=== PATIENT | female | born 1980 | race African-American/Black ===

== ENCOUNTER 2020-03-30 12:37 | Outpatient (CLI) | payer MEDICAID, SELFPAY ==
[2020-03-30 13:22] LABS: Hematocrit 37.2 % (37.0-47.0); Hemoglobin 11.9 g/dL (12.0-15.0); Mean Corpuscular Hemoglobin 26.1 pg (26-34); Mean Corpuscular Volume 81.6 fl (80-100); Mean Platelet Volume 9.1 fl (7.4-10.4); Platelet Count Result 329 k/mm3 (150-375); Red Blood Count 4.56 M/mm3 (4.2-5.4); Red Cell Distribution Width 13.9 % (11.5-14.5); White Blood Count 10.9 K/mm3 (4.5-10.0)
[2020-03-31 07:40] LABS: Rapid Plasma Reagin Non-Reactive (NonReactive)
== END 2020-03-30 12:38 | disposition home or self-care (01) ==
PROVIDERS: PCP Family Medicine; Visit Provider Obstetrics & Gynecology
DX: Z01.812 Encounter for preprocedural laboratory examination (principal)
CPT/HCPCS: 36415; 85027; 86592; 86850; 86900; 86901

== ENCOUNTER 2020-03-31 05:25 | Inpatient (IN) | payer MEDICAID, SELFPAY ==
--- NOTE | 2020-03-30 09:05 | HP_ITS ---
DATE OF SERVICE: Surgery is scheduled for March 31. HISTORY OF PRESENT ILLNESS: The patient is 39-year-old, G4, P2-0-1-2, at 38 weeks and 1 day gestation with history of 2 prior C-sections. She was coming in for repeat and bilateral tubal ligation. She is being delivered at 38 weeks due to chronic hypertension. She denies headaches or visual changes. She is feeling normal movement, occasional contractions. No vaginal bleeding and no leakage of fluid. MEDICAL HISTORY: Significant for chronic hypertension and obesity. MEDICATIONS: 1. Labetalol 200 mg twice a day. 2. vitamins. ALLERGIES: NO KNOWN DRUG ALLERGIES. SURGICAL HISTORY: Ovarian cystectomy and x2. OB HISTORY: One miscarriage. x2. SOCIAL HISTORY: Negative for tobacco, alcohol, or drugs. 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 REVIEW OF SYSTEMS: Negative. PHYSICAL EXAMINATION: VITAL SIGNS: Her weight is 276 pounds, blood pressure 143/87. GENERAL: No apparent distress. HEART: Regular rate and rhythm. LUNGS: Clear to auscultation. ABDOMEN: Gravid, soft, nontender, nondistended. EXTREMITIES: Nontender with trace edema. ASSESSMENT AND PLAN: 1. G4, P2-0-1-2 at 38 weeks and 1 day with history of 2 prior C-sections. Plan is to proceed with repeat . 2. status is reassuring. 3. Chronic hypertension. She is on medication and her dose has actually been reduced during her . She has no signs or symptoms of superimposed preeclampsia. Plan is to continue labetalol and observe closely. 4. Desires sterilization. She has had this discussed with her many times throughout her and she has expressed a continued desire for sterilization, so plan is for tubal ligation at the time of her . 5. Advanced maternal age. She did have normal NIPT showing a genetically normal fetus. D I MT: Oj
[2020-03-31] VITALS (70 sets, daily range): BP systolic 85–170; BP diastolic 48–124; PULSE 41–119; RESP 18; TEMP 36.2–37.3; O2SAT 91–100; BMI 47.7
[2020-03-31] MEDS: LACTATED RINGERS 1,000 ML 999 ML IV CONT (06:20)
--- NOTE | 2020-03-31 06:42 | LDADM ---
This patient, Imani Muhammad, was admitted to Labor/Delivery/Recovery 120 on 03/31/20 at 05:25. Plans for labor, pain management and were discussed with patient. Patient/family oriented to hospital policies and general routines including ID bracelet, bed and alarms, visiting hours, pain management, procedures, bathroom and other care routines, personal items, smoking policy, room service/diet and guest tray routines, infant security routines, and visiting hours. Patient/Family are encouraged to report perceived risks to care and to ask questions if they do not understand what they are told or what they should do. See OBIX for further documentation.
[2020-03-31] MEDS: LACTATED RINGERS 1,000 ML 125 ML IV CONT (07:15)
--- NOTE | 2020-03-31 07:35 | WPDHPUPDATE1 ---
History and Physical Update Update Date/Time: 03/31/20 07:35 History and Physical has been reviewed, including an updated exam of the patient. There are NO changes in the patient's condition. Risks, benefits, and alternatives have been discussed and questions answered. Patient agrees to proceed with procedure.
--- NOTE | 2020-03-31 07:38 | PM.OP ---
Procedure Note - Brief Procedure Note - Brief Date of procedure: 03/31/20 Pre-op diagnosis: Section Prior C/S and desires sterilization, chronic hypertension Post-op diagnosis: same Procedure performed: Repeat LTCS + BTL Anesthesia: spinal Surgeon: Velia Pereira MD Estimated blood loss (mL): 465 Drains: Yes (Ricks) Packing: No Pathology: yes Complications: No immediate complications Condition: stable Disposition: PACU Findings: Female infant, cephalic, nuchal cord X 1, Apgars 8/9, weight 6# 9oz; normal uterus, tubes, ovaries
[2020-03-31] MEDS: ceFAZolin 3 GM/D5W 100 ML 100 ML IVPB (07:40)
--- NOTE | 2020-03-31 09:53 | OP_ITS ---
DATE OF PROCEDURE: 03/31/2020 PREOPERATIVE DIAGNOSES: Intrauterine at 38 weeks and 1 day with history of 2 prior C-sections, chronic hypertension, and desires sterilization. POSTOPERATIVE DIAGNOSES: Intrauterine at 38 weeks and 1 day with history of 2 prior C-sections, chronic hypertension, and desires sterilization. PROCEDURE PERFORMED: Repeat low transverse section and bilateral tubal ligation. SURGEON: Velia Pereira M.D. ANESTHESIA: Spinal. ESTIMATED BLOOD LOSS: 465 mL. COMPLICATIONS: None. FINDINGS: Female , cephalic presentation. Apgars 8 and 9. Weight 6 pounds 9 ounces. Nuchal cord x1. Normal uterus, tubes, and ovaries. INDICATIONS: A 39-year-old, G4, P2-0-1-2, at 38 weeks and 1 day gestation has a history of 2 prior C-sections as well as chronic hypertension, so she had planned for repeat and planned to do it at 38 weeks based on her hypertension. She also had expressed a desire throughout her as well as a continued desire today for sterilization. DESCRIPTION OF PROCEDURE: For the procedure she was taken to the operating room where spinal was anesthesia was obtained and found to be adequate. She was prepared and draped in the normal sterile fashion in the dorsal supine position with a leftward tilt. A Pfannenstiel skin incision was made over her prior incision with a scalpel and extended to the underlying layer of fascia with the scalpel. The fascia was incised in the midline with the scalpel and extended laterally with the Henry scissors. The underlying rectus muscles were dissected off sharply. The peritoneum was then entered sharply and extended inferiorly and superiorly with good visualization of the bladder. The bladder blade was inserted. The vesicouterine peritoneum was tented up and entered sharply with the Metzenbaum scissors and the bladder flap was created sharply. The bladder blade was reinserted. The lower uterine segment was incised in a transverse fashion with the scalpel. The incision was digitally stretched in a cephalocaudal direction. The membranes were ruptured with clear fluid noted. The 's head was delivered atraumatically. Nuchal cord x1, which was loose, was reduced easily. Shoulders and body were delivered easily. The cord was clamped x2 and cut and the passed to the waiting nurse. Cord gas and cord blood were obtained. The placenta was manually extracted. Uterus was exteriorized and cleared of all clots and debris. The uterine incision was closed using 0 Vicryl in a running locked fashion. A second layer of the same suture was used for hemostasis and reinforcement. Attention was then turned to the right fallopian tube, which was grasped with a Idalia clamp. A defect was made in the mesosalpinx with the Bovie cautery. Two free ties of 0 plain gut were placed and the intervening segment of tube was excised and the end points were cauterized. Attention was turned to the left fallopian tube where the same procedure was then performed. The uterine incision was reinspected and bleeding points were controlled easily with 0 Vicryl [id number] sutures. Uterus was then returned to the abdomen. The gutters were cleared of all clots and debris. The uterine incision was reinspected and found to be hemostatic. The rectus muscles were inspected. Any bleeding points were cauterized. The fascia was then closed using 0 Vicryl in a running fashion. The subcutaneous tissue was irrigated. All bleeding points were cauterized and the skin was closed using Insorb absorbable dee. She tolerated the procedure well. Sponge, lap, needle, and instrument counts were correct x2 and she was taken to the recovery room in stable condition. D I
[2020-03-31] MEDS: LABETALOL HCL 100 MG TABLET 200 MG PO ×2 (10:24→20:37)
[2020-03-31] MEDS: OXYTOCIN 30 UNITS/NS 500 ML 30 UNITS/500 ML BAG 125 UNITS IV CONT (11:15)
[2020-03-31] MEDS: KETOROLAC 30 MG/ML VIAL (*BKC) IV PUSH (17:13)
[2020-03-31] MEDS: IBUPROFEN 600 MG TABLET PO (23:13)
[2020-04-01 05:00] VITALS: BP 137/79; PULSE 100; RESP 18; TEMP 36.6
[2020-04-01] MEDS: IBUPROFEN 600 MG TABLET PO ×3 (05:17→20:53)
[2020-04-01 05:26] LABS: Basophils Absolute Auto 0.1 K/mm3 (0.0-0.1); Basophils Percent Auto 0.3 % (0.2-1.2); Eosinophils Absolute Auto 0.3 K/mm3 (0-0.3); Eosinophils Percent Auto 1.8 % (0-4.4); Hematocrit 32.8 % (37.0-47.0); Hemoglobin 10.5 g/dL (12.0-15.0); Immature Granulocyte Absolute 0.09 K/mm3 (0.00-0.031); Immature Granulocyte Percent A 0.6 % (0-0.5); Lymphocytes Absolute Auto 2.35 K/mm3 (0.9-3.2); Lymphocytes Percent Auto 16.2 % (18.3-44.2); Mean Corpuscular Hemoglobin 26.5 pg (26-34); Mean Corpuscular Volume 82.8 fl (80-100); Mean Platelet Volume 9.2 fl (7.4-10.4); Monocytes Absolute Auto 1.1 K/mm3 (0.1-0.6); Monocytes Percent Auto 7.4 % (2.6-8.5); Neutrophils Absolute Auto 10.7 K/mm3 (1.3-6.7); Neutrophils Percent Auto 73.7 % (45.5-73.1); Platelet Count Result 268 k/mm3 (150-375); Red Blood Count 3.96 M/mm3 (4.2-5.4); Red Cell Distribution Width 13.5 % (11.5-14.5); White Blood Count 14.5 K/mm3 (4.5-10.0)
--- NOTE | 2020-04-01 07:36 | PM.OBPNVD ---
OB - PN: Subj Subjective Date/time seen: 04/01/20 07:36 Patient comments: no complaints, pain well controlled, incisional pain, tolerating diet, flatus present and other (Lochia similar to menses) baby status: doing well OB - PN: Obj Data Labs CBC & Chem 7: 04/01/20 04:55 Labs: Laboratory Results - last 24 hr 04/01/20 04:55 WBC 14.5 H RBC 3.96 L Hgb 10.5 L Hct 32.8 L MCV 82.8 MCH 26.5 MCHC 32.0 RDW 13.5 Plt Count 268 MPV 9.2 Immature Gran % (Auto) 0.6 H Neut % (Auto) 73.7 H Lymph % (Auto) 16.2 L [place] % (Auto) 7.4 Eos % (Auto) 1.8 Baso % (Auto) 0.3 Lymph # (Auto) 2.35 [place] # (Auto) 1.1 H Eos # (Auto) 0.3 Baso # (Auto) 0.1 Abs Immat Gran (auto) 0.09 H Absolute Neuts (auto) 10.7 H Absolute Nucleated RBC 0.0 Nucleated RBC % 0.0 OB - PN A/P Assessment and Plan (1) Hypertension affecting , delivered, current hospitalization: Code(s): O16.4 - Unspecified maternal hypertension, complicating childbirth Status: Acute Assessment and Plan: Continue labetalol 200 mg bid. Asymptomatic. BP normal since delivery Plan day: 1 (s/p C section, doing well) Plan: routine care Time Spent With Patient Time: Total time spent is greater than 50% in coordination of care (as documented) at patient's floor/unit and/or counseling patient: Exam Const: General: no acute distress Resp: Auscultation: clear to auscultation bilaterally Cardio: Rate: regular rate Rhythm: regular rhythm GI: Inspection: non-distended, incision (Intact without erythema, drainage, or induration) and other (Fundus firm and nontender at umbilicus) GI Palp: Yes abdominal tenderness (appropriate ) and Yes Soft to palpation Extrem: General: no edema
--- NOTE | 2020-04-01 07:39 | PM.OBDSVD ---
DS: Diagnosis Discharge Diagnosis (1) Hypertension affecting , delivered, current hospitalization: Code(s): O16.4 - Unspecified maternal hypertension, complicating childbirth Status: Acute Assessment and Plan: Chronic HTN, on labetalol. Dose was decreased during so continue 200 mg labetalol bid for now OB - DS: Summary OB Procedures : None OB Procedures Intrapartum: and Tubal ligation OB Procedures: : None Peripartum Data Infant Delivery Method: Section Procedures: Procedures Operation Date: 03/31/20 07:30 Actual Procedures Side Surgeon p Section Not Applicable Velia Pereira MD complications: none Status at Discharge Functional status at discharge: independent ambulation Overall status at discharge: patient is progressing back to baseline Time Spent with Patient Time attestation: Total time spent providing and/or coordinating discharge services: Time spent: Less than 30 minutes DS: Data Data Completed and Pending Pending studies at discharge: Pending at discharge 03/31/20 08:00 Surgical [PTH] Routine Surgical [PTH] Routine Labs on day of discharge: Labs from last 24 hours 04/01/20 04:55 WBC 14.5 H RBC 3.96 L Hgb 10.5 L Hct 32.8 L MCV 82.8 MCH 26.5 MCHC 32.0 RDW 13.5 Plt Count 268 MPV 9.2 Immature Gran % (Auto) 0.6 H Neut % (Auto) 73.7 H Lymph % (Auto) 16.2 L [place] % (Auto) 7.4 Eos % (Auto) 1.8 Baso % (Auto) 0.3 Lymph # (Auto) 2.35 [place] # (Auto) 1.1 H Eos # (Auto) 0.3 Baso # (Auto) 0.1 Abs Immat Gran (auto) 0.09 H Absolute Neuts (auto) 10.7 H Absolute Nucleated RBC 0.0 Nucleated RBC % 0.0 Discharge Plan Discharge Attending physician on discharge: Velia Pereira Discharging Clinician: Marisol Aponte Patient Disposition: Home, Self-Care Activity: may shower and pelvic rest Diet: regular Wound Care Instructions: incision open to air Discharge Instructions: Education: Mom and Baby Guide Given to: Mother Follow-Up: Call your delivering provider's office for an appointment to be seen in: 1 Weeks Mom and baby should come to the [facility] for the follow-up appointment. Appointment Date/Time: April 04, 2020 at 11:00 am What to expect at your follow-up visit: Blood Pressure Check Call [phone] if you are unable to keep your appointment time. BREAST CARE: 1. Wear a snug supportive bra. 2. For engorgement discomfort: Bottle Feeding: A. May apply ice packs ABDOMINAL INCISION: (if applicable) 1. Allow incision to air dry 2. Do NOT use lotions for powders on your incision 3. When showering, allow soap and water to run over the incision, but do not wash incision PERINEAL CARE: 1. Until bleeding stops, use your yusuf bottle after urinating 2. Change your pad frequently throughout the day 3. No tub baths until seen by your physician - You may shower ACTIVITY: 1. Rest as much as possible. 2. Do not exercise or lift anything heavier than your baby (such as laundry or other children.) 3. Avoid stairs or driving as much as possible. 4. Do not put anything into the vagina. No douching, tampons, or sexual activity until seen by physician NOTIFY PHYSICIAN IF YOU HAVE ANY QUESTIONS OR IF ANY OF THE FOLLOWING SYMPTOMS OCCUR: 1. If your incision becomes red, swollen, or more painful than what you have experienced in the hospital. 2. If your vaginal bleeding becomes foul smelling. 3. If your vaginal bleeding becomes more heavy than a period or if your bleeding changes from pink to bright red. However, you may pass an occasional walnut-sized clot once or twice for the first week . 4. If you experience a sharp, shooting pain in you calves. 5. If you discover a hard, reddened area on your breast or if you experience flu-like symptoms. 6. Call for temp 100.4 or greater DIET: 1. Eat
[2020-04-01 08:15] VITALS: BP 148/86; PULSE 101; RESP 18; TEMP 36.6; O2SAT 96
[2020-04-01] MEDS: DOCUSATE SODIUM 100 MG CAPSULE PO ×4 (09:00→18:42)
--- NOTE | 2020-04-01 10:05 | WPDANLDNPN2 ---
Anes-Prog Note L&D-Neuraxial Date/Time: 04/01/20 10:05 Neuraxial medications: intrathecal PF morphine Opiod-related complaints: none Patient feedback: Patient satisfied with post-operative pain management.
--- NOTE | 2020-04-01 10:05 | WPDANLDPN2 ---
Anes-Prog Note L&D Date/Time: 04/01/20 10:05 Comfortable throughout: section Neuraxial method: spinal Epidural/Spinal procedure site: clean & non-tender Neuro status: Neuro function grossly intact. Cardiovascular status: normal Respiratory status: normal Airway patency: baseline Mental status: baseline Post-Op hydration status: normal Vital Signs: Last Vital Signs Temp 36.6 C 04/01/20 08:15 Pulse 101 H 04/01/20 08:15 Resp 18 04/01/20 08:15 BP 148/86 H 04/01/20 08:15 Pulse Ox 96 04/01/20 08:15 I/O: Intake & Output 03/31/20 04/01/20 04/01/20 23:59 07:59 15:59 Intake Total 1600 Output Total 1750 Balance -150 Post-procedural complaints: none Patient feedback: Patient satisfied with anesthetic care.
[2020-04-01] MEDS: MULTIVIT/MIN/PREN/FOL AC/IRON TABLET 1 TAB PO (10:09)
[2020-04-01 10:10] VITALS: PULSE 70
[2020-04-01] MEDS: LABETALOL HCL 100 MG TABLET 200 MG PO ×2 (10:10→20:52)
[2020-04-01] MEDS: SIMETHICONE 80 MG TAB.CHEW PO ×3 (10:11→17:52)
[2020-04-01 19:15] VITALS: BP 135/76; PULSE 118; RESP 18; TEMP 36.6; O2SAT 98
[2020-04-01 20:52] VITALS: PULSE 112
[2020-04-01 20:55] VITALS: PULSE 112
[2020-04-02] MEDS: IBUPROFEN 600 MG TABLET PO ×3 (04:00→19:30)
[2020-04-02 08:00] VITALS: BP 155/81; PULSE 90; RESP 18; TEMP 37.1; O2SAT 100
--- NOTE | 2020-04-02 08:03 | PM.OBPNVD ---
OB - PN: Subj Subjective Date/time seen: 04/02/20 08:03 Patient comments: no complaints baby status: doing well OB - PN: Obj Data Labs CBC & Chem 7: 04/01/20 04:55 OB - PN A/P Plan day: 2 Plan: routine care Time Spent With Patient Time: Total time spent is greater than 50% in coordination of care (as documented) at patient's floor/unit and/or counseling patient: Review of Systems Review of Systems: All systems reviewed & are unremarkable except as noted in HPI and below Constitutional: Constitutional: Reports as per HPI Cardiovascular: Cardiovascular: Reports as per HPI Exam Const: General: comfortable Resp: Effort & Inspection: normal respiratory effort Psych: Appearance: grossly normal Affect: normal affect Attitude: cooperative Judgement: Good judgement present (Psych)
[2020-04-02] MEDS: DOCUSATE SODIUM 100 MG CAPSULE PO ×2 (09:03→16:25)
[2020-04-02] MEDS: SIMETHICONE 80 MG TAB.CHEW PO ×2 (09:03→16:25)
[2020-04-02 09:04] VITALS: PULSE 90
[2020-04-02] MEDS: LABETALOL HCL 100 MG TABLET 200 MG PO ×2 (09:04→21:15)
--- NOTE | 2020-04-02 16:52 | PC.NURSE ---
Patient was given the opportunity to view the discharge video Mother & Baby Care, The First Two Weeks and to ask questions. Patient declined viewing the video and has been given the mother/baby guide for home reference.
[2020-04-02 19:30] VITALS: BP 139/84; PULSE 109; RESP 16; TEMP 36.8; O2SAT 99
[2020-04-02 21:15] VITALS: BP 151/88; PULSE 106
[2020-04-03] MEDS: IBUPROFEN 600 MG TABLET PO ×2 (05:22→14:27)
--- NOTE | 2020-04-03 07:59 | PM.OBPNVD ---
OB - PN: Subj Subjective Date/time seen: 04/03/20 07:59 Patient comments: no complaints baby status: doing well OB - PN: Obj Data Labs CBC & Chem 7: 04/01/20 04:55 OB - PN A/P Plan day: 3 Plan: discharge home Comments: CHTN, labetalol BID f/u one week BP check Time Spent With Patient Time: Total time spent is greater than 50% in coordination of care (as documented) at patient's floor/unit and/or counseling patient: Review of Systems Review of Systems: All systems reviewed & are unremarkable except as noted in HPI and below Constitutional: Constitutional: Reports as per HPI Cardiovascular: Cardiovascular: Reports as per HPI Exam Const: General: comfortable Resp: Effort & Inspection: normal respiratory effort Psych: Appearance: grossly normal Affect: normal affect Attitude: cooperative Judgement: Good judgement present (Psych)
--- NOTE | 2020-04-03 09:00 | PC.NURSE ---
PT introductions made and plan of care discussed per post op c section, pain management, bottle feeding, daily care activities and pending discharge to home. PT verbalized understanding of such care.
[2020-04-03 09:50] VITALS: PULSE 86
[2020-04-03] MEDS: LABETALOL HCL 100 MG TABLET 200 MG PO (09:50)
[2020-04-03 09:51] VITALS: BP 145/89; PULSE 99; RESP 18; TEMP 36.8; O2SAT 100; O2SAT 99
[2020-04-03] MEDS: DOCUSATE SODIUM 100 MG CAPSULE PO (09:51)
[2020-04-03] MEDS: SIMETHICONE 80 MG TAB.CHEW PO ×2 (09:51→14:27)
--- NOTE | 2020-04-03 14:00 | PC.NURSE ---
Pt received discharge instructions per protocol and verbalized understanding of such care.
--- NOTE | 2020-04-03 14:43 | PC.NURSE ---
PT discharged to home ambulatory accompanied by both spouse and infant to waiting car. follow up appts confirmed
[2020-04-04 11:16] VITALS: BP 137/75; PULSE 92; RESP 20
== END 2020-04-03 14:43 | disposition home or self-care (01) | DRG 540 ==
LOC: ANHLDR 05:35 → ANHOB2 11:22
PROVIDERS: Admitting Provider Obstetrics & Gynecology; PCP Family Medicine; Visit Provider Obstetrics & Gynecology
PROC: 10D00Z1 Extraction of Products of Conception, Low, Open Approach (ICD-10-PCS; CPT 59514; principal; 2020-03-31 07:30)
DX: O34.211 Maternal care for low transverse scar from previous cesarean delivery (principal); Z37.0 Single live birth; Z3A.38 38 weeks gestation of pregnancy; O10.92 Unspecified pre-existing hypertension complicating childbirth; Z30.2 Encounter for sterilization; O99.824 Streptococcus B carrier state complicating childbirth
CPT/HCPCS: 36415; 85025; 88302; 88307; A9270; J0131; J0690; J1200; J1885; J2274; J2370; J2405; J2590; J3010; J7120

== ENCOUNTER 2021-05-05 17:44 | Emergency (ER) | payer OTHER, SELFPAY ==
--- NOTE | 2021-05-05 17:49 | ED.FEMALEGU ---
HPI - Female Genitourinary General Chief complaint: Urogenital-Female Stated complaint: UTI Time Seen by Provider: 05/05/21 17:55 Source: patient and RN notes reviewed Mode of arrival: ambulatory Limitations: no limitations History of Present Illness HPI Narrative: 40-year-old female presents concern for urinary tract infection. Reports 2-day history of slow urine stream, dysuria, dark-colored urine. She denies nausea, vomiting, fever, flank pain, back pain, abdominal pain, abnormal vaginal discharge. Reports history of urinary tract infections. MD elicited complaint: UTI Related Data Home Medications Medication Instructions Recorded Confirmed labetalol 200 mg PO Q12H 03/14/20 05/05/21 Allergies Allergy/AdvReac Type Severity Reaction Status Date / Time levofloxacin [From Levaquin] Allergy Rash Verified 05/05/21 18:04 Review of Systems Review of Systems: Narrative: CONSTITUTIONAL: Denies malaise, chills, sweats, or fever. CARDIOVASCULAR: Denies chest pain, palpitations, or edema. RESPIRATORY: Denies cough or dyspnea. GASTROINTESTINAL: Denies abdominal pain, nausea, vomiting, diarrhea GENITOURINARY: Reports dysuria, slow urine stream, dark-colored urine, frequency. Denies urgency or hematuria. SKIN: Denies rash or itching. MUSCULOSKELETAL: Denies back pain or myalgia. All systems reviewed & are unremarkable except as noted in HPI and below PMFSH Family History Family History (Updated 03/14/20 @ 11:47 by Duran Infante RN) Other No pertinent family history Social History Social History Smoking status: Never smoker Second hand tobacco smoke exposure: No Substance use: never Gender identity (if verbalized by the patient): Female Spiritual care concerns: No Comments At time of signature, agree with nursing past medical, surgical, social and family history. There is no relevant family history pertinent to the presenting complaint Exam Narrative: Exam Narrative: GENERAL: Well-appearing, well-nourished, and in no acute distress. HEAD: Normocephalic. EYES: PERRLA, conjunctivae clear. NECK: Supple. No lymphadenopathy CHEST: Clear to auscultation. No respiratory distress. HEART: Regular rate and rhythm. ABDOMEN: Soft, nontender upon palpation, nondistended, normal active bowel sounds, no palpable or pulsatile masses, no guarding. No CVA tenderness SKIN: Warm, dry, no rash. NEURO: Alert and oriented x3. PSYCH: Normal mood and affect Course Course Emergency Course: Patient is aware of diagnosis, understands and agrees to treatment plan. Anticipatory guidance given. Patient agrees to follow-up as directed and is aware of reasons to seek care at the emergency department. Portions of this record may have been created with voice recognition software Vital Signs Vital signs: Reviewed. Patient has history of hypertension MDM - Female Genitourinary MDM Narrative Medical decision making narrative: Exam findings and UA show no acute concerns or changes; patient is non-toxic appearing and is in no distress. Patient is appropriate for outpatient treatment and follow-up. Critical Care Time Critical Care Time Critical Care Time: No Discharge Plan Discharge Patient Disposition: Home, Self-Care Condition: Stable Instructions: Antibiotic Form, Urinary Tract Infection in Women (ED) Additional Instructions: We will send a urine culture to the lab; if the culture identifies an organism that the prescribed antibiotic will not treat, you will receive a phone call from an urgent care staff member and an appropriate antibiotic will be prescribed. -Your symptoms should begin to improve within a day of starting antibiotics. But you should finish all the antibiotic pills you get. Otherwise your infection might come back. -Also recommend: increase water intake. Tylenol/ibuprofen as needed for pain or fever -Follow-up with your primary care provider for urine recheck or seek ER visit if condition worsens wi
[2021-05-05 17:53] VITALS: BP 147/81; PULSE 86; RESP 16; TEMP 36.9; O2SAT 100
== END 2021-05-05 18:07 | disposition home or self-care (01) ==
PROVIDERS: Emergency Provider Nurse Practitioner; PCP Family Medicine
DX: R30.0 Dysuria (principal); R11.2 Nausea with vomiting, unspecified; R10.9 Unspecified abdominal pain; N89.8 Other specified noninflammatory disorders of vagina; I10 Essential (primary) hypertension
CPT/HCPCS: 81003; 87086; 87088; 99213; G0463

== ENCOUNTER 2021-06-28 08:20 | Outpatient (CLI) | payer OTHER, SELFPAY ==
--- NOTE | ~2021-06-28 | MM_ITS ---
EXAMINATION: MM screening valer[facility] BI w michael HISTORY: Screening TECHNIQUE: Craniocaudal and mediolateral oblique 3-D tomosynthesis images were obtained and synthetic 2-D images were generated. CAD analysis was submitted and interpreted. COMPARISON: No prior mammogram is available for comparison at this institution. BREAST PARENCHYMAL COMPOSITION: There are scattered areas of fibroglandular density. FINDINGS: There is no evidence of suspicious mass, calcification, or architectural distortion to sugg est malignancy in either breast. There has been no suspicious interval change. IMPRESSION: 1. No mammographic evidence of malignancy. 2. Recommend routine screening mammography in one year. BI-RADS Category 1: Negative Reviewed, dictated and finalized at location A.
== END 2021-06-28 08:21 | disposition home or self-care (01) ==
LOC: ANHIMG 08:23
PROVIDERS: PCP Family Medicine; Visit Provider Advanced Practice Midwife
DX: Z12.31 Encounter for screening mammogram for malignant neoplasm of breast (principal)
CPT/HCPCS: 77063; 77067

== ENCOUNTER 2022-10-04 08:22 | Outpatient (CLI) | payer OTHER, SELFPAY ==
--- NOTE | ~2022-10-04 | MM_ITS ---
EXAMINATION: MM screening valreiano BI w michael HISTORY: Screening TECHNIQUE: Craniocaudal and mediolateral oblique 3-D tomosynthesis images were obtained and synthetic 2-D images were generated. CAD analysis was submitted and interpreted. COMPARISON: 06/28/2021 BREAST PARENCHYMAL COMPOSITION: Breast composed of scattered areas of fibroglandular density FINDINGS: There is no evidence of suspicious mass, calcification, or architectural distortion to sugg est malignancy in either breast. There has been no suspicious interval change. IMPRESSION: 1. No mammographic evidence of malignancy. 2. Recommend routine screening mammography in one year. BI-RADS Category 1: Negative Reviewed, dictated and finalized at location A. 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
== END 2022-10-04 08:23 | disposition home or self-care (01) ==
PROVIDERS: PCP Family Medicine; Visit Provider Nurse Practitioner
DX: Z12.31 Encounter for screening mammogram for malignant neoplasm of breast (principal)
CPT/HCPCS: 77063; 77067

== ENCOUNTER 2023-04-23 17:57 | Emergency (ER) | payer OTHER, SELFPAY ==
--- NOTE | 2023-04-23 18:04 | ED.URI ---
HPI - URI/Sore Throat General Chief Complaint: Upper Respiratory Infection Stated Complaint: Fever, cough, congestion Time Seen by Provider: 04/23/23 18:08 Source: patient, RN notes reviewed and old records reviewed Mode of arrival: ambulatory Limitations: no limitations History of Present Illness HPI Narrative: 42-year-old female with a history of hypertension presents to the [facility] with complaints of cough, nasal congestion, chest congestion, fever Saturday night. States that her daughter works at a daycare and thinks she may have picked something up there. Denies any chest pain, nausea, vomiting. Has taken Coricidin HBP Related Data Home Medications Medication Instructions Recorded Confirmed amlodipine 5 mg tablet 5 mg DIRECTED 04/23/23 04/23/23 Allergies Allergy/AdvReac Type Severity Reaction Status Date / Time levofloxacin [From Levaquin] Allergy Rash Verified 05/05/21 18:04 Review of Systems Review of Systems: All systems reviewed & are unremarkable except as noted in HPI and below Constitutional: Constitutional: Reports as per HPI, Reports fever(s) and Reports lethargy Eyes: Eyes: Reports no additional eye complaints ENT: Reports system reviewed and no additional complaints, except as documented Cardiovascular: Cardiovascular: Reports no additional cardiovascular complaints, Denies chest pain and Denies dyspnea Respiratory: Respiratory: Reports as per HPI, Reports chest congestion, Denies cough and Denies dyspnea Gastrointestinal: Gastrointestinal: Reports no additional gastrointestinal complaints, Denies abdominal pain, Denies nausea and Denies vomiting Musculoskeletal: Musculoskeletal: Reports no additional musculoskeletal complaints Integumentary/Breasts: Skin/Breast: Reports system reviewed and no additional complaints, except as docu Neurologic: Reports system reviewed and no additional complaints, except as documented Psychiatric: Psychiatric: Reports no additional psychiatric complaints Allergic/Immunologic: Allergic/Immunologic: Reports no additional allergic/immunologic complaints [facility] Past Medical History Medical History (Updated 04/23/23 @ 20:00 by Jesusita Bedolla APRN) Hypertension Family History Family History Other No pertinent family history Social History Social History Smoking status: Never smoker Second hand tobacco smoke exposure: No Substance use: never Gender identity (if verbalized by the patient): Female Spiritual care concerns: No Comments At the time of my signature, I reviewed and agree with the nursing past medical, surgical, social, and family history. There is no relevant family history pertinent to the patient complaint. Exam Const: General: cooperative, healthy appearing, comfortable, no acute distress, well developed, alert and well nourished Nutritional Appearance: well nourished and obese Orientation/consciousness: patient oriented x3 Limitations: no limitations HENMT: Head: normal to inspection Ears: hearing grossly normal bilaterally, external ears normal, TM's normal bilaterally and EAC's normal Face/Nose/Sinus: Normal external nose present, Normal nares present, Normal nasal mucous membranes and turbinates present and normal facial exam Face and sinus: normal facial exam Mouth: Yes Normal oral and palatal mucosa present, Yes lip normal and Yes moist mucous membranes Throat: posterior oropharynx normal, tonsils normal and uvula midline Eyes: General: appearance normal, both eyes and all related structures Alignment and Position: alignment normal Periorbital: periorbital findings normal Pupils: Equal, round and reactive pupils present EOM: EOMs intact bilaterally Neck: Neck: normal visual inspection, full ROM, no lymphadenopathy and no meningeal signs Chest: Chest palpation & inspection: normal inspection of the chest
[2023-04-23 18:07] VITALS: BP 148/106; PULSE 112; RESP 16; TEMP 37.6; O2SAT 98
== END 2023-04-23 18:30 | disposition home or self-care (01) ==
PROVIDERS: Emergency Provider Nurse Practitioner; PCP Physician Assistant
DX: U07.1 COVID-19 (principal); I10 Essential (primary) hypertension
CPT/HCPCS: 87426; 87804; 99213; C9803; G0463

== ENCOUNTER 2023-09-25 15:37 | Outpatient (CLI) | payer OTHER, SELFPAY ==
--- NOTE | ~2023-09-25 | XR_ITS ---
EXAMINATION: XR chest 2V DATE: 09/25/2023 15:52 INDICATION: Cough. TECHNIQUE: Frontal and lateral views of the chest were obtained. COMPARISON: Chest 2 views 02/10/2019 FINDINGS: There is no pneumonia, pleural effusion, or pneumothorax. The heart size is normal. IMPRESSION: 1. No acute cardiopulmonary disease. Reviewed, dictated and finalized at location [facility]
== END 2023-09-25 15:38 | disposition home or self-care (01) ==
PROVIDERS: PCP Physician Assistant; Visit Provider Physician Assistant
DX: R05.9 Cough, unspecified (principal)
CPT/HCPCS: 71046

== ENCOUNTER 2023-10-17 08:19 | Outpatient (CLI) | payer OTHER, SELFPAY ==
--- NOTE | ~2023-10-17 | MM_ITS ---
EXAMINATION: MM screening valeriano BI w michael HISTORY: Screening mammogram TECHNIQUE: Craniocaudal and mediolateral oblique 3-D tomosynthesis images were obtained and synthetic 2-D images were generated. CAD analysis was submitted and interpreted. COMPARISON: No prior mammogram is available for comparison at this institution. BREAST PARENCHYMAL COMPOSITION: There are scattered areas of fibroglandular density. FINDINGS: There is no evidence of suspicious mass, calcification, or architectural distortion to sugg est malignancy in either breast. There has been no suspicious interval change. IMPRESSION: 1. No mammographic evidence of malignancy. 2. Recommend routine screening mammography in one year. BI-RADS Category 1: Negative Reviewed, dictated and finalized at location [facility]
== END 2023-10-17 08:20 | disposition home or self-care (01) ==
LOC: ANHIMG 08:21
PROVIDERS: PCP Physician Assistant; Visit Provider Nurse Practitioner
DX: Z12.31 Encounter for screening mammogram for malignant neoplasm of breast (principal)
CPT/HCPCS: 77063; 77067

== ENCOUNTER 2024-08-28 08:13 | Outpatient (CLI) | payer OTHER, SELFPAY ==
[2024-08-28 08:47] LABS: Hematocrit 44.2 % (37.0-47.0); Hemoglobin 13.4 g/dL (12.0-15.0)
== END 2024-08-28 08:14 | disposition home or self-care (01) ==
LOC: ANHSURGERY 08:17
PROVIDERS: Anesthesiology; PCP Physician Assistant; Visit Provider Obstetrics & Gynecology
DX: D64.9 Anemia, unspecified (principal)
CPT/HCPCS: 36415; 85014; 85018

== ENCOUNTER 2024-09-02 02:14 | Day surgery (SDC) | payer OTHER, SELFPAY ==
[2024-08-20 14:37] VITALS: BMI 40.3
--- NOTE | 2024-08-20 14:45 | SUR.PREOP ---
Report to the Outpatient Waiting Room, entrance under the green pavilion located off [facility], at time 6:00 a.m. on date 09/02/2024. Planned Procedure Time: 7:30 am.? Time changes happen often and if your time is changed the preop area will call you the afternoon before. - You and your visitor will be asked to self-screen and do not enter if you have any COVID symptoms. Please call surgeon if you need to reschedule. - A mask is optional within the hospital at this time. Patients may have clear liquids (water, carbonated beverages, clear teas, apple juice) until 3 hours prior to surgery with a maximum of 20 ounces. - No food from midnight until time of surgery and no smoking - Infants may have breast milk until 4 hours before surgery, infant formula 6 hours prior to surgery. - Children will be allowed to drink immediately following surgery.? If applicable, please bring a bottle or sippy cup to assist with drinking. Juice, water, soda, and popsicles are readily available.? For infants on formula, please bring formula the day of surgery.? Pacifiers are allowed. Take only the following medications with a SIP of water on the morning of surgery: amlodipine DO NOT STOP ANY OF YOUR OTHER PRESCRIPTION MEDICATIONS PRIOR TO SURGERY EXCEPT THE FOLLOWING Medications to discontinue per physician Iron supplement Date to take last dose 08/30/2024 Please no make-up, nail azerbaijani, hairspray, perfume, deodorant, or body powder the day of surgery.? No jewelry (including any body piercings) or valuables the day of surgery, leave them at home.? Please take a shower or bath the night before, or the morning of, surgery with an antibacterial soap.? Wear comfortable, loose fitting clothing.? Children are encouraged to wear pajamas. - Jewelry must be removed prior to entering the operating room.? Rings and piercings that are not removed may be cut off. - The hospital will not accept responsibility for valuables.? - Please leave all valuables, including medications, at home the day of surgery. If you are going home after surgery, a licensed tow car driver must drive you home.? - NO public transportation without another adult if you receive anesthesia. - We recommend that an adult stay with you for 24 hours following discharge. - We also recommend that you do not drive, make important decision, drink alcoholic beverages, or take any drugs that were not prescribed by your health care provider for at least 24 hours after your discharge time. For Pediatric surgeries, we recommend two adults accompany the child home. Follow any additional instructions given to you from your surgeon. Telephone instructions given to Imani Camp and asked if any additional questions and then verbalized understanding. Patient advised to call surgeon office or pre surgery nurse liaison [phone] if any additional questions.
--- NOTE | 2024-09-01 17:44 | P.PNAN_ITS ---
Anes - Eval Pre Procedure Procedure: Operation Date: 09/02/24 07:30 Proposed Procedures p Hysteroscopy Dilation and Curettage with Nichole Endometrial Ablation - Moreno Butler MD Date/Time: 09/01/24 17:44 Pre Op Diagnosis: menorrhagia Patient Data Age: 43 Gender: F Height: 1.63 m Weight: 106.59 kg Allergies Allergy/AdvReac Type Severity Reaction Status Date / Time levofloxacin [From Levaquin] Allergy Rash Verified 08/20/24 14:32 Home Medications Medication Instructions Recorded Confirmed Type amlodipine 5 mg tablet 5 mg PO DIRECTED 04/23/23 08/20/24 History Vitamin D3 2,000 units PO DAILY 08/20/24 08/20/24 History atorvastatin 20 mg tablet 20 mg PO DAILY 08/20/24 08/20/24 History cetirizine 10 mg tablet (Zyrtec) 10 mg PO DAILY PRN allergies 08/20/24 08/20/24 History ferrous sulfate 325 mg (65 mg 325 mg PO EVERY OTHER DAY 08/20/24 08/20/24 History iron) tablet (FeroSul) Patient hx anesthesia problems: none Family hx anesthesia problems: none Results Review: All pre-operative results and documents have been reviewed as part of the pre- operative evaluation. [facility] Past Medical History Medical History (Updated 09/01/24 @ 17:45 by Hugh Bourgeois Jr., CRNA) Hyperlipidemia Hypertension Morbid obesity Seasonal allergies Family History Family History Other No pertinent family history Social History Social History Smoking status: Never smoker Second hand tobacco smoke exposure: No Substance use: never Living arrangements: with family Gender identity (if verbalized by the patient): Female Spiritual care concerns: No Exam Day of Procedure 09/01/24 17:44 Patient weight: morbidly obese
[2024-09-02 06:15] VITALS: BP 137/80; PULSE 88; RESP 18; TEMP 36.3; O2SAT 99; BMI 40.3
--- NOTE | 2024-09-02 06:34 | P.PNAN_ITS ---
Anes - Initial Pre Proc Eval Procedure: Operation Date: 09/02/24 07:30 Proposed Procedures p Hysteroscopy Dilation and Curettage with Nichole Endometrial Ablation - Moreno Butler MD Date/Time: 09/02/24 06:34 Surgeon: Moreno Butler MD Pre Op Diagnosis: menorrhagia Patient Data Age: 43 Gender: F Height: 1.63 m Weight: 106.59 kg Allergies Allergy/AdvReac Type Severity Reaction Status Date / Time levofloxacin [From Levaquin] Allergy Rash Verified 08/20/24 14:32 Home Medications Medication Instructions Recorded Confirmed Type amlodipine 5 mg tablet 5 mg PO DIRECTED 04/23/23 08/20/24 History Vitamin D3 2,000 units PO DAILY 08/20/24 08/20/24 History atorvastatin 20 mg tablet 20 mg PO DAILY 08/20/24 08/20/24 History cetirizine 10 mg tablet (Zyrtec) 10 mg PO DAILY PRN allergies 08/20/24 08/20/24 History ferrous sulfate 325 mg (65 mg 325 mg PO EVERY OTHER DAY 08/20/24 08/20/24 History iron) tablet (FeroSul) Patient hx anesthesia problems: none Family hx anesthesia problems: none Results Review: All pre-operative results and documents have been reviewed as part of the pre- operative evaluation. [facility] Past Medical History Medical History Hyperlipidemia Hypertension Morbid obesity Seasonal allergies Surgical History Surgical History (Updated 09/02/24 @ 06:35 by Lenin Gordon MD) History of section Hx of tonsillectomy Family History Family History Other No pertinent family history Social History Social History Smoking status: Never smoker Second hand tobacco smoke exposure: No Substance use: never Living arrangements: with family Gender identity (if verbalized by the patient): Female Spiritual care concerns: No Anes - Eval Final PreProcedure Day of Procedure 09/02/24 06:34 Patient weight: morbidly obese Heart: regular rate and rhythm Lungs: clear to auscultation Airway: Mallampati scale class 1 Neurological: alert and oriented Last oral intake: >/= 8 hours ASA classification: III Emergent: no Anesthetic plan: proceed Anesthesia type and monitoring: general GIVS and standard monitoring Results Review: All pre-operative results and documents have been reviewed as part of the pre- operative evaluation. Informed Consent: The patient's anesthetic plan and its attendant risks and benefits were discussed with the patient/family/POA. Questions were solicited and answers provided to the satisfaction of the patient/family/POA.
[2024-09-02] MEDS: LACTATED RINGERS 1,000 ML 30 ML IV CONT (06:50)
[2024-09-02] MEDS: ACETAMINOPHEN 500 MG TABLET 1000 MG PO (06:57)
[2024-09-02 07:16] LABS: BEDSIDEPREGUCG Negative (Negative)
--- NOTE | 2024-09-02 07:18 | WPDHPUPDATE1 ---
History and Physical Update Update Date/Time: 09/02/24 07:18 History and Physical has been reviewed, including an updated exam of the patient. There are NO changes in the patient's condition. Risks, benefits, and alternatives have been discussed and questions answered. Patient agrees to proceed with procedure.
[2024-09-02] MEDS: LIDOCAINE HCL 2% PF INJ 5 ML VIAL 10 ML INFILTRATE (07:40)
[2024-09-02 07:53] VITALS: BP 113/75; PULSE 91; RESP 14; O2SAT 93
--- NOTE | 2024-09-02 08:12 | W.PM.PROC2 ---
Procedure Note - Detailed Date of Procedure 09/02/24 Pre-op Diagnosis menorrhagia Post-op Diagnosis Same Procedure Performed endometrial ablation with hysteroscopy d&c Surgeon Moreno Butler MD Anesthesia MAC Indications Severe menorrhagia Findings Normal vulva vagina and cervix. Normal endometrium. Description of Procedure The patient was taken to the operating room. She was prepped and draped in the dorsal lithotomy position after induction of mac anesthesia. A speculum was placed in the vagina. Cervix grasped with a tenaculum. The cervix was dilated to about 1 cm. The hysteroscope was inserted. The above findings were noted. Endometrial curettage was performed with a medium-size curette. All surfaces of the endometrium were affected by the curettage. The specimens were collected and sent to pathology. Measurements were taken of the uterus and cervix. The uterine length was then entered into the hand piece of the Nichole device. The device was inserted into the intrauterine cavity. The array of the device was expanded. The balloon cuff was inflated. A good seal was achieved. The energy and safety cycles were initiated and completed. The array was collapsed and the instrument was withdrawn after deflating the balloon cuff. Hysteroscope was reinserted. Above findings were noted. The hysteroscope was removed. The patient tolerated the procedure well. The speculum and tenaculum were removed. She was taken to recovery in stable condition. Sponge lap and needle counts were correct x2. Estimated Blood Loss 15 Pathology Yes Complications No immediate complications Condition Stable Disposition Same day
[2024-09-02 08:25] VITALS: BP 108/71; PULSE 83; RESP 16
[2024-09-02 08:55] VITALS: BP 126/82; PULSE 64; RESP 16
== END 2024-09-02 09:16 | disposition home or self-care (01) ==
PROVIDERS: PCP Physician Assistant; Visit Provider Obstetrics & Gynecology
PROC: 0U5B8ZZ Destruction of Endometrium, Via Natural or Artificial Opening Endoscopic (ICD-10-PCS; CPT 58563; principal; 2024-09-02 07:30)
DX: N92.0 Excessive and frequent menstruation with regular cycle (principal); I10 Essential (primary) hypertension; E78.5 Hyperlipidemia, unspecified; E66.01 Morbid (severe) obesity due to excess calories; Z68.41 Body mass index [BMI] 40.0-44.9, adult; Z98.890 Other specified postprocedural states; Z98.51 Tubal ligation status
CPT/HCPCS: 58563; 88305; A9270; J2003; J2250; J2704; J3010; J7120

== ENCOUNTER 2024-11-07 18:01 | Emergency (ER) | payer OTHER, SELFPAY ==
--- NOTE | ~2024-11-07 | XR_ITS ---
XR chest 2V DATE: 11/07/2024 18:30 INDICATION: Chest pain for 3 days TECHNIQUE: PA and lateral views COMPARISON: 09/25/2023 PA and lateral chest FINDINGS: Normal heart size. No hilar or mediastinal enlargement. Mild right diaphragmatic elevation. No pulmonary infiltrate or consolidation, pleural effusion or pulmonary vascular congestion or pneumo thorax is detected. Included skeletal structures are unremarkable. IMPRESSION: No active cardiopulmonary disease Reviewed, dictated and finalized at location A. [facility]
--- NOTE | ~2024-11-07 | CT_ITS ---
EXAMINATION: CT chest abdomen pelvis w con DATE: 11/07/2024 19:21 INDICATION: Chest pain, back pain, epigastric pain TECHNIQUE: Computed tomography (CT) of the chest, abdomen, and pelvis was performed with 100 CC Omnip aque 350 intravenous contrast. Automated exposure control and iterative reconstruction technique were employed. Exam dose: 1547.56 mGy-cm total exam DLP. COMPARISON: None FINDINGS: CHEST CT: No pulmonary infiltrate or consolidation or pulmonary mass density. 2.6 x 3.1 cm soft tissue mass in the lower pole of the left lobe of the thyroid gland. There is a con tiguous 1.6 cm isthmic nodule. Consider nonemergency thyroid ultrasound workup. No hilar or mediastinal mass lesion or lymphadenopathy. No thoracic aortic aneurysm or dissection. Heart size is within normal range. No pericardial or pleural effusion. ABDOMEN/PELVIS CT: The liver, gallbladder, bile ducts, pancreas, pancreatic duct, spleen, adrenal glands and kidneys are unremarkable. No urinary tract calculus or hydroureteronephrosis. The urinary bladder, uterus and ad nexal areas are unremarkable. Normal caliber of the abdominal aorta. No intraperitoneal or retroperitoneal or pelvic mass lesion or adenopathy or ascites. No bowel obstruction or intraperitoneal free air. No suspicious osteolytic or osteoblastic lesions. IMPRESSION: Thyroid masses; consider nonemergency thyroid ultrasound workup No other significant abnormality Reviewed, dictated and finalized at [facility]. Reviewed, dictated and finalized at location [facility]. RATORY PHLEBOTOMIST
[2024-11-07 18:05] VITALS: BP 146/91; PULSE 93; RESP 18; TEMP 36.2; O2SAT 100
--- NOTE | 2024-11-07 18:10 | ECG_ITS ---
Test Date: 2024-11-07 18:13:42 Measurements Intervals [place] Rate: 86 P: 52 MT: 160 QRS: 15 QRSD: 90 T: 27 QT: 338 QTc: 406 Interpretive Statements SINUS RHYTHM NONSPECIFIC T-WAVE ABNORMALITY No previous ECG available for comparison Electronically Signed On 11-07-2024 21:07:21 SCRAP HANDLER by Faby Valenzuela M.D.
--- NOTE | 2024-11-07 18:17 | ED_ITS ---
HPI - Back Pain/Injury General Chief Complaint: Back Pain/Injury Stated Complaint: upper back/ chest pain Time Seen by Provider: 11/07/24 18:10 Source: patient Mode of arrival: ambulatory Limitations: no limitations History of Present Illness HPI Narrative: This is a 44-year-old female that presents to the emergency department for back pain and chest pain. Ongoing over the last couple of days. Reports the pain is burning and pressure-like. Worse after eating. Also worse with deep breathing. Denies fevers, vomiting, or diarrhea. Related Data Home Medications ?Medication ?Instructions ?Recorded ?Confirmed ?Last Taken ?Type amlodipine 5 mg tablet 5 mg PO DIRECTED 04/23/23 08/20/24 Unknown History Vitamin D3 2,000 units PO DAILY 08/20/24 08/20/24 Unknown History atorvastatin 20 mg tablet 20 mg PO DAILY 08/20/24 08/20/24 Unknown History cetirizine 10 mg tablet (Zyrtec) 10 mg PO DAILY PRN allergies 08/20/24 08/20/24 Unknown History ferrous sulfate 325 mg (65 mg 325 mg PO EVERY OTHER DAY 08/20/24 09/02/24 08/30/24 History iron) tablet (FeroSul) Allergies Allergy/AdvReac Type Severity Reaction Status Date / Time levofloxacin (From Levaquin) Allergy Rash Verified 09/02/24 06:58 Review of Systems 2 Review of Systems: CONSTITUTIONAL: Denies fever CARDIOVASCULAR: Reports chest pain. Denies edema. RESPIRATORY: Denies dyspnea. GASTROINTESTINAL: Reports abdominal pain. Denies nausea, vomiting, or diarrhea. All systems reviewed & are unremarkable except as noted in HPI and below PMFSH Past Medical History Medical History (Updated 11/07/24 @ 22:27 by Radha Aldridge PA-C) Hyperlipidemia Seasonal allergies Morbid obesity Hypertension Surgical History Surgical History (Updated 09/02/24 @ 06:35 by Lenin Gordon MD) History of section Hx of tonsillectomy Family History Family History Other No pertinent family history Social History Social History Smoking status: Never smoker Second hand tobacco smoke exposure: No Substance use: never Living arrangements: with family Gender identity (if verbalized by the patient): Female Spiritual care concerns: No Exam 2 Narrative: GENERAL: Well-appearing, well-nourished, and in no acute distress. HEAD: Normocephalic, atraumatic. EYES: EOMI. ENT: Nares clear, no rhinorrhea or epistaxis. Mucous membranes moist. Oropharynx without tonsillar hypertrophy exudate or other lesions. CHEST: Clear to auscultation. No respiratory distress. No wheezes rales or rhonchi HEART: Regular rate and rhythm. No murmur heard. Normal peripheral pulses. ABDOMEN: Soft, nondistended, normal active bowel sounds. Mild tenderness to palpation in the right upper quadrant without guarding EXTREMITIES: Normal range of motion. No edema. SKIN: Warm, dry, no rash. NEURO: No focal deficits. Alert and oriented x3. PSYCH: Normal mood and affect Course Course Emergency Course: patient updated on her workup and agrees with plan of care Vital Signs Vital signs: Vital Signs Temperature 97.2 F L 11/07/24 18:05 Pulse Rate 93 11/07/24 18:05 Respiratory Rate 18 11/07/24 18:05 Blood Pressure 146/91 H 11/07/24 18:05 Pulse Oximetry 100 11/07/24 18:05 Oxygen Delivery Room Air 11/07/24 18:05 Temperature 97.2 F L 11/07/24 18:05 Pulse Rate 85 11/07/24 20:36 Respiratory Rate 17 11/07/24 20:36 Blood Pressure 107/61 11/07/24 20:36 Pulse Oximetry 100 11/07/24 20:36 Oxygen Delivery Room Air 11/07/24 18:05 MDM - Back Pain/Injury MDM Narrative Medical decision making narrative: Patient presents to the emergency department for back pain radiating into her chest. She is afebrile and nontoxic appearing. Her vitals are stable. Oxygen saturation is normal on room air. Lungs are clear on exam. CBC and metabolic panel without concerning findings. Lipase is normal. EKG without concerning changes and baseline and 3 hour troponin are negative. D-dimer is not elevated. CT chest/abdomen/ pelvis obtained for further evaluation. Shows thyroid masses, otherwise unremarkable. Patient updated on her workup and agrees with plan of care. She is to have further follow-up with her primary provider. She was given warnings to return to the ER Differential Diagnosis Differential diagnosis: Likely thoracic back pain and other (GERD, esophagitis, biliary colic, pancreatitis, atypical chest pain, PE, pneumonia) Lab Data Attestation: I reviewed the patient's lab results. 11/07/24 18:17 11/07/24 18:17 Labs: Lab Results 11/07/24 11/07/24 Range/Units 18:17 21:25 WBC 8.4 (4.5-10.0) K/mm3 RBC 5.28 (4.2-5.4) M/mm3 Hgb 13.4 (12.0-15.0) g/dL Hct 42.5 (37.0-47.0) % MCV 80.5 (80-100) fl MCH 25.4 L (26-34) pg MCHC 31.5 L (32-36) g/dl RDW 14.5 (11.5-14.5) % Plt Count 342 (150-375) k/mm3 MPV 8.9 (7.4-10.4) fl Immature Gran % (Auto) 0.2 (0-0.5) % Neut % (Auto) 48.9 (45.5-73.1) % Lymph % (Auto) 38.7 (18.3-44.2) % [place] % (Auto) 6.5 (2.6-8.5) % Eos % (Auto) 4.4 (0-4.4) % Baso % (Auto) 1.3 H (0.2-1.2) % Lymph # (Auto) 3.27 H (0.9-3.2) K/mm3 [place] # (Auto) 0.6 (0.1-0.6) K/mm3 Eos # (Auto) 0.4 H (0-0.3) K/mm3 Baso # (Auto) 0.1 (0.0-0.1) K/mm3 Abs Immat Gran (auto) 0.02 (0.00-0.031) K/mm3 Absolute Neuts (auto) 4.1 (1.3-6.7) K/mm3 Absolute Nucleated RBC 0.000 (0.0-0.012) K/mm3 Nucleated RBC % 0.0 (0.0-0.2) % PT 13.4 (11.1-14.7) Seconds INR 1.0 APTT 27.0 (22.3-36.8) Seconds D-Dimer < 0.27 (<0.48) ug/mL Sodium 139 (137-145) mmol/L Potassium 3.8 (3.4-5.0) mmol/L Chloride 106 (98-107) mmol/L Carbon Dioxide 31 H (22-30) mmol/L Anion Gap 2 L (4-12) mmol/L BUN 8 (7-17) mg/dL Creatinine 0.80 (0.7-1.0) mg/dL Estim Creat Clear Calc 91 ml/min Estimated GFR > 60 (59 - ) Glucose 84 (65-110) mg/dL Calcium 8.9 (8.4-10.2) mg/dL Total Bilirubin 0.4 (0.2-1.3) mg/dL AST 30 (14-36) U/L ALT 18 (6-35) U/L Alkaline Phosphatase 103 (38-126) U/L Troponin I < 0.012 < 0.012 (0.000-0.034) ng/mL Total Protein 7.0 (6.3-8.2) g/dL Albumin 4.0 (3.5-5.1) g/dL Lipase 52 (23-300) U/L Imaging Data Radiologist's impression: ITS Impressions Chest X-Ray 11/07/24 18:41 IMPRESSION: No active cardiopulmonary disease Chest/Abdomen/Pelvis CT 11/07/24 19:31 IMPRESSION: Thyroid masses; consider nonemergency thyroid ultrasound workup No other significant abnormality ECG Data EKG #1: ECG completion date: 11/07/24 EKG Interpretation: normal rate, sinus rhythm, no ST changes and normal QT Critical Care Time Critical Care Time Critical Care Time: No Discharge Plan Discharge Clinical Impression: Thyroid nodule Back pain Qualifiers: Back pain location: thoracic back pain Chronicity: acute Back pain laterality: midline Qualified Code(s): M54.6 - Pain in thoracic spine Patient Disposition: Home, Self-Care Condition: Stable Instructions: GERD (Gastroesophageal Reflux Disease) (ED), Thyroid Nodules (ED), Back Pain (ED) Additional Instructions: Return to the emergency department if you experience fever, worsening chest pain, shortness of breath, abdominal pain with nausea and vomiting, weakness, numbness, or any other symptoms that are concerning to you. Take Protonix as prescribed to see if this helps with your symptoms. You were incidentally found to have some nodules on your thyroid which will need further imaging for evaluation (ultrasound) Follow up with your primary care doctor Patient Language: Hungarian Prescriptions: New pantoprazole [Protonix] 20 mg tablet,delayed release (DR/EC) 20 mg PO HS 28 Days Qty: 28 0RF No Action amlodipine 5 mg tablet 5 mg PO DIRECTED atorvastatin 20 mg tablet 20 mg PO DAILY ferrous sulfate [FeroSul] 325 mg (65 mg iron) tablet 325 mg PO EVERY OTHER DAY Vitamin D3 2,000 units 2,000 units PO DAILY cetirizine [Zyrtec] 10 mg Tablet 10 mg PO DAILY PRN (Reason: allergies) Follow-up/Referrals: James,BELLA Hinson [Primary Care Provider] -
[2024-11-07 18:23] LABS: Basophils Absolute Auto 0.1 K/mm3 (0.0-0.1); Basophils Percent Auto 1.3 % (0.2-1.2); Eosinophils Absolute Auto 0.4 K/mm3 (0-0.3); Eosinophils Percent Auto 4.4 % (0-4.4); Hematocrit 42.5 % (37.0-47.0); Hemoglobin 13.4 g/dL (12.0-15.0); Immature Granulocyte Absolute 0.02 K/mm3 (0.00-0.031); Immature Granulocyte Percent A 0.2 % (0-0.5); Lymphocytes Absolute Auto 3.27 K/mm3 (0.9-3.2); Lymphocytes Percent Auto 38.7 % (18.3-44.2); Mean Corpuscular HGB Conc 31.5 g/dl (32-36); Mean Corpuscular Hemoglobin 25.4 pg (26-34); Mean Corpuscular Volume 80.5 fl (80-100); Mean Platelet Volume 8.9 fl (7.4-10.4); Monocytes Absolute Auto 0.6 K/mm3 (0.1-0.6); Monocytes Percent Auto 6.5 % (2.6-8.5); Neutrophils Absolute Auto 4.1 K/mm3 (1.3-6.7); Neutrophils Percent Auto 48.9 % (45.5-73.1); Platelet Count Result 342 k/mm3 (150-375); Red Blood Count 5.28 M/mm3 (4.2-5.4); Red Cell Distribution Width 14.5 % (11.5-14.5); White Blood Count 8.4 K/mm3 (4.5-10.0)
[2024-11-07 18:33] LABS: Prothrombin Time 13.4 Seconds (11.1-14.7)
[2024-11-07 18:34] LABS: Alanine Aminotransferase 18 U/L (6-35); Alkaline Phosphatase 103 U/L (38-126); Anion Gap 2 mmol/L (4-12); Aspartate Amino Transferase 30 U/L (14-36); Bilirubin,Total 0.4 mg/dL (0.2-1.3); Blood Urea Nitrogen 8 mg/dL (7-17); Calcium 8.9 mg/dL (8.4-10.2); Carbon Dioxide 31 mmol/L (22-30); Chloride 106 mmol/L (98-107); Estimated CRCL calculation 91 ml/min; Estimated Glomerular Filt Rate > 60; Glucose 84 mg/dL (65-110); Lipase 52 U/L (23-300); Potassium 3.8 mmol/L (3.4-5.0); Sodium 139 mmol/L (137-145)
[2024-11-07] MEDS: PANTOPRAZOLE SODIUM IV 40 MG VIAL IV PUSH (18:34)
[2024-11-07 18:39] LABS: D Dimer < 0.27 ug/mL (<0.48)
[2024-11-07 18:45] LABS: Troponin I < 0.012 ng/mL (0.000-0.034)
--- NOTE | 2024-11-07 19:15 | PC.NURSE ---
Report received from JESS Servin. Assumed care of patient at this time. Patient in CT.
[2024-11-07 20:36] VITALS: BP 107/61; PULSE 85; RESP 17; O2SAT 100
--- NOTE | 2024-11-07 21:10 | ECG_ITS ---
Test Date: 2024-11-07 21:13:45 Measurements Intervals [place] Rate: 78 P: 48 AL: 174 QRS: 12 QRSD: 86 T: 16 QT: 370 QTc: 423 Interpretive Statements SINUS RHYTHM Compared to ECG 11/07/2024 18:13:42 T-wave abnormality no longer present Electronically Signed On 11-08-2024 10:23:03 PUMP HOUSE OPERATOR by Faby Valenzuela M.D.
[2024-11-07] MEDS: KETOROLAC 15 MG/ML VIAL (*BKC) IV PUSH (21:25)
[2024-11-07 22:01] LABS: Troponin I < 0.012 ng/mL (0.000-0.034)
[2024-11-07 22:44] VITALS: BP 125/80; PULSE 78; RESP 17; O2SAT 100
--- OUTSIDE RECORDS SUMMARY | 2024-11-14 23:33 | XMS_ITS | Encounter Summary ---
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); Dysfunction of both eustachian tubes; Mixed conductive and sensorineural hearing loss of right ear with restricted hearing of left ear; Chronic diffuse otitis externa of both ears; Excessive cerumen in both ear canals Social History Tobacco Use Types Packs/Day Years Used Date Smoking Tobacco: Never Smokeless Tobacco: Never Tobacco Cessation:Counseling Given: Not Answered Alcohol Use Standard Drinks/Week Comments Never 0 (1 standard drink = 0.6 oz pur e alcohol) AUDIT-C Answer Date Recorded Frequency of Alcohol Consumption Never 12/16/2019 Average Number of Drinks Not on file 020 Frequency of Binge Drinking Not on file 11/19 Sex and Gender Information Value Date Recorded Sex Assigned at Not on file Gender Identity Not on file Sexual Orientation Not on file documented as of this encounter Last Filed Vital Signs Vital Sign Reading Time Taken Comments Blood Pressure 121/82 11/04/2023 2:06 PM RECORDS CLERK Pulse 97 11/04/2023 2:06 PM RECORDS CLERK Temperature - - Respiratory Rate - - Oxygen Saturation - - Inhaled Oxygen Concentration - - Weight 112.5 kg (248 lb) 11/04/2023 2:06 PM RECORDS CLERK Height 160 cm (5' 3 ) 11/04/2023 2:06 PM RECORDS CLERK Body Mass Index 43.93 11/04/2023 2:06 PM RECORDS CLERK documented in this encounter Functional Status Functional Status Response Date of Assess ment Is person deaf or have serious hearing difficult y? No 12/16/2019 Is person blind or have serious difficulty seein g? No 12/16/2019 Does person have serious dif ficulty walking/climbing stairs? No 12/16/2019 Does person have difficulty dressing/bathing? No 12/16/2019 Does person have difficulty doing errands alone? No 12/16/2019 Cognitive Status Response Date of Assessm ent Does person have difficulty concentrating/remembering/making decisions? No 12/16/2019 documented as of this encounter Patient Instructions * Patient Instructions* Katelin Winn - 11/04/2023 2:08 PM RECORDS CLERK Thank you for visiting [facility] Otolaryngology - Head & Neck Surgery. We appreciate your confidence in allowing us to participate in your health care. You may receive a survey about your visit with us today. Making our patients happy isn???t just happy talk; it???s ourmission. Please tell us if we made the right impression on you- and how we can serve you better. Please SAVE the information below, it will assist you when it???s time for you to contact us. To MAKE - CHANGE - CANCEL an office appointment If you become ill, need to be seen before your next scheduled appointment, or need to cancel or reschedule an appointment, please call our office at [phone] Saturday through Saturday from 8:00 am to4:30 pm. You can also request a routine appointment through your [employer] account. Prescription Refills Contact your pharmacy to request all refills. The pharmacy will need to fax the request to us at . Please allow a minimum of 48-72 hours for your prescription to be completed. Medical Emergency / After Hours Contact Information If you have a medical emergency, please call 911 or go to the nearest emergency room. For urgent medical calls, which cannot wait until the office opens, please call the medical exchange at and ask the signal tower operator to page the ENT physician rn documentation. *Caller ID blocking service will need to be turned off for your call to be returned. We also specialize in Hearing Aids, Allergy testing, swallowing disorders, voice problems, cancer diagnosis, and so much more. Visit our website at [email or web address] for information about our practice and an interactive health encyclopedia. 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 Symptoms are unchanged no significant drainage. She is eager to avoid any surgery. Lost to f/u 2020 to 2022 -understands importance of vigilant follow-up She comes in today because she reports that her primary care physician or similar told her she might have a cholesteatoma on the right-hand side. She has not had much drainage from the ears. No fevers or chills. She did not ever have tympanostomy tubes when she was younger. 10/07/23 CT T-bone independently reviewed by me November 04, 2023 shows that the areas in question of thickening of the drums and tympanic cholesteatoma if any are extremely limited. There is no evidence of bony erosion in the mastoid. IMPRESSION: 1. Redemonstration of unchanged mild thickening of the right tympanic membrane and an unchanged 3 x 2.5 mm soft tissue density within the medial inferior aspect of right external auditory canal attached to the inferior border of the medially retracted right tympanic membrane which may represent scarring. Please correlate with direct visualization. 2. Redemonstration of opacification of the dependent mastoid air cells bilaterally. 08/31/21 CT T-bone reviewed by me same day shows limited cholesteatoma on the right. Both mastoids are well aerated. IMPRESSION: 1. Right more than left thickening of tympanic membranes with medial retraction. On the right side, small area of soft tissue densities are present within the mesial inferior aspect of right external auditory canal abutting the inferior aspect of the right tympanic membrane. 2. No evidence of femoral soft tissues within the tympanic cavities bilaterally to suggest cholesteatoma within the tympanic cavities bilaterally. 3. Subtotal opacifications of mastoid air cells bilaterally. No other inciting exacerbating or alleviating factors. Review of Systems: ROS: Negative times 13 (Including General, Psych, Neuro, HEENT, Resp, CV, GI, , Musculoskeletal, Derm,Heme/Lymph), except as noted in EPIC and reviewed by me. Pertinent issues include: No notes on file Past Medical History Past Medical History: Diagnosis Date ??? Hypercholesteremia previously took a statin ??? Thyroid nodule 2018 was told by ENT that it was too small to be bothersome Medications Current Outpatient Medications Medication Sig Dispense Refill ??? amLODIPine (NORVASC) 5 MG tablet Take 1 (one) tablet by mouth once daily ??? atorvastatin (Lipitor) 20 MG tablet Take 1 (one) tablet by mouth at bedtime ??? benzonatate (Tessalon) 100 MG capsule Take 1 (one) capsule by mouth 3 times daily ??? cetirizine (ZyrTEC) 10 MG tablet Take 1 (one) tablet by mouth once daily ??? FEROSUL 325 (65 Fe) MG tablet Take 1 (one) tablet by mouth once daily No current facility-administered medications for this visit. Allergies Levofloxacin Social History Social History Socioeconomic History ??? Marital status: Single Occupational History ??? 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 Smoking status: Never ??? Smokeless tobacco: Never Vaping Use ??? Vaping Use: Never used Substance and Sexual Activity ??? Alcohol use: Never ??? Drug use: Never Family History Family History Problem Relation Name Age of Onset ??? Hypertension Sister Vitals BP 121/82 Pulse 97 Ht 1.6 m (5' 3 ) Wt 112.5 kg (248 lb) Body mass index is 43.93 kg/m??. Physical Exam: Constitutional: Alert, No acute Distress; Well developed/well nourished Neuro:cranial nerves III-XII grossly intact CV/Pulm: Normal respirations and peripheral pulses. Eyes: PERRL, EOMI Face/Skin: normal appearance, no lesions/masses Neck: supple, no lymphadenopathy, no masses Voice: strong MusculoSkeletal: moves all extremities well Right ear: There is mild debris and moild otitis externa which was cleared. There is about 2 x 3 mm erosion ofthe scutum but without granulation tissue as there have been in the past. Low-grade otitis externa treated with application of boric acid powder. Eardrum is thickened and there may be an effusion.. Middle ear space aerated. No mastoid tenderness. Left ear: There is mild debris which was cleared. Mild erosion of the scutum. Middle ear space appears aerated and eardrum is in normal position. No overt evidence of cholesteatoma. No mastoid tenderness. Outside audiogram from July 17, 2021 is in the media tab of [facility] and was reviewed and shows a bilateral high-frequency hearing loss Assessment and Plan: 1. Right life long stable eustachian tube dysfunction with a stable retraction pocket, MHL the limits of which cannot be seen as it travels back underneath the eardrum. This represents early cholesteatoma but appear stable on CT. he very much wants to continue to follow this and understands the risk benefits and alternatives of that.. 2. Left stable otitis externa coming from granulation tissue in the area of the scutum in past . She has eustachian tube dysfunction on the side as well with minimal erosion visible today but skin may have healed across the prior retraction. Type a tympanogram October 07, 2023 3. Right mild otitis externa. This was debrided and boric acid powder placed Things appear stable clinically and on interval CT scan. She very much wants to follow this. We discussed the risks, benefits and alternatives of treated and untreated cholesteatoma. We discussed some of the risks of surgery. She understands the cholesteatoma can enlarge and cause erosion ofthe middle ear bones and other problems which can be more severe. She also understands that with surgery it is possible her hearing could be made worse or prosthesis might need to be placed. Given that the CT scan shows cholesteatoma to be likely very limited, she would like to follow the situationfor now and voices good understanding of the risks of that approach. Audio 10/07/23 independently reviewed by me today F/U 1 year with audio, sooner if issues Toño Rain MD Professor Director, Otology, Neurotology Department of Otolaryngology RDS CLERK documented in this encounter Procedure Notes * Toño Rain MD - 11/04/2023 5:26 PM CSTAssociated Order(s): PROC MICROSCOPIC EAR EXAM Procedure(s): NC EAR MICROSCOPY EXAMINATION Pre-Procedure Diagnose(s): Excessive cerumen in both ear canals Procedure: Microscopic exam of the ear(s) Findings: See main note. Procedure in detail: The binocular operating microscope and and ear speculum were used to exam the ear(s). The patient tolerated the procedure well and there was no bleeding. Toño Rain MD RDS CLERK documented in this encounter Plan of Treatment Not on file documented as of this encounter Procedures Procedure Name Priority Date/Time Associated Diagnosis Comments NC EAR MICROSCOPY EXAMINATION Routine 11/04/2023 5:26 PM RECORDS CLERK Excessive cerumen in both ear canals documented in this encounter Results * NC EAR MICROSCOPY EXAMINATION (11/04/2023 5:26 PM RECORDS CLERK) Narrative Toño Rain MD - 11/04/2023 5:26 PM RECORDS CLERK Toño Rain MD ? 11/04/2023 ??5:27 PM Procedure: ??Microscopic exam of the ear(s) Findings: See main note. Procedure in detail: The binocular operating microscope and and ear speculum were used to exam the ear(s). ??The patient tolerated the procedure well and there was no bleeding. 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
--- OUTSIDE RECORDS SUMMARY | 2024-11-14 23:33 | XMS_ITS | Patient Health Summary ---
Author Organization [facility] [employer] Address [address] [place] [address] Care Team Providers Care Plastic Tile Layer Name Role Phone Ana Vyas MD Primary Care Provider [phone] Note from [facility],non-owned Affiliates and Associated Physician Practices is amultiple site organization consisting of ambulatory clinics and hospital sitesin [place], [place], [place] and [place]. This disclosure is being madepursuant to the Care Everywhere program and may not contain all information available regarding this patient. Last updated 18.[facility] Allergies * Levofloxacin(Urticaria) -High Criticality Medications * Be aware that medications may not be up to date on this document. Alwaysverify current medications with the patient. * FEROSUL 325 (65 Fe) MG tablet(Started 07/12/2021) Take 1 (one) tablet by mouth once daily * amLODIPine (NORVASC) 5 MG tablet Take 1 (one) tablet by mouth once daily * atorvastatin (Lipitor) 20 MG tablet(Started 10/28/2023) Take 1 (one) tablet by mouth at bedtime * benzonatate (Tessalon) 100 MG capsule(Started 09/25/2023) Take 1 (one) capsule by mouth 3 times daily * cetirizine (ZyrTEC) 10 MG tablet(Started 05/28/2023) Take 1 (one) tablet by mouth once daily Active Problems Problem Noted Date Diagnosed Date Abnormal placenta, antepartum 03/02/2020 Abnormal [place] glucose challenge test, ante 01/20/2020 Headache in 12/23/2019 Thyroid nodule 12/16/2019 Supervision of high-risk of elderly mu ltigravida 12/16/2019 Serum potassium fluctuations 12/16/2019 History of delivery, currently 12/16/2019 Morbid obesity during 12/16/2019 AMA (advanced maternal age) multigravida 35+, second trimester 12/14/2019 Chronic hypertension during 12/14/2019 Abnormal alpha fetoprotein (AFP) level 0 Hypercholesteremia Immunizations * Covid Moderna primary monovalent 12+ yr 0.5mL(Given 02/24/2021, 01/20/2021) * INFLUENZA(Given 08/23/2021) Social History Tobacco Use Types Packs/Day Years [...] on file Sexual Orientation Not on file Last Filed Vital Signs Vital Sign Reading Time Taken Comments Blood Pressure 121/82 11/04/2023 2:06 PM BENCH MANAGER Pulse 97 11/04/2023 2:06 PM BENCH MANAGER Temperature 36.9 ??C (98.5 ??F) 03/16/2020 8:27 AM CD T Respiratory Rate - - Oxygen Saturation - - Inhaled Oxygen Concentration - - Weight 112.5 kg (248 lb) 11/04/2023 2:06 PM BENCH MANAGER Height 160 cm (5' 3 ) 11/04/2023 2:06 PM BENCH MANAGER Body Mass Index 43.93 11/04/2023 2:06 PM BENCH MANAGER Procedures * CT EAR MICROSCOPY EXAMINATION(Performed 11/04/2023) Performed for Excessive cerumen in both ear canals * CT TEMPORAL BONES WO CONTRAST(Performed 11/04/2023) Performed for Mixed conductive and sensorineural hearing loss of right ear with restricted hearing of left ear * CT EAR MICROSCOPY EXAMINATION(Performed 10/07/2023) Performed for Excessive cerumen in both ear canals * AUDIOLOGY/TYMPANOMETRY ORDER(Performed 10/07/2023) * CT TEMPORAL BONES WO CONTRAST(Performed 08/31/2021) Performed for Dysfunction of both eustachian tubes, Cholesteatoma of both ears, Chronic diffuse otitis externa of left ear * CT REMOVE CERUMEN IMPACTED W INSTR LEFT EAR(Performed 07/31/2021) Performed for Impacted cerumen of left ear * BIOPHYSICAL PROFILE W NST(Performed 03/16/2020) Performed for AMA (advanced maternal age) multigravida 35+, second trimester (HCC), Chronic hypertension during (HCC), Abnormal alpha fetoprotein (AFP) level, Abnormal [place] glucose challenge test, antepartum (HCC), headache, antepartum (HCC), Hypercholesteremia, Morbid obesity during , History of delivery, currently (HCC), Serum potassium fluctuations , Supervision of high-risk of elderly multigravida (HCC), Thyroid nodule * SONOGRAM - COMPLETE(Performed 03/02/2020) Performed for AMA (advanced maternal age) multigravida 35+, second trimester (HCC), Chronic hypertension during (HCC), Abnormal alpha fetoprotein (AFP) level, Supervision of high-risk of elderly multigravida (HCC), Morbid obesity during , Abnormal [place] glucose challenge test, antepartum (HCC) * CBC W AUTO DIFFERENTIAL(Performed 02/22/2020) * COMPREHENSIVE METABOLIC PANEL(Performed 02/22/2020) * BIOPHYSICAL PROFILE W NST(Performed 02/17/2020) Performed for AMA (advanced maternal age) multigravida 35+, second trimester (HCC), Chronic hypertension during (HCC), Abnormal alpha fetoprotein (AFP) level, Abnormal [place] glucose challenge test, antepartum (HCC), headache, antepartum (HCC), Hypercholesteremia, Morbid obesity during , History of delivery, currently (HCC), Serum potassium fluctuations , Supervision of high-risk of elderly multigravida (HCC), Thyroid nodule * SONOGRAM - COMPLETE(Performed 02/02/2020) Performed for Abnormal alpha fetoprotein (AFP) level, AMA (advanced maternal age) multigravida 35+,second trimester (HCC), Chronic hypertension during (HCC), Serum potassium fluctuations ,History of delivery, currently (HCC), Morbid obesity during * PROTEIN CREATININE RATIO URINE RANDOM PNL(Performed 01/07/2020) * CBC W/O DIFFERENTIAL(Performed 01/07/2020) * COMPREHENSIVE METABOLIC PANEL(Performed 01/07/2020) * SONOGRAM - COMPLETE(Performed 01/06/2020) Performed for AMA (advanced maternal age) multigravida 35+, second trimester (HCC), Chronic hypertension during (HCC), Abnormal alpha fetoprotein (AFP) level, Supervision of high-risk of elderly multigravida (HCC), Morbid obesity during * PROTEIN CREATININE RATIO URINE RANDOM PNL(Performed 12/23/2019) * CBC W AUTO DIFFERENTIAL(Performed 12/23/2019) * COMPREHENSIVE METABOLIC PANEL(Performed 12/23/2019) * TSH REFLEX FREE T4(Performed 12/16/2019) Performed for Thyroid nodule * PHOSPHORUS BLOOD(Performed 12/16/2019) Performed for Thyroid nodule * MAGNESIUM BLOOD(Performed 12/16/2019) Performed for Thyroid nodule * COMPREHENSIVE METABOLIC PANEL(Performed 12/16/2019) Performed for Thyroid nodule * SONOGRAM - COMPLETE(Performed 12/16/2019) Performed for Abnormal alpha fetoprotein (AFP) level, AMA (advanced maternal age) multigravida 35+,second trimester (HCC), Chronic hypertension during (HCC) * SONOGRAM - COMPLETE(Performed 11/24/2019) Performed for Abnormal alpha fetoprotein (AFP) level, Encounter for anatomic survey ([facility]) Results * CT EAR MICROSCOPY EXAMINATION (11/04/2023 5:26 PM BENCH MANAGER) Narrative Toño Rain MD - 11/04/2023 5:26 PM BENCH MANAGER Toño Rain MD ? 11/04/2023 ??5:27 PM Procedure: ??Microscopic exam of the ear(s) Findings: See main note. Procedure in detail: The binocular operating microscope and and ear speculum were used to exam the ear(s). ??The patient tolerated the procedure well and there was no bleeding. Toño Rain MD Toño Rain MD PROCEDURE/MINOR JEANA GICAL ORDERABLES * CT TEMPORAL BONES WO CONTRAST (11/04/2023 1:41 PM BENCH MANAGER) Only the most recent of2 resultswithin the time period is included. Anatomical Region Laterality Modality Head Computed Tomogra phy 11/05/2023 9:35 AM BENCH MANAGER Impressions 11/05/2023 9:50 AM BENCH MANAGER IMPRESSION: 1. Redemonstration of unchanged mild thickening of the right tympanic membrane and an unchanged ??3 x 2.5 mm soft tissue density within the medial inferior aspect of right external auditory canal attached to the inferior border of the medially retracted right tympanic membrane which may represent scarring. Please correlate with direct visualization. 2. Redemonstration of opacification of the dependent mastoid air cells bilaterally. > Interpreting Provider: Luca Gallardo MD on 11/05/2023 9:50 AM Narrative 11/05/2023 9:50 AM BENCH MANAGER PROCEDURE: ??CT TEMPORAL BONES WO CONTRAST, DATE/TIME OF EXAM: ??11/04/2023 1:43 PM, LOCATION ??[facility] INDICATION: H90.A31: Mixed conductive and sensorineural hearing loss of right ear with restricted hearing of left ear ADDITIONAL CLINICAL INFORMATION: Ordering Provider Reason For Exam: Technologist Note: Additional: EXAMINATION: Computed tomography (CT) of the temporal bones without contrast TECHNIQUE: CT of the temporal bones was performed without contrast according to standard protocol. COMPARISON: 08/31/2021. FINDINGS: Right temporal bone: Redemonstration of opacification of the dependent mastoid air cells. The external auditory canal and auricle appear normal. Mild thickening of the tympanic membrane is unchanged. Unchanged small 3 x 2.5 mm soft tissue density within the medial inferior aspect of right external auditory canal attached to the inferior border of the medially retracted right tympanic membrane. The middle ear cavity including the middle ear ossicles, scutum and Prussak's space appear normal. The bony labyrinth including the cochlea and the semicircular canals, internal auditory canal, and petrous apex appear normal. The carotid canal, jugular foramen, and course of the facial nerve appear normal. Left temporal bone: Redemonstration of opacification of the dependent mastoid air cells. The external auditory canal and auricle appear normal. The tympanic membrane is normal. The middle ear cavity including the middle ear ossicles, scutum and Prussak's space appear normal. The bony labyrinth including the cochlea and the semicircular canals, internal auditory canal, and petrous apex appear normal. The carotid canal, jugular foramen, and course of the facial nerve appear normal. The visualized portions of the skull base and the posterior fossa are normal. The visualized portions of the paranasal sinuses appear normal. No soft tissue abnormality is identified. Procedure Note Luca Gallardo MD - 11/05/2023 PROCEDURE: CT TEMPORAL BONES WO CONTRAST, DATE/TIME OF EXAM:11/04/2023 1:43 PM, LOCATION [facility] INDICATION: H90.A31: Mixed conductive and sensorineural hearing loss of right earwith restricted hearing of left ear ADDITIONAL CLINICAL INFORMATION: Ordering Provider Reason For Exam: Technologist Note: Additional: EXAMINATION: Computed tomography (CT) of the temporal bones without contrast TECHNIQUE: CT of the temporal bones was performed without contrast according to standard protocol. COMPARISON: 08/31/2021. FINDINGS: Right temporal bone: Redemonstration of opacification of the dependent mastoid air cells. The external auditory canal and auricle appearnormal. Mild thickening of the tympanic membrane is unchanged. Unchanged small 3x 2.5 mm soft tissue density within the medial inferior aspect of right external auditory canal attached to the inferior border of the medially retracted right tympanic membrane. The middle ear cavity including the middle ear ossicles, scutum and Prussak's space appear normal. The bony labyrinth including the cochlea and the semicircular canals, internal auditory canal, and petrous apex appear normal. The carotid canal,jugular foramen, and course of the facial nerve appear normal. Left temporal bone: Redemonstration of opacification of the dependent mastoid air cells. The external auditory canal and auricle appearnormal. The tympanic membrane is normal. The middle ear cavity including themiddle ear ossicles, scutum and Prussak's space appear normal. The bonylabyrinth including the cochlea and the semicircular canals, internal auditorycanal, and petrous apex appear normal. The carotid canal, jugular foramen, and course of the facial nerve appear normal. The visualized portions of the skull base and the posterior fossa are normal. The visualized portions of the paranasal sinuses appear normal.No soft tissue abnormality is identified. IMPRESSION: 1. Redemonstration of unchanged mild thickening of the right tympanic membrane and an unchanged 3 x 2.5 mm soft tissue density within themedial inferior aspect of right external auditory canal attached to theinferior border of the medially retracted right tympanic membrane which may represent scarring. Please correlate with direct visualization. 2. Redemonstration of opacification of the dependent mastoid air cells bilaterally. > Interpreting Provider: Luca Gallardo MD on 11/05/2023 9:50 AM Toño Rain MD CT ORDERABLES * CT EAR MICROSCOPY EXAMINATION (10/07/2023 5:06 PM BENCH MANAGER) Narrative Toño Rain MD - 10/07/2023 5:06 PM BENCH MANAGER Toño Rain MD ? 10/07/2023 ??5:07 PM Procedure: ??Microscopic exam of the ear(s) with removal of excessive cerumen bilaterally with use of alligator forceps and curettes Findings: See main note. Procedure in detail: The binocular operating microscope and and ear speculum were used to exam the ear(s). ??The patient tolerated the procedure well and there was no bleeding. Toño Rain MD Toño Rain MD PROCEDURE/MINOR JEANA GICAL ORDERABLES * AUDIOLOGY/TYMPANOMETRY ORDER (10/07/2023 1:29 PM BENCH MANAGER) Narrative Patty Rahman AuD - 10/07/2023 1:54 PM BENCH MANAGER History: Imani Collier arrived for a hearing evaluation. Patient reports issues with cholesteatoma RT. She states that ear often feels clogged. She denies dizziness and otalgia. There is not a history of noise exposure. There is not a family history of hearing loss. There is not a history of surgery on either ear(s). Results: Puretone air/bone conduction testing revealed a normal sloping to moderately severe SN hearing loss in the right ear and a normal sloping to mild SN hearing loss in the left ear. Speech understanding was excellent in the right ear and excellent in the left ear. Immittance measures revealed a Type B with normal ECV tympanogram in the right ear, indicating abnormal middle ear function. Results for the left ear revealed a Type A tympanogram, indicating normal middle ear function in that ear. These results were discussed in detail with the patient and all pertinent questions were answered. Recommendations: 1) ENT consult. 2) Re check per medical recommendation, annually, or if a change in hearing is suspected. 3) Trial with amplification pending patient interest/medical clearance. Felipe Law. [facility] [employer] [facility]-Department of Otolaryngology/Audiology [facility] [address] [place] [address] ([facility]) [place] [address] Patty Wang AUDIOLOGY SERVICES O RDERABLES * CT REMOVE CERUMEN IMPACTED W INSTR LEFT EAR (07/31/2021 1:45 PM CDT) Narrative Toño Rain MD - 07/31/2021 1:45 PM CDT Toño Rain MD ? 07/31/2021 ??2:07 PM Procedure: ??Binocular Microscopic Removal of Impacted Cerumen Indications: Cerumen impaction obscuring the tympanic membrane. ?? Findings: See main note. ?? Procedure Note: After verbal consent was obtained, the binocular operative microscope was brought into position. ??An otologic speculum was inserted into the cartilaginous external auditory canal. ??Cerumen was removed using a combination of cerumen loops, suction, and alligator forceps. ??There was no bleeding Toño Rain MD Toño Rain MD PROCEDURE/MINOR JEANA GICAL ORDERABLES * BIOPHYSICAL PROFILE W NST (03/16/2020 9:22 AM CDT) Only the most recent of2 resultswithin the time period is included. Anatomical Region Laterality Modality Other 03/16/2020 9:22 AM CDT Narrative 03/16/2020 9:40 AM CDT ? [facility] ? [facility] ?PHONE: ??FAX: Pat. Name: ?IMANI OWEN Pat. No: ?[id number] Study Date: ?? 03/16/2020 ??9:22am , Age: ? 1980, 39 Pregnancies: ?? 4, Para 2 Height: ? 64 in Weight: ? 252 lb LMP: ?Unknown GA by Base: ?? 36w0d ?? CHRISSY: 04/13/2020 GA Selected: ??36w0d (From [facility]) CHRISSY: ?04/13/2020 Referring MD: Moreno Butler MD Postal Transportation Clerk: ??Harika High, FREEMANHI, [facility] CPT4: ? 90007,[id number] BMI: ?43.25 Hist/Ind: ? Prominent cardiac muscle and septal thickness ?AMA - LR NIPT ?Elevated AFP - MoM 3.08 ?cHTN ?Cyst at placental cord insertion Heart Rate: 149 bpm Amniotic Fluid Index: 13.4cm (07.7-24.9) Q1: 2.5cm ??Q2: 4.0cm ??Q3: 3.5cm ??Q4: 3.3cm ?? Biophysical Profile: 08/27 Breathin ?? Tone: 2 ?? NST: 2 Movement: ??2 ?? AFV: ??2 EVAL, PLACENTA Presentation: cephalic Placenta: posterior Heart Rate: 149 bpm Amniotic Fluid Volume: normal CLINICAL SUMMARY Study Number: 7 ?? A single fetus is seen in cephalic presentation. ??The amniotic fluid volume is within normal limits. IMPRESSION: Single, live, intrauterine at 36w0d Amniotic fluid volume: within normal limits Biophysical profile: Reassuring RECOMMEND: Continue weekly BPP Please be advised that these recommendations are being made in the best interest of our patients during the COVID 19 Pandemic Thank you for allowing us the opportunity to care for your patient Efrain Owen MD <Electronic Signature> ??03/16/2020 09:40am Lenin Poon MD [facility] ORDERABLES * SONOGRAM - COMPLETE (03/02/2020 11:31 AM CDT) Only the most recent of5 resultswithin the time period is included. Anatomical Region Laterality Modality Other 03/02/2020 11:3 1 AM CDT Narrative 03/02/2020 3:41 PM CDT ? [facility] ? [facility] ?PHONE: ??FAX: Pat. Name: ?LEXIE IMANI M Pat. No: ?[id number] Study Date: ?? 03/02/2020 ??11:31am , Age: ? 1980, 39 Pregnancies: ?? 4, Para 2 Height: ? 64 in Weight: ? 252 lb LMP: ?Unknown GA by Base: ?? 34w0d ?? CHRISSY: 04/13/2020 GA by US: ? 33w4d ?? CHRISSY: 04/16/2020 GA Selected: ??34w0d (From [facility]) CHRISSY: ?04/13/2020 Referring MD: Moreno Butler MD Postal Transportation Clerk: ??Harika High, CHRISTA, RDCS CPT4: ? 83424,[id number] BMI: ?43.25 Hist/Ind: ? Prominent cardiac muscle and septal thickness ?AMA-LR NIPT ?Elevated AFP-MoM 3.08 ?CHTN MEASUREMENTS & AGE ? GROWTH EVALUATION Measurement ??GA ? Range ? Srce %for GA Ratios ----- ---- ------- BPD ??7.9 cm 31w4d (79p5h-26s0h) Hadl BPD 2% FL/BPD 0.84 (0.71 - 0.87) HC ??30.8 cm 34w2d (15t8r-90y8p) Hadl HC ??23% FL/AC ??0.22 (0.20 - 0.24) AC ??29.6 cm 33w4d (20n8e-45l3b) Hadl AC ??42% HC/AC ??1.04 (0.94 - 1.13) FL ?? 6.6 cm 34w0d (85n4r-76b5m) Hadl FL ??39% CI ? 0.70 (0.70 - 0.86* GA for sonogram 33w4d (65k5j-97n3h) ?? Weight Estimate: based on (HC,AC,FL) Hadlock ?Weight: 2283 gm (1945-2621gm) Had ? : 5lbs, 0oz ? Normal: 2377 gm (1783- 2971gm) Had ? Wt% ? 38% for 34w0d Amniotic Fluid Index: 19.5cm (08.1-24.8) Q1: 4.4cm ??Q2: 5.6cm ??Q3: 6.5cm ??Q4: 3.1cm ?? Biophysical Profile: 08/27 Breathin ?? Tone: 2 ?? NST: 2 Movement: ??2 ?? AFV: ??2 EVAL, PLACENTA Presentation: transverse Placenta: posterior Amniotic Fluid Volume: normal Anatomy!Normal!Abnormal!Suboptimal!Prev. Seen!Comments Cranium ?! ?? x ??! ?! ?! ? x ?! Mdl (CSP/Thal! ?! ?! ?! ? x ?! Ventricles ?? ! ?! ?! ?! ? x ?! Choroid Plexu! ?! ?! ?! ? x ?! Cerebellum ?? ! ?! ?! ?! ? x ?! Cisterna M. ??! ?! ?! ?! ? x ?! Nuchal Fold ??! ?! ?! ?! ? x ?! Profile ?! ?! ?! ?! ? x ?! Nasal Bone ?? ! ?! ?! ?! ? x ?! Lip ?! ?! ?! ?! ? x ?! Spine ?! ?! ?! ?! ? x ?! Lungs ?! ?! ?! ?! ? x ?! 4 Chamber Hea! ?! ?! ?! ? x ?! LVOT ? ! ?! ?! ?! ? x ?! RVOT ? ! ?! ?! ?! ? x ?! 3 Vessel View! ?! ?! ?! ? x ?! Cross-over ?? ! ?! ?! ?! ? x ?! Aortic Arch ??! ?! ?! ?! ? x ?! Caval View ?? ! ?! ?! ?! ? x ?! Situs ?! ?! ?! ?! ? x ?! Diaphragm ?! ?! ?! ?! ? x ?! Stomach ?! ?? x ??! ?! ?! ? x ?! Bowel ?! ?! ?! ?! ? x ?! Kidneys ?! ?? x ??! ?! ?! ? x ?! Bladder ?! ?! ?! ?! ? x ?! 3 Vessel Cord! ?! ?! ?! ? x ?! Cord In! ?! ?! ?! ? x ?! Upper Extremi! ?! ?! ?! ? x ?! Hands ?! ?! ?! ?! ? x ?! Lower Extreme! ?! ?! ?! ? x ?! Feet ? ! ?! ?! ?! ? x ?! External Shauna! ?! ?! ?! ? x ?! Placental Cor! ?! ?! ?! ? x ?! CLINICAL SUMMARY Study Number: 6 ?? A follow up exam was performed to re-evaluate growth. ??The CHRISSY is based on prior ultrasound. ??( confirmed ). ?? The placenta is posterior. ??There are cyst-like changes near the region of the placental cord insertion (near chorionic vessels). ?? The first measures approximately 29x 46 mm and the second measures approximately 30x28 mm. ??Each cystic structure has an hyperechoic, thin membrane. ??There is no increased vascularity, to the cystic structures, demonstrated by color Doppler. The heart appeared grossly unremarkable within the limitations of today's exam. NST: baseline 145, moderate variability, appropriate accelerations without significant decelerations; Impression: Reactive. IMPRESSION: Single, live, IUP 34w0d. ?? Appropriate growth. ?? normal amniotic fluid Reassuring status ?? Two moderate size cystic structures near the placental cord insertion The cysts demonstrated today, which are likely placental in origin, are of unclear significance. ??At least one article reports of an association between larger [> 4.5 cm]or more numerous cysts [3 or more] with growth restriction. ??There is also the potential that this represents changes in the subchorionic fibrin/maternal floor of the placenta. ??I have previously communicated the association between unexplained elevated maternal serum alpha protein, as is the case for this , and the following adverse outcomes: ??risk of , placental abruption, placenta previa, accreta, percreta & increta. ??Imani and I have also previously discussed her risk of growth restriction due to her chronic hypertension. RECOMMEND: Continue weekly biophysical profile Reassess growth every 4 weeks Recommend sending placenta to pathology after delivery Thank you for the opportunity to participate in the care of your patient. Jessica Porras MD <Electronic Signature> ??03/02/2020 03:40pm R Ronald Butler MD [facility] ORDERABLES * (ABNORMAL) CBC WITH DIFFERENTIAL (02/22/2020 2:18 PM CDT) Only the most recent of2 resultswithin the time period is included. White Blood Cell Count 11.5(H) 3.8 - 10.8 Thousand/u L [facility] RBC 4.54 3.80 - 5.10 Million/uL [facility] Hemoglobin 12.2 11.7 - 15.5 g/dL [facility] Hematocrit 37.3 35.0 - 45.0 % [facility] MCV 82.2 80.0 - 100.0 fL [facility] MCH 26.9(L) 27.0 - 33.0 pg [facility] MCHC 32.7 32.0 - 36.0 g/dL [facility] RDW 13.6 11.0 - 15.0 % [facility] Platelet Count 361 140 - 400 Thousand/u L [facility] MPV 9.4 7.5 - 12.5 fL [facility] Neutrophil Absolute 8338(H) 1500 - 7800 cells/uL [facility] Lymphocytes Absolute 2300 850 - 3900 cells/uL [facility] Absolute Monocytes 610 200 - 950 cells/uL [facility] Eosinophils Absolute 196 15 - 500 cells/uL [facility] Basophils Absolute 58 0 - 200 cells/uL [facility] Granulocytes % 72.5 % [facility] Lymphocytes % 20.0 % [facility] Monocytes % 5.3 % [facility] Eosinophils % 1.7 % [facility] Basophils % 0.5 % [facility] Comment: Test Performed at: [facility] [address] [place], [place] ??[id number] ZOLTAN CORTEZ DO,MPH 02/22/2020 2:18 PM CDT 02/22/2020 2:19 PM CDT Jessica Porras MD LAB - HEMATOLOGY ORDERABLES Performing Organization Address [facility] de Phone Number [facility] [id number] [place] [address] * (ABNORMAL) COMPREHENSIVE METABOLIC PANEL (02/22/2020 2:18 PM CDT) Only the most recent of4 resultswithin the time period is included. Glucose 114(H) 65 - 99 mg/dL [facility] Comment: ? Fasting reference interval For someone without known diabetes, a glucose value between 100 and 125 mg/dL is consistent with prediabetes and should be confirmed with a follow-up test. BUN 8 7 - 25 mg/dL [facility] Creatinine 0.64 0.50 - 1.10 mg/dL [facility] eGFR by MDRD 112 > OR = 60 mL/min/1. 73m2 [facility] eGFR by MDRD 130 > OR = 60 mL/min/1. 73m2 [facility] BUN/Creatinine Ratio NOT APPLICABLE 6 - 22 (calc) [facility] Sodium 138 135 - 146 mmol/L [facility] Potassium 4.1 3.5 - 5.3 mmol/L [facility] Chloride 105 98 - 110 mmol/L [facility] CO2 24 20 - 32 mmol/L [facility] Calcium 9.5 8.6 - 10.2 mg/dL [facility] Protein Total 6.6 6.1 - 8.1 g/dL [facility] Albumin 3.6 3.6 - 5.1 g/dL [facility] Globulin Total 3.0 1.9 - 3.7 g/dL (calc) [facility] Albumin/Globuli n Ratio 1.2 1.0 - 2.5 (calc) [facility] Bilirubin Total 0.3 0.2 - 1.2 mg/dL [facility] Alkaline Phosphatase 116 31 - 125 U/L [facility] AST 12 10 - 30 U/L [facility] ALT 9 6 - 29 U/L [facility] Comment: Test Performed at: [facility] ??[id number] ZOLTAN CORTEZ DO,MPH 02/22/2020 2:18 PM CDT 02/22/2020 2:19 PM CDT Jessica Porras MD LAB - CHEMISTRY O RDERABLES Performing Organization Address [facility] de Phone Number [facility] [address] [place], [place] [id number] * (ABNORMAL) CBC W/O DIFFERENTIAL (01/07/2020 8:44 AM BENCH MANAGER) White Blood Cell Count 10.7 3.8 - 10.8 Thousand/u L [facility] RBC 4.15 3.80 - 5.10 Million/uL [facility] Hemoglobin 11.1(L) 11.7 - 15.5 g/dL [facility] Hematocrit 33.5(L) 35.0 - 45.0 % [facility] MCV 80.7 80.0 - 100.0 fL [facility] MCH 26.7(L) 27.0 - 33.0 pg [facility] MCHC 33.1 32.0 - 36.0 g/dL [facility] RDW 13.9 11.0 - 15.0 % [facility] Platelet Count 336 140 - 400 Thousand/u L [facility] MPV 10.0 7.5 - 12.5 fL [facility] Comment: Test Performed at: [facility] [address] [place] [address] ??[id number] ZOLTAN CORTEZ DO,MPH 01/07/2020 8:44 AM BENCH MANAGER 01/07/2020 8:46 AM BENCH MANAGER Karla Sales APRN-CORE [facility] - HEMATOLOG Y ORDERABLES [facility] [address] [place] [address] * PROTEIN CREATININE RATIO URINE RANDOM PNL (01/07/2020 8:44 AM BENCH MANAGER) Only the most recent of2 resultswithin the time period is included. Creatinine Urine 129 20 - 275 mg/dL [facility] Protein/Creatini ne Ratio 93 21 - 161 mg/g creat [facility] Protein/Creatini ne Ratio 0.093 0.021 - 0.161 mg/mg creat [facility] Protein Random Urine 12 5 - 24 mg/dL [facility] Comment: REPORT COMMENT: FASTING:NO Test Performed at: [facility] ??[id number] ZOLTAN CORTEZ DO,MPH 01/07/2020 8:44 AM BENCH MANAGER 01/07/2020 8:46 AM BENCH MANAGER Karla Schagemann FLOATLIGHT POWDER MIXER-[facility] - URINE SATISH DANIEL ORDERABLES [facility] [address] [place] [address] * TSH REFLEX FREE T4 (12/16/2019 12:39 PM BENCH MANAGER) TSH 1.172 0.350 - 4.940 ulU/mL 12/16/2019 1:39 PM BENCH MANAGER [facility] Blood BLOOD SPECIMEN / Unknown Venipuncture / Unknown 12/16/2019 12:39 PM BENCH MANAGER 12/16/2019 12:43 PM BENCH MANAGER Loren Kelsey MD LAB - CHEMISTRY ERIN CAM Performing Organization Address [facility] Co de Phone Number [facility] [address] [place], [place] [id number] * PHOSPHORUS BLOOD (12/16/2019 12:39 PM BENCH MANAGER) Phosphorus 3.3 2.3 - 4.7 mg/dL 12/16/2019 1:19 PM BENCH MANAGER [facility] Blood BLOOD SPECIMEN / Unknown Venipuncture / Unknown 12/16/2019 12:39 PM BENCH MANAGER 12/16/2019 12:43 PM BENCH MANAGER Loren Kelsey MD LAB - CHEMISTRY ERIN CAM Performing Organization Address [facility] Co de Phone Number [facility] [address] [place] [phone] * (ABNORMAL) MAGNESIUM BLOOD (12/16/2019 12:39 PM BENCH MANAGER) Magnesium 1.5(L) 1.6 - 2.6 mg/dL 12/16/2019 1:19 PM BENCH MANAGER [facility] Blood BLOOD SPECIMEN / Unknown Venipuncture / Unknown 12/16/2019 12:39 PM BENCH MANAGER 12/16/2019 12:43 PM BENCH MANAGER Loren Kelsey MD LAB - CHEMISTRY ERIN CAM Performing Organization Address City/[facility]/ZIP Co de Phone Number [facility] [address] [place] [phone] Care Teams Plastic Tile Layer Relationship Specialty Start Date End Date Ana Vyas MD [address] [place] [phone] PCP - General 07/06/21
--- OUTSIDE RECORDS SUMMARY | 2024-11-14 23:33 | XMS_ITS | Encounter Summary ---
Author Organization [facility] Address [address] [place] [address] Care Team Providers Care Operations Dispatcher Name Role Phone Ana Vyas MD Primary Care Provider [phone] Encounter Details Date Type Department Care Team (Latest Contact Info) Description 10/07/2023 1:30 PM NET C DEVELOPER Testing Visit [facility] - ENT [address] [facility], [place] [address] Patty Rahman, AuD [address] [facility] [address] [place], [place] [phone] Sensorineural hearing loss (SNHL) of both ears Social History Tobacco Use Types Packs/Day Years Used Date Smoking Tobacco: Never Smokeless Tobacco: Never Alcohol Use Standard Drinks/Week Comments Never 0 [...] on file documented as of this encounter Functional Status Functional Status Response [...] No 12/16/2019 documented as of this encounter Plan of Treatment Not on file documented as of this encounter Procedures Procedure Name Priority Date/Time Associated Diagnosis Comments AUDIOLOGY/TYMPANOME TRY ORDER Routine 10/07/2023 1:29 PM NET C DEVELOPER documented in this encounter Results * AUDIOLOGY/TYMPANOMETRY ORDER (10/07/2023 1:29 PM NET C DEVELOPER) Narrative Patty RahmanFelipe - 10/07/2023 1:54 PM NET C DEVELOPER History: Imani Collier arrived for a hearing [...] amplification pending patient interest/medical clearance. Felipe Law. [facility]-A Clinical Welt Rougher [facility]-Department of Otolaryngology/[facility] [address] [place] [address]. ([facility]) [place] [address] Patty Wang [facility]UD[facility]OLOGY [facility] O RDERABLES documented in this encounter Visit Diagnoses Diagnosis Sensorineural hearing loss (SNHL) of both ears- Primary documented in this encounter Care Teams Operations Dispatcher Relationship Specialty Start Date End Date Ana Vyas MD [address] [place] [phone] PCP - General 07/06/21 documented as of this encounter
--- OUTSIDE RECORDS SUMMARY | 2024-11-14 23:33 | XMS_ITS | Encounter Summary ---
Author Organization [facility] Address [address] [facility] [place] [address] Care Team Providers Care Poultry Feed Supervisor Name Role Phone Ana Vyas MD Primary Care Provider [phone] Reason for Visit * Reason Comments Ear Problem Results Encounter Details Date Type Department Care Team (Late st Contact Info) Description 08/31/2021 1:15 PM CDT Office Visit [facility] Otolaryngology [address] [place] [phone] Toño Rain MD [address] [place] [address] [place] [address] Dysfunction of both eustachian tubes (Primary Dx); Cholesteatoma of both ears; Chronic diffuse otitis externa of left ear Social History Tobacco Use Types Packs/Day Years [...] on file Sexual Orientation Not on file COVID-19 Exposure Response Date Recorded In the last month, have you been in contact with someone who was confirmed or suspected to have Coronavirus / COVID-19? No / Unsure 08/31/2021 11:52 AM CDT documented as of this encounter Last Filed Vital Signs Vital Sign Reading Time Taken Comments Blood Pressure 121/71 08/31/2021 12:41 PM CDT Pulse 75 08/31/2021 12:41 PM CDT Temperature - - Respiratory Rate - - Oxygen Saturation - - Inhaled Oxygen Concentration - - Weight 106.1 kg (234 lb) 08/31/2021 12:41 PM CDT Height 162.6 cm (5' 4 ) 08/31/2021 12:41 PM CDT Body Mass Index 40.17 08/31/2021 12:41 PM CDT documented in this encounter Functional Status Functional [...] this encounter Patient Instructions * Patient Instructions* Genny Angela - 08/31/2021 12:43 PM CDT Thank you for visiting [facility] Otolaryngology - Head & Neck Surgery. We [...] it???s time for you to contact us. ??? To MAKE - CHANGE - CANCEL an office appointment If you become ill, need to be seen before your next scheduled appointment, or need to cancel or reschedule an appointment, please call our office at [phone] Saturday through Saturday from 8:30 am to4:30 pm. You can also request a routine appointment through your [employer] account. ??? Prescription Refills Contact your pharmacy to request all refills. The pharmacy will need to fax the request to us at . Please allow a minimum of 48-72 hours for your prescription to be completed. Your pharmacy will notify you when your prescription is ready to be picked up. ??? Medical Emergency / After Hours Contact Information If you have a medical emergency, please call 911 or go to the nearest emergency room. For urgent medical calls which cannot wait until the office opens, please call the medical exchangeat and ask the brick setter operator to page the ENT physician control panel operator crude unit. *Caller ID blocking service will need to be turned off for your call to be returned. We also specialize in Hearing Aids, Allergy testing, swallowing disorders, voice problems, cancer diagnosis, and so much more. Visit our website at [email or web address] for information about our practice and an interactive health encyclopedia. Thank you for visiting [facility] Otolaryngology - Head & Neck Surgery. We [...] it???s time for you to contact us. ??? To MAKE - CHANGE - CANCEL an office appointment If you become ill, need to be seen before your next scheduled appointment, or need to cancel or reschedule an appointment, please call our office at [phone] Saturday through Saturday from 8:00 am to4:30 pm. You can also request a routine appointment through your [employer] account. ??? Prescription Refills Contact your pharmacy to request all refills. The pharmacy will need to fax the request to us at . Please allow a minimum of 48-72 hours for your prescription to be completed. ??? Medical Emergency / After Hours Contact Information If you have a medical emergency, please call 911 or go to the nearest emergency room. For urgent medical calls, which cannot wait until the office opens, please call the medical exchange at and ask the brick setter operator to page the ENT physician control panel operator crude unit. *Caller ID blocking service will need to be turned off for your call to be returned. We also specialize in Hearing Aids, Allergy testing, swallowing disorders, voice problems, cancer diagnosis, and so much more. Visit our website at [email or web address] for information about our practice and an interactive health encyclopedia. Thank you for visiting [facility] Otolaryngology - Head & Neck Surgery. We [...] it???s time for you to contact us. ??? To MAKE - CHANGE - CANCEL an office appointment If you become ill, need to be seen before your next scheduled appointment, or need to cancel or reschedule an appointment, please call our office at [phone] Saturday through Saturday from 8:00 am to4:30 pm. You can also request a routine appointment through your [employer] account. ??? Prescription Refills Contact your pharmacy to request all refills. The pharmacy will need to fax the request to us at . Please allow a minimum of 48-72 hours for your prescription to be completed. ??? Medical Emergency / After Hours Contact Information If you have a medical emergency, please call 911 or go to the nearest emergency room. For urgent medical calls, which cannot wait until the office opens, please call the medical exchange at and ask the brick setter operator to page the ENT physician control panel operator crude unit. *Caller ID blocking service will need to be turned off for your call to be returned. We also specialize in Hearing Aids, Allergy testing, swallowing disorders, voice problems, cancer diagnosis, and so much more. Visit our website at [email or web address] for information about our practice and an interactive health encyclopedia. 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 Her hearing she thinks is good. No fevers or chills. She is eager to avoid any surgery. She comes in today because she reports that her primary care physician or similar told her she might have a cholesteatoma on the right-hand side. She has not had much drainage from the ears. No fevers or chills. She did not ever have tympanostomy tubes when she was younger. 08/31/20 CT T-bone reviewed by me same day shows limited cholesteatoma on the right. Both mastoids are well aerated. No other inciting exacerbating or alleviating factors. Review of Systems: ROS: Negative times 13 (Including General, Psych, Neuro, HEENT, Resp, CV, GI, , Musculoskeletal, Derm,Heme/Lymph), except as noted in EPIC and reviewed by me. Pertinent issues include: Review of Systems Imani reports the following:no symptoms Past Medical History Past Medical History: Diagnosis Date ??? Hypercholesteremia previously took a statin ??? Thyroid nodule 2018 was told by ENT that it was too small to be bothersome Medications Current Outpatient Medications Medication Sig Dispense Refill ??? amLODIPine (NORVASC) 5 MG tablet Take 5 mg by mouth once daily ??? FEROSUL 325 (65 Fe) MG tablet Take 325 mg by mouth once daily No current facility-administered medications for this visit. Allergies Levofloxacin Social History Social History Socioeconomic History ??? Marital status: Single Spouse name: Not on file ??? Number of children: Not on file ??? Years of education: Not on file ??? Highest education level: Not on file Occupational History ??? 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 Smoking status: Never Smoker ??? Smokeless tobacco: Never Used Vaping Use ??? Vaping Use: Never used Substance and Sexual Activity ??? Alcohol use: Never ??? Drug use: Never ??? Sexual activity: Not on file Other Topics Concern ??? Not on file Social History Narrative ??? Not on file Family History Family History Problem Relation Name Age of Onset ??? Hypertension Sister Vitals BP 121/71 Pulse 75 Ht 5' 4 (1.626 m) Wt 234 lb (106.1 kg) BMI 40.17 kg/m2 Body mass index is 40.17 kg/m??. Physical Exam: Constitutional: Alert, No acute Distress; Well developed/well nourished Neuro:cranial nerves III-XII grossly intact CV/Pulm: Normal respirations and peripheral pulses. Eyes: PERRL, EOMI Face/Skin: normal appearance, no lesions/masses Neck: supple, no lymphadenopathy, no masses Voice: strong MusculoSkeletal: moves all extremities well Right ear: There is erosion of the scutum with a small retraction pocket over the short process of the malleusbut no buildup of debris. This goes out of view only heading posteriorly underneath the eardrum. Noovert buildup of cholesteatoma debris seen. Middle ear space aerated. No mastoid tenderness. Left ear: There is no more granulation tissue in the pocket created by the erosion of the scutum. There is nobuildup of debris in the pocket currently. There is a low- grade otitis externa which is treated with application of boric acid powder, middle ear space aerated. No mastoid tenderness. Outside audiogram from July 17, 2021 is in the media tab of [facility] and was reviewed and shows a bilateral high-frequency hearing loss Assessment and Plan: 1. Right life longeustachian tube dysfunction with a retraction pocket, the limits of which cannot be seen as it travels back underneath the eardrum. This represents early cholesteatoma. 2. Left otitis externa coming from granulation tissue in the area of the scutum, much improved.. She has eustachian tube dysfunction on the side as well with erosion of the scutum and a small pocket but no significant buildup of debris. We discussed the risks, benefits and alternatives [...] understanding of the risks of that approach. I will see her back for recheck in about 6 months with audiogram or sooner if any problems develop I have ordered a CT scan to evaluate her further and we will plan to see her back same day in about1 month. No audiogram at that time. Toño Rain MD Professor Director, Otology, Neurotology Department of Otolaryngology * Genny Angela - 08/31/2021 12:43 PM CDT Review of Systems [facility] reports the following:no symptoms documented in this encounter Plan of Treatment Not on file documented as of this encounter Visit Diagnoses Diagnosis Dysfunction of both eustachian tubes- Primary Dysfunction of Eustachian tube Cholesteatoma of both ears Cholesteatoma, unspecified Chronic diffuse otitis externa of left ear documented in this encounter Care Teams Poultry Feed Supervisor Relationship Specialty Start Date End Date Ana Vyas MD [address] [place] [phone] PCP - General 07/06/21 documented as of this encounter
--- OUTSIDE RECORDS SUMMARY | 2024-11-14 23:33 | XMS_ITS | Encounter Summary ---
Author Organization [facility] Address [address] [place] [address] Care Team Providers Care Agricultural Engineer Name Role Phone Ana Vyas MD Primary Care Provider [phone] Reason for Referral * Radiology Services (Routine) - Closed Specialty Diagnoses / Procedures Referred By Rogelio guillory Referred To Contact CT Scan Diagnoses Mixed conductive and sensorineural hearing loss of right ear with restricted hearing of left ear Procedures CT TEMPORAL BONES WO CONTRAST Toño Rain MD [address] [place] [address] [place] [address] Referral ID Status Reason Start Date Expiration Date Visits Re quested Visits Authorized [id number] Closed 10/24/2023 12/08/2023 1 1 LASTER Reason for Visit * Reason Comments Ear Problem Encounter Details Date Type Department Care Team (Latest Contact Info) Description 10/07/2023 2:15 PM BED LASTER Office Visit [facility] - ENT [address] [place] [phone] Toño Rain MD [address] [place] [address] [place] [address] Mixed conductive and sensorineural hearing loss of right ear with restricted hearing of left ear (Primary Dx); Dysfunction of both eustachian tubes; Retraction of tympanic membrane of both ears; Excessive cerumen in both [...] Sign Reading Time Taken Comments Blood Pressure 128/84 10/07/2023 2:09 PM BED LASTER Pulse 96 10/07/2023 2:09 PM BED LASTER Temperature - - Respiratory Rate - - Oxygen Saturation - - Inhaled Oxygen Concentration - - Weight 113.9 kg (251 lb) 10/07/2023 2:09 PM BED LASTER Height 160 cm (5' 3 ) 10/07/2023 2:09 PM BED LASTER Body Mass Index 44.46 10/07/2023 2:09 PM BED LASTER documented in this encounter Functional Status Functional [...] Instructions * Patient Instructions* Katelin Winn - 10/07/2023 1:59 PM BED LASTER Thank you for visiting [facility] Otolaryngology - Head & Neck Surgery. We [...] an appointment, please call our office at [phone] Saturday through Saturday from 8:00 am to4:30 pm. You can also request a routine appointment through your [employer] account. Prescription Refills Contact your pharmacy to [...] the medical exchange at and ask the cocoa room operator to page the ENT physician conference planner. *Caller ID blocking service will need to be turned off for your call to be returned. We also specialize in Hearing Aids, Allergy testing, swallowing disorders, voice problems, cancer diagnosis, and so much more. Visit our website at [email or web address] for information about our practice and an interactive health encyclopedia. 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 No significant drainage. She is eager to avoid [...] have tympanostomy tubes when she was younger. 08/31/21 CT T-bone reviewed by me same [...] status: Single Occupational History ??? 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 Smoking status: Never ??? Smokeless tobacco: Never Vaping Use ??? Vaping Use: Never used Substance and Sexual Activity ??? Alcohol use: Never ??? Drug use: Never Family History Family History Problem Relation Name Age of Onset ??? Hypertension Sister Vitals BP 128/84 Pulse 96 Ht 1.6 m (5' 3 ) Wt 113.9 kg (251 lb) Body mass index is 44.46 kg/m??. Physical Exam: Constitutional: Alert, No acute Distress; Well developed/well nourished Neuro:cranial nerves III-XII grossly intact CV/Pulm: Normal respirations and peripheral pulses. Eyes: PERRL, EOMI Face/Skin: normal appearance, no lesions/masses Neck: supple, no lymphadenopathy, no masses Voice: strong MusculoSkeletal: moves all extremities well Right ear: There is moderate debris and moderate otitis externa which was cleared. There is erosion of the scutum but without granulation tissue as there [...] in the media tab of [facility] and was reviewed and shows a bilateral high-frequency hearing loss Assessment and Plan: 1. Right life long eustachian tube dysfunction with a retraction pocket, MHL the limits of which [...] retraction. Type a tympanogram October 07, 2023 We discussed the risks, benefits and alternatives [...] understanding of the risks of that approach. CT T-bone then see me Toño Rain MD Professor Director, Otology, Neurotology Department of Otolaryngology LASTER documented in this encounter Procedure Notes * Toño Rain MD - 10/07/2023 5:06 PM CSTAssociated Order(s): PROC MICROSCOPIC EAR EXAM Procedure(s): AR EAR MICROSCOPY EXAMINATION Pre-Procedure Diagnose(s): Excessive cerumen in both ear canals Procedure: Microscopic exam of the ear(s) with removal of excessive cerumen bilaterally with use ofalligator forceps and curettes Findings: See main note. Procedure in detail: The binocular operating microscope and and ear speculum were used to exam the ear(s). The patient tolerated the procedure well and there was no bleeding. Toño Rain MD LASTER documented in this encounter Plan of Treatment Not on file documented as of this encounter Procedures Procedure Name Priority Date/Time Associated Diagnosis Comments AR EAR MICROSCOPY EXAMINATION Routine 10/07/2023 5:06 PM BED LASTER Excessive cerumen in both ear canals documented in this encounter Results * CT TEMPORAL BONES WO CONTRAST (11/04/2023 1:41 PM BED LASTER) Anatomical Region Laterality Modality Head Computed Tomogra phy 11/05/2023 9:35 AM BED LASTER Impressions 11/05/2023 9:50 AM BED LASTER IMPRESSION: 1. Redemonstration of unchanged mild thickening [...] 11/05/2023 9:50 AM Narrative 11/05/2023 9:50 AM BED LASTER PROCEDURE: ??CT TEMPORAL BONES WO CONTRAST, DATE/TIME OF EXAM: ??11/04/2023 1:43 PM, LOCATION ??[facility] INDICATION: H90.A31: Mixed conductive and sensorineural [...] CONTRAST, DATE/TIME OF EXAM:11/04/2023 1:43 PM, LOCATION [facility] INDICATION: H90.A31: Mixed conductive and sensorineural [...] AM Toño Rain MD CT ORDERABLES * AR EAR MICROSCOPY EXAMINATION (10/07/2023 5:06 PM BED LASTER) Narrative Toño Rain MD - 10/07/2023 5:06 PM BED LASTER Toño Rain MD ? 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
--- OUTSIDE RECORDS SUMMARY | 2024-11-14 23:33 | XMS_ITS | Encounter Summary ---
Author Organization [facility] [address] [facility] [place] [address] Care Team Providers Care Deputy Clerk Of Court Name Role Phone Unavailable Primary Care Provider Unavailabl e Reason for Visit * Reason Comments Follow-up Encounter Details Date Type Department Care Team (Latest Contact Info) Description 12/23/2019 9:41 AM AXMINSTER WEAVER - 12/23/2019 11:59 PM AXMINSTER WEAVER Hospital Encounter [facility] [address] [place] [id number] Efrain Owen MD [phone] [address] Discharge Disposition: Home or Self Care Social History Tobacco Use Types Packs/Day Years Used Date Smoking Tobacco: Never Smokeless Tobacco: Never Alcohol Use Standard Drinks/Week Comments Never 0 (1 standard drink = 0.6 oz pur e alcohol) AUDIT-C Answer Date Recorded Frequency of Alcohol Consumption Never 12/16/2019 Average Number of Drinks Not on file 020 Frequency of Binge Drinking Not on file 11/19 Comments Yes Sex and Gender Information Value Date Recorded Sex Assigned at Not on file Gender Identity Not on file Sexual Orientation Not on file documented as of this encounter Last Filed Vital Signs Vital Sign Reading Time Taken Comments Blood Pressure 140/61 12/23/2019 10:24 AM AXMINSTER WEAVER Pulse 105 12/23/2019 10:24 AM AXMINSTER WEAVER Temperature - - Respiratory Rate - - Oxygen Saturation - - Inhaled Oxygen Concentration - - Weight 123.4 kg (272 lb) 12/23/2019 10:24 AM AXMINSTER WEAVER Height - - Body Mass Index 46.69 12/16/2019 9:17 AM AXMINSTER WEAVER documented in this encounter Functional Status Functional [...] No 12/16/2019 documented as of this encounter Medications at Time of Discharge Medication Sig Dispensed Refills Start Date End Date aspirin (ASPIRIN) 81 MG tablet Take 2 tablets by mouth once daily for 30 days 60 tablet 5 12/16/2019 01/15/2020 labetalol (NORMODYNE; TRANDATE) 200 MG tabletIndications:Hyp ertension Take 200 mg by mouth 3 times daily Reasons: High Blood Pressure Disorder 01/06/2020 labetalol (NORMODYNE; TRANDATE) 200 MG tablet Take 2 tablets by mouth 2 times daily for 30 days 120 tablet 5 12/16/2019 01/15/2020 Vit-Fe Fumarate-FA ( VITAMIN WITH IRON) tabletIndications:Pre gnancy Take 1 tablet by mouth once daily Reasons: 07/31/2021 riboflavin 400 MG capsule Take 1 capsule by mouth once daily 100 capsule 6 12/23/2019 04/01/2020 documented as of this encounter Consult Notes * Karla Sales, ARELY-SUBSTATION OPERATOR CHIEF - 12/23/2019 12:15 PM CSTAssociated Order(s): AMB CONSULT TO MATERNAL MEDICNE Maternal Medicine Consultation visit Subjective: Imani Muhammad is a at 24w0d here for follow up consultation visit, at the request of Dr. Butler, for the following issue: chronic hypertension. Since the last visit she notes she has been taking her potassium supplementation for the past 5 days. She reports one severe range blood pressure at home of 160/105 on Saturday, she also had a headache at the same time, which relieved with rest. She shares she has had tension headaches prior to , and they continue during her 1-2x per week. Relieve with acetaminophen or rest. Reports otherwise her blood pressures have been 140s/80s. She does not have a blood pressure log with her today. She did increase her labetalol to 400mg BID last week as instructed by us. She tells me she was not fitted for her blood pressure cuff, and purchased an adult cuff over the counter. Denies scotomata or RUQ pain. Reports active movement. Review of systems: Constitutional: Negative for fevers Eyes: see HPI Respiratory: Negative shortness of breath Cardiovascular: Negative for chest pain, SOB at rest Gastrointestinal: Negative for nausea, vomiting, GERD, constipation Genital: Negative for abnormal vaginal discharge Urinary: Negative for dysuria Hematologic/lymphatic: Negative for vaginal bleeding Musculoskeletal: Negative for significant back pain Neurological: see HPI Integument: Denies skin changes Obstetric: movement appreciated, denies leakage of fluid or contractions Objective Physical Examination: VS: BP 140/61 Pulse 105 Wt 272 lb (123.4 kg) BMI 46.69 kg/m2 See flowsheet Gen: no acute distress Mental: appropriate mood, behavior and speech Chest: clear to auscultation, bilaterally Heart: regular rate and rhythm, no murmurs Abdomen: gravid, no epigastric tenderness FHT: per doppler Trunk: no costovertebral angle tenderness Musculoskeletal: no bony point tenderness to palpation Extremities: no pedal edema; negative Joana's sign, bilaterally Skin: no rash observed Current Outpatient Medications Medication Sig ??? aspirin (ASPIRIN) 81 MG tablet Take 2 tablets by mouth once daily for 30 days ??? labetalol (NORMODYNE; TRANDATE) 200 MG tablet Take 2 tablets by mouth 2 times daily for 30 days(Patient taking differently: Take 400 mg by mouth 2 times daily Reasons: High Blood Pressure Disorder) ??? labetalol (NORMODYNE; TRANDATE) 200 MG tablet Take 200 mg by mouth 3 times daily Reasons: High Blood Pressure Disorder ??? potassium chloride ER (KLOR-CON M) 20 MEQ tablet Take 2 tablets by mouth once daily for 7 days ??? Vit-Fe Fumarate-FA ( VITAMIN WITH IRON) tablet Take 1 tablet by mouth once daily Reasons: ??? riboflavin 400 MG capsule Take 1 capsule by mouth once daily No current facility-administered medications for this encounter. Ultrasound:(see detailed report) Labs: Urine dipstick shows: Alb/Glu/K/N/L Albumin: Negative Glucose: Negative Urine Ketones: Negative Assessment/Plan: 39 year old with IUP at 24w0d ACTIVE PROBLEMS AND RECOMMENDATIONS Patient Active Problem List: Abnormal alpha fetoprotein (AFP) level AMA (advanced maternal age) multigravida 35+, second trimester Chronic hypertension during Thyroid nodule Supervision of high-risk of elderly multigravida Serum potassium fluctuations History of delivery, currently Morbid obesity during Hypercholesteremia Headache in Additional plans: Chronic hypertension during Primary office B/P's: 09/28/19-11/24/18: 158/91,160/91,153/98,149/85,171/104 24 hour urine protein on 12/14/19: 1475cc/198mg CMPs: 11/24: ALT: 38, AST: 40, uric acid: 5.1, creatinine: 0.5, potassium: 2.9 12/11: ALT: 30, AST: 25, creatinine: 0.42, BUN: 3, potassium: 6.3 12/16: ALT: 23, AST: 24, creatinine: 0.64, BUN: 5, potassium: 3.0 CBCs: 12/04: 12/37.3/344 12/11: 11.3/33/308 AGA growth demonstrated on 12/16, anatomy survey incomplete. ?? Blood pressure today: 140/61; no proteinuria today. Negative for preeclampsia symptoms today. Episode of severe range blood pressure at home this week of 160/105; with headache, relieved with rest. Reports otherwise blood pressures are 140/80s mostly; did not bring log. History of tension headaches 1-2x weekly, relieve with medication or rest. Asymptomatic today for headache, scotomata, RUQ pain. Compliant with labetalol 400mg BID. ?? Plan: Continue labetalol 400 BID and aspirin prophylaxis. Sent with lab requisition today to check CBC/CMP/protein/creatinine ratio. Continue to check blood pressure at home, call primary OB or go to OB triage for evaluation if BP >150/95. Bring in BP log to appointments. Nursing fitted patient today for cuff, appears her cuff is an adult small at home, and she requiresan adult XL. Which could explain discrepancy in home values vs. our evaluation. She plans to get new cuff this week. Close surveillance for superimposed preeclampsia. At this time she should be seen at least every other week by provider. Significant review of preeclampsia and when to seek evaluation discussed again today. Twice daily kick counts. Serial growth ultrasounds, due again in 2-3 weeks. Weekly 10 point BPP to begin at 32 weeks. Delivery initiation at 39 weeks unless indicated sooner. Serum potassium fluctuations 11/24: serum potassium: 2.9; denies receiving any supplementation. 12/11: serum potassium: 6.3; has not had further evaluation or treatment, confirmed with primary OB. 12/16: serum potassium: 3.0; sent home on potassium supplementation, has taken 40 mEq for the past 5 days. ?? Plan: Instructed to hold on further supplementation until we recheck her CMP today, she likely has supplemented enough at this time. I will follow up with her regarding this result. Morbid obesity during Pre BMI: 47 Early GCT: 68 Hemoglobin A1C early : 5.6 TSH: 1.17 on 12/16 Plan: Limit weight gain to 0-15 pounds. Nutrition counseling would be beneficial for patient, please arrange this through your office. Serial growth ultrasounds. testing already driven by [place]. Please repeat her GCT at 28 weeks. Headache in Reports history of tension headaches outside of . Currently relieve with intervention of rest or acetaminophen. Riboflavin sent to pharmacy for aid in reduction of headaches. Abnormal alpha fetoprotein (AFP) level Positive AFP for open spina bifida drawn at 15w6d. MoM 3.08. 09/28/19 NIPT-LowRisk. Declines amniocentesis. Spinal views of ultrasound reassuring 12/16. Denies family history of spina bifida or neural tube defects. Return to the office in 2 weeks. Emphasized that if she has another severe range blood pressure she should seek evaluation in OB triage and call her Respiratory Coordinator. Instructed to call with home blood pressure values next week, nursing made note of this also. Once again, we appreciate the opportunity to assist you in the care of Ms. Muhammad. She was seen in collaboration with Dr. Owen today, assessment findings reviewed and plan of care developed with yun. Of note, labs were not returned to us as of 1700 on 12/23/19. Will continue to follow for results. She will continue seeing you for care. Sincerely, ELEUTERIO Kohli 12/23/2019 12:56 PM Maternal- Medicine NSTER WEAVER documented in this encounter Plan of Treatment Not on file documented as of this encounter Visit Diagnoses Diagnosis AMA (advanced maternal age) multigravida 35+, second trimester (HCC) Chronic hypertension during (HCC) Abnormal alpha fetoprotein (AFP) level Unspecified pre-existing hypertension complicating , second trimester (HCC) Headache in , antepartum, second trimester (HCC) Obesity complicating , second trimester (HCC) Morbid (severe) obesity due to excess calories (HCC) Abnormal hematological finding on screening of mother Abnormal findings on screening 24 weeks gestation of (HCC) state, incidental * Assessment & Plan Note - Karla Sales APRN-CNP - 12/23/2019 12:55 PM CSTAssociated Problem(s): Abnormal alpha fetoprotein (AFP) level Positive AFP for open spina bifida drawn at 15w6d. MoM 3.08. 09/28/19 NIPT-LowRisk. Declines amniocentesis. Spinal views of ultrasound reassuring 12/16. Denies family history of spina bifida or neural tube defects. NSTER WEAVER * Assessment & Plan Note - Karla Sales APRN-CNP - 12/23/2019 12:14 PM CSTAssociated Problem(s): Headache in (HCC) Reports history of tension headaches outside of . Currently relieve with intervention of rest or acetaminophen. Riboflavin sent to pharmacy for aid in reduction of headaches. NSTER WEAVER * Assessment & Plan Note - Karla Sales APRN-CNP - 12/23/2019 12:03 PM CSTAssociated Problem(s): Morbid obesity during Pre BMI: 47 Early GCT: 68 Hemoglobin A1C early : 5.6 TSH: 1.17 on 12/16 Plan: Limit weight gain to 0-15 pounds. Nutrition counseling would be beneficial for patient, please arrange this through your office. Serial growth ultrasounds. testing already driven by [place]. Please repeat her GCT at 28 weeks. NSTER WEAVER * Assessment & Plan Note - Karla Sales APRN-CNP - 12/23/2019 11:45 AM CSTAssociated Problem(s): Serum potassium fluctuations 11/24: serum potassium: 2.9; denies receiving any supplementation. 12/11: serum potassium: 6.3; has not had further evaluation or treatment, confirmed with primary OB. 12/16: serum potassium: 3.0; sent home on potassium supplementation, has taken 40 mEq for the past 5 days. ?? Plan: Instructed to hold on further supplementation until we recheck her CMP today, she likely has supplemented enough at this time. I will follow up with her regarding this result. NSTER WEAVER * Assessment & Plan Note - Karla Sales APRN-CNP - 12/23/2019 11:34 AM CSTAssociated Problem(s): Chronic hypertension during (HCC) Primary office B/P's: 09/28/19-11/24/18: 158/91,160/91,153/98,149/85,171/104 24 hour urine protein on 12/14/19: 1475cc/198mg CMPs: 11/24: ALT: 38, AST: 40, uric acid: 5.1, creatinine: 0.5, potassium: 2.9 12/11: ALT: 30, AST: 25, creatinine: 0.42, BUN: 3, potassium: 6.3 12/16: ALT: 23, AST: 24, creatinine: 0.64, BUN: 5, potassium: 3.0 CBCs: 12/04: 12/37.3/344 12/11: 11.3/33/308 AGA growth demonstrated on 12/16, anatomy survey incomplete. ?? Blood pressure today: 140/61; no proteinuria today. Negative for preeclampsia symptoms today. Episode of severe range blood pressure at home this week of 160/105; with headache, relieved with rest. Reports otherwise blood pressures are 140/80s mostly; did not bring log. History of tension headaches 1-2x weekly, relieve with medication or rest. Asymptomatic today for headache, scotomata, RUQ pain. Compliant with labetalol 400mg BID. ?? Plan: Continue labetalol 400 BID and aspirin prophylaxis. Sent with lab requisition today to check CBC/CMP/protein/creatinine ratio. Continue to check blood pressure at home, call primary OB or go to OB triage for evaluation if BP >150/95. Bring in BP log to appointments. Nursing fitted patient today for cuff, appears her cuff is an adult small at home, and she requiresan adult XL. Which could explain discrepancy in home values vs. our evaluation. She plans to get new cuff this week. Close surveillance for superimposed preeclampsia. At this time she should be seen at least every other week by provider. Significant review of preeclampsia and when to seek evaluation discussed again today. Twice daily kick counts. Serial growth ultrasounds, due again in 2-3 weeks. Weekly 10 point BPP to begin at 32 weeks. Delivery initiation at 39 weeks unless indicated sooner. NSTER WEAVER documented in this encounter
--- OUTSIDE RECORDS SUMMARY | 2024-11-14 23:33 | XMS_ITS | Encounter Summary ---
Author Organization [facility] Address [address] [place] [address] Care Team Providers Care Audio Tape Librarian Name Role Phone Unavailable Primary Care Provider Unavailabl e Reason for Referral * Consult, Test & Treat (Routine) - Closed Specialty Diagnoses / Procedures Referred By Contac t Referred To Contact Diagnoses AMA (advanced maternal age) multigravida 35+, second trimester (HCC) Chronic hypertension during (HCC) Abnormal alpha fetoprotein (AFP) level Supervision of high-risk of elderly multigravida (HCC) Morbid obesity with BMI of 40.0-44.9, adult (HCC) Procedures MATERNAL MEDICINE CONSULT Liliam Butler MD [address] [place] [address] Referral ID Status Reason Start Date Expiration Date Visits Re quested Visits Authorized [id number] Closed 01/19/2020 07/17/[address]CE SUPERVISOR Reason for Visit * Reason Comments Consultation Encounter Details Date Type Department Care Team (Latest Contact Info) Description 01/20/2020 12:[address] MAINTENANCE SUPERVIS[address] - 01/20/2020 11:[address] MAINTENANCE SUPERVISOR Hospital Encounter [facility] [address] [place] [address] Jessica Porras MD [address] [address] Discharge Disposition: Home or Self Care Social [...] Sign Reading Time Taken Comments Blood Pressure 144/85 01/20/2020 1:[address] MAINTENANCE SUPERVISOR Pulse 98 01/20/2020 1:[address] MAINTENANCE SUPERVISOR Temperature - - Respiratory Rate - - Oxygen Saturation - - Inhaled Oxygen Concentration - - Weight 124.7 kg (275 lb) 01/20/2020 1:[address] MAINTENANCE SUPERVISOR Height 162.6 cm (5' 4 ) 01/20/2020 1:[address] MAINTENANCE SUPERVISOR Body Mass Index 47.2 01/20/2020 1:[address] MAINTENANCE SUPERVISOR documented in this encounter Functional Status Functional [...] No 12/16/2019 documented as of this encounter Discharge Instructions * Patient Instructions* Jessica Porras MD - 01/20/2020 1:[address] MAINTENANCE SUPERVISOR Images from the original note were not included. Physician instructions: 1. continue taking your current dose of labetalol 2. Start doing daily kick counts 3. please go to the hospital if you have 1. a blood pressure greater than or equal to 160/100; 2. a persistent severe headache that does not respond to Tylenol, water or rest; 3. sudden onset dramatic swelling; 4. decreased movement 5. or labor 4. I recommend following a diabetic diet 5. limit your total weight gain to less than 15 lb 6. I recommend and weight loss How to Position your Baby for Common Positions: Cross-Cradle Hold: ??? Good position for the first few days ??? Provides good support of breast and baby???s head ??? Always support baby by holding the upper back and shoulders ??? Avoid pushing on the back of the baby???s head Cradle Hold: ??? In the first few days this can be a difficult position due to lack of baby???s neck muscle control ??? Bring your baby???s tummy to your tummy with the baby???s head level and facing your breast. ??? The baby???s arm that is closest to you can be tucked beside the baby or under your breast Football Hold: ??? Good position after a , with babies, twins, or mothers with large breasts ??? Sit in a chair and support your baby in a semi-sitting position, facing you ??? Your baby???s bottom should be against the back of the chair with legs flexed ??? Use your hand to support the baby???s head behind the neck ??? Hold your breast with the opposite hand Side-lying: ??? Good for nursing at night or when sitting is painful ??? Never sleep with your baby ??? You and your baby lie on your sides, facing each other tummy to tummy ??? Your baby will nurse on the breast that is closest to the bed How to Latch the Baby on to the Breast: ??? Hold your baby close, with the baby???s tummy facing your tummy ??? Bring your baby up to the level of your breast by placing a pillow under the baby ??? Keep one hand supporting your baby???s neck and shoulders. The other hand supporting your breast well behind your nipple and compress it slightly making a sandwich shape. This will help the baby take in more of the nipple. ??? Press the baby???s chin into your breast with your nipple just opposite his nose ??? Tickle your baby???s upper lip with your nipple until he opens his mouth very wide (be patient,your baby is learning too), then bring him to your breast quickly. ??? You want the baby to latch on to the areola ( darker [place] of skin around the nipple). This will allow your baby to remove more milk and prevent nipple soreness ??? If you need to unlatch your baby for any reason, or if your baby does not have enough of your breast in his mouth, insert your finger into the corner of his mouth to break the suction, remove him, and re-latch with a wider mouth. ??? Proper positioning and attaching your baby prevents sore nipples and ensures you have enough milk for your baby and that he is getting enough. Tips on your baby can be found on the following links: https://www.youThemBid.com/watch?v=Fr7wz-DUuIK https://www.Embedlyube.com/watch?v=ztdzpk6Yg2F Pain Relief in Labor Pain is a normal and expected part of childbirth. Normal labor pain does not mean something is wrong. As your labor progresses, normal pain is natural. It???s helpful to learn and practice ways to cope with the pain, including help from your partner, a birthing assistant football coach, or your nurse. Some ways to cope with the challenges of normal labor: 1. Relax and breathe Learning to breathe in certain ways can help you relax and focus your mind away from the labor pain. You can also use guided imagery and your imagination to shift your focus and relax. 2. Move your body Movement during labor can help relieve pain and also help your labor progress. Try different positions and find the ones that help ease your pain. 3. Stay hydrated Most women can stay hydrated during labor by sipping on clear liquids, ice chips, or popsicles. Youmay also need IV fluids at some point during your labor or childbirth. This is something you can talk about with your nurse or provider. 4. Sit on a -ball A -ball can be a comfortable place to sit during labor. It may help your baby move down into your pelvis if you sit, rock, and shift your weight around on the ball. 5. Apply warmth and coolness Warm water, towels, a hot water bottle, or heating pad can be used on the parts of your body that hurt. Cool cloths or water to the forehead, neck, or lower back can help relieve tension. 6. Counter pressure This is when someone else applies strong, steady pressure to one spot on your lower back during contractions. It can help relieve back pain during labor. 7. Tough and massage Massage or a gentle pressure can help you feel supported, assured, and relaxed. 8. Enjoy aromatherapy Some essential oils can be used to help you feel more calm and relaxed. You can put a few drops in warm water then soak a cloth and apply to the forehead, neck, or feet. 9. Find relief with hydrotherapy Getting into a tub of warm water during your labor can help relieve pain, heaviness, and pressure. You can do this at home, and your hospital may have tubs for laboring in the water. 10. Listen to music Music may distract, soothe, or energize you. Some people even dance during labor. Others may sleep or relax better with music. Every person and every is different. There is no right or wrong way to cope with labor pain. The staff will always be there to support you in making the best choices for you and your baby. Discuss with your health care provider about pain relief medications and epidural anesthesia. WAY MAINTENANCE SUPERVISOR documented in this encounter Medications at Time of Discharge Medication Sig Dispensed Refills Start Date End Date aspirin EC (ECOTRIN) 81 MG tablet Take 162 mg by mouth once daily 07/31/2021 labetalol (NORMODYNE; TRANDATE) 200 MG tabletIndications:Hyp ertension Take 400 mg by mouth every 12 hours Reasons: High Blood Pressure Disorder 03/02/2020 potassium chloride ER (KLOR-CON) 20 MEQ tablet Take 1 tablet by mouth once daily for 28 days 28 tablet 1 01/13/2020 02/10/2020 Vit-Fe Fumarate-FA ( VITAMIN WITH IRON) tabletIndications:Pre gnancy Take 1 tablet by mouth once daily Reasons: 07/31/2021 riboflavin 400 MG capsule Take 1 capsule by mouth once daily 100 capsule 6 12/23/2019 04/01/2020 documented as of this encounter Progress Notes * Suzie Quinn RN - 01/20/2020 1:00 PM CST Pt here today for follow up MFM visit with Dr. Porras for chronic hypertension and AMA status. Reports good movement. FHT's doppled at 140's. Denies cramping/contractions. Denies leakage of fluid/bleeding. Denies headaches, visual changes, edema, and epigastric pain. Pt states that she doescheck her blood pressure twice a day with her readings on average being 140/80, with a higher outlier of 150/96. She did not bring logs in for review today. Denies palpitations today or recently. Pt was to have Nephrology consult, and this does not appear to be scheduled yet. I will message Tayler Velazquez to arrange if not completed. To return on 02/01 for ultrasound to complete anatomy and growth. Please see Dr. Porras's note for further POC. WAY MAINTENANCE SUPERVISOR * Tayler Velazquez - 01/20/2020 1:00 PM CST Appointments/ Referrals notification are located in the Letters Tab. I have faxed this patient's referral to the office of [facility] at [phone]. documented in this encounter Consult Notes * Jessica Porras MD - 01/20/2020 1:00 PM CSTAssociated Order(s): AMB CONSULT TO MATERNAL MEDICNE Images from the original note were not included. Dear Dr. Butler, I had the pleasure of seeing your patient, Imani Muhammad for consultation today. Maternal Medicine Consultation visit Subjective: Imani Muhammad is a at 28w0d here for follow up consultation visit, at the request of Dr. Butler, for the following issues below. Imani is accompanied by her to today's consultation. Since the last visit she notes having to do a 3hr GTT today. Patient recalls two Home BP values: 140/80, 156/92 Imani's is complicated by: Patient Active Problem List: Abnormal alpha fetoprotein (AFP) level AMA (advanced maternal age) multigravida 35+, second trimester Chronic hypertension during Thyroid nodule Supervision of high-risk of elderly multigravida Serum potassium fluctuations History of delivery, currently Morbid obesity during Hypercholesteremia Headache in Her past history is significant for: Past Medical History: Diagnosis Date ??? Hypercholesteremia previously took a statin ??? Thyroid nodule 2018 was told by ENT that it was too small to be bothersome Past Surgical History: Procedure Laterality Date ??? CARPAL TUNNEL SURGERY Bilateral 2013 ??? Section ??? Cyst Removal 1999 rectal area; benign Social History Tobacco Use ??? Smoking status: Never Smoker ??? Smokeless tobacco: Never Used Substance Use Topics ??? Alcohol use: Never Frequency: Never ??? Drug use: Never Review of systems: Constitutional: Negative for fevers Eyes: Negative for visual changes Respiratory: Negative for significant shortness of breath Cardiovascular: Negative for chest pain Gastrointestinal: occasional vomiting nausea; regular bowel movements Genital:Negative for abnormal vaginal discharge Urinary: Negative for dysuria Hematologic/lymphatic: Negative for vaginal bleeding or hematuria Musculoskeletal:mild back pain, worse at night ; denies muscle cramps Neurological: Negative for frequent headaches Behavioral/Psych: Negative for poor mood Integument: Denies skin changes Obstetric: movement appreciated, denies leakage of fluid or significant contractions Objective Physical Examination: VS: BP 144/85 (BP SITE: RIGHT ARM, BP POSITION: SITTING, BP CUFF SIZE: 11) Pulse 98 Ht 5' 4 (1.626m) Wt 275 lb (124.7 kg) BMI 47.2 kg/m2 See flowsheet Gen: no acute distress Mental: appropriate mood, behavior and speech Neck: no thyroid enlargement Chest: clear to auscultation, bilaterally Heart: regular rate and rhythm, no murmurs, rubs or gallops Abdomen: gravid, obese, no epigastric tenderness Trunk: no costovertebral angle tenderness Musculoskeletal: no bony point tenderness to palpation Extremities: no significant hand or pedal edema; negative Joana's sign, bilaterally Skin: No rash observed Current Outpatient Medications Medication Sig ??? aspirin EC (ECOTRIN) 81 MG tablet Take 162 mg by mouth once daily ??? labetalol (NORMODYNE; TRANDATE) 200 MG tablet Take 400 mg by mouth every 12 hours Reasons: HighBlood Pressure Disorder ??? potassium chloride ER (KLOR-CON) 20 MEQ tablet Take 1 tablet by mouth once daily for 28 days ??? Vit-Fe Fumarate-FA ( VITAMIN WITH IRON) tablet Take 1 tablet by mouth once daily Reasons: ??? riboflavin 400 MG capsule Take 1 capsule by mouth once daily (Patient not taking: Reported on 01/06/2020) No current facility-administered medications for this encounter. Ultrasound:(see detailed report) Labs: Alb/Glu/K/N/L Albumin: Trace Glucose: Negative Urine Ketones: Negative Assessment/Plan: 39 year old with IUP at 28w0d Problem Chronic Hypertension During Primary office B/P's: 09/28/19-11/24/18: 158/91,160/91,153/98,149/85,171/104 24 hour urine protein on 12/14/19 [22wk]: 1475cc/198mg Increased labetalol 12/16: 400 BID; ASA started 12/24/19: protein/creatinine ratio: 0.10, H/H/P: 10.8/32.6/315, CMP: BUN: 5, creatinine: 0.47, AST:17, ALT: 16 01/07/20: protein/creatinine ratio: 0.09, H/H/P: 11.1/33.5/336, CMP: BUN: 5, creatinine: 0.61, AST 15, ALT: 12 01/18/20: protein/creatinine ratio: 0.17, H/H/P: 11.2/34.2/329, CMP: BUN: 5, creatinine: 0.51, AST 11, ALT: 16 RECOMMENDATIONS: Chronic hypertension during Blood pressure at goal. No symptoms of preeclampsia. Remains at risk for superimposed preeclampsia. ?? Maternal Medicine recommendations: 1. Continue labetalol 400 BID and aspirin prophylaxis. 2. may discontinue by monthly serial laboratory testing 3. Continue to check blood pressure at home, call primary OB or go to OB triage for evaluation if BP >160/100 4. kick counts. 5. Serial growth ultrasounds--next assessment in 2 weeks 6. Weekly 10 point BPP to begin at 32 weeks. 7. Delivery initiation at 39 weeks unless indicated sooner 8. Would benefit from and weight reduction Headache in No headache in at least 1 week. Has the prescription for riboflavin if needed. Morbid obesity during 25 lb weight gain from reported pre value. Only 5 lb total weight gain since 1st consultation. Maternal Medicine recommendations: 9. would benefit from and weight reduction Serum potassium fluctuations No muscle complaints. Last potassium result appropriate. Maternal Medicine recommendations: 10. recommending primary OB add potassium to glucose tolerance test results drawn today 11. Continue potassium supplementation 12. Follow-up with Nephrology as previously recommended Abnormal [place] glucose challenge test, antepartum performed GTT earlier today Maternal Medicine recommendations: 13. I recommend following a diabetic diet regardless a whether or not Imani passes the GTT Additionally I recommended the use of maternity belt and medicated history of at night for back pain relief. I recommend a follow-up consultation in 4 weeks. Imani is to follow up with her primary Obstetrical care provider for her routine care and acute OB concerns, including delivery as clinically indicated. Once again, we appreciate the opportunity to assist you in the care of Ms. Muhammad. If issues arise for which I can be of help before her next visit here, please contact me directly, or contact one ofmy partners if I am unavailable. She will continue seeing you for care. Sincerely, Jessica Porras MD Maternal- Medicine WAY MAINTENANCE SUPERVISOR documented in this encounter Plan of Treatment Not on file documented as of this encounter Visit Diagnoses Diagnosis Supervision of high-risk of elderly multigravida (HCC)- Primary Supervision of high-risk of elderly multigravida AMA (advanced maternal age) multigravida 35+, second trimester (HCC) Chronic hypertension during (HCC) Abnormal alpha fetoprotein (AFP) level Morbid obesity during Unspecified pre-existing hypertension complicating , third trimester (HCC) Abnormal [place] glucose challenge test, antepartum (HCC) Abnormal maternal glucose tolerance, antepartum headache in third trimester (HCC) Obesity complicating , third trimester (HCC) Morbid (severe) obesity due to excess calories (HCC) 28 weeks gestation of (HCC) state, incidental * Assessment & Plan Note - Jessica Porras MD - 01/20/2020 2:[address] MAINTENANCE SUPERVISOR Associated Problem(s): Abnormal [place] glucose challenge test, antepartum (HCC) performed GTT earlier today Maternal Medicine recommendations: 1. I recommend following a diabetic diet regardless a whether or not Imani passes the GTT WAY MAINTENANCE SUPERVISOR * Assessment & Plan Note - Jessica Porras MD - 01/20/2020 2:[address] MAINTENANCE SUPERVISOR Associated Problem(s): Serum potassium fluctuations No muscle complaints. Last potassium result appropriate. Maternal Medicine recommendations: 1. recommending primary OB add potassium to glucose tolerance test results drawn today 2. Continue potassium supplementation 3. Follow-up with Nephrology as previously recommended WAY MAINTENANCE SUPERVISOR * Assessment & Plan Note - Jessica Porras MD - 01/20/2020 2:[address] MAINTENANCE SUPERVISOR Associated Problem(s): Morbid obesity during 25 lb weight gain from reported pre value. Only 5 lb total weight gain since 1st consultation. Maternal Medicine recommendations: 1. would benefit from and weight reduction WAY MAINTENANCE SUPERVISOR * Assessment & Plan Note - Jessica Porras MD - 01/20/2020 2:[address] MAINTENANCE SUPERVISOR Associated Problem(s): Headache in (HCC) No headache in at least 1 week. Has the prescription for riboflavin if needed. WAY MAINTENANCE SUPERVISOR * Assessment & Plan Note - Jessica Porras MD - 01/20/2020 2:[address] MAINTENANCE SUPERVISOR Associated Problem(s): Chronic hypertension during (HCC) Blood pressure at goal. No symptoms of preeclampsia. Remains at risk for superimposed preeclampsia. ?? Maternal Medicine recommendations: 1. Continue labetalol 400 BID and aspirin prophylaxis. 2. may discontinue by monthly serial laboratory testing 3. Continue to check blood pressure at home, call primary OB or go to OB triage for evaluation if BP >160/100 4. kick counts. 5. Serial growth ultrasounds--next assessment in 2 weeks 6. Weekly 10 point BPP to begin at 32 weeks. 7. Delivery initiation at 39 weeks unless indicated sooner 8. Would benefit from and weight reduction WAY MAINTENANCE SUPERVISOR documented in this encounter
--- OUTSIDE RECORDS SUMMARY | 2024-11-14 23:33 | XMS_ITS | Clinical Summary ---
Author Organization [facility] Address [address] [place] [address] Care Team Providers Care Poker Room Manager Name Role Phone Ana Vyas MD Primary Care Provider [phone] Source Comments [facility] Affiliates and Associated Physician Practices is amultiple site organization consisting of ambulatory clinics and hospital sitesin [place], [place], [place] and [place]. This disclosure is being madepursuant to the Care Everywhere program and may not contain all information available regarding this patient. Last updated 18.[facility] Allergies Active Allergy Reactions Criticality Noted Date Comments Levofloxacin Urticaria High 07/31/2021 Medications * Be aware that medications may not be up to date on this document. Alwaysverify current medications with the patient. Medication Sig Dispensed Refills Start Date End Date Status FEROSUL 325 (65 Fe) MG tablet Take 1 (one) tablet by mouth once daily 07/12/2021 Active amLODIPine (NORVASC) 5 MG tablet Take 1 (one) tablet by mouth once daily Active atorvastatin (Lipitor) 20 MG tablet Take 1 (one) tablet by mouth at bedtime 10/28/2023 Active benzonatate (Tessalon) 100 MG capsule Take 1 (one) capsule by mouth 3 times daily 09/25/2023 Active cetirizine (ZyrTEC) 10 MG tablet Take 1 (one) tablet by mouth once daily 05/28/2023 Active Active Problems Problem Noted Date Diagnosed Date Abnormal placenta, antepartum 03/02/2020 Overview (03/02/2020): Two cyst-like structures (suspected to be placental in origin) near the placental cord insertion: measuring 29x 46 mm and the second measuring 30x28 mm. May reflect changes to subchorionic fibrin/maternal floor of the placenta. Recommend sending placenta to pathology after delivery Abnormal [place] glucose challenge test, ante 01/20/2020 Overview (03/02/2020): GTT appropriate: 81, 139, 135, 67 Assessment & Plan (02/17/2020 11:41 AM CDT): Reports that her GTT was appropriate: please send those results to our office. MFM plan: -Completing dietary education today with CDE, as we recommend following diabetic diet regardless of GTT results. Assessment & Plan (01/20/2020 2:15 PM TIRE FABRICATOR): performed GTT earlier today Maternal Medicine recommendations: 1. I recommend following a diabetic diet regardless a whether or not Vivek passes the GTT Headache in 12/23/2019 Assessment & Plan (01/20/2020 2:11 PM TIRE FABRICATOR): No headache in at least 1 week. Has the prescription for riboflavin if needed. Assessment & Plan (12/23/2019 12:15 PM TIRE FABRICATOR): Reports history of tension headaches outside of . Currently relieve with intervention of rest or acetaminophen. Riboflavin sent to pharmacy for aid in reduction of headaches. Thyroid nodule 12/16/2019 Overview (12/16/2019): History of benign thyroid nodule, no recent TFTs assessed; recommended to be done today at [facility] given that history and morbid obesity. Supervision of high-risk of elderly mu ltigravida 12/16/2019 Overview (03/01/2020): summary: B+/Immune/Hep B antigen NR/RPR NR/HIV NR Antibody screen negative 09/29/19 CBC: 13.4/40.9/430 Early GCT: 68 Hemoglobin A1C: 5.6 early (documented in PN record) ?? LMP not c/w 1st trimester u/s, CHRISSY-->04/13/20 ?? LR NIPT; Abnormal AFP screen at 15w6d, 3.08 ?? 24 hour urine protein on 12/14/19: 1475cc/198mg ?? CMP 11/24: ALT: 38, AST: 40, uric acid: 5.1, creatinine: 0.5, potassium: 2.9 ?? 12/11: ALT: 30, AST: 25, creatinine: 0.42, BUN: 3, potassium: 6.3 ?? CBC 12/11: 11.3/33/308 3hrGCT- 81,139,135,67 ?? Serum potassium fluctuations 12/16/2019 Overview (03/02/2020): Nephrology consult ordered, 01/13, daily potassium supplementation provided per recommendation of Dr. Porras. CMP 11/24: ALT: 38, AST: 40, uric acid: 5.1, creatinine: 0.5, potassium: 2.9 ?? 12/11: ALT: 30, AST: 25, creatinine: 0.42, BUN: 3, potassium: 6.3 12/16: potassium: 3.0, instructed to complete supplementation 12/24: potassium: 3.4, instructed to complete supplementation 01/06: potassium: 3.2, start daily 20 meq supplementation 01/18/20: potassium 3.8 02/22/20: potassium 4.1 ? Assessment & Plan (03/02/2020 12:25 PM CDT): Denies palpitations or muscle pains. Last potassium early February appropriate at 4.1 ?? [facility] plan: 1. Call Nephrology number given to you today that was previously mailed, inquire if they are doing zoom meetings. 2. Continue potassium supplement as prescribed. 3. Repeat CMP early March. ?? Assessment & Plan (02/17/2020 11:55 AM CDT): Denies palpitations or muscle pains. Last potassium early january appropriate. MFM plan: 1. Call Nephrology number sent to you in letter to schedule consult, inquire if they are doing zoom meetings. 2. Continue potassium supplement as prescribed. 3. Sent with CMP order today. Assessment & Plan (01/20/2020 2:30 PM TIRE FABRICATOR): No muscle complaints. Last potassium result appropriate. Maternal Medicine recommendations: 1. recommending primary OB add potassium to glucose tolerance test results drawn today 2. Continue potassium supplementation 3. Follow-up with Nephrology as previously recommended Assessment & Plan (01/06/2020 4:50 PM TIRE FABRICATOR): Improved to 3.4 on 12/24; completed potassium supplementation two days later. Denies any current palpitations. Assessment & Plan (12/23/2019 12:14 PM TIRE FABRICATOR): 11/24: serum potassium: 2.9; denies receiving any [...] follow up with her regarding this result. Assessment & Plan (12/16/2019 11:50 AM TIRE FABRICATOR): Serum potassium 11/24: 2.9; denies receiving any supplementation. Denies kidney disease. 12/11: serum potassium: 6.3; has not had further evaluation or treatment, confirmed with primary OB Plan: Sent to [facility] today for further evaluation, report called to Dr. Wellington Recommend repeating CMP, checking magnesium, phosphorous. Consider EKG with palpitations. History of delivery, currently 12/16/2019 Overview (12/16/2019): Primary related to arrest of dilation, second section elective and repeat. Need to address at future visit if she is interested in a TOLAC. Assessment & Plan (03/02/2020 12:27 PM CDT): Patient is planning repeat section. At this time there remains no indication to move up delivery timing to prior than 39 weeks. ?? MFM Plan: 1. Again reviewed with patient if her chronic hypertension becomes difficult to control, or she develops superimposed preeclampsia, that necessitate a change her in her delivery timing, and likely move up her section date. However, there is no indication to change her delivery timing at this juncture. Assessment & Plan (02/17/2020 12:00 PM CDT): Patient is planning repeat section. At this juncture there is no indication to move up delivery from 39 weeks. MFM Plan: 1. Reviewed with patient if her chronic hypertension becomes difficult to control, or she develops superimposed preeclampsia, that would change her delivery management, and likely move up her section date. However, there is no indication to change her delivery planning at this time. Assessment & Plan (12/16/2019 11:54 AM TIRE FABRICATOR): Primary related to arrest of dilation, second section elective and repeat. Need to address at future visit if she is interested in a TOLAC. Morbid obesity during 12/16/2019 Overview (12/23/2019): Pre BMI: 47 Early GCT: 68 Hemoglobin A1C early : 5.6 TSH: 1.17 on 12/16 Assessment & Plan (03/02/2020 12:30 PM CDT): Pre BMI: 47 Early GCT: 68; failed repeat GCT but passed GTT. Hemoglobin A1C early : 5.6 TSH: 1.17 on 12/16 Stable weight noted with her visits here. S/p meeting with CDE previously. ?? MFM plan: 1. Encouraged to follow CDE diet; PP weight reduction and . Assessment & Plan (02/17/2020 11:54 AM CDT): Stable weight noted with her visits here. Meeting with CDE today via Zoom. MFM plan: 1. Follow CDE diet; PP weight reduction and . Assessment & Plan (01/20/2020 2:12 PM TIRE FABRICATOR): 25 lb weight gain from reported pre value. Only 5 lb total weight gain since 1st consultation. Maternal Medicine recommendations: 1. would benefit from and weight reduction Assessment & Plan (01/06/2020 4:57 PM TIRE FABRICATOR): Pre BMI: 47 Early GCT: 68 Hemoglobin A1C early : 5.6 TSH: 1.17 on 12/16 Plan: Limit weight gain to 0-15 lbs, weight gain in our office thus far: 5lbs. Again, please arrange nutrition counseling if not already done. Serial growth ultrasounds. Would benefit from and PP weight reduction. Please repeat her GCT at 28 weeks. testing driven by cHTN. Assessment & Plan (12/23/2019 12:06 PM TIRE FABRICATOR): Pre BMI: 47 Early GCT: 68 Hemoglobin A1C early : 5.6 TSH: 1.17 on 12/16 Plan: Limit weight gain to 0-15 pounds. Nutrition counseling would be beneficial for patient, please arrange this through your office. Serial growth ultrasounds. testing already driven by cHTN. Please repeat her GCT at 28 weeks. Assessment & Plan (12/16/2019 11:59 AM TIRE FABRICATOR): Pre BMI: 47 Early GCT: 68 Hemoglobin A1C early : 5.6 Plan: Limit weight gain to 0-15 pounds. Active weight loss is not encouraged. Reviewed healthy dietary choices today with patient. Nutrition counseling recommended and needs order at follow up visit. Serial growth ultrasounds. Weekly testing to include 8 point BPP recommended at 36 weeks, patient will already be doing d/t cHTN Repeat GCT at 28 weeks. AMA (advanced maternal age) multigravida 35+, second trimester 12/14/2019 Overview (12/16/2019): summary: B+/Immune/Hep B antigen NR/RPR NR/HIV NR Early GCT: 68 Hemoglobin A1C: 5.6 early (documented in PN record) LMP not c/w 1st trimester u/s, CHRISSY-->04/13/20 LR NIPT; Abnormal AFP screen at 15w6d, 3.08 24 hour urine protein on 12/14/19: 1475cc/198mg CMP 11/24: ALT: 38, AST: 40, uric acid: 5.1, creatinine: 0.5, potassium: 2.9 12/11: ALT: 30, AST: 25, creatinine: 0.42, BUN: 3, potassium: 6.3 CBC 12/11: 11.3/33/308 Chronic hypertension during 12/14/2019 Overview (02/24/2020): Primary office B/P's: 09/28/19-11/24/18: 158/91,160/91,153/98,149/85,171/104 24 hour urine protein on 12/14/19 [22wk]: 1475cc/198mg Increased labetalol 12/16: 400 BID; ASA started 12/24/19: protein/creatinine ratio: 0.10, H/H/P: 10.8/32.6/315, CMP: BUN: 5, creatinine: 0.47, AST: 17, ALT: 16 01/18/20: protein/creatinine ratio: 0.17, H/H/P: 11.2/34.2/329, CMP: BUN: 5, creatinine: 0.51, AST 11, ALT: 16 02/22/2020: BUN 8/creatinine 0.64/ALT 9/AST 12 Assessment & Plan (03/02/2020 12:23 PM CDT): Primary office B/P's: 09/28/19-11/24/18: 158/91,160/91,153/98,149/85,171/104 24 hour urine protein on 12/14/19 [22wk]: 1475cc/198mg Increased labetalol 12/16: 400 BID; ASA started ?? 01/18/20: protein/creatinine ratio: 0.17 H/H/P: 11.2/34.2/329, CMP: BUN: 5, creatinine: 0.51, AST 11, ALT: 16 02/22/2020: BUN 8/creatinine 0.64/ALT 9/AST 12 H/H/P: 12.2/37.9/361 Today: AGA growth identified again today, formal report to follow; reassuring testing. Blood pressures with low morning values, patient symptomatic. Otherwise normotensive. Continues labetalol 400mg BID; not always consistent with ASA. No symptoms of preeclampsia. ? MFM plan: 1. Decrease labetalol to??200 BID, pick remover ASA as intended. 2. Continue to check blood pressure at home, call primary OB or go to OB triage for evaluation if BP??>160/100. Alert primary OB if continuing to have low values before next follow up visit; or call our team on , Weds, Fri when we are in office. 3. Educated to continue twice daily kick counts, andagain reviewed preeclampsia symptoms. 4. Serial growth ultrasounds--next assessment in 4 weeks if undelivered. 5. Continue weekly 10 point BPP. 1. Plans to continue weekly testing at primary [facility]. 6. Delivery initiation at 39 weeks unless indicated sooner. 7. Would benefit from and weight reduction. ?? Assessment & Plan (02/17/2020 11:53 AM CDT): Primary office B/P's: 09/28/19-11/24/18: 158/91,160/91,153/98,149/85,171/104 24 hour urine protein on 12/14/19 [22wk]: 1475cc/198mg Increased labetalol 12/16: 400 BID; ASA started ?? 01/18/20: protein/creatinine ratio: 0.17 H/H/P: 11.2/34.2/329, CMP: BUN: 5, creatinine: 0.51, AST 11, ALT: 16 AGA growth identified 02/01 RECOMMENDATIONS: Chronic hypertension during Blood pressures are normotensive at home and in office. No symptoms of preeclampsia. ?? MFM plan: 1. Continue labetalol??400 BID??and aspirin prophylaxis. 2. Continue to check blood pressure at home, call primary OB or go to OB triage for evaluation if BP??>160/100. 3. Educated to do twice daily kick counts, and reviewed preeclampsia symptoms again. 4. Serial growth ultrasounds--next assessment in 2 weeks. 5. Weekly 10 point BPP to begin at 32 weeks, reassuring testing today. 1. Plans to continue weekly testing at primary [facility]. 6. Delivery initiation at 39 weeks unless indicated sooner. 7. Would benefit from and weight reduction. Assessment & Plan (01/20/2020 2:11 PM TIRE FABRICATOR): Blood pressure at goal. No symptoms of [...] 8. Would benefit from and weight reduction Assessment & Plan (01/06/2020 4:59 PM TIRE FABRICATOR): Primary office B/P's; diagnosed with HTN this : 09/28/19-11/24/18:??158/91,160/91,153/98,149/85,171/104 24 hour urine protein on 12/14/19: 1475cc/198mg of protein CMP: most recent: 12/23: ALT: 16, AST: 17, creatinine: 0.47, BUN: 5, potassium: 3.4 CBC: most recent: 12/11: 11.3/33/308 ?? AGA growth demonstrated today, incomplete anatomy ultrasound. ?? Blood pressure today: 144/86, 1+ urine protein Blood pressure log at home normotensive outside of two outliers in the past two weeks: 142/95 and 140/102. History of tension headaches 2-3x weekly, relieve with medication or rest. Asymptomatic today for headache, scotomata, RUQ pain. Reports nausea with emesis x 2 this past week Compliant with labetalol 400mg BID. ?? Plan: Continue labetalol 400 BID and aspirin prophylaxis. Sent with lab requisition today to check CBC/CMP/protein/creatinine ratio. Continue to check blood pressure at home, call primary OB or go to OB triage for evaluation if BP >150/95. Reiterated the importance of this today, gave after hours number for OB triage at [facility]. Bring in BP log to appointments. Close surveillance for superimposed preeclampsia. At this time she should be seen at least every other week by provider. Significant review of preeclampsia and when to seek evaluation discussed again today. Twice daily kick counts. Serial growth ultrasounds, due again in 4 weeks. Weekly 10 point BPP to begin at 32 weeks. Delivery initiation at 39 weeks unless indicated sooner. Assessment & Plan (12/23/2019 12:56 PM TIRE FABRICATOR): Primary office B/P's: 09/28/19-11/24/18: 158/91,160/91,153/98,149/85,171/104 24 hour urine protein on 12/14/19: 1475cc/198mg CMPs: 11/24: ALT: 38, AST: 40, uric acid: 5.1, creatinine: 0.5, potassium: 2.9 12/11: ALT: 30, AST: 25, creatinine: 0.42, BUN: 3, potassium: 6.3 12/16: ALT: 23, AST: 24, creatinine: 0.64, BUN: 5, potassium: 3.0 CBCs: 12/04: 12/37.3/344 12/11: 11.//308 AGA growth demonstrated on 12/16, anatomy survey [...] an adult small at home, and she requires an adult XL. Which could explain discrepancy in [...] initiation at 39 weeks unless indicated sooner. Assessment & Plan (12/16/2019 12:04 PM TIRE FABRICATOR): Primary office B/P's: 09/28/19-11/24/18: 158/91,160/91,153/98,149/85,171/104 24 hour urine protein on 12/14/19: 1475cc/198mg CMP 11/24: ALT: 38, AST: 40, uric acid: 5.1, creatinine: 0.5, potassium: 2.9 12/11: ALT: 30, AST: 25, creatinine: 0.42, BUN: 3, potassium: 6.3 CBC 12/11: 11.3/33/308 Blood pressure today initially 152/95, repeat manual assessment: 144/88; negative proteinuria today. Negative for preeclampsia symptoms today. Plan: Increased labetalol 12/16: 400 BID; ASA started Continue to check blood pressure at home, call primary OB or go to OB triage for evaluation if BP >150/95. Bring in B/p log to appointments. Close surveillance for superimposed preeclampsia. Significant review of preeclampsia and when to seek evaluation. Twice daily kick counts. Serial growth ultrasounds. Weekly 10 point BPP to begin at 32 weeks. Delivery initiation at 39 weeks unless indicated sooner. Abnormal alpha fetoprotein (AFP) level 0 Overview (12/16/2019): Positive AFP for open spina bifida drawn at 15w6d. MoM 3.08 09/28/19 NIPT-LowRisk Declines amniocentesis Spinal views of ultrasound reassuring 12/16 Denies family history of spina bifida or neural tube defects Assessment & Plan (12/23/2019 12:55 PM TIRE FABRICATOR): Positive AFP for open spina bifida drawn at 15w6d. MoM 3.08. 09/28/19 NIPT-LowRisk. Declines amniocentesis. Spinal views of ultrasound reassuring 12/16. Denies family history of spina bifida or neural tube defects. Assessment & Plan (12/16/2019 11:56 AM TIRE FABRICATOR): Positive AFP for open spina bifida drawn at 15w6d. MoM 3.08 09/28/19 NIPT-LowRisk Denies family history of spina bifida or neural tube defects Plan: Declines further diagnostic assessment with amniocentesis. Spinal views of ultrasound reassuring 12/16/19. Reviewed other risks that can be associated with increased AFP today. including placental abnormalities, preeclampsia, loss. Hypercholesteremia Overview (12/16/2019): Took a statin medication prior to . Recommend increasing fiber in diet. Immunizations Name Administration Dates Next Due Covid Moderna primary monovalent 12+ yr 0.5mL ,01/20/2021 INFLUENZA 08/23/2021 Family History Medical History Relation Name Comments Hypertension Sister Relation Name Status Comments Sister Social History Tobacco Use Types Packs/Day Years [...] Comments Blood Pressure 121/82 11/04/2023 2:06 PM TIRE FABRICATOR Pulse 97 11/04/2023 2:06 PM TIRE FABRICATOR Temperature 36.9 ??C (98.5 ??F) 03/16/2020 8:27 AM CD T Respiratory Rate - - Oxygen Saturation - - Inhaled Oxygen Concentration - - Weight 112.5 kg (248 lb) 11/04/2023 2:06 PM TIRE FABRICATOR Height 160 cm (5' 3 ) 11/04/2023 2:06 PM TIRE FABRICATOR Body Mass Index 43.93 11/04/2023 2:06 PM TIRE FABRICATOR Plan of Treatment Health Maintenance Due Date Last Done Comments MAMMOGRAM 1980 PAP SMEAR 1980 HIV SCREENING 1995 HEPATITIS C SCREENING 09/22/1998 DTAP/TDAP/TD VACCINES (1 - Tdap) 1999 HEPATITIS B VACCINE (1 of 3 - 19+ 3-dose series) 1999 SCREENING FOR DIABETES 10/07/2023 0, 01/07/2020, 12/23/2019, Additional history exists DEPRESSION SCREENING 11/18/2023 COVID-19 VACCINE ( season) 2024 02/24/2021, 01/20/2021 INFLUENZA VACCINE (#1) 2024 08/23/2021 ZOSTER VACCINE (1 of 2) 2030 HIB VACCINE Aged Out No longer eligi ble based on patient's age to complete this topic HPV VACCINE Aged Out No longer eligi ble based on patient's age to complete this topic MENINGOCOCCAL VACCINE Aged Out No genoveva stan eligible based on patient's age to complete this topic PNEUMOCOCCAL VACCINE Aged Out No long er eligible based on patient's age to complete this topic Procedures Procedure Name Priority Date/Time Associated Diagnosis Comments COMPREHENSIVE METABOLIC PANEL 02/22/2020 2:18 PM CDT from Last 3 Months or Most Recently Relevant to Health Maintenance Results * (ABNORMAL) COMPREHENSIVE METABOLIC PANEL (02/22/2020 2:18 PM CDT) Pathologist [facility] Glucose 114(H) 65 - 99 mg/dL [facility] [...] 29 U/L [facility] Comment: Test Performed at: [facility] [address] ??[id number] ZOLTAN CORTEZ DO,MPH 02/22/2020 2:18 PM CDT 02/22/2020 2:19 PM CDT Jessica Porras MD LAB - CHEMISTRY O RDERABLES [facility] [id number] [place] [address] from Last 3 Months or Most Recently Relevant to Health Maintenance Care Teams Poker Room Manager Relationship Specialty Start Date End Date Ana Vyas MD [address] [place] [id number] PCP - General 07/06/21
--- OUTSIDE RECORDS SUMMARY | 2024-11-14 23:33 | XMS_ITS | Encounter Summary ---
Author Organization [facility] Address [address] [facility] [place] [address] Care Team Providers Care Bar And Filler Assembler Name Role Phone Ana Vyas MD Primary Care Provider [phone] Reason for Referral * Radiology Services (Routine) - Closed Specialty Diagnoses / Procedures Referred By Rogelio t Referred To Contact CT Scan Diagnoses Dysfunction of both eustachian tubes Cholesteatoma of both ears Chronic diffuse otitis externa of left ear Procedures CT TEMPORAL BONES WO CONTRAST Toño Rain MD [address] [place] [address] [place] [address] [facility] [address] [place] [address] Referral ID Status Reason Start Date Expiration Date Visits Re quested Visits Authorized [id number] Closed 08/23/2021 11/21/2021 1 1 Reason for Visit * Reason Comments Ear Problem Encounter Details Date Type Department Care Team (Late st Contact Info) Description 07/31/2021 1:15 PM CDT Office Visit [facility] Otolaryngology [address] [facility], [place] [address] Toño Rain MD [address] [place] [address] [address] [place] [address] Impacted cerumen of left ear (Primary Dx); Dysfunction of both eustachian tubes; Cholesteatoma of both ears; Chronic diffuse otitis [...] Sign Reading Time Taken Comments Blood Pressure 131/82 07/31/2021 1:25 PM CDT Pulse 94 07/31/2021 1:25 PM CDT Temperature - - Respiratory Rate - - Oxygen Saturation - - Inhaled Oxygen Concentration - - Weight 106.4 kg (234 lb 9.6 oz) 07/31/2021 1:25 PM CDT Height 162.6 cm (5' 4 ) 07/31/2021 1:25 PM CDT Body Mass Index 40.27 07/31/2021 1:25 PM CDT documented in this encounter Functional [...] this encounter Patient Instructions * Patient Instructions* Michel Wagoner - 07/31/2021 1:27 PM CDT Thank you for visiting [facility] Otolaryngology - Head & Neck Surgery. We [...] an appointment, please call our office at [phone] Saturday through Saturday from 8:30 am to4:30 pm. You can also request a routine appointment through your [employer] account. ??? Prescription Refills Contact your pharmacy [...] call the medical exchangeat and ask the styrene dehydration reactor operator to page the ENT physician neon sign maker. *Caller ID blocking service will need to be turned off for your call to be returned. We also specialize in Hearing Aids, Allergy testing, swallowing disorders, voice problems, cancer diagnosis, and so much more. Visit our website at [email or web address] for information about our practice and an interactive health encyclopedia. 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 She has not had much drainage from the ears. No fevers or chills. She did not ever have tympanostomy tubes when she was younger. No other inciting exacerbating or alleviating factors. Review of Systems: ROS: Negative times 13 (Including General, Psych, Neuro, HEENT, Resp, CV, GI, , Musculoskeletal, Derm,Heme/Lymph), except as noted in EPIC and reviewed by me. Pertinent issues include: Review of Systems Imani reports the following:Ears: stoma in ear Past Medical History Past Medical History: Diagnosis [...] Not on file Occupational History ??? 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 Smoking status: Never Smoker [...] of Onset ??? Hypertension Sister Vitals BP 131/82 Pulse 94 Ht 5' 4 (1.626 m) Wt 234 lb 9.6 oz (106.4 kg) BMI 40.27 kg/m2 Body mass index is 40.27 kg/m??. Physical Exam: Constitutional: Alert, No acute [...] This goes out of view only heading anteriorly underneath the eardrum. No overt buildup of cholesteatoma debris seen. Middle ear space aerated. No mastoid tenderness. Left ear: There is a moist cerumen impaction which was cleared and there is granulation in the ear canal extending down to the area over the short process of the malleus. This is debris the limits of her tolerance and boric acid powder placed for treatment. Middle ear space aerated. No mastoid tenderness. Outside audiogram from July 17, 2021 is in the media tab of epic and was reviewed and shows a bilateral high-frequency hearing loss Assessment and Plan: 1. Right life longeustachian tube dysfunction with a retraction pocket, the limits of which cannot be seen as it travels back underneath the eardrum. This represents early cholesteatoma. 2. Left otitis externa coming from granulation tissue in the area of the scutum. She has eustachiantube dysfunction on the side as well with likely erosion of the scutum; she was given a prescription of Cortisporin drops to try for this. The ear was debrided and boric acid powder placed for treatment there may be a retraction pocket on this side as well. I have ordered a CT scan to evaluate her further and we will plan to see her back same day in about1 month. No audiogram at that time. Toño Rain MD Professor Director, Otology, Neurotology Department of Otolaryngology * Michel Wagoner - 07/31/2021 1:27 PM CDT Review of Systems [facility] reports the following:Ears: stoma in ear documented in this encounter Procedure Notes * Toño Rain MD - 07/31/2021 1:45 PM CDTAssociated Order(s): PROC CERUMEN REMOVAL Procedure(s): NE REMOVE CERUMEN IMPACTED W INSTR LEFT EAR Pre-Procedure Diagnose(s): Impacted cerumen of left ear Procedure: Binocular Microscopic Removal of Impacted Cerumen Indications: Cerumen impaction obscuring the tympanic membrane. Findings: See main note. Procedure Note: After verbal consent was obtained, the binocular operative microscope was brought into position. An otologic speculum was inserted into the cartilaginous external auditory canal. Cerumen was removed using a combination of cerumen loops, suction, and alligator forceps. There was no bleeding Toño Rain MD documented in this encounter Plan of Treatment Not on file documented as of this encounter Procedures Procedure Name Priority Date/Time Associated Diagnosis Comments NE REMOVE CERUMEN IMPACTED W INSTR LEFT EAR Routine 07/31/2021 1:45 PM CDT Impacted cerumen of left ear documented in this encounter Results * CT TEMPORAL BONES WO CONTRAST (08/31/2021 12:10 PM CDT) Anatomical Region Laterality Modality Head Computed Tomogra phy 08/31/2021 1:45 PM CDT Impressions 08/31/2021 2:26 PM CDT IMPRESSION: 1. Right more than left thickening [...] Subtotal opacifications of mastoid air cells bilaterally. Dictated by Merrick Tyler MD (residential counselor). I, Dr. HERMAN PAIGE have personally reviewed and interpreted this examination/study. This report was electronically signed by HERMAN PAIGE ??on 08/31/2021 2:26 PM . Narrative 08/31/2021 2:26 PM CDT EXAMINATION: Computed tomography (CT) of the temporal bones without contrast HISTORY: H69.83: Dysfunction of both eustachian tubes H71.93: Cholesteatoma of both ears H60.312: Chronic diffuse otitis externa of left ear TECHNIQUE: CT of the temporal bones was performed without contrast according to standard protocol. FINDINGS: No prior study is available for comparison at the time of this dictation. On the right side, the external auditory canal and auricle appear normal. The tympanic membrane is mildly thickened with soft tissue attenuation within the medial inferior aspect of right external auditory canal abutting the inferior border of the thickened and medially retracted right tympanic membrane. The middle ear cavity including the middle ear ossicles otherwise appear normal. The bony labyrinth, internal auditory canal, and petrous apex appear normal. Diffuse subtotal opacification of right mastoid is noted. The carotid canal, jugular foramen, and course of the facial nerve appear normal. On the left side, the external auditory canal and auricle appear normal. The middle ear cavity including the middle ear ossicles appear normal. Minimal thickening of the left tympanic membrane with medial retraction is noted. The bony labyrinth, internal auditory canal, and petrous apex appear normal. Diffuse subtotal opacification of left mastoid air cells is noted. The carotid canal, jugular foramen, and course of the facial nerve appear normal. The visualized portions of the skull base and sinuses appear normal. No soft tissue abnormality is identified. Procedure Note Herman Paige MD - 08/31/2021 EXAMINATION: Computed tomography (CT) of the temporal bones without contrast HISTORY: H69.83: Dysfunction of both eustachian tubes H71.93: Cholesteatoma of both ears H60.312: Chronic diffuse otitis externa of left ear TECHNIQUE: CT of the temporal bones was performed without contrast according to standard protocol. FINDINGS: No prior study is available for comparison at the time of this dictation. On the right side, the external auditory canal and auricle appearnormal. The tympanic membrane is mildly thickened with soft tissue attenuation within the medial inferior aspect of right external auditory canal abutting the inferior border of the thickened and medially retractedright tympanic membrane. The middle ear cavity including the middle ear ossicles otherwise appear normal. The bony labyrinth, internal auditory canal, and petrous apex appear normal. Diffuse subtotal opacification of right mastoid is noted. The carotid canal, jugular foramen, and course of the facial nerveappear normal. On the left side, the external auditory canal and auricle appear normal. The middle ear cavity including the middle ear ossicles appear normal. Minimal thickening of the left tympanic membrane with medial retractionis noted. The bony labyrinth, internal auditory canal, and petrous apex appear normal. Diffuse subtotal opacification of left mastoid air cellsis noted. The carotid canal, jugular foramen, and course of the facial nerveappear normal. The visualized portions of the skull base and sinuses appear normal. No soft tissue abnormality is identified. IMPRESSION: 1. Right more than left thickening of tympanic membranes with medial retraction. On the right side, small area of soft tissue densities are present within the mesial inferior aspect of right external auditorycanal abutting the inferior aspect of the right tympanic membrane. 2. No evidence of femoral soft tissues within the tympanic cavities bilaterally to suggest cholesteatoma within the tympanic cavities bilaterally. 3. Subtotal opacifications of mastoid air cells bilaterally. Dictated by Merrick Tyler MD (residential counselor). I, Dr. HERMAN PAIGE have personally reviewed and interpreted this examination/study. This report was electronically signed by HERMAN PAIGE on 08/31/2021 2:26PM . Toño Rain MD CT ORDERABLES * NE REMOVE CERUMEN IMPACTED W INSTR LEFT EAR [...] documented in this encounter Visit Diagnoses Diagnosis Impacted cerumen of left ear- Primary Impacted cerumen Dysfunction of both eustachian tubes Dysfunction of Eustachian tube Cholesteatoma of both ears Cholesteatoma, unspecified Chronic diffuse otitis externa of left ear Dysfunction of both eustachian tubes Dysfunction of Eustachian tube Cholesteatoma of both ears Cholesteatoma, unspecified Chronic diffuse otitis externa of left ear documented in this encounter Care Teams Bar And Filler Assembler Relationship Specialty Start Date End Date Ana Vyas MD [address] [place] [phone] PCP - General 07/06/21 documented as of this encounter
--- OUTSIDE RECORDS SUMMARY | 2024-11-14 23:33 | XMS_ITS | Encounter Summary ---
Author Organization [facility] Address [address] [facility] [place] [address] Care Team Providers Care Section Crews Activities Clerk Name Role Phone Ana Vyas MD Primary Care Provider [phone] Reason for Visit * Reason Onset Date Comments Appointment 08/27/2023 Encounter Details Date Type Department Care Team (Late st Contact Info) Description 08/27/2023 Telephone [facility] - ENT [address] [place] [address] [phone] Toño Rain MD [address] [place] [address] DEPT OF OTOLARYNGOLOGY [place], [place] [id number] Appointment Social History Tobacco Use Types Packs/Day Years [...] No 12/16/2019 documented as of this encounter Miscellaneous Notes * Telephone Encounter - Leticia Mendieta - 08/30/2023 1:08 PM CDT Called patient. Updated insurance information and scheduled appointment for audiogram and ear check. * Telephone Encounter - Patty Joseph - 08/27/2023 1:29 PM CDT The patient left a message on the H&N line stating that she was last seen in 2020 and would like to establish care again. She saw Dr. Rain. She also said she has new insurance. documented in this encounter Plan of Treatment Not on file documented as of this encounter Visit Diagnoses Not on filedocumented in this encounter Care Teams Section Crews Activities Clerk Relationship Specialty Start Date End Date Ana Vyas MD [address] [place] [address] [phone] PCP - General 07/06/21 documented as of this encounter
--- OUTSIDE RECORDS SUMMARY | 2024-11-14 23:33 | XMS_ITS | Encounter Summary ---
Author Organization [facility] Address [address] [place] [address] Care Team Providers Care Adoption Agent Name Role Phone Unavailable Primary Care Provider Unavailabl e Reason for Referral * Consultation (Routine) - Closed Specialty Diagnoses / Procedures Referred By Contac t Referred To Contact Diagnoses AMA (advanced maternal age) multigravida 35+, second trimester (HCC) Chronic hypertension during (HCC) Abnormal alpha fetoprotein (AFP) level Supervision of high-risk of elderly multigravida (HCC) Morbid obesity with BMI of 40.0-44.9, adult (HCC) Abnormal [place] glucose challenge test, antepartum (HCC) Procedures MATERNAL MEDICINE CONSULT Liliam Butler MD [address] [place] [address] Referral ID Status Reason Start Date Expiration Date Visits Re quested Visits Authorized [id number] Closed 02/29/2020 08/27/2020 1 1 Reason for Visit * Reason Comments Consultation Ultrasound Encounter Details Date Type Department Care Team (Latest Contact Info) Description 03/02/2020 10:24 AM CDT - 03/02/2020 11:59 PM CDT Hospital Encounter [facility] Maternal & [facility] [address] [place] [address] Jessica Porras MD [address] [id number] Discharge Disposition: Home or Self Care Social [...] Sign Reading Time Taken Comments Blood Pressure 112/59 03/02/2020 11:32 AM CDT Pulse 95 03/02/2020 11:32 AM CDT Temperature 36.4 ??C (97.5 ??F) 03/02/2020 1 1:32 AM CDT Respiratory Rate - - Oxygen Saturation - - Inhaled Oxygen Concentration - - Weight 125.6 kg (276 lb 12.8 oz) 2019 11:32 AM CDT Height - - Body Mass Index 47.51 02/17/2020 8:38 AM CDT documented in this encounter Functional Status [...] daily 07/31/2021 labetalol (NORMODYNE; TRANDATE) 200 MG tablet Take 1 tablet by mouth 2 times daily 60 tablet 2 03/02/2020 07/31/2021 omeprazole (PRILOSEC) 20 MG capsuleIndications:He artburn Take 20 mg by mouth daily before breakfast Reasons: Heartburn 07/31/2021 potassium chloride ER (KLOR-CON M) 20 MEQ tablet Take 20 mEq by mouth once daily 07/31/2021 Vit-Fe Fumarate-FA ( VITAMIN WITH IRON) tabletIndications:Pre gnancy Take 1 tablet by mouth once daily Reasons: 07/31/2021 riboflavin 400 MG capsule Take 1 capsule by mouth once daily 100 capsule 6 12/23/2019 04/01/2020 documented as of this encounter Progress Notes * Ana Hebert, RN - 03/02/2020 10:30 AM CDT Patient here for follow up visit with Paul Sales NP for CHTN, and AMA. Patient reports positive movement. Denies cramping, contractions, bleeding, and leakage of fluid. Patient denies headache, epigastric pain and visual changes. Patient did not bring B/P logs to this appt. Patient states she is running low in am. 90/60-110/59. Patient states highest blood pressures have been 120/70-130/86. VS per flowsheet. Please see note/letter per KATHRYN Tinsley. Ana Hebert RN 03/02/2020 11:38 AM documented in this encounter Consult Notes * Karla Sales, MICROGRAPHICS SERVICES SUPERVISOR-NIGHT AUDITOR - 03/02/2020 10:30 AM CDTAssociated Order(s): AMB CONSULT TO MATERNAL MEDICNE Images from the original note were not included. Dear Dr. Butler, I had the pleasure of seeing your patient, Imani Owen for consultation today. Maternal Medicine Consultation visit Subjective: Imani Owen is a at 34w0d here for follow up consultation visit, at the request of Dr. Butler, for the following issue: chronic hypertension. Since the last visit she notes feeling mostly well. States headaches remain resolved. Denies scotomata or RUQ pain. Reports active movement. Has concern regarding episodes of low blood pressure3-4x over the last week, she reports her morning blood pressure has been 90s/60s. States this is after she takes her morning labetalol dose of 400mg. She is compliant with her labetalol 400mg BID. Reports feeling weak and light headed when her blood pressure is low. States otherwise her blood pressure is 120-131 SBP over 70-81 DBP. She has missed doses of ASA recently, but states she plans to vegetable picker more this week. She has not scheduled with nephrology yet, requesting re-print of letter sent to her home with referral information. States she is taking her potassium supplement. Denies muscle cramps or palpitations. Imani's is complicated by: Patient Active Problem List: Abnormal alpha fetoprotein (AFP) level AMA (advanced maternal age) multigravida 35+, second trimester Chronic hypertension during Thyroid nodule Supervision of high-risk of elderly multigravida Serum potassium fluctuations History of delivery, currently Morbid obesity during Hypercholesteremia Headache in Abnormal [place] glucose challenge test, antepartum Her past history is significant for: Past [...] Never Review of systems: Constitutional: Negative for fevers, positive for weakness and light headedness with low blood pressure Eyes: Nsee HPI Ears, nose, mouth, and throat: Negative for cough Respiratory: Negative for shortness of breath Cardiovascular: Negative for chest pain Gastrointestinal: Negative for nausea, vomiting, controlled GERD with prilosec Genital: Negative for abnormal vaginal discharge Hematologic/lymphatic: Negative for vaginal bleeding Musculoskeletal: Negative for significant back pain Neurological: see HPI Behavioral/Psych: Negative for poor mood due to the concerns Obstetric: Denies leakage of fluid or significant contractions. Compliant with kick counts. Objective Physical Examination: VS: BP 112/59 (BP SITE: RIGHT ARM, BP POSITION: LYING, BP CUFF SIZE: 12) Pulse 95 Temp 97.5 ??F (36.4 ??C) (Oral) Wt 276 lb 12.8 oz (125.6 kg) BMI 47.51 kg/m2 See flowsheet Gen: no acute distress Mental: appropriate mood, behavior and speech Chest: chest rise symmetric, no increased work of breathing noted Abdomen: gravid, soft, no epigastric tenderness FHT per nst/ultrasound Musculoskeletal: no bony point tenderness to palpation Extremities: no pedal edema; negative Joana's sign, bilaterally Skin: No rash observed Current Outpatient Medications Medication Sig ??? aspirin EC (ECOTRIN) 81 MG tablet Take 162 mg by mouth once daily ??? labetalol (NORMODYNE; TRANDATE) 200 MG tablet Take 1 tablet by mouth 2 times daily ??? omeprazole (PRILOSEC) 20 MG capsule Take 20 mg by mouth daily before breakfast Reasons: Heartburn ??? potassium chloride ER (KLOR-CON M) 20 MEQ tablet Take 20 mEq by mouth once daily ??? Vit-Fe Fumarate-FA ( VITAMIN WITH IRON) tablet Take 1 tablet by mouth once daily Reasons: ??? riboflavin 400 MG capsule Take 1 capsule by mouth once daily (Patient not taking: Reported on 01/06/2020) No current facility-administered medications for this encounter. Ultrasound:(see detailed report) Labs: Urine dipstick shows : Alb/Glu/K/N/L Albumin: Trace Glucose: Negative Urine Ketones: Negative Assessment/Plan: 39 year old with IUP at 34w0d RECOMMENDATIONS: Chronic hypertension during Primary office B/P's: 09/28/19-11/24/18: [...] MFM plan: 1. Decrease labetalol to??200 BID, vegetable picker ASA as intended. 2. Continue to check blood pressure at home, call primary OB or go to OB triage for evaluation if BP??>160/100. Alert primary OB if continuing to have low values before next follow up visit; or call our team on , , Sat when we are in office. 3. Educated to continue twice daily kick counts, andjaydain reviewed preeclampsia symptoms. 4. Serial growth ultrasounds--next assessment in 4 weeks if undelivered. 5. Continue weekly 10 point BPP. 1. Plans to continue weekly testing at primary Risk Assessment Analyst. 6. Delivery initiation at 39 weeks unless indicated sooner. 7. Would benefit from and weight reduction. ?? Serum potassium fluctuations Denies palpitations or muscle pains. Last potassium early February appropriate at 4.1 ?? MFM plan: 1. Call Nephrology number given to you today that was previously mailed, inquire if they are doing zoom meetings. 2. Continue potassium supplement as prescribed. 3. Repeat CMP early March. ?? History of delivery, currently Patient is planning repeat section. At this [...] change her delivery timing at this juncture. Morbid obesity during Pre BMI: 47 Early GCT: 68; failed repeat GCT but passed GTT. Hemoglobin A1C early : 5.6 TSH: 1.17 on 12/16 Stable weight noted with her visits here. S/p meeting with CDE previously. ?? MFM plan: 1. Encouraged to follow CDE diet; PP weight reduction and . I recommend a follow-up consultation in 2 weeks, to reassess her blood pressure, given we recommended change in her dose. Imani is to follow up with her primary Obstetrical care provider for her routine care and acute OB concerns, including delivery as clinically indicated. Once again, we appreciate the opportunity to assist you in the care of Ms. Owen. If issues arise for which we can be of assistance, please contact our MFM team directly through [facility]. She was seen in collaboration with Dr. Porras today. She will continue seeing you for care. Sincerely, Karla Sales, ARELY-NIGHT AUDITOR 03/02/2020 12:30 PM Associated attestation - Jessica Porras MD - 03/02/2020 4:28 PM CDT Attending Physician Supervisory Note Physician Attestation: For this patient encounter, I reviewed the [facility] professional's documentation and agreewith history and physical and fagot maker of the plan. Ultrasound findings [see detailed report] The cysts demonstrated today, which are likely placental in origin, are of unclear significance. Atleast one article reports of an association between larger [> 4.5 cm]or more numerous cysts [3 or more] with growth restriction. There is also the potential that this represents changes in the subchorionic fibrin/maternal floor of the placenta. I have previously communicated the association between unexplained elevated maternal serum alpha protein, as is the case for this , and the following adverse outcomes: risk of , placental abruption, placenta previa, accreta, percreta & increta. Imani and I have also previously discussed her risk of growth restriction due to her chronic hypertension. RECOMMEND: Continue weekly biophysical profile Reassess growth every 4 weeks Recommend sending placenta to pathology after delivery Jessica Porras MD Maternal- Medicine documented in this encounter Plan of Treatment Not on file documented as of this encounter Procedures Procedure Name Priority Date/Time Associated Diagnosis Comments SONOGRAM - COMPLETE Routine 03/02/2020 11:31 AM CDT AMA (advanced maternal age) multigravida 35+, second trimester (HCC) Chronic hypertension during (HCC) Abnormal alpha fetoprotein (AFP) level Supervision of high-risk of elderly multigravida (HCC) Morbid obesity during Abnormal [place] glucose challenge test, antepartum (HCC) documented in this encounter Results * SONOGRAM - COMPLETE (03/02/2020 11:31 AM CDT) Anatomical Region Laterality Modality Other 03/02/2020 11:3 1 AM CDT Narrative 03/02/2020 3:41 PM CDT ? [facility] ?PHONE: ??FAX: Pat. Name: ?IMANI OWEN Pat. No: ?[id number] Study Date: ?? 03/02/2020 ??11:31am , Age: ? 1980, 39 Pregnancies: ?? 4, Para 2 Height: ? 64 in Weight: ? 252 lb LMP: ?Unknown GA by Base: ?? 34w0d ?? CHRISSY: 04/13/2020 GA by US: ? 33w4d ?? CHRISSY: 04/16/2020 GA Selected: ??34w0d (From [facility]) CHRISSY: ?04/13/2020 Referring MD: Moreno Butler MD Head Bander And Liner Operator: ??Harika High, CHRISTA, RDGIOVANNI CPT4: ? [id number],[id number] BMI: ?43.25 Hist/Ind: ? Prominent cardiac muscle and septal thickness ?AMA-LR NIPT ?Elevated AFP-MoM 3.08 ?CHTN MEASUREMENTS & AGE ? GROWTH EVALUATION Measurement ??GA ? Range ? Srce %for GA Ratios ----- ---- ------- BPD ??7.9 cm 31w4d ([id number]) Hadl BPD 2% FL/BPD 0.84 (0.71 - 0.87) HC ??30.8 cm 34w2d ([id number]) Hadl HC ??23% FL/AC ??0.22 (0.20 - 0.24) AC ??29.6 cm 33w4d ([id number]) Hadl AC ??42% HC/AC ??1.04 (0.94 - 1.13) FL ?? 6.6 cm 34w0d ([id number]) Hadl FL ??39% CI ? 0.70 (0.70 - 0.86* GA for sonogram 33w4d ([id number]) ?? Weight Estimate: based on (HC,AC,FL) Hadlock [...] Signature> ??03/02/2020 03:40pm R Ronald Butler MD [facility] ORDERABLES documented in this encounter Visit Diagnoses Diagnosis Supervision of high-risk of elderly multigravida (HCC)- Primary Supervision of high-risk of elderly multigravida AMA (advanced maternal age) multigravida 35+, second trimester (HCC) Chronic hypertension during (HCC) Abnormal alpha fetoprotein (AFP) level Morbid obesity during Abnormal [place] glucose challenge test, antepartum (HCC) Abnormal maternal glucose tolerance, antepartum Unspecified pre-existing hypertension complicating , third trimester (HCC) Obesity complicating , third trimester (HCC) Morbid (severe) obesity due to excess calories (HCC) 34 weeks gestation of (HCC) state, incidental Multigravida of advanced maternal age in third trimester (HCC) * Assessment & Plan Note - Karla Sales APRN-NIGHT AUDITOR - 03/02/2020 12:28 PM CDTAssociated Problem(s): Morbid obesity during Pre BMI: 47 Early GCT: 68; failed repeat GCT but passed GTT. Hemoglobin A1C early : 5.6 TSH: 1.17 on 12/16 Stable weight noted with her visits here. S/p meeting with CDE previously. ?? MFM plan: 1. Encouraged to follow CDE diet; PP weight reduction and . * Assessment & Plan Note - Karla Sales APRN-CNP - 03/02/2020 12:25 PM CDTAssociated Problem(s): History of delivery, currently (HCC) Patient is planning repeat section. At this [...] change her delivery timing at this juncture. * Assessment & Plan Note - Karla Sales APRN-CNP - 03/02/2020 12:24 PM CDTAssociated Problem(s): Serum potassium fluctuations Denies palpitations or muscle pains. Last potassium early February appropriate at 4.1 ?? MFM plan: 1. Call Nephrology number given to you today that was previously mailed, inquire if they are doing zoom meetings. 2. Continue potassium supplement as prescribed. 3. Repeat CMP early March. ?? * Assessment & Plan Note - Karla Sales APRN-CNP - 03/02/2020 12:17 PM CDTAssociated Problem(s): Chronic hypertension during (HCC) Primary office [...] MFM plan: 1. Decrease labetalol to??200 BID, vegetable picker ASA as intended. 2. Continue to check [...] Plans to continue weekly testing at primary Risk Assessment Analyst. 6. Delivery initiation at 39 weeks unless indicated sooner. 7. Would benefit from and weight reduction. ?? documented in this encounter
--- OUTSIDE RECORDS SUMMARY | 2024-11-14 23:33 | XMS_ITS | Encounter Summary ---
Author Organization [facility] Address [address] [place] [address] Care Team Providers Care Electric Pile Driver Operator Name Role Phone Unavailable Primary Care Provider Unavailabl e Reason for Visit * Reason Onset Date Comments Update 01/04/2020 How are your blo od pressures? Encounter Details Date Type Department Care Team (Late st Contact Info) Description 01/04/2020 Telephone [facility] Women's Health Maternal & Care [address] [place], [place] [id number] Ana Hebert, RN Update (How are your blood pressures?) Social History Tobacco Use Types Packs/Day Years [...] encounter Miscellaneous Notes * Telephone Encounter - Ana Hebert RN - 01/04/2020 12:14 PM EXPERIMENTAL MECHANIC I spoke with Imani today regarding her blood pressure readings. Patient states she is still checking them daily. Patient states blood pressures have been running 130/70's with an occasional 130's/80's. Patient did state her blood pressure today was 140/82 this am. Patient denies headache, visual disturbances, RUQ pain. Patient states she feels fine. Pt advised to report any blood pressures 140/90 to Primary MD. Pt verbalizes understanding. Patient reminded of her appointment with our office on 01/06/2020. Ana Hebert RN 01/04/2020 12:17 PM RIMENTAL MECHANIC documented in this encounter Plan of Treatment Not on file documented as of this encounter Visit Diagnoses Diagnosis AMA (advanced maternal age) multigravida 35+, second trimester (HCC) Chronic hypertension during (HCC) Abnormal alpha fetoprotein (AFP) level documented in this encounter
--- OUTSIDE RECORDS SUMMARY | 2024-11-14 23:33 | XMS_ITS | Referral Summary ---
Author Organization [facility] Address [address] [place] [address] Care Team Providers Care Welder Shielded Metal Arc Name Role Phone Ana Vyas MD Primary Care Provider [phone] Source Comments [facility],non-[facility] Affiliates and Associated Physician Practices is amultiple site organization consisting of ambulatory clinics and hospital sitesin [place], [place], [place] and [place]. This disclosure is being madepursuant to the Care Everywhere program and may not contain all information available regarding this patient. Last updated 18.[facility] Allergies Active Allergy Reactions Criticality Noted Date [...] results. Assessment & Plan (01/20/2020 2:15 PM DOOR WORKER): performed GTT earlier today Maternal Medicine recommendations: 1. I recommend following a diabetic diet regardless a whether or not Vivek passes the GTT Headache in 12/23/2019 Assessment & Plan (01/20/2020 2:11 PM DOOR WORKER): No headache in at least 1 week. Has the prescription for riboflavin if needed. Assessment & Plan (12/23/2019 12:15 PM DOOR WORKER): Reports history of tension headaches outside of . Currently relieve with intervention of rest or acetaminophen. Riboflavin sent to pharmacy for aid in reduction of headaches. Thyroid nodule 12/16/2019 Overview (12/16/2019): History of benign thyroid nodule, no recent TFTs assessed; recommended to be done today at [facility] given that history and morbid obesity. Supervision [...] potassium early February appropriate at 4.1 ?? [facility] plan: 1. Call Nephrology number given [...] today. Assessment & Plan (01/20/2020 2:30 PM DOOR WORKER): No muscle complaints. Last potassium result appropriate. Maternal Medicine recommendations: 1. recommending primary OB add potassium to glucose tolerance test results drawn today 2. Continue potassium supplementation 3. Follow-up with Nephrology as previously recommended Assessment & Plan (01/06/2020 4:50 PM DOOR WORKER): Improved to 3.4 on 12/24; completed potassium supplementation two days later. Denies any current palpitations. Assessment & Plan (12/23/2019 12:14 PM DOOR WORKER): 11/24: serum potassium: 2.9; denies receiving any [...] result. Assessment & Plan (12/16/2019 11:50 AM DOOR WORKER): Serum potassium 11/24: 2.9; denies receiving any supplementation. Denies kidney disease. 12/11: serum potassium: 6.3; has not had further evaluation or treatment, confirmed with primary OB Plan: Sent to [facility] today for further evaluation, report called to [...] time. Assessment & Plan (12/16/2019 11:54 AM DOOR WORKER): Primary related to arrest of dilation, second [...] . Assessment & Plan (01/20/2020 2:12 PM DOOR WORKER): 25 lb weight gain from reported pre value. Only 5 lb total weight gain since 1st consultation. Maternal Medicine recommendations: 1. would benefit from and weight reduction Assessment & Plan (01/06/2020 4:57 PM DOOR WORKER): Pre BMI: 47 Early GCT: 68 Hemoglobin [...] cHTN. Assessment & Plan (12/23/2019 12:06 PM DOOR WORKER): Pre BMI: 47 Early GCT: 68 Hemoglobin A1C early : 5.6 TSH: 1.17 on 12/16 Plan: Limit weight gain to 0-15 pounds. Nutrition counseling would be beneficial for patient, please arrange this through your office. Serial growth ultrasounds. testing already driven by cHTN. Please repeat her GCT at 28 weeks. Assessment & Plan (12/16/2019 11:59 AM DOOR WORKER): Pre BMI: 47 Early GCT: 68 Hemoglobin [...] MFM plan: 1. Decrease labetalol to??200 BID, diamond picker ASA as intended. 2. Continue to [...] Plans to continue weekly testing at primary Cloth Desizing Range Operator Chief. 6. Delivery initiation at 39 weeks unless [...] Plans to continue weekly testing at primary Cloth Desizing Range Operator Chief. 6. Delivery initiation at 39 weeks unless indicated sooner. 7. Would benefit from and weight reduction. Assessment & Plan (01/20/2020 2:11 PM DOOR WORKER): Blood pressure at goal. No symptoms of [...] reduction Assessment & Plan (01/06/2020 4:59 PM DOOR WORKER): Primary office B/P's; diagnosed with HTN this [...] after hours number for OB triage at [facility]. Bring in BP log to appointments. Close [...] sooner. Assessment & Plan (12/23/2019 12:56 PM DOOR WORKER): Primary office B/P's: 09/28/19-11/24/18: 158/91,160/91,153/98,149/85,171/104 24 hour [...] sooner. Assessment & Plan (12/16/2019 12:04 PM DOOR WORKER): Primary office B/P's: 09/28/19-11/24/18: 158/91,160/91,153/98,149/85,171/104 24 hour [...] defects Assessment & Plan (12/23/2019 12:55 PM DOOR WORKER): Positive AFP for open spina bifida drawn at 15w6d. MoM 3.08. 09/28/19 NIPT-LowRisk. Declines amniocentesis. Spinal views of ultrasound reassuring 12/16. Denies family history of spina bifida or neural tube defects. Assessment & Plan (12/16/2019 11:56 AM DOOR WORKER): Positive AFP for open spina bifida drawn [...] monovalent 12+ yr 0.5mL ,01/20/2021 INFLUENZA 08/23/2021 Social History Tobacco Use Types Packs/Day Years [...] Comments Blood Pressure 121/82 11/04/2023 2:06 PM DOOR WORKER Pulse 97 11/04/2023 2:06 PM DOOR WORKER Temperature 36.9 ??C (98.5 ??F) 03/16/2020 8:27 AM CD T Respiratory Rate - - Oxygen Saturation - - Inhaled Oxygen Concentration - - Weight 112.5 kg (248 lb) 11/04/2023 2:06 PM DOOR WORKER Height 160 cm (5' 3 ) 11/04/2023 2:06 PM DOOR WORKER Body Mass Index 43.93 11/04/2023 2:06 PM DOOR WORKER Functional Status Functional Status Response Date of [...] person have difficulty concentrating/remembering/making decisions? No 12/16/2019 Plan of Treatment Not on file Procedures Procedure Name Priority Date/Time Associated Diagnosis Comments COMPREHENSIVE METABOLIC PANEL 02/22/2020 2:18 PM CDT from Last 3 Months or Most Recently Relevant to Health Maintenance Results * (ABNORMAL) COMPREHENSIVE METABOLIC PANEL (02/22/2020 2:18 PM CDT) Pathologist [facility] Glucose 114(H) 65 - 99 mg/dL [facility] [...] 29 U/L [facility] Comment: Test Performed at: [id number] [id number] [place], [place] ??[address] ZOLTAN CORTEZ DO,MPH 02/22/2020 2:18 PM CDT 02/22/2020 2:19 PM CDT Jessica Porras MD LAB - CHEMISTRY O RDERABLES [facility] [address] [place] [address] from Last 3 Months or Most Recently Relevant to Health Maintenance Care Teams Welder Shielded Metal Arc Relationship Specialty Start Date End Date Ana Vyas MD [address] [place] [id number] PCP - General 07/06/21
--- OUTSIDE RECORDS SUMMARY | 2024-11-14 23:33 | XMS_ITS | Encounter Summary ---
Author Organization [facility] Address [address] [facility] [place] [address] Care Team Providers Care Barn Worker Name Role Phone Ana Vyas MD Primary Care Provider [phone] Reason for Visit * Radiology Services (Routine) - Closed Specialty Diagnoses / Procedures Referred By Rogelio guillory Referred To Contact CT Scan Diagnoses Mixed conductive and sensorineural hearing loss of right ear with restricted hearing of left ear Procedures CT TEMPORAL BONES WO CONTRAST Toño Rain MD [facility] [place] [address] Referral ID Status Reason Start Date Expiration Date Visits Re quested Visits Authorized [id number] Closed 10/24/2023 12/08/2023 1 1 Encounter Details Date Type Department Care Team (Latest Contact Info) Description 11/04/2023 1:30 PM SUPERVISOR DRY PASTE - 11/04/2023 11:59 PM [facility] Hospital Encounter [facility] CAT SCAN [address] [place] [address] Toño Rain MD [address] [place] [address] 2L [place] [address] Discharge Disposition: Home or Self Care Social [...] Sig Dispensed Refills Start Date End Date amLODIPine (NORVASC) 5 MG tablet Take 1 (one) tablet by mouth once daily atorvastatin (Lipitor) 20 MG tablet Take 1 (one) tablet by mouth at bedtime 10/28/2023 benzonatate (Tessalon) 100 MG capsule Take 1 (one) capsule by mouth 3 times daily 09/25/2023 cetirizine (ZyrTEC) 10 MG tablet Take 1 (one) tablet by mouth once daily 05/28/2023 FEROSUL 325 (65 Fe) MG tablet Take 1 (one) tablet by mouth once daily 07/12/2021 documented as of this encounter Plan of Treatment Not on file documented as of this encounter Procedures Procedure Name Priority Date/Time Associated Diagnosis Comments CT TEMPORAL BONES WO CONTRAST Routine 11/04/2023 1:41 PM SUPERVISOR DRY PASTE Mixed conductive and sensorineural hearing loss of right ear with restricted hearing of left ear documented in this encounter Results * CT TEMPORAL BONES WO CONTRAST (11/04/2023 1:41 PM SUPERVISOR DRY PASTE) Anatomical Region Laterality Modality Head Computed Tomogra phy 11/05/2023 9:35 AM SUPERVISOR DRY PASTE Impressions 11/05/2023 9:50 AM SUPERVISOR DRY PASTE IMPRESSION: 1. Redemonstration of unchanged mild thickening [...] 11/05/2023 9:50 AM Narrative 11/05/2023 9:50 AM SUPERVISOR DRY PASTE PROCEDURE: ??CT TEMPORAL BONES WO CONTRAST, DATE/TIME OF EXAM: ??11/04/2023 1:43 PM, LOCATION ??[facility] INDICATION: H90.A31: Mixed conductive and sensorineural hearing [...] CONTRAST, DATE/TIME OF EXAM:11/04/2023 1:43 PM, LOCATION [facility] INDICATION: H90.A31: Mixed conductive and sensorineural hearing [...] 9:50 AM Toño Rain MD CT ORDERABLES documented in this encounter Visit Diagnoses Diagnosis Mixed conductive and sensorineural hearing loss of right ear with restricted hearing of left ear documented in this encounter Care Teams Barn Worker Relationship Specialty Start Date End Date Ana Vyas MD [address] [place] [phone] PCP - General 07/06/21 documented as of this encounter
--- OUTSIDE RECORDS SUMMARY | 2024-11-14 23:33 | XMS_ITS | Encounter Summary ---
Author Organization [facility] Address [address] [place] [address] Care Team Providers Care Supervisor Gas Meter Repair Name Role Phone Unavailable Primary Care Provider Unavailabl e Reason for Visit * Reason Comments Follow-up with F[facility]ER AND PRESIDENT Diabetes Focus Follow-up Biophysical Profile FAD NST Encounter Details Date Type Department Care Team (Latest Contact Info) Description 02/17/2020 8:11 AM CDT - 02/17/2020 11:59 PM CDT Hospital Encounter [facility] Maternal & Care [address] [place], [place] [id number] Jessica Porras MD [address] [place] [phone] Discharge Disposition: Home or Self Care Social [...] Sign Reading Time Taken Comments Blood Pressure 127/75 02/17/2020 8:38 AM CDT Pulse 103 02/17/2020 8:38 AM CDT Temperature 36.8 ??C (98.3 ??F) 02/17/2020 8:38 AM CD T Respiratory Rate - - Oxygen Saturation - - Inhaled Oxygen Concentration - - Weight 124.7 kg (275 lb) 02/17/2020 8:38 AM CDT Height 162.6 cm (5' 4 ) 02/17/2020 8:38 AM CDT Body Mass Index 47.2 02/17/2020 8:38 AM CDT documented in this [...] hours Reasons: High Blood Pressure Disorder 03/02/2020 omeprazole (PRILOSEC) 20 MG capsuleIndications:He artburn Take [...] Progress Notes * Suzie Quinn RN - 02/17/2020 8:15 AM CDT Pt here today for ultrasound, NST, follow up with [facility] PRESIDENT, and zoom meeting with shuttle buggy operator. Reports good movement. NST reactive. Denies cramping/contractions. Denies headaches, visual changes, edema, and epigastric pain. Pt states that her blood pressures have been 120-140/60-80 at home. Pt seen by Paul Sales NP today, please see her note for further POC. documented in this encounter Consult Notes * Karla Sales, RESOLUTION REP-HYDROGRAPHY TEACHER - 02/17/2020 8:15 AM CDT Images from the original note were not included. Dear Dr. Butler, I had the pleasure of seeing your patient, Imani Owen for consultation today. Maternal Medicine Consultation visit Subjective: Imani Owen is a at 32w0d here for follow up consultation visit, at the request of Dr. Butler, for the following issue: chronic hypertension. Since the last visit she notes feeling well. States headaches have resolved. Denies scotomata or RUQ pain. Reports active movement. States she passed her GTT; plans to do Zoom meeting with CDE later today for dietary education. Reports home blood pressures have been SBP range of 120-142, DBP range of 60-85. Reports compliancewith labetalol 400mg BID, and ASA prophylaxis. States she has not heard from the edge sander yet to schedule an appointment. States she takes herpotassium supplement most days. Denies muscle cramps or palpitations. Gabino is complicated by: Patient Active Problem List: [...] previously took a statin ??? Thyroid nodule 2017 was told by ENT that it was [...] for fevers Eyes: Negative for visual changes Ears, nose, mouth, and throat: Negative for [...] Obstetric: Denies leakage of fluid or significant contractions Objective Physical Examination: VS: BP 127/75 (BP SITE: RIGHT ARM, BP POSITION: SITTING, BP CUFF SIZE: 12) Pulse 103 Temp 98.3 ??F (36.8 ??C) (Oral) Ht 5' 4 (1.626 m) Wt 275 lb (124.7 kg) BMI 47.2 kg/m2 See flowsheet Gen: no acute distress Mental: appropriate mood, behavior and speech Chest: chest rise symmetric, no increased work of breathing noted Abdomen: gravid, no epigastric tenderness FHT per nst/ultrasound Musculoskeletal: [...] 12 hours Reasons: HighBlood Pressure Disorder ??? omeprazole (PRILOSEC) 20 MG capsule Take [...] Labs: Urine dipstick shows : Alb/Glu/K/N/L Albumin: Negative Glucose: Negative Urine Ketones: Negative Assessment/Plan: 39 year old with IUP at 32w0d RECOMMENDATIONS: Abnormal [place] glucose challenge test, antepartum Reports that her GTT was appropriate: please send those results to our office. MFM plan: -Completing dietary education today with CDE, as we recommend following diabetic diet regardless ofGTT results. Chronic hypertension during Primary office B/P's: 09/28/19-11/24/18: [...] Plans to continue weekly testing at primary [facility]. 6. Delivery initiation at 39 weeks unless indicated sooner. 7. Would benefit from and weight reduction. Morbid obesity during Stable weight noted with her visits here. Meeting with CDE today via Zoom. MFM plan: 1. Follow CDE diet; PP weight reduction and . Serum potassium fluctuations Denies palpitations or muscle pains. Last potassium early january appropriate. MFM plan: 1. Call Nephrology number sent to you in letter to schedule consult, inquire if they are doing zoommeetings. 2. Continue potassium supplement as prescribed. 3. Sent with CMP order today. History of delivery, currently Patient is planning [...] change her delivery planning at this time. I recommend a follow-up consultation in 2 weeks, when her growth ulrasound is due. Imani is to follow up with her primary Obstetrical care provider for her routine care and acute OB concerns, including delivery as clinically indicated. Once again, we appreciate the opportunity to assist you in the care of Ms. Owen. If issues arise for which we can be of assistance, please contact our MFM team directly through [facility]. She was seen in collaboration with Dr. Porras today. She will continue seeing you for care. Sincerely, Karla Sales, ARELY-HYDROGRAPHY TEACHER 02/17/2020 12:01 PM documented in this encounter Plan of Treatment Scheduled Orders Name Type Priority Associated Diagnoses Orde r Schedule BIOPHYSICAL PROFILE W NST MATRNL MED Routine AMA (advanced maternal age) multigravida 35+, second trimester (HCC) Chronic hypertension during (HCC) Abnormal alpha fetoprotein (AFP) level Abnormal [place] glucose challenge test, antepartum (HCC) headache, antepartum (HCC) Hypercholesteremia Morbid obesity during History of delivery, currently (HCC) Serum potassium fluctuations Supervision of high-risk of elderly multigravida (HCC) Thyroid nodule 1 Occurrences starting 02/12/2020 until 02/12/2020 documented as of this encounter Procedures Procedure Name Priority Date/Time Associated Diagnosis Comments BIOPHYSICAL PROFILE W NST Routine 02/17/2020 9:45 AM CDT AMA (advanced maternal age) multigravida 35+, second trimester (HCC) Chronic hypertension during (HCC) Abnormal alpha fetoprotein (AFP) level Abnormal [place] glucose challenge test, antepartum (HCC) headache, antepartum (HCC) Hypercholesteremia Morbid obesity during History of delivery, currently (HCC) Serum potassium fluctuations Supervision of high-risk of elderly multigravida (HCC) Thyroid nodule documented in this encounter Results * BIOPHYSICAL PROFILE W NST (02/17/2020 9:45 AM CDT) Anatomical Region Laterality Modality Other 02/17/2020 9:45 AM CDT Narrative 02/17/2020 5:29 PM CDT ? [facility] ?PHONE: ??FAX: Pat. Name: ?IMANI OWEN Pat. No: ?[id number] Study Date: ?? 02/17/2020 ??9:45am , Age: ? 1980, 39 Pregnancies: ?? 4, Para 2 Height: ? 64 in Weight: ? 252 lb LMP: ?Unknown GA by Base: ?? 32w0d ?? CHRISSY: 04/13/2020 GA Selected: ??32w0d (From [facility]) CHRISSY: ?04/13/2020 Referring MD: Moreno Butler MD Material Control Associate: ??Dennise Ball RDMS CPT4: ? 89063,16314 BMI: ?43.25 Hist/Ind: ? Incomplete Anatomy Screen ?AMA-LR NIPT ?Elevated AFP-MoM 3.08 ?CHTN Heart Rate: 160 bpm Amniotic Fluid Index: 19.0cm (08.6-24.2) Q1: 6.1cm ??Q2: 2.3cm ??Q3: 5.3cm ??Q4: 5.3cm ?? Biophysical Profile: 08/27 Breathin ?? Tone: 2 ?? NST: 2 Movement: ??2 ?? AFV: ??2 EVAL, PLACENTA Presentation: transverse Placenta: posterior Heart Rate: 160 bpm Amniotic Fluid Volume: normal Anatomy!Normal!Abnormal!Suboptimal!Prev. Seen!Comments Cranium ?! ?! ?! ?! ? x ?! Mdl (CSP/Thal! [...] Lungs ?! ?! ?! ?! ? x ?!prominent right ?ventricle and ?interventricular ?septum thickness 4 Chamber Hea! ?! ?! ?! ? [...] ?! ?! ? x ?! Stomach ?! ?! ?! ?! ? x ?! Bowel ?! ?! ?! ?! ? x ?! Kidneys ?! ?? x ??! ?! ?! ? x ?! Bladder ?! ?? x ??! ?! ?! ? x ?! 3 Vessel [...] ? x ?! CLINICAL SUMMARY Study Number: 5 ?? A limited exam was performed, in addition to testing, to evaluate presentation, placentation, amniotic fluid index and heart rate as is the standard practice for our group. ??The 4 chamber view of the heart was incidentally imaged during the exam and the right ventricle wall and interventricular septal thickness appear prominent. ??We are also aware that Imani failed her 1 hr glucose challenge test. NST: baseline 140, moderate variability, appropriate accelerations without significant decelerations; Impression: Reactive. IMPRESSION: Single, live, intrauterine at 32w0d Amniotic fluid volume: within normal limits ?? Biophysical profile: Reassuring ?? Prominent cardiac muscle and septal thickness RECOMMEND: Continue weekly testing ?? Please submit a copy of the 3 hr glucose tolerance test results Repeat growth and assessment of the heart in 1 week ?? Please be advised that these recommendations are being made in the best interest of our patients during the COVID 19 Pandemic. Thank you for allowing us the opportunity to care for your patient. ?? Jessica Porras MD <Electronic Signature> ??02/17/2020 05:29pm Lenin Poon MD [facility] ORDERABLES documented in this encounter Visit Diagnoses Diagnosis Abnormal [place] glucose challenge test, antepartum (HCC)- Primary Abnormal maternal glucose tolerance, antepartum AMA (advanced maternal age) multigravida 35+, second trimester (HCC) Chronic hypertension during (HCC) Abnormal alpha fetoprotein (AFP) level headache, antepartum (HCC) Other specified complication, antepartum Hypercholesteremia Pure hypercholesterolemia Morbid obesity during History of delivery, currently (HCC) Previous delivery, unspecified as to episode of care or not applicable Serum potassium fluctuations Hyperpotassemia Supervision of high-risk of elderly multigravida (HCC) Supervision of high-risk of elderly multigravida Thyroid nodule Nontoxic uninodular goiter Unspecified pre-existing hypertension complicating , third trimester (HCC) Obesity complicating , third trimester (HCC) Morbid (severe) obesity due to excess calories (HCC) 32 weeks gestation of (HCC) state, incidental * Assessment & Plan Note - Karla Sales APRN-HYDROGRAPHY TEACHER - 02/17/2020 11:56 AM CDTAssociated Problem(s): History of delivery, currently (HCC) Patient is planning repeat section. At this juncture there is no indication to move up delivery from 39 weeks. [facility] Plan: 1. Reviewed with patient if her chronic hypertension becomes difficult to control, or she develops superimposed preeclampsia, that would change her delivery management, and likely move up her section date. However, there is no indication to change her delivery planning at this time. * Assessment & Plan Note - Karla Sales APRN-CNP - 02/17/2020 11:54 AM CDTAssociated Problem(s): Serum potassium fluctuations Denies palpitations or muscle pains. Last potassium early january appropriate. M plan: 1. Call Nephrology number sent to you in letter to schedule consult, inquire if they are doing zoommeetings. 2. Continue potassium supplement as prescribed. 3. Sent with CMP order today. * Assessment & Plan Note - Karla Sales APRN-CNP - 02/17/2020 11:53 AM CDTAssociated Problem(s): Morbid obesity during Stable weight noted with her visits here. Meeting with CDE today via Zoom. [facility] plan: 1. Follow CDE diet; PP weight reduction and . * Assessment & Plan Note - Karla Sales APRN-CNP - 02/17/2020 11:47 AM CDTAssociated Problem(s): Chronic hypertension during (HCC) Primary [...] Plans to continue weekly testing at primary [facility]. 6. Delivery initiation at 39 weeks unless indicated sooner. 7. Would benefit from and weight reduction. * Assessment & Plan Note - Karla Sales APRN-CNP - 02/17/2020 11:37 AM CDTAssociated Problem(s): Abnormal [place] glucose challenge test, antepartum (HCC) Reports that her GTT was appropriate: please send those results to our office. MFM plan: -Completing dietary education today with CDE, as we recommend following diabetic diet regardless ofGTT results. documented in this encounter
--- OUTSIDE RECORDS SUMMARY | 2024-11-14 23:33 | XMS_ITS | Encounter Summary ---
Author Organization [facility] Health Address [address] [facility] [place] [address] Care Team Providers Care Brass Burnisher Name Role Phone Unavailable Primary Care Provider Unavailabl e Encounter Details Date Type Department Care Team (Late st Contact Info) Description 02/22/2020 Orders Only [facility] [address] [place] [address] Jessica Porras MD [address] [address] Social History Tobacco Use Types Packs/Day Years [...] Procedure Name Priority Date/Time Associated Diagnosis Comments CBC W AUTO DIFFERENTIAL 02/22/2020 2:18 PM CDT COMPREHENSIVE METABOLIC PANEL 02/22/2020 2:18 PM CDT documented in this encounter Results * (ABNORMAL) CBC WITH DIFFERENTIAL (02/22/2020 2:18 PM CDT) Pathologist [facility] White Blood Cell Count 11.5(H) 3.8 - [...] 0.5 % [facility] Comment: Test Performed at: [facility] [address] [place], [place] ??[phone] ZOLTAN CORTEZ DO,MPH 02/22/2020 2:18 PM CDT 02/22/2020 2:19 PM CDT Jessica Porras MD LAB - HEMATOLOGY ORDERABLES [facility] [address] [place] [address] * (ABNORMAL) COMPREHENSIVE METABOLIC PANEL (02/22/2020 2:18 PM CDT) Glucose 114(H) 65 - 99 mg/dL [facility] [...] 29 U/L [facility] Comment: Test Performed at: [facility] [address] ??[phone] ZOLTAN CORTEZ DO,MPH 02/22/2020 2:18 PM CDT 02/22/2020 2:19 PM CDT Jessica Porras MD LAB - CHEMISTRY O RDERABLES [facility] [address] [place] [address] documented in this encounter Visit Diagnoses Not on filedocumented in this encounter
--- OUTSIDE RECORDS SUMMARY | 2024-11-14 23:33 | XMS_ITS | Encounter Summary ---
Author Organization [facility] Address [address] [place] [address] Care Team Providers Care Materials Clerk Name Role Phone Unavailable Primary Care Provider Unavailabl e Reason for Visit * Reason Onset Date Comments Reminder Call 12/15/2019 Encounter Details Date Type Department Care Team (Late st Contact Info) Description 12/15/2019 Telephone [facility] Women's Health Maternal & Care [address] [place] [phone] Vicky Kruse A Reminder Call Social History Tobacco Use Types Packs/Day Years Used Date Smoking Tobacco: Never Assessed AUDIT-C Answer Date Recorded Frequency of Alcohol Consumption Never 12/16/2019 Average Number of Drinks Not on file 020 Frequency of Binge Drinking Not on file 11/19 Comments Yes Sex and Gender Information Value Date Recorded Sex Assigned at Not on file Gender Identity Not on file Sexual Orientation Not on file documented as of this encounter Plan of Treatment Not on file documented as of this encounter Visit Diagnoses Not on filedocumented in this encounter
--- OUTSIDE RECORDS SUMMARY | 2024-11-14 23:33 | XMS_ITS | Continuity of Care Document ---
Author Organization [facility] Address [address] [place] [address] Care Team Providers Care Fueler Name Role Phone FLAVIO VASQUEZ Primary Care Provider Assessment Encounter Date Assessment Date Assessment LastModified by Organization Details LastModified Time 09/25/2024 09/25/2024 Annual gynecological exam performed. Patient will come back in a year unless there are new symptoms. [email or web address] Not available 09/25/2024 09:28:11 Plan of Treatment Reminders Order Date Submit Date Provider Last Modified By Organization Details Last Modified Time Details Appointments None recorded. Lab None recorded. Referral None recorded. Procedures None recorded. Surgeries None recorded. Imaging None recorded. Medication Orders metronidazo le 500 mg tablet 2023 024 ANNALISE [facility] #[id number], [address], [place], [id number], 4 09:51:53 doxycycline hyclate 100 mg capsule 2023 024 [email or web address] [facility] #[id number], [address] [place], [id number], 4 09:58:43 Patient TargetsNo targets recorded. Patient InstructionsNo instructions recorded. Reason for Referral None Reported. Problems Name Problem SNOMED Code Status Onset Date Resolution Date Notes Provider Name and Address Organization Details Recorded Time Fredrick barros Completed 201806/15/2021 Encounte r for antenata l screenin g for nuchal transluc ency;Rec orded Elsewher e: No Locat ion: [facility] S ource: EHR Project Construction Manager samara: N Julio C ce ID: 0001 Rob lable Time: 02:00:00 PM Violte ponce, [facility] 14:33:15 Normal pregnanc y in multigra cristhian [id number] 90432 Completed 201906/15/2021 Encounte r for supervis ion of other normal pregnanc y, 3rd trimeste r;Record ed Elsewher e: No Locat ion: [facility] S ource: EHR Project Construction Manager samara: N Domti ce ID: 0001 Rob lable Time: 04:15:00 PM Violet ponce, [facility] 14:33:[address] Concept Completed 201806/15/2021 Encntr for research tech exam (general ) (routine ) w/o abn findings ;Recorde d Elsewher e: No Locat ion: [facility] S ource: EHR Project Construction Manager samara: N Julio C ce ID: [id number] Rob lable Time: 03:15:00 PM Violet ponce, [facility] 14:33:18 Gestatio n period, 32 weeks [id number] Completed 201906/15/2021 32 weeks gestatio n of pregnanc y;Record ed Elsewher e: No [facility]at [facility]: [facility]: EHR Project Construction Manager samara: N Julio C ce ID: [id number] Rob lable Time: 03:00:00 PM Violet ponce, [facility] 14:33:27 Hyperten suzanne in the obstetri c context Completed 201906/15/2021 Pre-exis ting essentia l htn comp pregnanc y, third trimeste r;Record ed Elsewher e: No Locat ion: [facility] S ource: EHR Project Construction Manager samara: N Practi ce ID: [id number] Rob lable Time: 03:00:00 PM Violet ponce, [facility] 14:33:09 Gestatio n period, 31 weeks [id number] Completed 201906/15/2021 31 weeks gestatio n of pregnanc y;Record ed Elsewher e: No Locat ion: [facility] S ource: EHR Project Construction Manager samara: N Practi ce ID: 0001 Rob lable Time: 03:00:00 PM Violet ponce, [facility] 14:33:22 Gestatio n period, 22 weeks [id number] Completed 201906/15/2021 22 weeks gestatio n of pregnanc y;Record ed Elsewher e: No Locat ion: [facility] N Practi ce ID: [id number] Rob lable Time: 03:45:00 PM Violet ponce, [facility] 14:33:24 Steriliz ation procedur e Completed 201806/15/2021 Encounte r for steriliz ation;Re corded Elsewher e: No Locat ion: [facility]: N Practi ce ID: [id number] Rob lable Time: 04:30:00 PM Violet ponce, [facility] 14:33:19 Pregnanc y detectio n examinat ion Completed 201806/15/2021 Encounte r for pregnanc y test, result positive ;Recorde d Elsewher e: No Locat ion: [facility] S ource: EHR Project Construction Manager samara: N Practi ce ID: 0001 Rob lable Time: 03:15:00 PM Violet ponce, [facility] 14:33:26 Pregnanc y-induce d hyperten suzanne Completed 201906/15/2021 Gestatio nal hyperten suzanne w/o signific ant proteinu khoi;Daniel rded Elsewher e: No Locat ion: [facility] S ource: EHR Project Construction Manager samara: Pramod Bunch ce ID: 0001 Rob lable Time: 02:45:00 PM Violet Bill ponce [facility] 14:33:11 Pregnanc y test negative [id number] Completed 201806/15/2021 Encounte r for pregnanc y test, result negative ;Practic e ID: 0001 Violet Bill ponce, [facility] 14:33:16 Severe obesity complica ting pregnanc y 0512147145 1092544 Completed 201906/15/2021 Obesity complica ting pregnanc y, third trimeste r;Record ed Elsewher e: No [facility]: EHR Project Construction Manager samara: Pramod Bunch ce ID: 0001 Rob lable Time: 03:00:00 PM Violet Bill ponce, [facility] 14:33:[address] Concept Completed 201906/15/2021 Matern care for abnlt fetl hrt rate or rhym, 3rd tri, unsp;Rec orded Elsewher e: No Locat ion: [facility] S ource: EHR Project Construction Manager samara: N Julio C ce ID: 0001 Rob lable Time: 03:15:00 PM Violet Bill ponce [facility] 14:33:13 Pregnanc y [id number] Completed 201908/29/2020 Moreno Butler MD [address], [place], [address], [place] [facility] 0 11:10:49 Benign essentia l hyperten suzanne complica ting AND/OR reason for care during pregnanc y 53972884 Completed 201906/15/2021 Violet Khan [facility], [facility] 1 14:33:07 Morbid obesity 315577940 Completed Theodore Hill [facility], [facility] 0 14:47:01 Hyperten sive disorder 99758594 Completed Chronic HTN - labetalo l 200mg Theodore Hill [facility], [facility] 0 14:47:01 Advanced maternal age 519266600 Completed Theodore Hill [facility], [facility] 0 14:47:01 Problem Notes None recorded. Procedures Surgical History Date Name Laterality Status Provider Name and Address Organization Details Recorded Time 024 HYSTEROSCOPY, WITH ENDOMETRIAL ABLATION (SURG) completed Jodie Barnes [facility] 09/02/2024 09:18:35 023 Date of Last Mammogram completed [facility] 08/05/2024 15:31:19 023 Date of Last Pap Smear completed Brenda [facility] 08/05/2024 15:30:49 020 section completed Tory Kessler [facility] 04/07/2020 00:26:12 020 Tubal Ligation completed Violet Khan [facility] 06/19/2021 09:46:59 Ovarian Cystectomy completed Violetquinton Khan [facility] 06/15/2021 14:34:48 section completed Tory Boseprjudy [facility] 04/07/2020 00:27:18 [facility] 00:27:23 Tonsillectomy completed Violet Khan [facility] 06/19/2021 09:41:16 Tubal Ligation completed Inessa Alfaro [facility] 10/30/2021 09:45:51 Imaging Results None recorded. Procedure Notes None recorded. Medical Equipment None Reported. Allergies Allergen ID Allergen Name Allergen Category Reaction Reaction Severity Criticality Documentation Date Start Date Code Code System Note Provider Name and Address Organization Details Recorded Time 58363 levofloxa gracie medicatio n hives severe Not available 06/19/2021 34507 RxNorm Violet Khan rosario [facility] 09:40:58 Medications Name Sig Start Date Stop Date Status Note LastModified by Organization Details LastModified Time neomycin- polymyxin -hydrocor t 3.5 mg/mL-10, 000 unit/mL-1 % ear solution INSTILL 4 DROPS TO LEFT EAR FOUR TIMES DAILY FOR 7 DAYS 09/30 completed Not Available Not Available Not Available doxycycli ne hyclate 100 mg capsule TAKE 1 CAPSULE BY MOUTH TWICE DAILY active Not Available Not Available No t Available atorvasta tin 20 mg tablet TAKE 1 TABLET BY MOUTH EVERY DAY AT BEDTIME active Not Available Not Available No t Available labetalol 200 mg tablet TAKE 2 TABLETS BY MOUTH TWICE DAILY 06/15 completed Not Available Not Available Not Available cetirizin e 10 mg tablet TAKE 1 TABLET BY MOUTH EVERY DAY 09/12 completed Not Available Not Available Not Available diltiazem CD 180 mg capsule,e xtended release 24 hr TK 1 C PO QD 10/27 completed Not Available Not Available Not Available hydrocodo ne 5 mg-acetam inophen 325 mg tablet 10/27 completed Not Available Not Available Not Available metronida zole 500 mg tablet TAKE 1 TABLET BY MOUTH EVERY 12 HOURS FOR 7 DAYS active Not Available Not Available No t Available amlodipin e 5 mg tablet TAKE 1 TABLET BY MOUTH EVERY DAY active Not Available Not Available No t Available amoxicill in 875 mg tablet TAKE 1 TABLET BY MOUTH EVERY 12 HOURS UNTIL GONE 09/12 completed Not Available Not Available Not Available benzonata te 100 mg capsule TAKE 1 CAPSULE BY MOUTH THREE TIMES DAILY NEEDED 08/05 completed Not Available Not Available Not Available simvastat in 20 mg tablet TK 1 T PO QD 10/27 completed Not Available Not Available Not Available norethind toy acetate 5 mg tablet take 1 tablet by oral route every day during second half of the menstrua l cycle 07/15 completed Prescrib jhonny Johnston e: No [facility] By: garrett beebe DateTime : 02/25/20 04:15:00 PM Not Available Not Available Not Available ergocalci ferol (vitamin D2) 1,250 mcg (50,000 unit) capsule TK 1 C PO Q WK 06/19 completed Not Available Not Available Not Available labetalol 100 mg tablet take 1 tablet by oral route 2 times every day 06/15 completed Not Available Not Available Not Available fluticaso ne propionat e 50 mcg/actua tion nasal spray,jose pension SHAKE LIQUID AND USE 1 SPRAY IN EACH NOSTRIL EVERY DAY 09/12 completed Not Available Not Available Not Available progester one micronize d 100 mg capsule TAKE 1 CAPSULE BY MOUTH EVERY DAY 06/19 completed Not Available Not Available Not Available nitrofura ntoin monohydra te/macroc rystals 100 mg capsule 06/19 completed Not Available Not Available Not Available labetalol 09/30 completed 200mg BID from speciali st Not Available Not Available Not Available 10/27 completed Not Available Not Available Not Available FeroSul 325 mg (65 mg iron) tablet TAKE 1 TABLET BY MOUTH EVERY OTHER DAY active Not Available Not Available No t Available potassium chloride ER 20 mEq tablet,ex tended release 10/27 completed Not Available Not Available Not Available Vitals Date Recorded Body height Body mass index (BMI) Body weight Systolic blood pressure Diastolic blood pressure Provider Name and Address Organization Details Last Updated DateTime 09/25/2024 161.29 cm 40.7 kg/m2 051045.7 4 g 116 mm[Hg] 78 mm[Hg] Jodie Barnes [facility] 4 09:30:53 Social History Question Answer Notes LastModified by Organizat ion Details LastModified Time Tobacco Smoking Status Never Smoker [facility] 09/12/2023 09:32:43 Do You Have An Advance Directive? No [email or web address] Information not available 06/19/2021 What Is Your Level Of Alcohol Consumption? None Information not available 03/10/2020 Are You Blind Or Do You Have Difficulty Seeing? No [email or web address] Information not available 06/19/2021 What Is Your Level Of Caffeine Consumption? Occasional Information not available 06/19/2021 How Much Tobacco Do You Chew? None [email or web address] Information not available 01/16/2022 In The 14 Days Before Symptom Onset, Have You Had Close Contact With A Laboratory-confir med COVID-19 While That Case Was Ill? No [email or web address] Information not available 06/19/2021 In The 14 Days Before Symptom Onset, Have You Had Close Contact With A Person Who Is Under Investigation For COVID-19 While That Person Was Ill? No [email or web address] Information not available 06/19/2021 Have You Been To An Area Known To Be High Risk For COVID-19? No [email or web address] Information not available 06/19/2021 Are You Deaf Or Do You Have Serious Difficulty Hearing? No [email or web address] Information not available 06/19/2021 What Type Of Diet Are You Following? REGULAR [email or web address] Information not available 06/19/2021 What Is The Highest Grade Or Level Of School You Have Completed Or The Highest Degree You Have Received? 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 No [email or web address] Information not available 06/19/2021 Do You Use Protection During Sex? Usually [email or web address] Information not available 06/19/2021 Do You Use Your Seat Belt Or Car Seat Routinely? Yes Information not available 06/19/2021 Do You Have Smoke And Carbon Monoxide Detectors In Your Home? Yes Information not available 06/19/2021 How Much Tobacco Do You Smoke? No [email or web address] Information not available 06/19/2021 Do You Feel Stressed (tense, Restless, Nervous, Or Anxious, Or Unable To Sleep At Night)? TS9985-9 [email or web address] Information not available 06/19/2021 Do You Use Any Illicit Or Recreational Drugs? No [email or web address] Information not available 06/19/2021 Do You Use Sunscreen Routinely? No [email or web address] Information not available 06/19/2021 Have You Used IV Drugs? No [email or web address] Information not available 06/19/2021 Sex: Unknown Functional Status Question Answer Note LastModified by Organizat ion Details LastModified Time Do you have difficulty walking or climbing stairs? No [email or web address] Information not available 09/12/2023 Are you able to walk? YESWOREST [email or web address] Information not available 06/19/2021 Are you able to care for yourself? Yes [email or web address] Information not available 09/12/2023 Do you have difficulty dressing or bathing? No [email or web address] Information not available 09/12/2023 What is your exercise level? Occasional Information not available 03/10/2020 Mental Status None recorded. Family History Relationship Description Onset Age of this Age Resolved Age Notes LastModified by Organization Details LastModified Time Father No current problems or disability [email or web address] Not available 03/06/2020 11:33:17 Mother No current problems or disability [email or web address] Not available 03/06/2020 11:33:17 Medical History Condition Response Other N Blood Transfusion N Dermatologic Disorders N Gestational Diabetes N Anxiety Disorder N Autoimmune disease N Arthritis N Polyps N Infertility N Acid Reflux (GERD) N Cancer N Varicosities N Stroke N Neurologic/Epilepsy N Fibromyalgia N Headaches N Kidney Disease N Heart Problems N Kidney or Bladder Problems N Eating Disorder N Art (IVF or FET) N Hepatitis/Liver Disease N Urinary Tract Infection N Asthma N Trauma/Violence N Thrombophilias N Allergies (Food, seasonal, environmental ) N Breast Cancer N Drug/Latex Allergies/Reactions N Lung Disease N Defects or Inherited Disease N Breast Problem N Hematologic disorders N Anesthesia Complications N History of STI N Deep Vein Thrombosis N Polycystic ovary syndrome N History of abnormal pap N Endometriosis N High Cholesterol N Thyroid Problems N GI Problems N Anemia N Psychiatric Illness N Ovarian Cancer N Diabetes N Pulmonary (TB, Asthma) N Eczema N Abuse/Domestic Violence N Depression/ depression N Heart Disease N Pre-Eclampsia N Hypertension N Osteoporosis N Gynecological History Statement/Question Response Date of Last Mammogram 09/18/2023 Flow Heavy Date of LMP 07/11/2024 N Was last menstrual period normal N STIs/STDs N Date of control 03/31/2020 Desired Control Method Ablation Abnormal Pap N On BCP's at Conception? N HPV Vaccine N Duration of Flow (days) 10 Current Control Method Tubal Ligat ion Age at First Child 23 Are cycles usually normal N Frequency of Cycle (Q days) 26 Sexually Active? Y Menses Monthly Y Age of first menstrual cycle 13 Date of Last Pap Smear 09/12/2023 Sexual Problems? N LMP Definite N Obstetrics History GPAL:G 4 P 3 0 1 3 Type Value Full Term 3 Spontaneous 1 Living 3 Total 4 Past Encounters Encounter ID Performer Location Encounter Start Date Encounter Closed Date Diagnosis/Indication Diagnosis SNOMED-CT Code Diagnosis ICD10 Code [id number] Moreno Butler MD [facility] [address] [address] 09/25/2024 09:25:12 09/25/2024 10:01:54 Bacterial vaginosis 857288295 N76.0 Gynecologi c examination 26535358 Z01.419 Health Concerns Section Related Observation LastModified by Organization Detai ls LastModified Time None Recorded Concern Status LastModified by Organization Details LastModified Time None Recorded Payers Encounter Date Sequence Insurance Name Policy Number Policy Garcia Covered Member ID Garcia Member ID Guarantor Name 09/25/2024 1 [facility] [id number] Imani Collier [id number] Imani Collier Notes Date Note Type Note Provider Name and Address Organization Details Recorded Time 09/25/2024 text/html Annual GYNReport ed bypatient.History: no gynecologic complaints Urinary symptoms:No hematuria; No incontinence Vulva:No genital lesion Vagina:Foul-smelli ng; to treat for BV Breast:No breast pain; No breast lump Current Contraception:Sati sfied with current contraception; Tubal ligation Sexual complaints:No sexual complaints; No pain during intercourse Menopausal Symptoms:No menopausal symptoms Psychological symptoms:No depression; No anxiety Preventive measures:Encourage self breast examination; Encourage regular exercise Moreno Butler MD [address], [place], [address], [facility] 09/25/2024 09:59:18 OBGyn Episode No OBEpisode recorded.
--- OUTSIDE RECORDS SUMMARY | 2024-11-14 23:33 | XMS_ITS | Encounter Summary ---
Author Organization [facility] Address [address] [place] [address] Care Team Providers Care Inside Sales Manager Name Role Phone Ana Vyas MD Primary Care Provider [phone] Encounter Details Date Type Department Care Team (Latest Contact Info) Description 10/21/2023 Travel Social History Tobacco Use Types Packs/Day Years [...] on filedocumented in this encounter Care Teams Inside Sales Manager Relationship Specialty Start Date End Date Ana Vyas MD [address] [place] [id number] PCP - General 07/06/21 documented as of this encounter
--- OUTSIDE RECORDS SUMMARY | 2024-11-14 23:33 | XMS_ITS | Encounter Summary ---
Author Organization [facility] Address [address] [place] [address] Care Team Providers Care Custodian Athletic Equipment Name Role Phone Unavailable Primary Care Provider Unavailabl e Encounter Details Date Type Department Care Team (Latest Contact Info) Description 11/24/2019 7:24 AM COMMERCIAL LOAN ASSISTANT - 11/24/2019 11:59 PM COMMERCIAL LOAN ASSISTANT Hospital Encounter [facility] Maternal & Care [address] [place], [place] [id number] Lenin Poon MD Lannaman, Kia Salema, MD [address] [place] [id number] Discharge Disposition: Home or Self Care Social History Tobacco Use Types Packs/Day Years Used Date Smoking Tobacco: Never Assessed Comments Yes Sex and Gender Information Value Date Recorded Sex Assigned at Not on file Gender Identity Not on file Sexual Orientation Not on file documented as of this encounter Plan of Treatment Not on file documented as of this encounter Procedures Procedure Name Priority Date/Time Associated Diagnosis Comments SONOGRAM - COMPLETE Routine 11/24/2019 7 :33 AM COMMERCIAL LOAN ASSISTANT Abnormal alpha fetoprotein (AFP) level Encounter for anatomic survey (HCC) documented in this encounter Results * SONOGRAM - COMPLETE (11/24/2019 7:33 AM COMMERCIAL LOAN ASSISTANT) Anatomical Region Laterality Modality Other 11/24/2019 7:33 AM COMMERCIAL LOAN ASSISTANT Narrative 11/24/2019 9:48 AM COMMERCIAL LOAN ASSISTANT ? [facility] Maternal Medicine ? Maternal & Care Center ?PHONE: ??FAX: Pat. Name: ?VIVEK OWEN Pat. No: ?[id number] Study Date: ?? 11/24/2019 ??7:33am , Age: ? 1980, 39 Pregnancies: ?? 4, Para 2 Height: ? 64 in Weight: ? 264 lb LMP: ?Unknown GA by US: ? 20w0d ?? CHRISSY: 04/12/2020 GA Selected: ??19w6d (From Known E) CHRISSY: ?04/13/2020 Referring MD: Moreno Butler MD Shipping Support Clerk: ??Geneva Pruett [facility] CPT4: ? 96663 BMI: ?45.31 Hist/Ind: ? Anatomy Screen ?AMA-LR NIPT ?Elevated AFP-MoM 3.08 MEASUREMENTS & AGE ? GROWTH EVALUATION Measurement ??GA ? Range ? Srce %for GA Ratios ----- ---- ------- BPD ??4.5 cm 19w4d (46p1q-19g6r) Hadl BPD 36% FL/BPD 0.84 HC ??16.6 cm 19w2d (33u0k-94j5m) Hadl HC ??17% FL/AC ??0.26 AC ??14.4 cm 19w5d (78e9u-50a4x) Hadl AC ??39% HC/AC ??1.15 (1.06 - 1.25) FL ?? 3.8 cm 22w0d (28p7d-65x5s) Hadl FL ??96% CI ? 0.76 (0.70 - 0.86) HL ?? 3.3 cm 20w6d (76h9m-19a0m) Jadon HL ??68% Cere 2.0 cm 19w3d (60e9l-52i6u) Hill Cere40% GA for sonogram 20w0d (80y8f-38u4f) ?? Weight Estimate: based on (BPD,HC,AC,FL,Cere) Avg ? Weight: 362 gm (310-415gm) Hadloc ? : 0lbs, 12oz ? Normal: 323 gm (242-404gm) Hadloc ? Wt% ? 83% for 19w6d Heart Rate: 151 bpm Amniotic Fluid Index: 04.3cm (Deepest Pocket) EVAL, PLACENTA Presentation: cephalic Umbilical Cord: 3 Vessels Placenta: posterior Cord Insert: marginal insertion Heart Rate: 151 bpm Amniotic Fluid Volume: normal Anatomy!Normal!Abnormal!Suboptimal!Prev. Seen!Comments Cranium ?! ?? x ??! ?! ?! ?! Mdl (CSP/Thal! ?! ?! ? x ?! ?! Ventricles ?? ! ?! ?! ? x ?! ?! Choroid Plexu! ?? x ??! ?! ?! ?! Cerebellum ?? ! ?? x ??! ?! ?! ?! Cisterna M. ??! ?? x ??! ?! ?! ?! Nuchal Fold ??! ?? x ??! ?! ?! ?! Profile ?! ?! ?! ? x ?! ?! Nasal Bone ?? ! ?! ?! ? x ?! ?! Lip ?! ?! ?! ? x ?! ?! Spine ?! ?! ?! ? x ?! ?! Lungs ?! ?! ?! ? x ?! ?! 4 Chamber Hea! ?! ?! ? x ?! ?! LVOT ? ! ?! ?! ? x ?! ?! RVOT ? ! ?! ?! ? x ?! ?! 3 Vessel View! ?! ?! ? x ?! ?! Cross-over ?? ! ?! ?! ? x ?! ?! Ductal Arch ??! ?! ?! ? x ?! ?! Aortic Arch ??! ?! ?! ? x ?! ?! Caval View ?? ! ?! ?! ? x ?! ?! Situs ?! ?! ?! ? x ?! ?! Diaphragm ?! ?! ?! ? x ?! ?! Stomach ?! ?? x ??! ?! ?! ?! Bowel ?! ?! ?! ? x ?! ?! Kidneys ?! ?? x ??! ?! ?! ?! Bladder ?! ?? x ??! ?! ?! ?! 3 Vessel Cord! ?! ?! ? x ?! ?! Cord In! ?! ?! ? x ?! ?! Upper Extremi! ?! ?! ? x ?! ?! Hands ?! ?! ?! ? x ?! ?! Lower Extreme! ?! ?! ? x ?! ?! Feet ? ! ?! ?! ? x ?! ?! External Shauna! ?! ?! ? x ?! ?! Placental Cor! ?! ?x ?? ! ?! ?!Marginal CLINICAL SUMMARY Study Number: 1 ?? A detailed anatomy survey was performed due to maternal obesity and abnormal serum screen result. ??The exam quality was poor and was significantly affected by reduced acoustic properties for maternal habitus. ??A single fetus is seen in cephalic presentation. ?? The measurements today are consistent with appropriate size for the CHRISSY provided. ??The CHRISSY is based on a prior ultrasound(confirmed). ??No major malformations were seen within the limitations of ultrasound. ??One edge of the placenta does not lie flat against uterine surface and there may be a partial circumvallate placentation--re-evaluation is warranted. IMPRESSION: Single, live, intrauterine at 19w6d ?? size is consistent with established CHRISSY ?? Amniotic fluid index: within normal limits ?? No major malformations demonstrated Incomplete anatomic survey (see anatomy table) Suspected marginal placental cord insertion RECOMMEND: Ultrasound in 4 weeks for to complete the anatomy and growth --Patient is scheduled for ??12/22 @9am. Re-evaluate placental cord insertion and placentation at next exam Thank you for allowing us the opportunity to care for your patient. ?? Jessica Porras MD <Electronic Signature> ??11/24/2019 09:48am R Ronald Butler MD Natalie ORDERABLES documented in this encounter Visit Diagnoses Diagnosis Abnormal alpha fetoprotein (AFP) level- Primary Encounter for anatomic survey (HCC) Encounter for anatomic survey Multigravida of advanced maternal age in second trimester (HCC) 19 weeks gestation of (HCC) state, incidental documented in this encounter
--- OUTSIDE RECORDS SUMMARY | 2024-11-14 23:33 | XMS_ITS | Continuity of Care Document ---
Author Name [facility] Organization [facility] Care Team Providers Care Bench Worker Binding Name Role Phone [facility] Unavailable Unavailable Social History Combined list of available smoking, tobacco, and other social history from Department of Defense and Veterans Affairs facilities. Social History Type Response Date Comment Sourc e This section is an empty social history section. [facility]
--- OUTSIDE RECORDS SUMMARY | 2024-11-14 23:33 | XMS_ITS | Encounter Summary ---
Author Organization [facility] Address [address] [place] [address] Care Team Providers Care Master Coastal Waters Name Role Phone Ana Vyas MD Primary Care Provider [phone] Encounter Details Date Type Department Care Team (Latest Contact Info) Description 10/07/2023 Travel Social History Tobacco Use Types Packs/Day [...] on filedocumented in this encounter Care Teams Master Coastal Waters Relationship Specialty Start Date End Date Ana Vyas MD [address] [place] [phone] PCP - General 07/06/21 documented as of this encounter
--- OUTSIDE RECORDS SUMMARY | 2024-11-14 23:33 | XMS_ITS | Encounter Summary ---
Author Organization [facility] Health Address [address] [place] [address] Care Team Providers Care Public Address Technician Name Role Phone Ana Vyas MD Primary Care Provider Encounter Details Date Type Department Care Team (Latest Contact Info) Description 08/31/2021 Travel Social History Tobacco Use Types Packs/Day [...] AM CDT documented as of this encounter Functional Status [...] on filedocumented in this encounter Care Teams Public Address Technician Relationship Specialty [place] [address] [place] [phone] PCP - General 07/06/21 documented as of this encounter
--- OUTSIDE RECORDS SUMMARY | 2024-11-14 23:33 | XMS_ITS | Encounter Summary ---
Author Organization [facility] Address [address] [place] [address] Care Team Providers Care Paraprofessional Aide Teacher Name Role Phone Unavailable Primary Care Provider Unavailabl e Encounter Details Date Type Department Care Team (Latest Contact Info) Description 03/16/2020 8:13 AM CDT - 03/16/2020 11:59 PM CDT Hospital Encounter [facility] Maternal & Care [address] [place] [id number] Efrain Owen MD [address] [address] Discharge Disposition: Home or Self Care Social [...] Sign Reading Time Taken Comments Blood Pressure 129/72 03/16/2020 8:27 AM CDT Pulse 104 03/16/2020 8:27 AM CDT Temperature 36.9 ??C (98.5 ??F) 03/16/2020 8:27 AM CD T Respiratory Rate - - Oxygen Saturation - - Inhaled Oxygen Concentration - - Weight 125.6 kg (277 lb) 03/16/2020 8:27 AM CDT Height - - Body Mass Index 47.55 02/17/2020 8:38 AM CDT documented in this [...] as of this encounter Progress Notes * Pat Ashley, RN - 03/16/2020 8:15 AM CDT Patient screened Negative for cough, SOB, fever. Patient is afebrile today upon entering the office. Patient is NOT wearing a mask today. Patient offered covid 19 handout. Patient here for follow up visit with Dr. Owen for CHTN at 36wks 0d. Patient reports positive movement. Denies cramping, contractions, bleeding, and leakage of fluid. Patient denies headache, epigastric pain and visual changes. Pt denies any swelling, none present. VS per flowsheet. Pt did not bring BP logs today but reports BP's consistently running 130/70-80's. Pt scheduled c/s on 03/31 at [facility]. Please see note/letter per Dr. Owen. Pat Ashley RN 03/16/2020 8:52 AM * Efrain Owen MD - 03/16/2020 8:15 AM CDT Maternal Medicine Follow up Consultation visit ?? Vivek Owen is a at 36w0d here for follow up consultation visit, at the request of Dr. Butler, for cHTN. She has no comps today. She reports good FM, no bleeding, no LOF, no DC, no cramps/ctx's/pain/pressure, no HAs, visual changes or swelling. Her testing today is reassuring, BPP is 10/10 ?? Reports that she is compliant with her labetalol 400mg BID. She has not scheduled with nephrology yet, requesting re-print of letter sent to her home with referral information. States she is taking her potassium supplement. Denies muscle cramps or palpitations. ?? [place] is complicated by: Patient Active Problem List: Elevated MSAFP AMA cHTN Thyroid nodule Serum potassium fluctuations History of delivery Morbid obesity Hypercholesteremia Headache in Abnormal [place] glucose challenge test, antepartum ?? Exam: BP 129/72 Pulse 104 Temp 98.5 ??F (36.9 ??C) (Temporal) Wt 277 lb (125.6 kg) BMI 47.55 kg/m2 Gen - NAD Abd - NT Ext - NT, no edema ?? Medications Current Outpatient Medications Medication Sig ??? aspirin [...] daily (Patient not taking: Reported on 01/06/2020) ? Ultrasound:(see detailed report) ?? Assessment/Recs: 39 year old with IUP at 36w0d 1. cHTN Doing well, cont Labetalol. She self DC'ed he LDASA. No signs of preeclampsia. Having testing at Dr. Butler's office, continue through delivery. Already scheduled for her rCS 2. We reviewed kick counts (BID), as well as PTL and preeclampsia signs and symptoms. 3. Keep all appts with Dr. Fabricio Owen MD MFM documented in this encounter Plan of Treatment Not on file documented as of this encounter Procedures Procedure Name Priority Date/Time Associated Diagnosis Comments BIOPHYSICAL PROFILE W NST Routine 03/16/2020 9:22 AM CDT AMA (advanced maternal age) multigravida 35+, second trimester (HCC) Chronic hypertension during (HCC) Abnormal alpha fetoprotein (AFP) level Abnormal [place] glucose challenge test, antepartum (HCC) headache, antepartum (HCC) Hypercholesteremia Morbid obesity during History of delivery, currently (HCC) Serum potassium fluctuations Supervision of high-risk of elderly multigravida (HCC) Thyroid nodule documented in this encounter Results * BIOPHYSICAL PROFILE W NST (03/16/2020 9:22 AM CDT) Anatomical Region Laterality Modality Other 03/16/2020 9:22 AM CDT Narrative 03/16/2020 9:40 AM CDT ? [facility] Maternal Medicine ? Maternal & Care Center ?PHONE: ??FAX: Pat. Name: ?VIVEK OWEN Pat. No: ?[id number] Study Date: ?? 03/16/2020 ??9:22am , Age: ? 1980, 39 Pregnancies: ?? 4, Para 2 Height: ? 64 in Weight: ? 252 lb LMP: ?Unknown GA by Base: ?? 36w0d ?? CHRISSY: 04/13/2020 GA Selected: ??36w0d (From [facility]) CHRISSY: ?04/13/2020 Referring MD: Moreno Butler MD Development Architect: ??Harika High, CHRISTA, RD CPT4: ? 33689,72951 BMI: ?43.25 Hist/Ind: ? Prominent cardiac muscle [...] <Electronic Signature> ??03/16/2020 09:40am Lenin Poon MD [facility] ORDERABLES documented in this encounter Visit Diagnoses Diagnosis AMA (advanced maternal age) multigravida 35+, second trimester ([facility]) Chronic hypertension during ([facility]) Abnormal alpha fetoprotein (AFP) level Abnormal placenta, antepartum ([facility]) Other placental conditions affecting management of mother, antepartum Abnormal [place] glucose challenge test, antepartum ([facility]) Abnormal maternal glucose tolerance, antepartum headache, antepartum ([facility]) Other specified complication, antepartum Hypercholesteremia Pure hypercholesterolemia Morbid obesity during History of delivery, currently ([facility]) Previous delivery, unspecified as to episode of care or not applicable Serum potassium fluctuations Hyperpotassemia Supervision of high-risk of elderly multigravida (HCC) Supervision of high-risk of elderly multigravida Thyroid nodule Nontoxic uninodular goiter Unspecified pre-existing hypertension complicating , third trimester (HCC) 36 weeks gestation of (HCC) state, incidental Multigravida of advanced maternal age in third trimester (HCC) documented in this encounter
--- OUTSIDE RECORDS SUMMARY | 2024-11-14 23:33 | XMS_ITS | Encounter Summary ---
Author Organization [facility] Health Address [address] [place] [address] Care Team Providers Care Irrigation System Operator Name Role Phone Ana Vyas MD Primary Care Provider [phone] Encounter Details Date Type Department Care Team (Latest Contact Info) Description 11/04/2023 Travel Social History Tobacco Use Types Packs/Day [...] on filedocumented in this encounter Care Teams Irrigation System Operator Relationship Specialty Start Date End Date Ana Vyas MD [address] [place] [phone] PCP - General 07/06/21 documented as of this encounter
--- OUTSIDE RECORDS SUMMARY | 2024-11-14 23:33 | XMS_ITS | Encounter Summary ---
Author Organization [facility] Address [facility] [place] [address] Care Team Providers Care Supervisor Clam Bed Name Role Phone Unavailable Primary Care Provider Unavailabl e Reason for Visit * Reason Comments Ultrasound Encounter Details Date Type Department Care Team (Latest Contact Info) Description 02/02/2020 8:15 AM CDT - 02/02/2020 11:59 PM CDT Hospital Encounter [facility] Maternal & Care [address] [place], [place] [phone] Lenin Poon MD Discharge Disposition: Home or Self Care Social [...] Sign Reading Time Taken Comments Blood Pressure - - Pulse - - Temperature 37 ??C (98.6 ??F) 02/02/2020 9:28 AM CDT Respiratory Rate - - Oxygen Saturation - - Inhaled Oxygen Concentration - - Weight - - Height - - Body Mass Index - - documented in this encounter Functional Status Functional [...] 12/23/2019 04/01/2020 documented as of this encounter Plan of Treatment Scheduled Orders Name Type Priority Associated Diagnoses Orde r Schedule SONOGRAM - COMPLETE [facility] Routine Abnormal alpha fetoprotein (AFP) level AMA (advanced maternal age) multigravida 35+, second trimester (HCC) Chronic hypertension during (HCC) Serum potassium fluctuations History of delivery, currently (HCC) Morbid obesity during 1 Occurrences starting 02/02/2020 until 02/02/2020 documented as of this encounter Procedures Procedure Name Priority Date/Time Associated Diagnosis Comments SONOGRAM - COMPLETE Routine 02/02/2020 8:28 AM CDT Abnormal alpha fetoprotein (AFP) level AMA (advanced maternal age) multigravida 35+, second trimester (HCC) Chronic hypertension during (HCC) Serum potassium fluctuations History of delivery, currently (HCC) Morbid obesity during documented in this encounter Results * SONOGRAM - COMPLETE (02/02/2020 8:28 AM CDT) Anatomical Region Laterality Modality Other 02/02/2020 8:28 AM CDT Narrative 02/02/2020 5:42 PM CDT ? [facility] Maternal Medicine ? Maternal & Care Center ?PHONE: ??FAX: Pat. Name: ?VIVEK OWEN Pat. No: ?[id number] Study Date: ?? 02/02/2020 ??8:28am , Age: ? 1980, 39 Pregnancies: ?? 4, Para 2 Height: ? 64 in Weight: ? 252 lb LMP: ?Unknown GA by Base: ?? 29w6d ?? CHRISSY: 04/13/2020 GA by US: ? 29w5d ?? CHRISSY: 04/14/2020 GA Selected: ??29w6d (From Known E) CHRISSY: ?04/13/2020 Referring MD: Moreno Butler MD Knocker Out: ??Geneva Pruett RDMS CPT4: ? 67986 BMI: ?43.25 Hist/Ind: ? Incomplete Anatomy Screen ?AMA-LR NIPT ?Elevated AFP-MoM 3.08 MEASUREMENTS & AGE ? GROWTH EVALUATION Measurement ??GA ? Range ? Srce %for GA Ratios ----- ---- ------- BPD ??7.0 cm 28w0d (58v1x-86e6e) Hadl BPD 2% FL/BPD 0.82 (0.71 - 0.87) HC ??27.6 cm 30w1d (85x4h-83w9f) Hadl HC ??25% FL/AC ??0.22 (0.20 - 0.24) AC ??26.2 cm 30w3d (66g0l-11r3o) Hadl AC ??60% HC/AC ??1.05 (0.98 - 1.17) FL ?? 5.7 cm 30w0d (97u0f-38u0j) Hadl FL ??39% CI ? 0.68 (0.70 - 0.86* HL ?? 5.1 cm 30w0d (74i7e-68x2t) Jadon HL ??52% GA for sonogram 29w5d (78v4g-77f9u) ?? Weight Estimate: based on (HL,BPD,HC,AC,FL) Avg ? Weight: 1503 gm (1284-1723gm) Had ? : 3lbs, 5oz ? Normal: 1533 gm (1150- 1917gm) Had ? Wt% ? 44% for 29w6d Heart Rate: 150 bpm Amniotic Fluid Index: 22.8cm (09.0-23.4) Q1: 4.6cm ??Q2: 5.7cm ??Q3: 8.0cm ??Q4: 4.5cm ?? EVAL, PLACENTA Presentation: transverse Placenta: posterior Heart Rate: 150 bpm Amniotic Fluid Volume: Normal Anatomy!Normal!Abnormal!Suboptimal!Prev. Seen!Comments Cranium ?! ?? x ??! [...] ?! ? x ?! 4 Chamber Hea! ?? x ??! ?! ?! ? x ?! LVOT ? ! ?! ?! ?! ? x ?! RVOT ? ! ?! ?! ?! ? x ?! 3 Vessel View! ?! ?! ?! ? x ?! Cross-over ?? ! ?! ?! ?! ? x ?! Ductal Arch ??! ?! ?! ? x ?! ?! Aortic Arch ??! ?? x ??! ?! ?! ?! Caval View ?? ! ?! ?! ?! ? x ?! Situs ?! ?! ?! ?! ? x ?! Diaphragm ?! ?! ?! ?! ? x ?! Stomach ?! ?! ?! ?! ? x ?! Bowel ?! ?? x ??! ?! ?! ?! Kidneys ?! ?? x ??! [...] ? x ?! CLINICAL SUMMARY Study Number: 4 ?? A single fetus is seen in transverse presentation. ??The measurements today are consistent with appropriate interval growth. ??The CHRISSY is based on a prior ultrasound examination (confirmed). ??The amniotic fluid volume is within normal limits. ?? anatomy was limited by challenging maternal acoustic properties and position. ??No major malformations were seen within the limitations of ultrasound. ?? Amniotic epithelial inclusion cysts are of limited clinical significance. They are frequently seen on the amniotic plate of the placental bulging into the amniotic cavity appearing as a simple cyst. Only rarely would this cause a problem with umbilical blood flow if they became excessive in size. jt IMPRESSION: Single, live, intrauterine at 29w6d ?? size is within normal limits ?? Amniotic fluid volume: within normal limits ?? Two placental cysts were noted: One with a mean diameter of 4.3cm and the other 3.42cm RECOMMEND: Ultrasound in 2 weeks for BPP Patient scheduled 02/16 for office visit and US. Thank you for allowing us the opportunity to care for your patient. ?? Lenin Poon MD <Electronic Signature> ??02/02/2020 05:42pm R Ronald Butler MD [facility] ORDERABLES documented in this encounter Visit Diagnoses Diagnosis Abnormal alpha fetoprotein (AFP) level- Primary AMA (advanced maternal age) multigravida 35+, second trimester (HCC) Chronic hypertension during (HCC) Serum potassium fluctuations Hyperpotassemia History of delivery, currently (HCC) Previous delivery, unspecified as to episode of care or not applicable Morbid obesity during Multigravida of advanced maternal age in third trimester (HCC) Disorder of placenta in third trimester (HCC) Other placental conditions affecting management of mother, antepartum 29 weeks gestation of (HCC) state, incidental documented in this encounter
--- OUTSIDE RECORDS SUMMARY | 2024-11-14 23:33 | XMS_ITS | Data Portability ---
Author Organization [facility] [place] Address [address] [place] [address] [place] [address] Care Team Providers Care Handcrew Foreman Name Role Phone FLAVIO VASQUEZ Primary Care Provider Assessment Encounter Date Assessment Date Assessment LastModified by Organization Details LastModified Time 09/12/2023 09/12/2023 Annual gynecological exam performed. Patient will come back in a year unless there are new symptoms. [email or web address] Not available 09/12/2023 09:48:30 09/25/2024 09/25/2024 Annual gynecological exam performed. Patient will come back in a year unless there are new symptoms. [email or web address] Not available 09/25/2024 09:28:11 Plan of Treatment Reminders Order Date Submit Date Provider Last Modified By Organization Details Last Modified Time Details Appointments None recorded. Lab None recorded. Referral None recorded. Procedures None recorded. Surgeries hysteroscop y, with endometrial ablation (SURG) 2023 024 [facility], [address], [place], [address], 09:17:19 Imaging US, pelvis 2023 024 [email or web address] [address], [address], [place], [address], 14:25:40 US, transvagina l 2023 024 [email or web address] [address], [address], [place], [address], 4 14:25:40 Medication Orders metronidazo le 500 mg tablet [address] [id number], [address] , [place], [place], [id number], 4 09:51:53 doxycycline hyclate 100 mg capsule [email or web address] [facility][id number], [address] , [place], [place], [id number], 4 09:58:43 Patient TargetsNo targets recorded. Patient InstructionsNo instructions recorded. Reason for Referral None Reported. Results Created Date Observation Date Name Description Value Unit Range Abnormal Flag Note LastModifiedBy Organization Detail LastModifiedTime 08/01/20 22 08/01/2022 IMAGE GUIDE D PAP AND HPV REGAR DLESS image guided Pap, HPV regardless of Pap result SEE RESULT S BELOW CASE REPOR T: Cytol ogy Gynec ologi cabrera Repor t Case: [id number] Autho moon barros Provi gilberto: Belkis Nazario NP Colle cted: 08/01 1247 Order ing Locat ion: [place] Patho logy Recei vladimir: 08/02 0813 First Scree n: Rachna beebe, Tatyana , CT Rescr een: Tahir Hudson am, CT Speci men: Scree joel Pap - Image d, Cervi x STATE MENT OF ADEQU ACY: Satis facto ry for evalu ation Trans forma tion zone compo nent absen t The absen ce of an endoc ervic al compo nent was confi rmed by an addit ional cookie ner. FINAL DIAGN OSIS: Negat didi for Intra epith elial Les[place] n or Anthony jones (NIL) . Elect bowen gutierrez misbah d by Tahir Hudson am, CT on 2021 at 1:34 PM ----- ----- ----- ----- ----- ----- ----- ----- ----- ----- ----- ----- ----- ----- ----- ----- ----- ---- HPV RESUL TS: HPV mRNA E6/E7 : No HPV mRNA Detec sabine NOTE: This high risk HPV mRNA assay detec ts fourt een high- risk HPV types (16, 18, 31, 33, 35, 39, 45, 51, 52, 56, 58, 59, 66, 68) witho ut diffe renti ation . COMME NT: Note: This speci men was revie wed by a Cytot echno logis t and/o r Patho logis t (as indic ated in this repor t) after evalu ation using the Thinp rep Imagi ng Syste m. CLINI CABRERA INFOR MATIO N: Menst rual Statu s: LMP (if appli cable ): Clini cabrera Histo ry/Pr eviou s Pap: Type of Neopl alethea (if appli cable ): Signi fican t Clini cabrera Findi ngs: Other Histo ry: Hormo carrie (if appli cable ): PAP EDUCA NOAH L NOTE: The Pap Test is a scree joel test with an inher ent false negat didi rate. Liqui d-bas ed sampl ing may decre ase, but will not elimi kim, false negat didi resul ts. A negat didi resul t does not precl ude the prese nce and/o r devel opmen t of disea se, since the prese nce of abnor mal cells in the sampl e depen ds on the locat ion of the lesio n and sampl ing techn ique. David nued regul ar scree joel is the best metho d of cance r preve ntion . If repor sabine cytol ogic findi ng do not corre late with physi cabrera and/o r histo rical findi ngs, furth er inves tigat ion is recom christina d, as clini shaina weldon nted. Not Available [facility] [id number] [facility] [place], [address], 08/07/2022 14:37:02 09/12/20 23 09/12/2023 IMAGE GUIDE D PAP AND HPV REGAR DLESS image guided Pap, HPV regardless of Pap result SEE RESULT S BELOW CASE REPOR T: Cytol ogy Gynec ologi cabrera Repor t Case: [id number] Autho franklawanda papo Provi gilberto: Belkis Nazario, KATHRYN Colle cted: 09/12 1556 Order ing Locat ion: [place] Patho logy Recei vladimir: 09/13 0321 First Scree n: Trinidad Winn, CT Rescr een: Arslan Cline , CT Speci men: Screondina maldonado Pap - Image d, Cervi x STATE MENT OF ADEQU ACY: Satis facto ry for evalu ation Trans forma tion zone compo nent absen t The absen ce of an endoc ervic al compo nent was confi rmed by an addit ional cookie ner. FINAL DIAGN OSIS: Negat didi for Intra epith elial Les[place] n or Anthony jones (NIL) . Elect bowen crawley d by Arslan Cline , CT on 09/17 at 4:59 PM ----- ----- ----- ----- ----- ----- ----- ----- ----- ----- ----- ----- ----- ----- ----- ----- ----- ---- HPV RESUL TS: HPV mRNA E6/E7 : No HPV mRNA Detec sabine NOTE: This high risk HPV mRNA assay detec ts fourt een high- risk HPV types (16, 18, 31, 33, 35, 39, 45, 51, 52, 56, 58, 59, 66, 68) witho ut diffe renti ation . COMME NT: This speci men was revie wed by a Cytot echno logis t and/o r Patho logis t (as indic ated in this repor t) after evalu ation using the Thinp rep Imagi ng Syste m. CLINI CABRERA INFOR MATIO N: Menst rual Statu s: LMP (if appli cable ): Clini cabrera Histo ry/Pr eviou s Pap: Type of Neopl alethea (if appli cable ): Signi fican t Clini cabrera Findi ngs: Other Histo ry: Hormo carrie (if appli cable ): PAP EDUCA NOAH L NOTE: The Pap Test is a scree joel test with an inher ent false negat didi rate. Liqui d-bas ed sampl ing may decre ase, but will not elimi kim, false negat didi resul ts. A negat didi resul t does not precl ude the prese nce and/o r devel opmen t of disea se, since the prese nce of abnor mal cells in the sampl e depen ds on the locat ion of the lesio n and sampl ing techn ique. David nued regul ar scree joel is the best metho d of cance r preve ntion . If repor sabine cytol ogic findi ng do not corre late with physi cabrera and/o r histo rical findi ngs, furth er inves tigat ion is recom christina d, as clini shaina weldon nted. Not Available [facility] (Lab) [address] [place], [address], 09/17/2023 18:03:21 09/25/20 24 09/25/2024 [facility] bacterial vaginosis (bv), tma Positi ve negati ve abnormal Not Available [facility] (Lab) [address] [place], [address], 2024 15:08:30 09/25/20 24 09/25/2024 [facility]ENN[facility]ER kam species, tma Negati ve negati ve Not Available [facility] (Lab) [address] [place], [address], 2024 15:08:30 09/25/20 24 09/25/2024 [facility], JENNIFER kam glabrata, tma Negati ve negati ve Not Available [facility] (Lab) [address] [place], [address], 2024 15:08:30 09/25/20 24 09/25/2024 [facility], JENNIFER trichomonas vaginalis, tma Negati ve negati ve Not Available [facility] (Lab) [address] [facility], [place], [address], 2024 15:08:30 09/25/20 24 09/25/2024 [facility] JENNIFER chlamydia trachomatis, PCR Negati ve negati ve Not Available [facility] (Lab) [address] [place], [address], 2024 15:08:30 09/25/20 24 09/25/2024 [facility], JENNIFER neisseria gonorrhoeae, PCR Negati ve negati ve Bacte rial vagin osis detec ts the follo wing bacte khoi assoc iated with bacte rial vagin osis (BV): Lacto bacil giana (L. gasse ri, L. crisp atus and L. jense brisa), Gardn erell a vagin glen, and Atopo bium vagin ae. A singl e quali tativ e resul t is repor sabine base on instr ument softw are to deter mine BV posit didi or negat didi statu s. The [facility] speci es group tests for C. albic ans, C. tropi calis , C. parap luciano is, C. dubli niens is. Testi ng is perfo rmed using the Trans cript ion Media sabine Ampli ficat ion metho d. Tests for [place] [facility] glabr joe, Trich omona s vagin glen, Chlam ydia trach omati s, and Neiss eria gonor rhoea e are also inclu ded in this panel . Not Available [facility] (Lab) [address] [place], [address], 2024 15:08:30 09/25/20 24 09/25/2024 IMAGE GUIDE D PAP AND HPV REGAR DLESS image guided Pap, HPV regardless of Pap result SEE RESULT S BELOW CASE REPOR T: Cytol ogy Gynec ologi cabrera Repor t Case: [id number] Autho moon barros Provi gilberto: Stephania Butler MD Colle cted: 09/25 0957 Order ing Locat ion: [place] Patho logy Recei vladimir: 09/26 0220 First Scree n: Dottie mcdonough, Sanju ed, CT Rescr een: Loretta Pringle ret, CT Speci men: Saturninoondina maldonado Pap - Image d, Cervi x STATE MENT OF ADEQU ACY: Satis facto ry for evalu ation Trans forma tion zone compo nent absen t The absen ce of an endoc ervic al compo nent was confi rmed by an addit ional scree ner. ----- ----- ----- ----- ----- ----- ----- ----- ----- ----- ----- ----- ----- ----- ----- ----- ----- ---- FINAL DIAGN OSIS: Negat didi for Intra epith elial Helen wolfe or Anthony jones (NIL) . Shift in elizabeth sugge stive of bacte rial vagin osis. Elect bowen crawley d by Loretta Pringle ret, CT on 10/03 at 10:24 AM ----- ----- ----- ----- ----- ----- ----- ----- ----- ----- ----- ----- ----- ----- ----- ----- ----- ---- HPV RESUL TS: HPV mRNA E6/E7 : No HPV mRNA Detec sabine NOTE: This high risk HPV mRNA assay detec ts fourt een high- risk HPV types (16, 18, 31, 33, 35, 39, 45, 51, 52, 56, 58, 59, 66, 68) witho ut diffe renti ation . COMME NT: Slide scree ananya manua lly due to rejec tion by the Thinp rep Imagi ng Syste m. CLINI CABRERA INFOR MATIO N: Menst rual Statu s: LMP (if appli cable ): Clini cabrera Histo ry/Pr eviou s Pap: Type of Neopl alethea (if appli cable ): Signi fican t Clini cabrera Findi ngs: Other Histo ry: Hormo carrie (if appli cable ): PAP EDUCA NOAH L NOTE: The Pap Test is a scree joel test with an inher ent false negat didi rate. Liqui d-bas ed sampl ing may decre ase, but will not elimi kim, false negat didi resul ts. A negat didi resul t does not precl ude the prese nce and/o r devel opmen t of disea se, since the prese nce of abnor mal cells in the sampl e depen ds on the locat ion of the lesio n and sampl ing techn ique. David nued regul ar scree joel is the best metho d of cance r preve ntion . If repor sabine cytol ogic findi ng do not corre late with physi cabrera and/o r histo rical findi ngs, furth er inves tigat ion is recom christina d, as clini shaina warra nted. Not Available [facility] (Lab) [address], [place], [address], 10/03/2024 11:28:23 08/16/2008/16/2022 US, trans geeta ponce No observ ation record ed. [email or web address] [place] [address], [place], [address], 08/16/2022 10:44:25 08/16/2008/16/2022 US, trans vagin al No observ ation record ed. [email or web address] [address], [place], [address], 08/16/2022 22:58:52 10/04/20 22 10/04/2022 MAMMO , scree joel, bilat eral No observ ation record ed. [facility] [address], [place], [address], 10/07/2022 13:57:00 07/09/20 24 07/09/2024 US, pelvi s No observ ation record ed. [email or web address] [place] [address], [place], [address], 07/09/2024 13:35:37 07/09/20 24 07/09/2024 US, trans vagin al No observ ation record ed. [email or web address] [place] [address], [place], [address], 07/09/2024 13:35:49 07/09/20 24 07/09/2024 US, pelvi s No observ ation record ed. [email or web address] [address], [place], [address], 07/09/2024 19:21:18 Result Notes None recorded. Problems Name Problem SNOMED Code Status Onset Date Resolution Date Notes Provider Name and Address Organization Details Recorded Time Antenata l screenin g Completed 201806/15/2021 Encounte r for antenata l screenin g for nuchal transluc ency;Rec orded Elsewher e: No Locat ion: [facility] S ource: EHR Aluminum Molder samara: N Practi ce ID: 0001 Rob lable Time: 02:00:00 PM Violet ponce [place] - [facility] 14:33:15 Normal pregnanc y in multigra cristhian [id number] 96741 Completed 201906/15/2021 Encounte r for supervis ion of other normal pregnanc y, 3rd trimeste r;Record ed Elsewher e: No Locat ion: [facility] S ource: EHR Aluminum Molder samara: N Practi ce ID: 0001 Rob lable Time: 04:15:00 PM Violet ponce, [facility] 1 14:33:[address] Concept Completed 201806/15/2021 Encntr for sea air land officer exam (general ) (routine ) w/o abn findings ;Recorde d Elsewher e: No [facility] Aluminum Molder samara: N Practi ce ID: 0001 Rob lable Time: 03:15:00 PM Violet ponce, [facility] 14:33:18 Gestatio n period, 32 weeks [id number] Completed 201906/15/2021 32 weeks gestatio n of pregnanc y;Record ed Elsewher e: No Locat ion: [facility] S ource: EHR Aluminum Molder samara: N Practi ce ID: 0001 Rob lable Time: 03:00:00 PM Violet ponce, [facility] 14:33:27 Hyperten suzanne in the obstetri c context Completed 201906/15/2021 Pre-exis ting essentia l htn comp pregnanc y, third trimeste r;Record ed Elsewher e: No Locat ion: [facility] S ource: EHR Aluminum Molder samara: N Practi ce ID: 0001 Rob lable Time: 03:00:00 PM Violet ponce, [facility] 1 14:33:09 Gestatio n period, 31 weeks [id number] Completed 201906/15/2021 31 weeks gestatio n of pregnanc y;Record ed Elsewher e: No Locat ion: [facility] S ource: EHR Aluminum Molder samara: N Practi ce ID: 0001 Rob lable Time: 03:00:00 PM Violet ponce, [facility] 14:33:22 Gestatio n period, 22 weeks [id number] Completed 201906/15/2021 22 weeks gestatio n of pregnanc y;Record ed Elsewher e: No Locat ion: [facility] S ource: EHR Aluminum Molder samara: Pramod Bunch ce ID: 0001 Rob lable Time: 03:45:00 PM Violet ponce, [facility] 14:33:24 Steriliz ation procedur e Completed 201806/15/2021 Encounte r for steriliz ation;Re corded Elsewher e: No Locat ion: [facility] S ource: EHR Aluminum Molder samara: Pramod Bunch ce ID: 0001 Rob lable Time: 04:30:00 PM Violet ponce, [facility] 14:33:19 Pregnanc y detectio n examinat ion Completed 201806/15/2021 Encounte r for pregnanc y test, result positive ;Recorde d Elsewher e: No Locat ion: [facility] S ource: EHR Aluminum Molder samara: Pramod Bunch ce ID: 0001 Rob lable Time: 03:15:00 PM Violet ponce, [facility] 14:33:26 Pregnanc y-induce d hyperten suzanne Completed 201906/15/2021 Gestatio nal hyperten suzanne w/o signific ant proteinu khoi;Daniel rded Elsewher e: No Locat ion: [facility] S ource: EHR Aluminum Molder samara: Pramod Bunch ce ID: 0001 Rob lable Time: 02:45:00 PM Violet ponce, [facility] 14:33:11 Pregnanc y test negative [id number] Completed 201806/15/2021 Encounte r for pregnanc y test, result negative ;Practic e ID: 0001 Violet Khan rosario, [facility] 14:33:16 Severe obesity complica ting pregnanc y [id number] Completed 201906/15/2021 Obesity complica ting pregnanc y, third trimeste r;Record ed Elsewher e: No Locat ion: [facility] S ource: EHR Aluminum Molder samara: N Practi ce ID: 0001 Rob lable Time: 03:00:00 PM Violet Bill ponce, [facility] 14:33:[address] Concept Completed 201906/15/2021 Matern care for abnlt fetl hrt rate or rhym, 3rd tri, unsp;Rec orded Elsewher e: No Locat ion: [facility] S ource: EHR Aluminum Molder samara: N Practi ce ID: 0001 Rob lable Time: 03:15:00 PM Violet Bill ponce, [facility] 1 14:33:13 Pregnanc y 39194676 Completed 201908/29/2020 Moreno Butler MD [address], [place], [address], [facility] 0 11:10:49 Benign essentia l hyperten suzanne complica ting AND/OR reason for care during pregnanc y 83600852 Completed 201906/15/2021 Violet ponce, [facility] 1 14:33:07 Morbid obesity 489372957 Completed Theodore ponce, [facility] 0 14:47:01 Hyperten sive disorder 47593100 Completed Chronic HTN - labetalo l 200mg Theodore [facility], [facility] 0 14:47:01 Advanced maternal age 127001135 Completed Theodore ponce [facility] 0 14:47:01 Problem Notes None recorded. Procedures Surgical History Date Name Laterality Status Provider Name and Address Organization Details Recorded Time 024 HYSTEROSCOPY, WITH ENDOMETRIAL ABLATION (SURG) completed Jodie Barnes [facility] 09/02/2024 09:18:35 023 Date of Last Mammogram completed [facility] 08/05/2024 15:31:19 023 Date of Last Pap Smear completed [facility] 08/05/2024 15:30:49 020 section completed [facility] 04/07/2020 00:26:12 020 Tubal Ligation completed [facility] 06/19/2021 09:46:59 Ovarian Cystectomy completed [facility] 06/15/2021 14:34:48 section completed [facility] 04/07/2020 00:27:18 section completed [facility] 04/07/2020 00:27:23 Tonsillectomy completed [facility] 06/19/2021 09:41:16 Tubal Ligation completed Inessa Alfaro [facility] 10/30/2021 09:45:51 Imaging Results Imaging Date Name Status LastModified by Organization Details LastModified Time 08/16/2022 US, transvaginal completed [email or web address] [place] [address], [place], [address], 08/16/2022 10:44:25 08/16/2022 US, transvaginal completed [email or web address] [address], [place], [address], 08/16/2022 22:58:52 10/04/2022 MAMMO, screening, bilateral completed [facility] [address], [place], [address], 10/07/2022 13:57:00 07/09/2024 US, pelvis completed [email or web address] [place] [address], [place], [address], 07/09/2024 13:35:37 07/09/2024 US, transvaginal completed [email or web address] [facility] [address], [place], [address], 07/09/2024 13:35:49 07/09/2024 US, pelvis completed [email or web address] [address], [place], [address], 07/09/2024 19:21:18 Procedure Notes None recorded. Medical Equipment None Reported. Allergies Allergen ID Allergen Name Allergen Category Reaction Reaction Severity Criticality Documentation Date Start Date Code Code System Note Provider Name and Address Organization Details Recorded Time 29972 levofloxa gracie medicatio n hives severe Not available 06/19/2021 03706 RxNorm Violet ponce [place] - [facility] [place] 09:40:58 Medications Name Sig Start Date [...] Prescrib jhonny Johnston e: No Locat ion: [facility] M odify By: [email or web address] Encounte r DateTime : 02/25/20 19 04:15:00 PM Not Available Not Available Not [...] weight Systolic blood pressure Diastolic blood pressure Systolic blood pressure Diastolic blood pressure Provider Name and Address Organization Details Last Updated DateTime 2 161.29 cm 41 kg/m2 129960. 64 g 141 mm[Hg] 88 mm[Hg] 136 mm[Hg] 80 mm[Hg] Fior beebe [facility] 2 10:51:35 Date Recorded Body height Body mass index (BMI) Body weight Systolic blood pressure Diastolic blood pressure Provider Name and Address Organization Details Last Updated DateTime 09/12/2023 161.29 cm 43.8 kg/m2 907020.6 8 g 128 mm[Hg] 84 mm[Hg] Carmen Hutton [facility] 3 09:48:41 Date Recorded Body height Body mass index (BMI) Body weight Systolic blood pressure Diastolic blood pressure Provider Name and Address Organization Details Last Updated DateTime 08/05/2024 161.29 cm 41.3 kg/m2 398445.3 9 g 122 mm[Hg] 76 mm[Hg] Brenda Be [facility] 4 15:30:03 Date Recorded Body height Body mass index (BMI) Body weight Systolic blood pressure Diastolic blood pressure Provider Name and Address Organization Details Last Updated DateTime 09/25/2024 161.29 cm 40.7 kg/m2 845625.7 4 g 116 mm[Hg] 78 mm[Hg] Jodie Barnes [facility] 4 09:30:53 Social History Question Answer Notes LastModified by Organizat ion Details LastModified Time Tobacco Smoking Status Never Smoker Angelica Maldonado [facility] 09/12/2023 09:32:43 Do You Have An Advance Directive? No [email or web address] Information not available 06/19/2021 What Is Your Level Of Alcohol Consumption? None Information not available 03/10/2020 Are You Blind Or Do You Have Difficulty Seeing? No [email or web address] Information not available 06/19/2021 What Is Your Level Of Caffeine Consumption? Occasional Information not available 06/19/2021 How Much Tobacco Do You Chew? None [email or web address] Information not available 01/16/2022 In The 14 Days Before Symptom Onset, Have You Had Close Contact With A Laboratory-confir med COVID-19 While That Case Was Ill? No [email or web address] Information not available 06/19/2021 In The 14 Days Before Symptom Onset, Have You Had Close Contact With A Person Who Is Under Investigation For COVID-19 While That Person Was Ill? No [email or web address] Information not available 06/19/2021 Have You Been To An Area Known To Be High Risk For COVID-19? No Information not available 06/19/2021 Are You Deaf Or Do You Have Serious Difficulty Hearing? No [email or web address] Information not available 06/19/2021 What Type Of Diet Are You Following? REGULAR [email or web address] Information not available 06/19/2021 What Is The Highest Grade Or Level Of School You Have Completed Or The Highest Degree You Have Received? 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 No [email or web address] Information not available 06/19/2021 Do You Use Protection During Sex? Usually [email or web address] Information not available 06/19/2021 Do You Use Your Seat Belt Or Car Seat Routinely? Yes [email or web address] Information not available 06/19/2021 Do You Have Smoke And Carbon Monoxide Detectors In Your Home? Yes [email or web address] Information not available 06/19/2021 How Much Tobacco Do You Smoke? No [email or web address] Information not available 06/19/2021 Do You Feel Stressed (tense, Restless, Nervous, Or Anxious, Or Unable To Sleep At Night)? [id number] [email or web address] Information not available 06/19/2021 Do You Use Any Illicit Or Recreational Drugs? No [email or web address] Information not available 06/19/2021 Do You Use Sunscreen Routinely? No [email or web address] Information not available 06/19/2021 Have You Used IV Drugs? No [email or web address] Information not available 06/19/2021 Sex: Unknown Functional Status Question Answer Note LastModified by Organizat ion Details LastModified Time Do you have difficulty walking or climbing stairs? No [email or web address] Information not available 09/12/2023 Are you able to walk? YESWOREST [email or web address] Information not available 06/19/2021 Are you able to care for yourself? Yes [email or web address] Information not available 09/12/2023 Do you have difficulty dressing or bathing? No [email or web address] Information not available 09/12/2023 What is your [...] Diagnosis/Indication Diagnosis SNOMED-CT Code Diagnosis ICD10 Code 363 Moreno Butler MD [place] [address] [address] 02/25/2020 15:03:24 02/29/2020 15:17:07 [address] [facility] [address],[place] [address] 02/25/2020 15:57:06 02/25/2020 16:33:31 Normal [id number] Z34.93 568 Moreno Butler MD [place] [address],[place] [address] 02/29/2020 16:00:09 03/01/2020 13:10:44 [address] [facility] [address],[place] [address] 1 03/03/2020 15:35:26 03/03/2020 17:26:28 Third trimester 12616739 Z34.93 1411 [facility] [address] [place] [address] 03/07/2020 16:03:18 03/08/2020 13:06:51 Benign essential hypertension complicating AND/OR reason for care during [id number] O10.013 1798 [facility] [address],[place] [address] 1 03/10/2020 15:54:11 03/10/2020 16:53:07 Benign essential hypertension complicating AND/OR reason for care during [id number] O10.013 1799 Arianna Aldana [facility] [address],[place] [address] 1 03/10/2020 15:54:32 03/10/2020 16:58:23 Routine care 752893167 Z34.93 2223 [facility] [address],[place] [address] 1 03/14/2020 16:06:50 03/15/2020 14:31:00 Benign essential hypertension complicating AND/OR reason for care during 01315226 O10.013 2677 Moreno Butler MD [facility] [address],[place] [address] 1 03/17/2020 14:40:33 03/17/2020 16:37:52 Routine care 893201081 Z34.83 3012 [facility] [address],[place] [address] 1 03/21/2020 15:56:27 03/21/2020 16:54:56 Benign essential hypertension complicating AND/OR reason for care during 85340161 O10.013 3475 Abeba Pereira [facility] [address],[place] [address] 1 03/24/2020 15:26:36 03/24/2020 16:57:38 Normal 50947865 Z34.93 3476 [facility] [address],[place] [address] 1 03/24/2020 15:27:02 03/25/2020 12:01:27 Benign essential hypertension complicating AND/OR reason for care during 37741855 O10.013 3478 Yue Moss [facility] [address],[place] [address] 1 03/24/2020 15:28:05 03/24/2020 16:48:54 Transient hypertension of 556202428 O13.1 O09.523 3875 Moreno Butler MD [facility] [address],[place] [address] 1 03/28/2020 16:08:18 03/28/2020 17:08:19 Benign essential hypertension complicating AND/OR reason for care during 90899331 O10.013 4199 Moreno Butler MD [facility] [address],[place] [address] 1 03/31/2020 10:51:59 03/31/2020 10:54:25 5008 [address] [facility] [address],[place] [address] 1 04/07/2020 11:44:57 04/07/2020 12:13:13 Pre-existing hypertension complicating , childbirth and puerperium 978303391 O10.919 7595 [facility] [address],[place] [address] 1 04/28/2020 14:29:31 04/28/2020 16:26:27 care 089665376 Z39.2 76651 Moreno Butler MD [facility] [address],[place] [address] 1 08/12/2020 16:12:57 08/12/2020 16:39:30 Abnormal uterine bleeding 1819512810 9100 N93.9 10436 Yue Gotti [facility] [address],[place] [address] 1 08/29/2020 10:28:27 08/29/2020 11:17:33 Irregular intermenstrual bleeding 15872054 N92.1 01617 Moreno Butler MD [facility] [address],[place] [address] 1 08/29/2020 10:30:08 08/29/2020 11:39:48 Abnormal uterine bleeding 9391028321 9100 N93.9 24472 Moreno Butler MD [facility] [address],[place] [address] 1 10/27/2020 12:29:44 10/27/2020 13:53:00 Abnormal uterine bleeding 0050319895 9100 N93.9 33432 Arianna Aldana [facility] [address],[place] [address] 1 06/19/2021 09:39:02 06/20/2021 16:14:50 Gynecologic examination 66646386 Z01.419 Z11.51 [id number] [facility] [address],[place] [address] 09/30/2021 11:58:14 09/30/2021 12:43:13 Menorrhagia 080133764 N92.0 [id number] [facility] [address],[place] [address] 1 10/26/2021 09:29:51 10/26/2021 10:32:38 Irregular periods 58842056 N92.6 [id number] Moreno Butler MD [facility] [address],[place] [address] 1 10/30/2021 09:39:24 10/30/2021 12:46:34 Screening procedure 48731764 Z13.9 Menorrhagia 198984679 N9 2.0 09928 Moreno Butler MD [facility] [address],[place] [address] 1 01/16/2022 10:40:10 01/16/2022 11:30:18 Lesion of skin of breast 4068472635 54738 L98.8 [id number] [facility] [address],[place] [address] 08/01/2022 09:28:31 08/01/2022 10:43:20 Screening for malignant neoplasm of breast 032414706 Z12.39 Gynecologi c examination 15644091 Z01.419 [id number] [facility] [address],[place] [address] 1 08/16/2022 09:33:02 08/16/2022 10:16:41 Abnormal uterine bleeding 2538535143 9100 N93.9 [id number] [facility] [address],[place] [address] 1 08/20/2022 09:57:14 08/20/2022 11:33:19 Lesion of endometrium 5278972120 9101 N85.9 [id number] ALEXIS Ramírez [facility] [address] [address] 1 09/12/2023 09:30:49 09/12/2023 12:13:23 Gynecologic examination 96229650 Z01.419 Z11.51 [id number] Yue Gotti [facility] [address],[place] [address] 1 07/09/2024 10:26:03 07/09/2024 11:11:14 Abnormal uterine bleeding 4804591727 9100 N93.9 [id number] Moreno Butler MD [facility] [address],[place] [address] 1 08/05/2024 15:25:39 08/06/2024 10:15:09 Menorrhagia 023076847 N92.0 [id number] Moreno Butler MD [facility] [address],[place] [address] 1 09/25/2024 09:25:12 09/25/2024 10:01:54 Bacterial vaginosis 804036960 N76.0 Gynecologi c examination 59374701 Z01.419 Health Concerns Section Related Observation LastModified by Organization Detai ls LastModified Time None Recorded Concern Status LastModified by Organization Details LastModified Time None Recorded Advance Directives Directive N: Payers Encounter Date Sequence Insurance Name Policy Number Policy Garcia Covered Member ID Garcia Member ID Guarantor Name 08/20/2022 1 [facility] ON OR AFTER 05/18/21 (MEDICAID REPLACEMENT - HMO) Imani Collier [id number] [facility] [facility] 09/12/2023 1 [facility] [id number] Imani Estrada Collier [id number] [facility] [facility] 07/09/2024 1 [facility] [id number] Imani Estrada Collier [id number] [facility] 08/05/2024 1 [facility] [id number] [facility] [id number] [facility] 09/25/2024 1 [facility] [id number] Imani Collier [id number] Imani Collier Notes Date Note Type Note Provider Name and Address Organization Details Recorded Time 2 text/html 41yo Presents for pelvic u/s f/u appointmentPelvic u/s done for f/u on endometrial cystic lesion and nodule seen on prior imagingShe is doing well, menses are normal. Lasting 5-6 days, changing pads every 3-4 hours. ALEXIS Ramírez [address], [place], [address], [facility] 08/20/2022 11:13:37 3 text/html Annual GYNReported bypatient.Menstrual cycle:Normal menses; periods monthly, lasting 6-7 days. Changing pads every 2-3 hours on heavy days Urinary symptoms:No hematuria; No incontinence Vulva:No genital lesion Vagina:Normal vaginal discharge Breast:No breast pain; No breast lump; No nipple discharge Current Contraception:Satisfie d with current contraception; Tubal ligation Sexual complaints:No sexual complaints; No pain during intercourse; Normal libido Menopausal Symptoms:No menopausal symptoms; Normal vaginal lubrication Psychological symptoms:No depression; No anxiety; No PMDD Preventive measures:Encourage self breast examination; Encourage regular exercise; Encourage no tobacco use; Encourage regular mammograms starting age 40 ALEXIS Ramírez [address], [place], [address], [facility] 09/12/2023 12:04:39 4 text/html This patient is a 43-year-old female presents for heavy vaginal bleeding. She has longstanding very heavy bleeding. Her menses are regular. However, they require double protection. Patient has accidents, getting blood on her bedding and clothing. Is affected work. She changes a pad or tampon every hour. She leaks blood around the pad and tampon. This bleeding has a profound impact on her quality of life and her activities of daily living.Discussed treatment options in detail. Discussed medical treatment options. Testing procedures and surgery. We agreed to proceed with endometrial ablation. The procedure was described to the patient in detail. The patient understands the procedure. The procedure was described to the patient in great detail. the patient also understands the risks. The risks were also explained in detail. She understands that injuries May occur during surgery. She understands these injuries can result in hospitalization, more surgery, and severe illness. She understands there is risk of hemorrhage and infection. Moreno Butler MD [address], [place], [address], [facility] 08/05/2024 17:27:58 4 text/html Annual GYNReported bypatient.History:no gynecologic complaints Urinary symptoms:No hematuria; No incontinence Vulva:No genital lesion Vagina:Foul-smelling; to treat for BV Breast:No breast pain; No breast lump Current Contraception:Satisfie d with current contraception; Tubal ligation Sexual complaints:No sexual complaints; No pain during intercourse Menopausal Symptoms:No menopausal symptoms Psychological symptoms:No depression; No anxiety Preventive measures:Encourage self breast examination; Encourage regular exercise Moreno Butler MD [address], [place], [address], [facility] 09/25/2024 09:59:18 OBGyn Episode Ob Episode Information Episode Created Date Number of Fetuses Patient Bloodtype Patient rh Status Prepregnancy Weight lbs Domestic Partner Domestic Partner Phone Father Name Ceramics Engineer Status 02/25/20 20 1 B Positive 254 CLOSED Fetus Data First Name Last Name Admitted to NICU Weight (g) Sex Living Outcome Pediatric Complications Fetus ID Race Codes Race Delivery Type 2976.69 75 F true Full Term 213 Repeat Problems Problem Notes Problem Name Start Date End Date Resolution Snomed Code Not e Morbid obesity 800876642 Hypertensive disorder 88487464 Chronic HTN - labetalol 200mg Advanced maternal age 633532741 Vince Calculation VINCE Calculation Method Initial Vince Date Initial Exam Date Initial Exam Provider Initial Ultrasound Date Last Menstrual Period Date Ultra Sound Weeks Gestation Conception by IVF Embryo Age at Transfer Date of Transfer 04/13/20 20 02/25/20 20 09/04/2019 07/21/2019 8 Eighteen To Twenty Week Vince Update Ultra Sound Date Fundal Height At Umbil Quickening Date Ultra Sound Latest Weeks Gestation Final Vince Confirmed By Final Vince Confirmed Date Final Vince Date Ultra Sound Latest Days Gestation 0 [email or web address] 03/07/2020 05/27/20 20 0 Pre- Flowsheet Flowsheet Date 02/25/2020 Benoit Score Blood Edema Fundus Height Fundus Units Glucose Ketones Leukocytes Nitrite Labor Signs Protein Cervic Dilation Cervic Effacement Cervic Station Type Weight in lbs Pre/Post Dialysis Refused BP Diastolic BP Location Tested BP Systolic BP Type Fetus Heart Rate Present Fetus Movement Comments Flowsheet Date 02/25/2020 Benoit Score Blood Edema Fundus Height Fundus Units Glucose Ketones Leukocytes Nitrite Labor Signs Protein Cervic Dilation Cervic Effacement Cervic Station Type Weight in lbs Pre/Post Dialysis Refused BP Diastolic BP Location Tested BP Systolic BP Type Fetus Heart Rate Present Fetus Movement Comments Flowsheet Date 02/25/2020 Benoit Score Blood Edema Fundus Height Fundus Units Glucose Ketones Leukocytes Nitrite Labor Signs Protein Cervic Dilation Cervic Effacement Cervic Station none 35 cm Type Weight in lbs Pre/Post Dialysis Refused Weight 271.236588340502 BP Diastolic BP Location Tested BP Systolic BP Type 83 131 Fetus Heart Rate Present A 140 Fetus Movement Comments Pt. wanted urine dipped for poss. UTI. Normal dip. bc, rma No complaints except recent yeast she treated w/ Monistat. Symptoms improved. No [place]IN/visual changes. Flowsheet Date 02/29/2020 Benoit Score Blood Edema Fundus Height Fundus Units Glucose Ketones Leukocytes Nitrite Labor Signs Protein Cervic Dilation Cervic Effacement Cervic Station Type Weight in lbs Pre/Post Dialysis Refused BP Diastolic BP Location Tested BP Systolic BP Type Fetus Heart Rate Present Fetus Movement Comments Flowsheet Date 03/03/2020 Benoit Score Blood Edema Fundus Height Fundus Units Glucose Ketones Leukocytes Nitrite Labor Signs Protein Cervic Dilation Cervic Effacement Cervic Station none 39 cm trace Type Weight in lbs Pre/Post Dialysis Refused Weight 274.184407874886 BP Diastolic BP Location Tested BP Systolic BP Type 81 R arm 130 sitting Fetus Heart Rate Present A 145 Fetus Movement A Yes Comments Negative glucose. bc, rma No [place]IN/visual changes. She had been getting dizzy in am and BP was low so MFM decreased labetalol from 400 bid to 200 bid yesterday. Expecting baby girl Aiyana wants repeat C/S and BTL Flowsheet Date 03/07/2020 Benoit Score Blood Edema Fundus Height Fundus Units Glucose Ketones Leukocytes Nitrite Labor Signs Protein Cervic Dilation Cervic Effacement Cervic Station Type Weight in lbs Pre/Post Dialysis Refused BP Diastolic BP Location Tested BP Systolic BP Type Fetus Heart Rate Present Fetus Movement Comments Flowsheet Date 03/10/2020 Benoit Score Blood Edema Fundus Height Fundus Units Glucose Ketones Leukocytes Nitrite Labor Signs Protein Cervic Dilation Cervic Effacement Cervic Station Type Weight in lbs Pre/Post Dialysis Refused BP Diastolic BP Location Tested BP Systolic BP Type Fetus Heart Rate Present Fetus Movement Comments Flowsheet Date 03/10/2020 Benoit Score Blood Edema Fundus Height Fundus Units Glucose Ketones Leukocytes Nitrite Labor Signs Protein Cervic Dilation Cervic Effacement Cervic Station 40 trace Type Weight in lbs Pre/Post Dialysis Refused Weight 275.845452803424 BP Diastolic BP Location Tested BP Systolic BP Type 80 131 sitting Fetus Heart Rate Present A 138 Fetus Movement A Yes Comments Pt doing well. States c/s wi th tubal is scheduled for March 31. Pt declined cervical exam. Flowsheet Date 03/14/2020 Benoit Score Blood Edema Fundus Height Fundus Units Glucose Ketones Leukocytes Nitrite Labor Signs Protein Cervic Dilation Cervic Effacement Cervic Station Type Weight in lbs Pre/Post Dialysis Refused BP Diastolic BP Location Tested BP Systolic BP Type Fetus Heart Rate Present Fetus Movement Comments Flowsheet Date 03/17/2020 Benoit Score Blood Edema Fundus Height Fundus Units Glucose Ketones Leukocytes Nitrite Labor Signs Protein Cervic Dilation Cervic Effacement Cervic Station trace Type Weight in lbs Pre/Post Dialysis Refused Weight 276.035243247232 BP Diastolic BP Location Tested BP Systolic BP Type 97 157 Fetus Heart Rate Present Fetus Movement Comments bp retake 137/84 slm Flowsheet Date 09/28/2019 Benoit Score Blood Edema Fundus Height Fundus Units Glucose Ketones Leukocytes Nitrite Labor Signs Protein Cervic Dilation Cervic Effacement Cervic Station trace Type Weight in lbs Pre/Post Dialysis Refused Weight 263.616787397903 BP Diastolic BP Location Tested BP Systolic BP Type 98 153 sitting Fetus Heart Rate Present A 167 Fetus Movement A No Comments This patient is a 39-year-ol d 4 para 2011 who presents for initial visit. She has advanced maternal age. She will have an NIP T and begin routine care. Flowsheet Date 10/27/2019 Benoit Score Blood Edema Fundus Height Fundus Units Glucose Ketones Leukocytes Nitrite Labor Signs Protein Cervic Dilation Cervic Effacement Cervic Station trace 15 trace Type Weight in lbs Pre/Post Dialysis Refused Weight 263.372537596865 BP Diastolic BP Location Tested BP Systolic BP Type 85 149 sitting Fetus Heart Rate Present A 145 Fetus Movement A Yes Comments Flowsheet Date 11/24/2019 Benoit Score Blood Edema Fundus Height Fundus Units Glucose Ketones Leukocytes Nitrite Labor Signs Protein Cervic Dilation Cervic Effacement Cervic Station trace 19 trace Type Weight in lbs Pre/Post Dialysis Refused Weight 263.008956317204 BP Diastolic BP Location Tested BP Systolic BP Type 110 171 sitting Fetus Heart Rate Present A 160 Fetus Movement A Yes Comments Markedly elevated blood pres sures. Patient was sent to Labor and delivery for observation. She is instructed to go directly to Labor and delivery. Flowsheet Date 12/21/2019 Benoit Score Blood Edema Fundus Height Fundus Units Glucose Ketones Leukocytes Nitrite Labor Signs Protein Cervic Dilation Cervic Effacement Cervic Station 1+ trace Type Weight in lbs Pre/Post Dialysis Refused Weight 263.566052370617 BP Diastolic BP Location Tested BP Systolic BP Type 87 155 sitting Fetus Heart Rate Present Fetus Movement A Yes Comments This patient is a 39-year-ol d multiparous female with chronic hypertension. M changed her blood pressure medication. She is now four hundred b.i.d. to see M again later this week. Flowsheet Date 01/18/2020 Benoit Score Blood Edema Fundus Height Fundus Units Glucose Ketones Leukocytes Nitrite Labor Signs Protein Cervic Dilation Cervic Effacement Cervic Station trace 29 trace Type Weight in lbs Pre/Post Dialysis Refused Weight 274.814585750534 BP Diastolic BP Location Tested BP Systolic BP Type 89 146 sitting Fetus Heart Rate Present A 145 Fetus Movement A Yes Comments Flowsheet Date 02/01/2020 Benoit Score Blood Edema Fundus Height Fundus Units Glucose Ketones Leukocytes Nitrite Labor Signs Protein Cervic Dilation Cervic Effacement Cervic Station trace 33 trace Type Weight in lbs Pre/Post Dialysis Refused Weight 274.915418000448 BP Diastolic BP Location Tested BP Systolic BP Type 79 135 sitting Fetus Heart Rate Present A 145 Fetus Movement A Yes Comments Flowsheet Date 02/15/2020 Benoit Score Blood Edema Fundus Height Fundus Units Glucose Ketones Leukocytes Nitrite Labor Signs Protein Cervic Dilation Cervic Effacement Cervic Station trace 1+ Type Weight in lbs Pre/Post Dialysis Refused Weight 274.734092639625 BP Diastolic BP Location Tested BP Systolic BP Type 84 136 sitting Fetus Heart Rate Present Fetus Movement A Yes Comments Pt is having a girl Aiyana Task sent to Lia to schedule r/c/s with tubal. Flowsheet Date 03/21/2020 Benoit Score Blood Edema Fundus Height Fundus Units Glucose Ketones Leukocytes Nitrite Labor Signs Protein Cervic Dilation Cervic Effacement Cervic Station Type Weight in lbs Pre/Post Dialysis Refused BP Diastolic BP Location Tested BP Systolic BP Type Fetus Heart Rate Present Fetus Movement Comments Flowsheet Date 03/24/2020 Benoit Score Blood Edema Fundus Height Fundus Units Glucose Ketones Leukocytes Nitrite Labor Signs Protein Cervic Dilation Cervic Effacement Cervic Station Type Weight in lbs Pre/Post Dialysis Refused BP Diastolic BP Location Tested BP Systolic BP Type Fetus Heart Rate Present Fetus Movement Comments Flowsheet Date 03/24/2020 Benoit Score Blood Edema Fundus Height Fundus Units Glucose Ketones Leukocytes Nitrite Labor Signs Protein Cervic Dilation Cervic Effacement Cervic Station Type Weight in lbs Pre/Post Dialysis Refused BP Diastolic BP Location Tested BP Systolic BP Type Fetus Heart Rate Present Fetus Movement Comments Flowsheet Date 03/24/2020 Benoit Score Blood Edema Fundus Height Fundus Units Glucose Ketones Leukocytes Nitrite Labor Signs Protein Cervic Dilation Cervic Effacement Cervic Station trace 39 cm trace Type Weight in lbs Pre/Post Dialysis Refused Weight 276.368214238491 BP Diastolic BP Location Tested BP Systolic BP Type 87 143 Fetus Heart Rate Present A 140 Fetus Movement A Yes Comments Glucose negative. bc, rma No [place]IN/visual changes. No complaints. We reviewed protocol for C/S next week and she still wants BTL, IDPA consent signed 02/01/2020 Flowsheet Date 03/28/2020 Benoit Score Blood Edema Fundus Height Fundus Units Glucose Ketones Leukocytes Nitrite Labor Signs Protein Cervic Dilation Cervic Effacement Cervic Station Type Weight in lbs Pre/Post Dialysis Refused BP Diastolic BP Location Tested BP Systolic BP Type Fetus Heart Rate Present Fetus Movement Comments Flowsheet Date 03/31/2020 Benoit Score Blood Edema Fundus Height Fundus Units Glucose Ketones Leukocytes Nitrite Labor Signs Protein Cervic Dilation Cervic Effacement Cervic Station Type Weight in lbs Pre/Post Dialysis Refused BP Diastolic BP Location Tested BP Systolic BP Type Fetus Heart Rate Present Fetus Movement Comments Flowsheet Date 04/07/2020 Benoit Score Blood Edema Fundus Height Fundus Units Glucose Ketones Leukocytes Nitrite Labor Signs Protein Cervic Dilation Cervic Effacement Cervic Station Type Weight in lbs Pre/Post Dialysis Refused Weight 258.805118364257 BP Diastolic BP Location Tested BP Systolic BP Type 105 R arm 161 sitting Fetus Heart Rate Present Fetus Movement Comments Flowsheet Date 04/28/2020 Benoit Score Blood Edema Fundus Height Fundus Units Glucose Ketones Leukocytes Nitrite Labor Signs Protein Cervic Dilation Cervic Effacement Cervic Station Type Weight in lbs Pre/Post Dialysis Refused Weight 249.896203659385 BP Diastolic BP Location Tested BP Systolic BP Type 92 R arm 153 sitting Fetus Heart Rate Present Fetus Movement Comments Flowsheet Date 08/12/2020 Benoit Score Blood Edema Fundus Height Fundus Units Glucose Ketones Leukocytes Nitrite Labor Signs Protein Cervic Dilation Cervic Effacement Cervic Station Type Weight in lbs Pre/Post Dialysis Refused Weight 243.418102264298 BP Diastolic BP Location Tested BP Systolic BP Type 84 R arm 147 sitting Fetus Heart Rate Present Fetus Movement Comments Flowsheet Date 08/29/2020 Benoit Score Blood Edema Fundus Height Fundus Units Glucose Ketones Leukocytes Nitrite Labor Signs Protein Cervic Dilation Cervic Effacement Cervic Station Type Weight in lbs Pre/Post Dialysis Refused BP Diastolic BP Location Tested BP Systolic BP Type Fetus Heart Rate Present Fetus Movement Comments Flowsheet Date 08/29/2020 Benoit Score Blood Edema Fundus Height Fundus Units Glucose Ketones Leukocytes Nitrite Labor Signs Protein Cervic Dilation Cervic Effacement Cervic Station Type Weight in lbs Pre/Post Dialysis Refused Weight 240.083811836346 BP Diastolic BP Location Tested BP Systolic BP Type 78 R arm 126 sitting Fetus Heart Rate Present Fetus Movement Comments Menstrual History Last Menstrual Date Menses Monthly On Bcp Conception Prior Menses Frequency Hcg Plus Date Menarche Onset Age 0907/21/2019 Genetic Screening And Infection History Question Response Note Mental Retardation/Autism false Patient's Age Will Be 35 Years Or Older At Estim ated Date of Delivery false Thalassemia (Czech, Albanian, Mediterranean, Or Background): MCV < 80 false Neural Tube Defect (Meningomyelocele, Spina Bifi da, Or Anencephaly) false Congenital Heart Defect false Down Syndrome false Arian-Sachs (eg, Pentecostal, Cajun, Greek-Bibb) f alse Sharon Disease false Sickle Cell Disease Or Trait () false Hemophilia Or Other Blood Disorders false Muscular Dystrophy false Cystic Fibrosis false Kenneth's Chorea false Intellectual Disability/Autism false If Yes, Was Person Tested For Fragile X? false Other Inherited Genetic Or Chromosomal Disorder false Maternal Metabolic Disorder (eg, Type 1 Diabetes , PKU) false Patient Or Baby's Father Had A Child With Defects Not Listed Above false Recurrent Loss, Or A Stillbirth false Medications (including Suppl ements, Vitamins, Herbs, OTC Drugs), Illicit/Recreational Drugs, Alcohol false If Yes, Agent(s) And Strength/Dosage false Any Other Genetic History false Live With Someone With TB Or Exposed To TB false Patient Or Partner Has History Of Genital Herpes false Rash Or Viral Illness Since Last Menstrual Perio d false History Of STD, Gonorrhea, Chlamydia, HPV, Syphi lis false Other Infection History false History of HIV false History of Hepatitis false Prior GBS-infected child false Hemoglobinopathy Or Carrier false Other Structural Defect false Recent Travel History Outside of Country false Delivery Information Delivery Date Delivery Type Labor Anesthesia Weeks Gestation Incision Type Labor Labor Length Hrs Delivered By Post Complications Tubal Sterilization Discharge Date Comments 0 None Regional-Sp inal 38.1 Low Transvers e false [id number] Obesity/A MA/CHTN/G BS+ Discharge Information Feeding Method Contraceptive Method Maternal HG B and HCT Levels Ob Episode Information Episode Created Date Number of Fetuses Patient Bloodtype Patient rh Status Prepregnancy Weight lbs Domestic Partner Domestic Partner Phone Father Name Ceramics Engineer Status 03/06/20 20 1 CLOSED Fetus Data First Name Last Name Admitted to NICU Weight (g) Sex Living Outcome Pediatric Complications Fetus ID Race Codes Race Delivery Type , Spontane ous 606 Vince Calculation VINCE Calculation Method Initial Vince Date Initial Exam Date Initial Exam Provider Initial Ultrasound Date Last Menstrual Period Date Ultra Sound Weeks Gestation Conception by IVF Embryo Age at Transfer Date of Transfer 0 Eighteen To Twenty Week Vince Update Ultra Sound Date Fundal Height At Umbil Quickening Date Ultra Sound Latest Weeks Gestation Final Vince Confirmed By Final Vince Confirmed Date Final Vince Date Ultra Sound Latest Days Gestation 0 0 Menstrual History Last Menstrual Date Menses Monthly On Bcp Conception Prior Menses Frequency Hcg Plus Date Menarche Onset Age Delivery Information Delivery Date Delivery Type Labor Anesthesia Weeks Gestation Incision Type Labor Labor Length Hrs Delivered By Post Complications Tubal Sterilization Discharge Date Comments 1 Discharge Information Feeding Method Contraceptive Method Maternal HG B and HCT Levels Ob Episode Information Episode Created Date Number of Fetuses Patient Bloodtype Patient rh Status Prepregnancy Weight lbs Domestic Partner Domestic Partner Phone Father Name Ceramics Engineer Status 03/17/20 1 CLOSED Fetus Data First Name Last Name Admitted to NICU Weight (g) Sex Living Outcome Pediatric Complications Fetus ID Race Codes Race Delivery Type 3316.66 [id number] M Full Term 993 Primary Vince Calculation VINCE Calculation Method Initial Vince Date Initial Exam Date Initial Exam Provider Initial Ultrasound Date Last Menstrual Period Date Ultra Sound Weeks Gestation Conception by IVF Embryo Age at Transfer Date of Transfer 0 Eighteen To Twenty Week Vince Update Ultra Sound Date Fundal Height At Umbil Quickening Date Ultra Sound Latest Weeks Gestation Final Vince Confirmed By Final Vince Confirmed Date Final Vince Date Ultra Sound Latest Days Gestation 0 0 Menstrual History Last Menstrual Date Menses Monthly On Bcp Conception Prior Menses Frequency Hcg Plus Date Menarche Onset Age Delivery Information Delivery Date Delivery Type Labor Anesthesia Weeks Gestation Incision Type Labor Labor Length Hrs Delivered By Post Complications Tubal Sterilization Discharge Date Comments 5 39 E'Judie Discharge Information Feeding Method Contraceptive Method Maternal HG B and HCT Levels Ob Episode Information Episode Created Date Number of Fetuses Patient Bloodtype Patient rh Status Prepregnancy Weight lbs Domestic Partner Domestic Partner Phone Father Name Ceramics Engineer Status 03/17/20 20 1 CLOSED Fetus Data First Name Last Name Admitted to NICU Weight (g) Sex Living Outcome Pediatric Complications Fetus ID Race Codes Race Delivery Type [phone] M Full Term 994 Primary Vince Calculation VINCE Calculation Method Initial Vince Date Initial Exam Date Initial Exam Provider Initial Ultrasound Date Last Menstrual Period Date Ultra Sound Weeks Gestation Conception by IVF Embryo Age at Transfer Date of Transfer 0 Eighteen To Twenty Week Vince Update Ultra Sound Date Fundal Height At Umbil Quickening Date Ultra Sound Latest Weeks Gestation Final Vince Confirmed By Final Vince Confirmed Date Final Vince Date Ultra Sound Latest Days Gestation 0 0 Menstrual History Last Menstrual Date Menses Monthly On Bcp Conception Prior Menses Frequency Hcg Plus Date Menarche Onset Age Delivery Information Delivery Date Delivery Type Labor Anesthesia Weeks Gestation Incision Type Labor Labor Length Hrs Delivered By Post Complications Tubal Sterilization Discharge Date Comments 4 40 Maximo, trouble pushing out Discharge Information Feeding Method Contraceptive Method Maternal HG B and HCT Levels Ob Episode Information Episode Created Date Number of Fetuses Patient Bloodtype Patient rh Status Prepregnancy Weight lbs Domestic Partner Domestic Partner Phone Father Name Ceramics Engineer Status 04/07/20 20 1 DELETED Vince Calculation VINCE Calculation Method Initial Vince Date Initial Exam Date Initial Exam Provider Initial Ultrasound Date Last Menstrual Period Date Ultra Sound Weeks Gestation Conception by IVF Embryo Age at Transfer Date of Transfer 0 Eighteen To Twenty Week Vince Update Ultra Sound Date Fundal Height At Umbil Quickening Date Ultra Sound Latest Weeks Gestation Final Vince Confirmed By Final Vince Confirmed Date Final Vince Date Ultra Sound Latest Days Gestation 0 0 Menstrual History Last Menstrual Date Menses Monthly On Bcp Conception Prior Menses Frequency Hcg Plus Date Menarche Onset Age Delivery Information Delivery Date Delivery Type Labor Anesthesia Weeks Gestation Incision Type Labor Labor Length Hrs Delivered By Post Complications Tubal Sterilization Discharge Date Comments 0 38.1 +GBS/ HT N Discharge Information Feeding Method Contraceptive Method Maternal HG B and HCT Levels
--- OUTSIDE RECORDS SUMMARY | 2024-11-14 23:33 | XMS_ITS | Encounter Summary ---
Author Organization [facility] Address [address] [place] [address] Care Team Providers Care Kiln Remover Name Role Phone Unavailable Primary Care Provider [...] MATERNAL MEDICINE CONSULT Liliam Butler MD [address] [place] [address] Referral ID Status Reason Start Date Expiration Date Visits Re quested Visits Authorized [id number] Closed 01/04/2020 07/02/2020 1 1 K TEACHER Encounter Details Date Type Department Care Team (Latest Contact Info) Description 01/06/2020 3:13 PM PRE K TEACHER - 01/06/2020 11:59 PM PRE K TEACHER Hospital Encounter [facility] Maternal & Care [address] [place] [id number] Efrain Owen MD [address] [address] Discharge Disposition: Home or Self Care Social [...] Sign Reading Time Taken Comments Blood Pressure 144/86 01/06/2020 3:47 PM PRE K TEACHER Pulse 98 01/06/2020 3:47 PM PRE K TEACHER Temperature - - Respiratory Rate - - Oxygen Saturation - - Inhaled Oxygen Concentration - - Weight 124.7 kg (275 lb) 01/06/2020 3:47 PM PRE K TEACHER Height 162.6 cm (5' 4 ) 01/06/2020 3:47 PM PRE K TEACHER Body Mass Index 47.2 01/06/2020 3:47 PM PRE K TEACHER documented in this encounter Functional Status Functional [...] 12/16/2019 01/15/2020 labetalol (NORMODYNE; TRANDATE) 200 MG tablet Take 2 tablets by mouth 2 times daily for 30 days 120 tablet 5 12/16/2019 01/15/2020 Vit-Fe Fumarate-FA ( VITAMIN WITH IRON) tabletIndications:Pre gnancy Take 1 tablet by mouth once daily Reasons: 07/31/2021 riboflavin 400 MG capsule Take 1 capsule by mouth once daily 100 capsule 6 12/23/2019 04/01/2020 documented as of this encounter Progress Notes * Pasero, Suzie M, RN - 01/06/2020 3:15 PM CST Pt here today for ultrasound and follow up with REGIONAL CLINICAL DIRECTOR. Reports good movement. Denies cramping/contractions. Denies leakage of fluid/bleeding. Denies headaches, visual changes, edema, and epigastric pain. Pt did not come in with B/P logs today, but states that her B/P's are ranging 130-140/70-80 with occasional outliers of [id number] and diastolic once of 92. Pt seen by Paul Sales NP, please see her note for further POC. Pt denies further questions or concerns for her care today. K TEACHER documented in this encounter Consult Notes * Karla Sales, SLOT MANAGER-ENVIRONMENTAL MONITORING TECHNICIAN - 01/06/2020 3:15 PM CSTAssociated Order(s): AMB CONSULT TO MATERNAL MEDICNE Maternal Medicine Consultation visit Subjective: Imani Owen is a at 26w0d here for follow up consultation visit, at the request of Dr. Butler, for the following issue: chronic hypertension. Imani reports getting new, appropriately sized blood pressure cuff. Blood pressure log at home normotensive at 130-140/70-80; outside of two outliers in the past two weeks: 142/95 and 140/102. States she did not repeat the blood pressures, and felt fine at the time they were taken. Reports ongoing tension headaches, 2-3x per week, relieved with intervention. States headaches are unchanged. She is compliant with ASA and labetalol 400 BID. Has not started Riboflavin supplementation, plans to pickle sorter this week. Denies scotomata or RUQ pain. Denies any new swelling. Reports nausea with emesis twice this week. Reports active movement. Review of systems: Constitutional: Negative for fevers Eyes: see HPI Respiratory: Negative shortness of breath at rest, occasional with exertion Cardiovascular: Negative for chest pain, palpitations Gastrointestinal: Negative for GERD, constipation; see HPI Genital: Negative for abnormal vaginal discharge Urinary: Negative for dysuria Hematologic/lymphatic: Negative for vaginal bleeding Musculoskeletal: Negative for significant back pain Neurological: see HPI Integument: Denies skin changes Obstetric: movement appreciated, denies leakage of fluid or contractions Objective Physical Examination: VS: BP 144/86 (BP SITE: RIGHT ARM, BP POSITION: SITTING, BP CUFF SIZE: 11) Pulse 98 Ht 5' 4 (1.626m) Wt 275 lb (124.7 kg) BMI 47.2 kg/m2 See flowsheet Gen: no acute distress Mental: appropriate mood, behavior and speech Chest: clear to auscultation, bilaterally Heart: regular rate and rhythm, no murmurs Abdomen: gravid, no epigastric tenderness, obese FHT: per ultrasound Trunk: no costovertebral angle tenderness Musculoskeletal: no bony point tenderness to palpation Extremities: trace pedal edema; negative Joana's sign, bilaterally, reflexes are 1+ bilaterally, negative clonus Skin: no rash observed Current Outpatient Medications Medication Sig ??? aspirin (ASPIRIN) 81 MG tablet Take 2 tablets by mouth once daily for 30 days ??? labetalol (NORMODYNE; TRANDATE) 200 MG tablet Take 2 tablets by mouth 2 times daily for 30 days(Patient taking differently: Take 400 mg by mouth 2 times daily Reasons: High Blood Pressure Disorder) ??? Vit-Fe Fumarate-FA ( VITAMIN WITH IRON) tablet Take 1 tablet by mouth once daily Reasons: ??? riboflavin 400 MG capsule Take 1 capsule by mouth once daily (Patient not taking: Reported on 01/06/2020) No current facility-administered medications for this encounter. Ultrasound:(see detailed report) Labs: Urine dipstick shows: Alb/Glu/K/N/L Albumin: 1+ Glucose: Negative Urine Ketones: Negative Assessment/Plan: 39 year old with IUP at 26w0d ACTIVE PROBLEMS AND RECOMMENDATIONS Patient Active Problem List: Abnormal alpha fetoprotein (AFP) level AMA (advanced maternal age) multigravida 35+, second trimester Chronic hypertension during Thyroid nodule Supervision of high-risk of elderly multigravida Serum potassium fluctuations History of delivery, currently Morbid obesity during Hypercholesteremia Headache in Additional plans: Chronic hypertension during Primary office B/P's; diagnosed with HTN this [...] after hours number for OB triage at [facility]. Bring in BP log to appointments. Close [...] initiation at 39 weeks unless indicated sooner. Morbid obesity during Pre BMI: 47 Early GCT: 68 Hemoglobin A1C early : 5.6 TSH: 1.17 on 12/16 Plan: Limit weight gain to 0-15 lbs, weight gain in our office thus far: 5lbs. Again, please arrange nutrition counseling if not already done. Serial growth ultrasounds. Would benefit from and PP weight reduction. Please repeat her GCT at 28 weeks. testing driven by cHTN. Serum potassium fluctuations Improved to 3.4 on 12/24; completed potassium supplementation two days later. Denies any current palpitations. Additionally: We discussed that preeclampsia can be sudden in presentation and that I do not want her to ignore any severe range blood pressures. She verbalized understanding. Encouraged to seek evaluation with any SOB at rest or with short distance exertion, chest pain, persistent palpitations. Preeclampsia handout given today. I will follow up with her in two weeks. See formal ultrasound report. Once again, we appreciate the opportunity to assist you in the care of Ms. Owen. She was seen in collaboration with Dr. Owen today. She will continue seeing you for care. Sincerely, Karla Sales, SLOT MANAGER-ENVIRONMENTAL MONITORING TECHNICIAN 01/06/2020 4:59 PM K TEACHER documented in this encounter Plan of Treatment Not on file documented as of this encounter Procedures Procedure Name Priority Date/Time Associated Diagnosis Comments SONOGRAM - COMPLETE Routine 01/06/2020 3:20 PM PRE K TEACHER AMA (advanced maternal age) multigravida 35+, second trimester (HCC) Chronic hypertension during (HCC) Abnormal alpha fetoprotein (AFP) level Supervision of high-risk of elderly multigravida (HCC) Morbid obesity during documented in this encounter Results * SONOGRAM - COMPLETE (01/06/2020 3:20 PM PRE K TEACHER) Anatomical Region Laterality Modality Other 01/06/2020 3:20 PM PRE K TEACHER Narrative 01/06/2020 4:19 PM PRE K TEACHER ? [facility] ? [facility] ?PHONE: ??FAX: Pat. Name: ?IMANI OWEN Kathy. No: ?[id number] Study Date: ?? 01/06/2020 ??3:20pm , Age: ? 1980, 39 Pregnancies: ?? 4, Para 2 Height: ? 64 in Weight: ? 252 lb LMP: ?Unknown GA by Base: ?? 26w0d ?? CHRISSY: 04/13/2020 GA by US: ? 25w4d ?? CHRISSY: 04/16/2020 GA Selected: ??26w0d ([facility]) CHRISSY: ?04/13/2020 Referring MD: Moreno Butler MD Commercial Loan Manager: ??Harika High, RDMS, RDCS CPT4: ? [address] BMI: ?43.25 Hist/Ind: ? Incomplete Anatomy Screen ?AMA-LR NIPT ?Elevated AFP-MoM 3.08 MEASUREMENTS & AGE ? GROWTH EVALUATION Measurement ??GA ? Range ? Srce %for GA Ratios ----- ---- ------- BPD ??6.0 cm 24w4d (34s7t-85b0p) Hadl BPD 5% FL/BPD 0.84 (0.71 - 0.87) HC ??23.3 cm 25w2d (73e8m-68x9b) Hadl HC ??9% FL/AC ??0.23 (0.20 - 0.24) AC ??21.7 cm 26w1d (79p3e-42i1m) Hadl AC ??45% HC/AC ??1.08 (1.00 - 1.19) FL ?? 5.0 cm 27w0d (06v5a-13i3p) Hadl FL ??69% CI ? 0.72 (0.70 - 0.86) HL ?? 4.4 cm 26w1d (53i2q-57o0g) Jadon HL ??52% GA for sonogram 25w4d (86j3x-74l2a) ?? Weight Estimate: based on (BPD,HC,AC,FL) Hadlock ?Weight: 916 gm (783-1050gm) Hadlo ? : 2lbs, 0oz ? Normal: 913 gm (685- 1141gm) Hadlo ? Wt% ? 51% for 26w0d Heart Rate: 161 bpm Amniotic Fluid Index: 06.1cm (Deepest Pocket) EVAL, PLACENTA Presentation: breech Placenta: posterior Heart Rate: 161 bpm Amniotic Fluid Volume: normal Anatomy!Normal!Abnormal!Suboptimal!Prev. Seen!Comments [...] ? x ?! Bowel ?! ?! ?! ? x ?! ?! Kidneys ?! ?? x ??! ?! ?! ? x ?! Bladder ?! ?? x ??! ?! ?! ? x ?! 3 Vessel Cord! ?! ?! ?! ? x ?! Cord In! ?! ?! ?! ? x ?! Upper Extremi! ?? x ??! ?! ?! ?! Hands ?! ?! ?! ?! ? x ?! Lower Extreme! ?! ?! ?! ? x ?! Feet ? ! ?! ?! ?! ? x ?! Placental Cor! ?! ?! ?! ? x ?! CLINICAL SUMMARY Study Number: 3 ?? A single fetus is identified in breech presentation. ??The measurements today are consistent with appropriate interval growth. ??The CHRISSY selected is based on a prior ultrasound. ??The amniotic fluid volume is normal. ??The placenta is posterior. ??No major malformations are seen within the limitations of ultrasound examination. IMPRESSION: Single, live, IUP at 26w0d Appropriate size Normal AFV Anatomy survey is incomplete, no major malformations detected within the limitations of ultrasound RECOMMEND: Follow up ultrasound in 4 weeks to complete the anatomy survey and to assess growth Thank you for allowing us the opportunity to care for your patient Efrain Owen MD <Electronic Signature> ??01/06/2020 04:19pm R Ronald Butler MD [facility] ORDERABLES documented in this encounter Visit Diagnoses Diagnosis Supervision of high-risk of elderly multigravida (HCC)- Primary Supervision of high-risk of elderly multigravida AMA (advanced maternal age) multigravida 35+, second trimester (HCC) Chronic hypertension during (HCC) Abnormal alpha fetoprotein (AFP) level Morbid obesity during Hypercholesteremia Pure hypercholesterolemia Unspecified pre-existing hypertension complicating , second trimester (HCC) Obesity complicating , second trimester (HCC) Morbid (severe) obesity due to excess calories (HCC) 26 weeks gestation of (HCC) state, incidental * Assessment & Plan Note - Karla Sales APRN-CNP - 01/06/2020 4:49 PM PRE K TEACHER Associated Problem(s): Serum potassium fluctuations Improved to 3.4 on 12/24; completed potassium supplementation two days later. Denies any current palpitations. K TEACHER * Assessment & Plan Note - Karla Sales APRN-CNP - 01/06/2020 4:47 PM PRE K TEACHER Associated Problem(s): Morbid obesity during Pre BMI: 47 [...] at 28 weeks. testing driven by cHTN. K TEACHER * Assessment & Plan Note - Karla Sales APRN-CNP - 01/06/2020 4:36 PM PRE K TEACHER Associated Problem(s): Chronic hypertension during (HCC) Primary office B/P's; diagnosed with HTN this [...] after hours number for OB triage at [facility]. Bring in BP log to appointments. Close [...] initiation at 39 weeks unless indicated sooner. K TEACHER documented in this encounter
--- OUTSIDE RECORDS SUMMARY | 2024-11-14 23:33 | XMS_ITS | Encounter Summary ---
Author Organization [facility] Address [address] [place] [address] Care Team Providers Care Data Center Operator Name Role Phone Unavailable Primary Care Provider Unavailabl e Reason for Referral * Consult, Test & Treat (Routine) - Closed Specialty Diagnoses / Procedures Referred By Contmela t Referred To Contact Diagnoses Chronic hypertension affecting (HCC) Low serum potassium Procedures NEPHROLOGY CONSULT Karla Sales APRN-CNP [address] [address] Referral ID Status Reason Start Date Expiration Date Visits Re quested Visits Authorized [id number] Closed 01/13/2020 07/11/2020 1 1 SHOVELER Reason for Visit * Reason Onset Date Comments Follow-up 01/13/2020 Encounter Details Date Type Department Care Team (Late st Contact Info) Description 01/13/2020 Telephone [facility] Women's Health Maternal & Care [address] [place] [phone] Karla Sales APRN-CNP [address] [address] Follow-up Social History Tobacco Use Types Packs/Day Years [...] encounter Miscellaneous Notes * Telephone Encounter - Karla Sales APRN-CNP - 01/13/2020 3:42 PM SAND SHOVELER Patient called today after reviewing in person patient's history of fluctuating potassium levels, chronic hypertension, and current history with Dr. Porras. I informed Imani that we would like her to take a daily potassium supplement of 20 mEq to replenish her potassium. Further, I discussed that it is our recommendation that she see nephrology to see if there is any underlying condition that is affecting absorption or depletion of her potassium stores, especially also with her history of chronic hypertension. I confirmed with Dr. Porras that she desires her to take a daily supplement of the potassium and she does. Imani is agreeable to the nephrology consult, and endorsesagain today that she is not getting any dietary sources of potassium into her diet. She states she is feeling well today, and denies preeclampsia symptoms or concerns for her blood pressure. Endorsesfollow up appointment scheduled next week. D/W ELEUTERIO Dias 01/13/2020 3:45 PM SHOVELER documented in this encounter Plan of Treatment Not on file documented as of this encounter Visit Diagnoses Diagnosis Chronic hypertension affecting (HCC)- Primary Low serum potassium documented in this encounter
--- OUTSIDE RECORDS SUMMARY | 2024-11-14 23:33 | XMS_ITS | Encounter Summary ---
Author Organization [facility] Address [address] [place] [address] Care Team Providers Care Clothes Ironer Name Role Phone Unavailable Primary Care Provider Unavailabl e Encounter Details Date Type Department Care Team (Latest Contact Info) Description 12/16/2019 12:28 PM COMMUNITY ARTS WORKER - 12/16/2019 1:48 PM [facility] Hospital Encounter [facility] [address] [place] [address] Gian Gonzales MD [address] [place] [address] Discharge Disposition: Home or Self Care Social [...] as of this encounter Discharge Instructions * Discharge Instructions* Nyasia Bonilla RN - 12/16/2019 1:49 PM COMMUNITY ARTS WORKER UNDELIVERED PATIENT DISCHARGE INSTRUCTIONS CALL YOUR DOCTOR (SEE NUMBER BELOW) ?? If you are less than 37 weeks and have move than 5 contractions an hour. ?? Blurring ofvision or spots before your eyes. ?? Ruptured membranes or leakage of vaginal fluid. ?? May be a steady trickle or large gush ?? May be clear, yellow, pink or green ?? Decreased movement--if your baby has stopped movingor is moving less than it normally does. Do Kick Counts as instructed. ?? Vaginal bleeding--bright red bleeding and/or clots needs medical care immediately. ?? Any temperature above 100 degrees. ?? Headache ?? Any burning or painful urination. ?? Increased swelling in your face, hands, or feet. ?? Stomach pains, cramps, nausea,or diarrhea. Important Telephone Number: [facility]: [phone] UNITY ARTS WORKER documented in this encounter Medications at Time of Discharge Medication Sig Dispensed Refills Start Date End Date aspirin (ASPIRIN) 81 MG tablet Take 2 tablets by mouth once daily for 30 days 60 tablet 5 12/16/2019 01/15/2020 labetalol (NORMODYNE; TRANDATE) 200 MG tabletIndications:Hype rtension Take 200 mg by mouth 3 times daily Reasons: High Blood Pressure Disorder 01/06/2020 labetalol (NORMODYNE; TRANDATE) 200 MG tablet Take 2 tablets by mouth 2 times daily for 30 days 120 tablet 5 12/16/2019 01/15/2020 potassium chloride ER (KLOR-CON M) 20 MEQ tablet Take 2 tablets by mouth once daily for 7 days 14 tablet 12/16/2019 12/23/2019 Vit-Fe Fumarate-FA ( VITAMIN WITH IRON) tabletIndications:Preg robert Take 1 tablet by mouth once daily Reasons: 07/31/2021 documented as of this encounter Progress Notes * Loren Kelsey MD - 12/16/2019 1:47 PM CST PGY1 MANAGER CARDIOVASCULAR Progress Note Patient sent to [facility] for lab draw. Patient feels well. Denies CTX, LOF, VB. + FM. No [place], RUQ pain, vision changes. TSH 1.17 Mg 1.5 Phos 3.3 K 3.0 Plan: Rx for 40 mEq KCl for 7 days FU with OB as scheduled D/w Dr. Amish Kelsey MD 12/16/2019 1:47 PM UNITY ARTS WORKER documented in this encounter Plan of Treatment Not on file documented as of this encounter Procedures Procedure Name Priority Date/Time Associated Diagnosis Comments TSH REFLEX FREE T4 STAT 12/16/2019 12 :39 PM COMMUNITY ARTS WORKER Thyroid nodule COMPREHENSIVE METABOLIC PANEL STAT 12/16/2019 12:39 PM COMMUNITY ARTS WORKER Thyroid nodule PHOSPHORUS BLOOD STAT 12/16/2019 12:3 9 PM COMMUNITY ARTS WORKER Thyroid nodule MAGNESIUM BLOOD STAT 12/16/2019 12:39 PM COMMUNITY ARTS WORKER Thyroid nodule documented in this encounter Results * TSH REFLEX FREE T4 (12/16/2019 12:39 PM COMMUNITY ARTS WORKER) TSH 1.172 0.350 - 4.940 ulU/mL 12/16/2019 1:39 PM COMMUNITY ARTS WORKER [facility] Blood BLOOD SPECIMEN / Unknown Venipuncture / Unknown 12/16/2019 12:39 PM COMMUNITY ARTS WORKER 12/16/2019 12:43 PM COMMUNITY ARTS WORKER Loren Kelsey MD LAB - CHEMISTRY ERIN CAM [facility] Organization Address City/State/ZIP Co de Phone Number [facility] [address] [place] [address] * PHOSPHORUS BLOOD (12/16/2019 12:39 PM COMMUNITY ARTS WORKER) Phosphorus 3.3 2.3 - 4.7 mg/dL 12/16/2019 1:19 PM COMMUNITY ARTS WORKER [facility] Blood BLOOD SPECIMEN / Unknown Venipuncture / Unknown 12/16/2019 12:39 PM COMMUNITY ARTS WORKER 12/16/2019 12:43 PM COMMUNITY ARTS WORKER Lorne Kelsey MD LAB - CHEMISTRY ERIN CAM Performing Organization Address [facility]/ZIP Co de Phone Number [facility] [address] [place] [address] [phone] * (ABNORMAL) MAGNESIUM BLOOD (12/16/2019 12:39 PM COMMUNITY ARTS WORKER) Magnesium 1.5(L) 1.6 - 2.6 mg/dL 12/16/2019 1:19 PM [facility] Blood BLOOD SPECIMEN / Unknown Venipuncture / Unknown 12/16/2019 12:39 PM COMMUNITY ARTS WORKER 12/16/2019 12:43 PM COMMUNITY ARTS WORKER Loren Kelsey MD LAB - CHEMISTRY ERIN CAM Performing Organization Address [facility] Co de Phone Number [facility] [address] [place] [address] [phone] * (ABNORMAL) COMPREHENSIVE METABOLIC PANEL (12/16/2019 12:39 PM COMMUNITY ARTS WORKER) Glucose 116(H) 70 - 105 mg/dL 12/16/2019 1:19 PM [facility] Sodium 140 136 - 145 mmol/L 12/16/2019 1:19 PM [facility] Potassium 3.0(L) 3.5 - 5.1 mmol/L 12/16/2019 1:19 PM [facility] Chloride 105 98 - 107 mmol/L 12/16/2019 1:19 PM [facility] CO2 21(L) 23 - 31 mmol/L 12/16/2019 1:19 PM [facility] Calcium 9.0 8.4 - 10.4 mg/dL 12/16/2019 1:19 PM [facility] Anion Gap 14 8 - 16 mmol/L 12/16/2019 1:19 PM [facility] BUN 5(L) 7 - 18.7 mg/dL 12/16/2019 1:19 PM [facility] Creatinine 0.64 0.57 - 1.11 mg/dL 12/16/2019 1:19 PM COMMUNITY ARTS WORKER [facility] Alkaline Phosphatase 100 40 - 150 U/L 12/16/2019 1:19 PM COMMUNITY ARTS WORKER [facility] ALT 23 0 - 61 U/L 12/16/2019 1:19 PM COMMUNITY ARTS WORKER [facility] AST 24 5 - 34 U/L 12/16/2019 1:19 PM COMMUNITY ARTS WORKER [facility] Protein Total 6.5 6.4 - 8.3 gm/dL 12/16/2019 1:19 PM COMMUNITY ARTS WORKER [facility] Albumin 3.4(L) 3.5 - 5.2 gm/dL 12/16/2019 1:19 PM COMMUNITY ARTS WORKER [facility] Bilirubin Total 0.2 0.2 - 1.0 mg/dL 12/16/2019 1:19 PM COMMUNITY ARTS WORKER [facility] eGFR by MDRD >60 >60 mL/min/1.7 3m2 12/16/2019 1:19 PM COMMUNITY ARTS WORKER [facility] eGFR by MDRD >60 >60 mL/min/1.7 3m2 12/16/2019 1:19 PM COMMUNITY ARTS WORKER [facility] Blood BLOOD SPECIMEN / Unknown Venipuncture / Unknown 12/16/2019 12:39 PM COMMUNITY ARTS WORKER 12/16/2019 12:43 PM COMMUNITY ARTS WORKER Loren Kelsey MD LAB - CHEMISTRY ERIN CAM [facility] Organization Address City/State/[facility] Co de Phone Number [facility] [address] [place], [place] [phone] documented in this encounter Visit Diagnoses Diagnosis Thyroid nodule- Primary Nontoxic uninodular goiter documented in this encounter
--- OUTSIDE RECORDS SUMMARY | 2024-11-14 23:33 | XMS_ITS | Encounter Summary ---
Author Organization [facility] Address [address] [place] [address] Care Team Providers Care Ripsawyer Name Role Phone Unavailable Primary Care Provider Unavailabl e Reason for Visit * Reason Onset Date Comments Appointment 12/11/2019 Do we need to do ultrasound here or will you do at [facility]? Per Debby complete anatomy on 12/16/19 visit. Encounter Details Date Type Department Care Team (Late st Contact Info) Description 12/11/2019 Telephone [facility]'s Health Maternal & Care [address] [place], [place] [phone] Ana Hebert, RN Appointment (Do we need to do ultrasound here or will you do at [facility]? Per Debby complete anatomy on 12/16/19 visit.) Social History Tobacco Use Types Packs/Day Years Used Date Smoking Tobacco: Never Assessed Comments Yes Sex and Gender Information Value Date Recorded Sex Assigned at Not on file Gender Identity Not on file Sexual Orientation Not on file documented as of this encounter Plan of Treatment Not on file documented as of this encounter Visit Diagnoses Diagnosis Abnormal alpha fetoprotein (AFP) level documented in this encounter
--- OUTSIDE RECORDS SUMMARY | 2024-11-14 23:33 | XMS_ITS | Encounter Summary ---
Author Organization [facility] Address [address] [place] [address] Care Team Providers Care Sales Planning Coordinator Name Role Phone Ana Vyas MD Primary Care Provider [phone] Reason for Referral * Radiology Services (Routine) - Closed Specialty Diagnoses / Procedures Referred By Rogelio guillory Referred To Contact CT Scan Diagnoses Dysfunction of both eustachian tubes Cholesteatoma of both ears Chronic diffuse otitis externa of left ear Procedures CT TEMPORAL BONES WO CONTRAST Toño Rain MD [address] [place], [place] [address] [address] [facility] [address] [place] [address] Referral ID Status Reason Start Date Expiration Date Visits Re quested Visits Authorized [id number] Closed 08/23/2021 11/21/2021 1 1 Reason for Visit * Radiology Services (Routine) - Closed Specialty Diagnoses / Procedures Referred By Rogelio guillory Referred To Contact CT Scan Diagnoses Dysfunction of both eustachian tubes Cholesteatoma of both ears Chronic diffuse otitis externa of left ear Procedures CT TEMPORAL BONES WO CONTRAST Toño Rain MD [facility] [place] [address] [facility] [address] [place] [address] Referral ID Status Reason Start Date Expiration Date Visits Re quested Visits Authorized [id number] Closed 08/23/2021 11/21/2021 1 1 Encounter Details Date Type Department Care Team (Latest Contact Info) Description 08/31/2021 11:55 AM CDT - 08/31/2021 11:59 PM CDT Hospital Encounter [facility] CAT SCAN [address] [place] [phone] Toño Rain MD [address] [place] [address] Discharge Disposition: Home or Self Care Social [...] 1 (one) tablet by mouth once daily FEROSUL 325 (65 Fe) MG tablet Take 1 (one) tablet by mouth once daily 07/12/2021 documented as of this encounter Plan of Treatment Not on file documented as of this encounter Procedures Procedure Name Priority Date/Time Associated Diagnosis Comments CT TEMPORAL BONES WO CONTRAST Routine 08/31/2021 12:10 PM CDT Dysfunction of both eustachian tubes Cholesteatoma of [...] cells bilaterally. Dictated by Merrick Tyler MD (sales vice president). I, Dr. HERMAN PAIGE have personally reviewed [...] cells bilaterally. Dictated by Merrick Tyler MD (sales vice president). I, Dr. HERMAN PAIGE have personally reviewed and interpreted this examination/study. This report was electronically signed by HERMAN PAIGE on 08/31/2021 2:26PM . Toño Rain MD CT ORDERABLES documented in this encounter Visit Diagnoses Diagnosis Dysfunction of both eustachian tubes Dysfunction of Eustachian tube Cholesteatoma of both ears Cholesteatoma, unspecified Chronic diffuse otitis externa of left ear documented in this encounter Care Teams Sales Planning Coordinator Relationship Specialty Start Date End Date Ana Vyas MD [address] [place] [phone] PCP - General 07/06/21 documented as of this encounter
--- OUTSIDE RECORDS SUMMARY | 2024-11-14 23:33 | XMS_ITS | Encounter Summary ---
Author Organization [facility] Address [address] [facility] [place] [address] Care Team Providers Care Stallion Keeper Name Role Phone Unavailable Primary Care Provider Unavailabl e Reason for Visit * Reason Onset Date Comments Results 01/11/2020 Encounter Details Date Type Department Care Team (Late st Contact Info) Description 01/11/2020 Telephone [facility] Women's Health Maternal & Care [address] [place] [id number] Karla Sales, [employer]SKILLS INSTRUCTOR [address] [address] Results Social History Tobacco Use Types Packs/Day Years [...] Telephone Encounter - Karla Sales APRN-CNP - 01/11/2020 5:08 PM BLOW OFF WORKER Patient called to inform of her recent lab results, discussed labs do not indicate preeclampsia at this time. I discussed that her potassium is now 3.2, she assures me she completed the one week of supplementation at the end of November-first week of December of 20 meq BID x7 days. She does endorse she does not have a diet in many potassium rich foods, not currently eating bananas, avocados, broccoli, spinach, sweet potatoes. States she is willing to add in spinach and broccoli serving to her diet daily. She denies any leg cramping, palpitations/chest pain, diarrhea. She states she had had a couple episodes of emesis in the last few weeks, but nothing persistent. She also tells me her blood pressures have been in the normal range this past week, and denies any current concerns for preeclampsia. I discussed with Imani that I planned to reach out to Dr. Porras for her input regarding repeating supplementation, and I would get back to her. Of note, her creatinine is 0.61. She informedme it is ok to leave a voicemail. She also stated that her current meds are PNV, ASA, labetalol, occasional Pepcid and rare use of Tums. She denies any other medications. campus interviews intern confirmed that Imani did pick remover her supplementation from her pharmacy. ELEUTERIO Kohli 01/11/2020 5:12 PM OFF WORKER documented in this encounter Plan of Treatment Not on file documented as of this encounter Visit Diagnoses Not on filedocumented in this encounter
--- OUTSIDE RECORDS SUMMARY | 2024-11-14 23:33 | XMS_ITS | Encounter Summary ---
Author Organization [facility] Address [address] [place] [place] [address] Care Team Providers Care Manager News Name Role Phone Unavailable Primary Care Provider Unavailabl e Reason for Referral * Consult, Test & Treat (Routine) - Closed Specialty Diagnoses / Procedures Referred By Contac t Referred To Contact Diagnoses Abnormal alpha fetoprotein (AFP) level AMA (advanced maternal age) multigravida 35+, second trimester (HCC) Chronic hypertension during (HCC) Procedures MATERNAL MEDICINE CONSULT Liliam Butler MD [address] [place] [address] Referral ID Status Reason Start Date Expiration Date Visits Re quested Visits Authorized [id number] Closed 12/14/2019 06/11/2020 1 1 OR MECHANICAL DESIGNER Reason for Visit * Reason Comments Consultation Ultrasound Encounter Details Date Type Department Care Team (Latest Contact Info) Description 12/16/2019 8:08 AM SENIOR MECHANICAL DESIGNER - 12/16/2019 12:27 PM SENIOR MECHANICAL DESIGNER Hospital Encounter [facility]aternal [facility] [address] [place] [address] Jessica Porras MD [address] [address] Discharge Disposition: Home or Self Care Social [...] Sign Reading Time Taken Comments Blood Pressure 144/88 12/16/2019 9:29 AM SENIOR MECHANICAL DESIGNER man ual Pulse 89 12/16/2019 9:17 AM SENIOR MECHANICAL DESIGNER Temperature - - Respiratory Rate - - Oxygen Saturation - - Inhaled Oxygen Concentration - - Weight 122.5 kg (270 lb) 12/16/2019 9:17 AM SENIOR MECHANICAL DESIGNER Height 162.6 cm (5' 4 ) 12/16/2019 9:17 AM SENIOR MECHANICAL DESIGNER Body Mass Index 46.35 12/16/2019 9:17 AM SENIOR MECHANICAL DESIGNER documented in this encounter Functional Status Functional [...] 01/15/2020 Vit-Fe Fumarate-FA ( VITAMIN WITH IRON) tabletIndications:Preg robert Take 1 tablet by mouth once daily Reasons: 07/31/2021 documented as of this encounter Progress Notes * Suzie Quinn RN - 12/16/2019 9:48 AM CST Pt here today for ultrasound and new visit with ARMATURE INSPECTOR. Rep[orts feeling good movement. Denies cramping/contractions. Denies leakage of fluid/bleeding. Denies headaches, visual changes, edema, and epigastric pain. Pt seen by Paul Sales NP today, please see her note for further POC. OR MECHANICAL DESIGNER documented in this encounter H&P Notes * Jessica Porras MD - 12/16/2019 9:43 AM CST Maternal Medicine Consult Note Date of Consult: 12/16/2019 Physician Requesting Consult: Liliam Butler MD Name: Imani Owen Age: [age] year old Race: Reason for requesting consultation: Imani Owen is a 39 year [id number], female at 23w0d weeks gestation by Estimated Date of Delivery: 04/13/20. I have been asked by Dr. Butler to consult for chronic hypertension. summary: B+/Immune/Hep B antigen NR/RPR NR/HIV NR Antibody screen negative 09/29/19 CBC: 13.4/40.9/430 Early GCT: 68 Hemoglobin A1C: 5.6 early (documented in PN record) LMP not c/w 1st trimester u/s, CHRISSY-->04/13/20 LR NIPT Abnormal AFP screen at 15w6d, 3.08 MoM 24 hour urine protein on 12/14/19: 1475cc/198mg CMP 11/24: ALT: 38, AST: 40, uric acid: 5.1, creatinine: 0.5, potassium: 2.9 12/11: ALT: 30, AST: 25, creatinine: 0.42, BUN: 3, potassium: 6.3 CBC 12/11: 11.3/33/308 Current : Patient reports feeling generally well. She reports active movement; denies contractions, changes to her vaginal discharge, or vaginal bleeding. She reports headaches 1-2x per week, that are commonly relieved with Tylenol or rest. She denies scotomata or RUQ pain. She is recording her blood pressure at home; reports her systolic is in the 140 range and diastolicis mostly in the 90s, with outlier of 100-105 a couple of times in the last week. She did not bringactual log in with her today. She reports to me that the hypertension was diagnosed in the beginning of this , and she did not have hypertension previously. She reports occasional palpitations, especially with exertion. Denies any chest pain, denies SOB atrest. She denies cardiac history. No Known Allergies Past Medical History: Diagnosis Date ??? Hypercholesteremia previously took a statin ??? Thyroid nodule 2018 was told by ENT that it was too small to be bothersome Past Surgical History: Procedure Laterality Date ??? CARPAL TUNNEL SURGERY Bilateral 2013 ??? Section ??? Cyst Removal 1998 rectal area; benign Social History Socioeconomic History ??? Marital status: Unknown Spouse name: Not on file ??? Number of children: Not on file ??? Years of education: Not on file ??? Highest education level: Not on file Occupational History ??? 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 Financial resource strain: Not on file ??? Food insecurity: Worry: Not on file Inability: Not on file ??? Transportation needs: Medical: Not on file Non-medical: Not on file Tobacco Use ??? Smoking status: Never Smoker ??? Smokeless tobacco: Never Used Substance and Sexual Activity ??? Alcohol use: Never Frequency: Never ??? Drug use: Never ??? Sexual activity: Not on file Lifestyle ??? Physical activity: Days per week: Not on file Minutes per session: Not on file ??? Stress: Not on file Relationships ??? Social connections: Talks on phone: Not on file Gets together: Not on file Attends mandaen service: Not on file Active member of club or organization: Not on file Attends meetings of clubs or organizations: Not on file Relationship status: Not on file ??? Intimate partner violence: Fear of current or ex partner: Not on file Emotionally abused: Not on file Physically abused: Not on file Forced sexual activity: Not on file Other Topics Concern ??? Not on file Social History Narrative ??? Not on file Family History Problem Relation Name Age of Onset ??? Hypertension Sister OB History Para Term AB Living 4 2 2 1 2 SAB TAB Ectopic Multiple Live Births 1 2 # Outcome Date GA Lbr Alfredo/2nd Weight Sex Delivery Anes PTL Lv 4 Current 3 Term 10/2005 39w0d 3317 g (7 lb 5 oz) CS-Unspec TATIANA 2 Term 07/2004 40w0d 3374 g (7 lb 7 oz) M CS-Unspec TATIANA 1 SAB 2000 Obstetric Comments G1: SAB G2: arrest of dilation G3: repeat section Denies history of preeclampsia, gestational hypertension, gestational diabetes, delivery, PP hemorrhage, PP depression. 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 She denies an abnormal pap smear history. She denies STI history including genital herpes, HIV, Syphilis. She reports history of irregular periods and would take progesterone at times to trigger a cycle. Outpatient Medications Marked as Taking for the 12/16/19 encounter (Hospital Encounter) with [facility] ULTRASOUND 1 Medication Sig ??? aspirin (ASPIRIN) 81 MG tablet Take 2 tablets by mouth once daily for 30 days ??? labetalol (NORMODYNE; TRANDATE) 200 MG tablet Take 200 mg by mouth 3 times daily Reasons: High Blood Pressure Disorder ??? labetalol (NORMODYNE; TRANDATE) 200 MG tablet Take 2 tablets by mouth 2 times daily for 30 days ??? Vit-Fe Fumarate-FA ( VITAMIN WITH IRON) tablet Take 1 tablet by mouth once daily Reasons: Review of Systems: Constitutional: Negative for fevers Eyes: Negative for visual changes Respiratory: Negative for shortness of breath Cardiovascular: Negative for chest pain, SOB at rest, positive for intermittent palpitations Gastrointestinal: Negative for nausea and vomiting, moving bowels fine, negative for bothersome GERD Genital: Negative for abnormal vaginal discharge Hematologic/lymphatic: Negative for vaginal bleeding Musculoskeletal: Negative for significant back pain Neurological: Headaches are relieved with intervention Behavioral/Psych: Negative for poor mood due to the concerns Integument: Denies skin changes Obstetric: movement appreciated, denies leakage of fluid or significant contractions Exam: BP 144/88 Pulse 89 Ht 5' 4 (1.626 m) Wt 270 lb (122.5 kg) BMI 46.35 kg/m2 Gen: no acute distress Mental: appropriate mood, behavior and speech Neck: thyroid slightly enlarged, no obvious mass felt Chest: clear to auscultation, bilaterally Heart: regular rate and rhythm, no murmurs Abdomen: gravid, obese, no epigastric tenderness FHT per ultrasound today Trunk: no costovertebral angle tenderness Musculoskeletal: no bony point tenderness to palpation Extremities: no pedal edema; negative Joana's sign, bilaterally Skin: No rash observed Labs: Alb/Glu/K/N/L Albumin: Negative Glucose: Negative Urine Ketones: Negative. US: (See detailed report) Impression: IUP at 23w0d Patient Active Problem List Diagnosis Date Noted ??? Thyroid nodule 12/16/2019 Priority: Not Prioritized History of benign thyroid nodule, no recent TFTs assessed; recommended to be done today at [facility] given that history and morbid obesity. ??? Supervision of high-risk of elderly multigravida 12/16/2019 Priority: Not Prioritized summary: B+/Immune/Hep B antigen NR/RPR NR/HIV NR [...] 3, potassium: 6.3 ?? CBC 12/11: 11.3/33/308 ? Serum potassium elevated 12/16/2019 Priority: Not Prioritized Warrants prompt evaluation to determine if she needs treatment to reduce potassium and further management. She is experiencing palpitations as well. CMP 11/24: ALT: 38, AST: 40, uric acid: 5.1, creatinine: 0.5, potassium: 2.9 ?? 12/11: ALT: 30, AST: 25, creatinine: 0.42, BUN: 3, potassium: 6.3 ? History of delivery, currently 12/16/2019 Priority: Not Prioritized Primary related to arrest of dilation, second section elective and repeat. Need to address at future visit if she is interested in a TOLAC. ??? Morbid obesity during 12/16/2019 Priority: Not Prioritized Pre BMI: 47 Early GCT: 68 Hemoglobin A1C early : 5.6 ??? AMA (advanced maternal age) multigravida 35+, second trimester 12/14/2019 Priority: Not Prioritized summary: B+/Immune/Hep B antigen NR/RPR NR/HIV NR [...] BUN: 3, potassium: 6.3 CBC 12/11: 11.3/33/308 ??? Chronic hypertension during 12/14/2019 Priority: Not Prioritized Primary office B/P's: 09/28/19-11/24/18 158/91,160/91,153/98,149/85,171/104 Increased labetalol 12/16: 400 BID; ASA started ??? Abnormal alpha fetoprotein (AFP) level 11/20/2019 Positive AFP for open spina bifida drawn at 15w6d. MoM 3.08 09/28/19 NIPT-LowRisk Declines amniocentesis Spinal views of ultrasound reassuring 12/16 Denies family history of spina bifida or neural tube defects Discussion points: Elevated serum alpha fetoprotein: Based on data from multiple studies, the following associations have been reported for second trimester analytes. Increased AFP (>2.5 MoM) and low uE3 (<0.5 MoM) were both associated with low birthweight and spontaneous miscarriage before 24 weeks of gestation. Unexplained elevated AFP (>2.5 MoM) and or elevated hCG (> 2-4 MoM) that there was an increased risk of . There isan association between AFP and placental abruption, placenta previa, accreta, percreta & Increta. An isolated inhibin A (>2.0 MoM) was significantly associated with , low birthweight, preeclampsia and marginally associated with demise after 24 weeks. For all outcomes the abnormalities of at least two or more analytes were more strongly associated with adverse outcomes than an isolated abnormal analyte value. An elevated maternal serum alpha protein is generally a multiple of the median value greater than 2.5. Multiple factors affect maternal serum value of a protein. Maternal weight affects maternal serum alpha fetoprotein concentrations. Heavier women usually have a lower value as result of dilution in the blood volume. Ethnicity also affects interpretation; black women have a 10-15% higher concentration than non- black women, but have a lower incidence of neural tube defects. Insulin dependent diabetic women have values significantly lower than non-diabetic women; however, insulin dependent diabetes increases the risk of neural tube defects 10 times higher than nondiabetic women. Smoking results in higher second-trimester maternal serum AFP values. Erroneous gestational age assessments can also produce false results. A positive screen is not diagnostic of neural tube defects but is an indication for further diagnostic testing. The previous diagnostic standard for an elevated maternal serum alpha fetoprotein was amniocentesis with evaluation of amniotic fluid alpha fetoprotein and acetylcholinesterase (AChE) levels. The amniotic fluid alpha fetoprotein has nearly 100% detection rate for anencephaly and 96- 99% detection rate for open spina bifida, with a false-positive rate of 0.7-1.0 percent. Ultrasound as aprimary screening tool for spina bifida may identify only 60-80 percent of neural tube defects. Targeted sonographic evaluation in high-risk cases can improve sensitivity up to 97-100 percent, with 100 percent specificity. At present, the best approach is maternal serum alpha fetoprotein in combination with ultrasound imaging and amniocentesis. If position or maternal body habitus prevent optimalvisualization, further evaluation by amniocentesis should be offered. The mechanics of amniocentesis and the potential complications were explained. I discussed the complication rate is approximately 1/400 and includes, but is not limited to: bleeding of the placenta, bleeding from the umbilical cord, prelabor rupture of the membranes, loss of the , , infection. Significant injury is uncommon. The patient's questions were answered. She declines amniocentesis at this time. Chronic Hypertension: A. Hypertension prior to and during the first 20 weeks of this is consistent with chronichypertension. B. Chronic hypertension is associated with a 20-25% risk for superimposed preeclampsia. Low dose aspirin has a small-moderate benefit in the prevention of preeclampsia in at risk women (Assaria DSR,2008). The reduction in risk is 15% with a number needed to treat of 89. There is an associated 8% reduction in the risk of delivery before 37 weeks gestation and a 14% reduction in . A significant reduction in small for gestational age fetus/birthweight has not been clearly demonstrated. There is no significant risk of low dose aspirin if initiated after the first trimester of . First trimester use of aspirin has an association with gastroschisis with a relative risk of 2.3-2.7 (Obstet Gynecol Survey 63:49, 2008). Low dose aspirin therapy is discussed. Antihypertensive therapy does not reduce the risk for superimposed preeclampsia. C. Aldomet and labetalol are the agents with the largest experience in (NIH, 2000). Both are FDA category C medications. Considerations with both include a potential association of beta-zehra use with growth disturbance and somnolence as an undesirable side effect of Aldomet. Labetalol is the agent which is typically used by providers at this institution. D. Diuretic therapy during is associated with a reduction in the normal physiologic expansion of plasma volume. E. The targets of therapy with chronic hypertension are typically <160 mm Hg systolic and 90-105mm Hg diastolic. Aggressive normalization of blood pressure does not have benefit otherwise; it may have an undesirable impact on outcome. Aggressive treatment of hypertension does not reduce the risk for superimposed preeclampsia. F. Chronic hypertension is associated with an elevated risk of growth disturbance. It provides an indication for periodic assessments of the growth throughout . A reasonably aggressive approach is an ultrasound for growth at 28 weeks gestation with subsequent assessments at 4-6week intervals thereafter (NIH, 2000). G. Chronic hypertension is associated with an elevated risk for morbidity and mortality. It provides an indication for formal antepartum surveillance. Such surveillance is typically initiated at 32-34 weeks gestation. The mechanics and performance characteristics of formal surveillance are discussed. movement monitoring as an adjunct form of surveillance is discussed and emphasized. Obesity Obese women have higher rates of spontaneous miscarriage. Morbid obesity is associated with a host of complications. She is at increased risk for preeclampsia and gestational hypertension, delivery, macrosomia, gestational diabetes, deep venous thrombosis, delivery, stillbirth and certain defects, such as open neural tube defects. deliveries for women of her size are associated with an increased risk of complications, such as anesthetic complications, wound complications, and infections, which were discussed. During , limited weight gain is recommended. I indicated Weight maintenance (a loss or gain of 10 pounds) is the current recommendation, and that active weight loss is discouraged. ?? We discussed the metabolic syndrome, in particular the common comorbidity of obesity, diabetes and hypertension. I emphasized the importance and benefits of good nutrition in managing as well as avoiding these disorders. I encouraged in particular a goal of 3 daily servings of green vegetables to help with proper glucose metabolism, blood pressure regulation, water weight management, weight gain,regular bowel movements among other benefits. Elevated serum potassium: Warrants prompt evaluation to determine if she needs treatment to reduce potassium and further management. She is experiencing palpitations as well. RECOMMENDATIONS: Serum potassium elevated Serum potassium 11/24: 2.9; denies receiving any supplementation. Denies kidney disease. 12/11: serum potassium: 6.3; has not had further evaluation or treatment, confirmed with primary OB Plan: Sent to [facility] today for further evaluation, report called to Dr. Wellington Recommend repeating CMP, checking magnesium, phosphorous. Consider EKG with palpitations. Chronic hypertension during Primary office B/P's: 09/28/19-11/24/18: [...] initiation at 39 weeks unless indicated sooner. History of delivery, currently Primary related to arrest of dilation, second section elective and repeat. Need to address at future visit if she is interested in a TOLAC. Abnormal alpha fetoprotein (AFP) level Positive AFP for open spina bifida drawn at 15w6d. MoM 3.08 09/28/19 NIPT-LowRisk Denies family history of spina bifida or neural tube defects Plan: Declines further diagnostic assessment with amniocentesis. Spinal views of ultrasound reassuring 12/16/19. Reviewed other risks that can be associated with increased AFP today. including placental abnormalities, preeclampsia, loss. Morbid obesity during Pre BMI: 47 Early [...] d/t cHTN Repeat GCT at 28 weeks. Imani appears to be at increased risk of preeclampsia. I recommend aspirin prophylaxis for prevention. The current recommended regimen is 2 low dose tablets daily [162 mg daily dose], starting between 12-13 weeks gestation until delivery. Although she is later in the than what we preferto start the prophylaxis there may still be benefit of starting it now. ASA 162mg daily sent to pharmacy. Labetalol 400mg BID also sent to pharmacy. Will follow up with patient in 1 week I spent 50 minutes [id number] with the patient; greater than 50 percent of the time was spent in discussion and counseling. Once again, we appreciate the opportunity to assist you in the care of Ms. Owen. She was seen in collaboration with today and plan of care developed with her. She will continue seeing you for care. Sincerely, Karla Sales, ARELY-MECHANIC ASSISTANT 12/16/2019 12:05 PM Attending Physician Supervisory Note Physician Attestation: For this patient encounter, I reviewed the [facility] professional's documentation and agreewith history and physical and counter supply worker of the plan. While the detailed survey of the spine greatly reduces the risk of occult spina bifida as thecause of the abnormal maternal serum alpha fetoprotein value, there still remains a small residual risk. Maternal morbid obese habitus also decreases the sensitivity of ultrasound. Jessica Porras MD Maternal- Medicine OR MECHANICAL DESIGNER documented in this encounter Plan of Treatment Not on file documented as of this encounter Procedures Procedure Name Priority Date/Time Associated Diagnosis Comments SONOGRAM - COMPLETE Routine 12/16/2019 8:32 AM SENIOR MECHANICAL DESIGNER Abnormal alpha fetoprotein (AFP) level AMA (advanced maternal age) multigravida 35+, second trimester (HCC) Chronic hypertension during (HCC) documented in this encounter Results * SONOGRAM - COMPLETE (12/16/2019 8:32 AM SENIOR MECHANICAL DESIGNER) Anatomical Region Laterality Modality Other 12/16/2019 8:32 AM SENIOR MECHANICAL DESIGNER Narrative 12/16/2019 10:05 AM SENIOR MECHANICAL DESIGNER ? [facility] ?PHONE: ??FAX: Pat. Name: ?IMANI OWEN Pat. No: ?[id number] Study Date: ?? 12/16/2019 ??8:32am , Age: ? 1980, 39 Pregnancies: ?? 4, Para 2 Height: ? 64 in LMP: ?Unknown GA by Base: ?? 23w0d ?? CHRISSY: 04/13/2020 GA by US: ? 22w6d ?? CHRISSY: 04/14/2020 GA Selected: ??23w0d (From [facility]) CHRISSY: ?04/13/2020 Referring MD: Moreno Butler MD Hide Curer: ??Harika High, RDMS, RDCS CPT4: ? 14607 Hist/Ind: ? Anatomy Screen ?AMA-LR NIPT ?Elevated AFP-MoM 3.08 MEASUREMENTS & AGE ? GROWTH EVALUATION Measurement ??GA ? Range ? Srce %for GA Ratios ----- ---- ------- BPD ??5.4 cm 22w2d (49x0m-15k7v) Hadl BPD 19% FL/BPD 0.83 (0.71 - 0.87) HC ??20.4 cm 22w3d (69p2l-82d4n) Hadl HC ??17% FL/AC ??0.25 (0.20 - 0.24* AC ??17.7 cm 22w4d (17l1f-70o1g) Hadl AC ??28% HC/AC ??1.15 (1.03 - 1.22) FL ?? 4.5 cm 24w5d (84k4r-86l6f) Hadl FL ??87% CI ? 0.74 (0.70 - 0.86) HL ?? 3.8 cm 23w4d (43f2c-48z0h) Jadon HL ??59% Cere 2.7 cm 23w6d (78j5s-88k0v) Hill Cere70% GA for sonogram 22w6d (32w3p-86r1j) ?? Weight Estimate: based on (BPD,HC,AC,FL) Hadlock ?Weight: 590 gm (504-676gm) Hadloc ? : 1lbs, 4oz ? Normal: 568 gm (426-710gm) Hadloc ? Wt% ? 62% for 23w0d Heart Rate: 153 bpm EVAL, PLACENTA Presentation: cephalic Placenta: posterior Cord Insert: appropriate Heart Rate: 153 bpm Amniotic Fluid Volume: normal Anatomy!Normal!Abnormal!Suboptimal!Prev. Seen!Comments Cranium ?! ?? x ??! ?! ?! ? x ?! Mdl (CSP/Thal! ?? x ??! ?! ?! ?! Ventricles ?? ! ?? x ??! ?! ?! ?! Choroid Plexu! ?? x ??! ?! ?! ? x ?! Cerebellum ?? ! ?! ?! ?! ? x ?! Cisterna M. ??! ?! ?! ?! ? x ?! Nuchal Fold ??! ?! ?! ?! ? x ?! Profile ?! ?? x ??! ?! ?! ?! Nasal Bone ?? ! ?? x ??! ?! ?! ?! Lip ?! ?? x ??! ?! ?! ?! Spine ?! ?? x ??! ?! ?! ?! Lungs ?! ?? x ??! ?! ?! ?! 4 Chamber Hea! ?? x ??! ?! ?! ?! LVOT ? ! ?? x ??! ?! ?! ?! RVOT ? ! ?? x ??! ?! ?! ?! 3 Vessel View! ?? x ??! ?! ?! ?! Cross-over ?? ! ?? x ??! ?! ?! ?! Ductal Arch ??! ?! ?! ? x ?! ?! Aortic Arch ??! ?! ?! ? x ?! ?! Caval View ?? ! ?? x ??! ?! ?! ?! Situs ?! ?? x ??! ?! ?! ?! Diaphragm ?! ?? x ??! ?! ?! ?! Stomach ?! ?? x ??! ?! ?! ? x ?! Bowel ?! ?! ?! ? x ?! ?! Kidneys ?! ?? x ??! ?! ?! ? x ?! Bladder ?! ?? x ??! ?! ?! ? x ?! 3 Vessel Cord! ?? x ??! ?! ?! ?! Cord In! ?? x ??! ?! ?! ?! Upper Extremi! ?! ?! ? x ?! ?! Hands ?! ?? x ??! ?! ?! ?! Lower Extreme! ?? x ??! ?! ?! ?! Feet ? ! ?? x ??! ?! ?! ?! External Shauna! ?! ?! ? x ?! ?!Female Placental Cor! ?? x ??! ?! ?! ?! CLINICAL SUMMARY Study Number: 2 ?? A follow up exam was performed to complete the anatomy survey. ??The exam quality was technically adequate but was somewhat limited by maternal habitus. ??The CHRISSY is based on prior ultrasound ( confirmed ). ?? IMPRESSION: Single, live, IUP 23w0d. ?? Appropriate growth normal amniotic fluid No major malformations demonstrated within the limitations of today's exam Incomplete survey (see table) Appropriate placental cord insertion ?? Note: ??an unremarkable detailed anatomy survey of the central nervous system reduces, but does not eliminate, the risk of an open neural tube defect. ?? RECOMMEND: Follow up ultrasound in four weeks to complete the anatomical screen and reassess growth. ?? Serial growth every four weeks Weekly BPP starting at 32 weeks due to chronic hypertension Thank you for the opportunity to participate in the care of your patient. Jessica Porras MD <Electronic Signature> ??12/16/2019 10:00am Revised R Ronald Butler MD [facility] ORDERABLES documented in this encounter Visit Diagnoses Diagnosis AMA (advanced maternal age) multigravida 35+, second trimester (HCC)- Primary Abnormal alpha fetoprotein (AFP) level Chronic hypertension during (HCC) Unspecified pre-existing hypertension complicating , second trimester (HCC) Serum potassium elevated Hyperpotassemia Obesity complicating , second trimester (HCC) Morbid (severe) obesity due to excess calories (HCC) 23 weeks gestation of (HCC) state, incidental * Assessment & Plan Note - Karla Sales APRN-CNP - 12/16/2019 11:58 AM CSTAssociated Problem(s): Morbid obesity during Pre BMI: [...] d/t cHTN Repeat GCT at 28 weeks. OR MECHANICAL DESIGNER * Assessment & Plan Note - Karla Sales APRN-CNP - 12/16/2019 11:54 AM CSTAssociated Problem(s): Abnormal alpha fetoprotein (AFP) level Positive AFP for open spina bifida drawn at 15w6d. MoM 3.08 09/28/19 NIPT-LowRisk Denies family history of spina bifida or neural tube defects Plan: Declines further diagnostic assessment with amniocentesis. Spinal views of ultrasound reassuring 12/16/19. Reviewed other risks that can be associated with increased AFP today. including placental abnormalities, preeclampsia, loss. OR MECHANICAL DESIGNER * Assessment & Plan Note - Karla Sales APRN-CNP - 12/16/2019 11:54 AM CSTAssociated Problem(s): History of delivery, currently (HCC) Primary related to arrest of dilation, second section elective and repeat. Need to address at future visit if she is interested in a TOLAC. OR MECHANICAL DESIGNER * Assessment & Plan Note - Karla Sales APRN-CNP - 12/16/2019 11:51 AM CSTAssociated Problem(s): Chronic hypertension during (HCC) [...] initiation at 39 weeks unless indicated sooner. OR MECHANICAL DESIGNER * Assessment & Plan Note - Karla Sales APRN-CNP - 12/16/2019 11:48 AM CSTAssociated Problem(s): Serum potassium fluctuations Serum potassium 11/24: 2.9; denies receiving any supplementation. Denies kidney disease. 12/11: serum potassium: 6.3; has not had further evaluation or treatment, confirmed with primary OB Plan: Sent to [facility] for further evaluation, report called to Dr. Wellington Recommend repeating CMP, checking magnesium, phosphorous. Consider EKG with palpitations. OR MECHANICAL DESIGNER documented in this encounter
--- OUTSIDE RECORDS SUMMARY | 2024-11-14 23:34 | XMS_ITS | Encounter Summary ---
Author Organization [facility] - [facility] Address [address] [place] [address]. [place], [place] [id number] [place] [address] Care Team Providers Care Insulation Machine Operator Name Role Phone Ana Vyas MD Primary Care Provider [phone] Herman Garces MD Unavailable [phone] Encounter Details Date Type Department Care Team (Late st Contact Info) Description 09/14/2020 Patient Self-Triage MYCHART DEPARTMENT [address] [place] [id number] [facility] Social History Tobacco Use Types Packs/Day Years Used Date Smoking Tobacco: Never Assessed Comments Unknown Sex and Gender Information Value Date Recorded Sex Assigned at Not on file Legal Sex Female 7:20 PM CDT Gender Identity Not on file Sexual Orientation Not on file documented as of this encounter Plan of Treatment Not on file documented as of this encounter Visit Diagnoses Not on filedocumented in this encounter Care Teams Insulation Machine Operator Relationship Specialty Start Date End Date Ana Vyas MD [facility] [address] [place] [address] PCP - General FAMILY PRACTICE 07/10/19 Herman Garces MD [address] [facility] [address] [place] [address] Cristian Dice Dealer CARDIOVASCULAR DISEASE 08/03/19 documented as of this encounter
--- OUTSIDE RECORDS SUMMARY | 2024-11-14 23:34 | XMS_ITS | Encounter Summary ---
Author Organization [facility] Address [address] [place] [address]. [place], [place] [id number] [place] [address] Care Team Providers Care Paper Wrapping Machine Operator Name Role Phone Yasmani Adam MD Primary Care Provider Unavailable Yasmani Adam MD Primary Care Provider Unavailable Encounter Details Date Type Department Care Team (Late st Contact Info) Description 08/06/2013 Abstract [facility] [address] [place] [address] Erinn Montague MD [address] [address] Social History Tobacco Use Types Packs/Day Years Used Date Smoking Tobacco: Never Assessed Comments Unknown Sex and Gender Information Value Date Recorded Sex Assigned at Not on file Legal Sex Female 7:20 PM CDT Gender Identity Not on file Sexual Orientation Not on file documented as of this encounter Plan of Treatment Not on file documented as of this encounter Visit Diagnoses Diagnosis Impacted cerumen documented in this encounter Care Teams Paper Wrapping Machine Operator Relationship Specialty Start Date End Date Yasmani Adam MD PCP - General 08/06/13 Yasmani Adam MD PCP - General 10/26/13 documented as of this encounter
--- OUTSIDE RECORDS SUMMARY | 2024-11-14 23:34 | XMS_ITS | Encounter Summary ---
Author Organization [facility] - [facility] Address [address] [place] [address]. [place], [place] [address] [place] [address] Care Team Providers Care Chick Sexer Name Role Phone Ana Vyas MD Primary Care Provider [phone] Herman Garces MD Unavailable [phone] Encounter Details Date Type Department Care Team (Late st Contact Info) Description 11/20/2021 Patient Self-Triage MYCHART DEPARTMENT [address] [place] [address] [facility] Provider Social History Tobacco Use Types Packs/Day Years Used Date Smoking Tobacco: Never Smokeless Tobacco: Never Comments Unknown Sex and Gender Information Value Date Recorded Sex Assigned at Not on file Legal Sex Female 7:20 PM CDT Gender Identity Not on file Sexual Orientation Not on file documented as of this encounter Plan of Treatment Not on file documented as of this encounter Visit Diagnoses Not on filedocumented in this encounter Care Teams Chick Sexer Relationship Specialty Start Date End Date Ana Vyas MD [facility] [address] [place] [address] PCP - General FAMILY PRACTICE 07/10/19 Herman Garces MD [address] [facility] [address] [place] [address] (work) Cristian Senior Investment Analyst CARDIOVASCULAR DISEASE 08/03/19 documented as of this encounter
--- OUTSIDE RECORDS SUMMARY | 2024-11-14 23:34 | XMS_ITS | Encounter Summary ---
Author Organization [facility] Address [address] [place] [address]. [place], [place] [address] [place] [address] Care Team Providers Care Group Home Manager Name Role Phone Yasmani Adam MD Primary Care Provider Unavailable Encounter Details Date Type Department Care Team (Late st Contact Info) Description 10/26/[address] [facility] [address] [place], [place] [id number] Raina Hernández, GOLF BALL TRIMMER [address] [facility] [address] [place] [address] Social History Tobacco Use Types Packs/Day Years Used Date Smoking Tobacco: Never Assessed Comments Unknown Sex and Gender Information Value Date Recorded Sex Assigned at Not on file Legal Sex Female 7:20 PM CDT Gender Identity Not on file Sexual Orientation Not on file documented as of this encounter Plan of Treatment Not on file documented as of this encounter Visit Diagnoses Diagnosis Acute upper respiratory infection Acute upper respiratory infections of unspecified site documented in this encounter Care Teams Group Home Manager Relationship Specialty Start Date End Date Yasmani Adam MD PCP - General 10/26/13 documented as of this encounter
--- OUTSIDE RECORDS SUMMARY | 2024-11-14 23:34 | XMS_ITS | Clinical Summary ---
Author Organization [facility] Address [address] [place] [address]. [place], [place] [address] [place] [address] Care Team Providers Care Hydrogen Cell Tender Name Role Phone Ana Vyas MD Primary Care Provider Herman Garces MD Unavailable [phone] Social History Tobacco Use Types Packs/Day Years Used Date Smoking Tobacco: Never Smokeless Tobacco: Never Comments Unknown Sex and Gender Information Value Date Recorded Sex Assigned at Not on file Legal Sex Female 7:20 PM CDT Gender Identity Not on file Sexual Orientation Not on file Plan of Treatment Health Maintenance Due Date Last Done Comments Cervical Cancer Screening Pa p Smear (Age 30 to 64) Every 3 Years 1980 Annual Physical 1983 Hepatitis C 1998 DTaP, Tdap and Td Vaccines ( 1 - Tdap) 1999 Hepatitis B Vaccines (1 of 3 - 19+ 3-dose series) 1999 Cervical Cancer Screening Pa p with HPV Testing (Age 30 to 64) Every 5 Years 2010 Cervical Cancer Screening with HPV 2010 Mammogram Screening 2020 COVID-19 Vaccine ( - 2023-2 5 season) 2024 Influenza Adult (#1) 2024 HPV Vaccines Aged Out No longer eligi ble based on patient's age to complete this topic Meningococcal Vaccine Aged Out No genoveva stan eligible based on patient's age to complete this topic Pneumococcal Vaccine: Pediat rics (0 to 5 Years) and At-Risk Patients (6 to 64 Years) Aged Out No longer eligible b ased on patient's age to complete this topic RSV Immunizations Under 20 Months Aged Out No longer eligible based on patient's age to complete this topic Insurance [facility] Care Teams Hydrogen Cell Tender Relationship Specialty Start Date End Date Ana Vyas MD [facility] [address] [facility] [address] PCP - General FAMILY PRACTICE 07/10/19 Herman Garces MD [address] [facility] [address] [place] [id number] [place] [employer] And Compl[employer] Project Manager CARDIOVASCULAR DISEASE 08/03/19
--- OUTSIDE RECORDS SUMMARY | 2024-11-14 23:35 | XMS_ITS | Clinical Summary ---
Author Organization [facility] Care Team Providers Care Package Line Operator Name Role Phone Unavailable Primary Care Provider Unavailabl e Social History Tobacco Use Types Packs/Day Years Used Date Smoking Tobacco: Never Assessed Comments Unknown Sex and Gender Information Value Date Recorded Sex Assigned at Not on file Legal Sex Female 8:01 AM STEM ROLLER Gender Identity Not on file Sexual Orientation Not on file Plan of Treatment Health Maintenance Due Date Last Done Comments Hepatitis C Virus (HCV) Screening 1980 TdaP Immunization 1980 Hepatitis B Immunization (1 of 3 - 19+ 3-dose series) 1999 Pap Smear 2001 Cervical Cancer Screening (CCS) 2010 HPV/Cotest 2010 Discussion re Starting/Frequency of Mammograms 2020 SARS-COV-2 Immunization ( season) 2023 02/24/2021, 01/20/2021 Influenza Immunization (Seas on Ended) 2024 Meningococcal Immunization (ACWY) Aged Out No longer eligible b ased on patient's age to complete this topic Pneumococcal Immunization Combined Aged Out No longer eligible b ased on patient's age to complete this topic Rotavirus Immunization Aged Out No lo nger eligible based on patient's age to complete this topic
--- OUTSIDE RECORDS SUMMARY | 2024-11-14 23:35 | XMS_ITS | Encounter Summary ---
Author Organization [facility] Address [address] [place] [address] Care Team Providers Care Certified Wellness Program Coordinator Name Role Phone Unavailable Primary Care Provider Unavailabl e Encounter Details Date Type Department Care Team (Late st Contact Info) Description 11/15/2021 Lab Requisition [facility] Community Testing [facility] [address] [place] [address] Kraig Pryor MD [address] [place] [address] [place] [address] Social History Tobacco Use Types Packs/Day Years Used Date Smoking Tobacco: Never Assessed Comments Unknown Sex and Gender Information Value Date Recorded Sex Assigned at Not on file Legal Sex Female 8:01 AM PLAY THERAPIST Gender Identity Not on file Sexual Orientation Not on file documented as of this encounter Plan of Treatment Not on file documented as of this encounter Procedures Procedure Name Priority Date/Time Associated Diagnosis Comments SARS-COV-2 PCR [facility] ONLY Routine 11/15/2021 9:24 AM PLAY THERAPIST documented in this encounter Visit Diagnoses Not on filedocumented in this encounter
--- OUTSIDE RECORDS SUMMARY | 2024-11-14 23:35 | XMS_ITS | Encounter Summary ---
Author Organization [facility] Address [address] [place] [address] Care Team Providers Care Rag Cutting Machine Tender Name Role Phone Unavailable Primary Care Provider Unavailabl e Encounter Details Date Type Department Care Team (Late st Contact Info) Description 11/15/2021 8:15 AM EMBEDDED SYSTEMS SOFTWARE DEVELOPER Rapid Evaluation [facility] Community Testing [facility] [address] [place] [address] Social History Tobacco Use Types Packs/Day Years Used Date Smoking Tobacco: Never Assessed Comments Unknown Sex and Gender Information Value Date Recorded Sex Assigned at Not on file Legal Sex Female 8:01 AM EMBEDDED SYSTEMS SOFTWARE DEVELOPER Gender Identity Not on file Sexual Orientation Not on file documented as of this encounter Plan of Treatment Not on file documented as of this encounter Visit Diagnoses Not on filedocumented in this encounter
== END 2024-11-07 22:45 | disposition home or self-care (01) ==
PROVIDERS: Emergency Provider Physician Assistant; PCP Physician Assistant
DX: M54.6 Pain in thoracic spine (principal); E04.1 Nontoxic single thyroid nodule; I10 Essential (primary) hypertension; E78.5 Hyperlipidemia, unspecified; E66.01 Morbid (severe) obesity due to excess calories; Z68.36 Body mass index [BMI] 36.0-36.9, adult; R94.31 Abnormal electrocardiogram [ECG] [EKG]
CPT/HCPCS: 36415; 71046; 71260; 74177; 80053; 83690; 84484; 85025; 85380; 85610; 85730; 93005; 96374; 96375; 99284; J1885; J2470; Q9967

== ENCOUNTER 2024-11-14 11:43 | Outpatient (CLI) | payer OTHER, SELFPAY ==
--- NOTE | ~2024-11-14 | US_ITS ---
EXAMINATION: US thyroid DATE: 11/14/2024 12:00 INDICATION: Nontoxic single thyroid nodule. TECHNIQUE: Multiple ultrasound images of the thyroid were obtained. COMPARISON: Ultrasound 10/17/2016 FINDINGS: The right thyroid lobe measures 5.2 x 1.8 x 1.7 cm. The left thyroid lobe measures 7.9 x 3.9 x 3.3 c m. In the left thyroid lobe, there is a 2.7 cm solid, hypoechoic, wider than tall nodule with ill-de fined margin without echogenic foci (TI-RADS TR4). In the left thyroid lobe, there is a 5.4 cm mixed cystic and solid, isoechoic, wider than tall nodule with ill-defined margin without echogenic foci (T R2). In the right thyroid lobe, there is a 5 mm solid, hypoechoic, wider than tall nodule with smooth margin without echogenic foci (TR4). In the right thyroid lobe, there is a 4 mm nodule. IMPRESSION: 1. Multinodular goiter. Ultrasound-guided fine-needle aspiration of the 2.7 cm left thyroid nodule is recommended. Reviewed, dictated and finalized at location A. R INCIDENT HANDLER
== END 2024-11-14 11:44 | disposition home or self-care (01) ==
LOC: MICIMG 11:44
PROVIDERS: PCP Physician Assistant; Visit Provider Physician Assistant
DX: E04.2 Nontoxic multinodular goiter (principal)
CPT/HCPCS: 76536

== ENCOUNTER 2025-03-02 09:01 | Outpatient (CLI) | payer OTHER, SELFPAY ==
--- NOTE | ~2025-03-02 | MM_ITS ---
EXAMINATION: MM screening valeriano BI w michael HISTORY: Screening TECHNIQUE: Craniocaudal and mediolateral oblique 3-D tomosynthesis images were obtained and synthetic 2-D images were generated. CAD analysis was submitted and interpreted. COMPARISON: Comparison to multiple prior studies sequentially, with oldest reviewed study dated 06/28. BREAST PARENCHYMAL COMPOSITION: Not dense: There are scattered areas of fibroglandular density. FINDINGS: There is no evidence of suspicious mass, calcification, or architectural distortion to sugg est malignancy in either breast. There has been no suspicious interval change. IMPRESSION: 1. No mammographic evidence of malignancy. 2. Recommend routine screening mammography in one year. BI-RADS Category 1: Negative Reviewed, dictated and finalized at location []
--- OUTSIDE RECORDS SUMMARY | 2025-03-02 09:28 | XMS_ITS | Clinical Summary ---
Author Organization [facility] [employer] Address [address] [place] [address] Care Team Providers Care Manufacturing Electrician Name Role Phone Ana Vyas MD Primary Care Provider [phone] Source Comments [facility] [employer],non-owned Affiliates and Associated Physician Practices is amultiple site organization consisting of ambulatory clinics and hospital sitesin [place], [place], [place] and [place]. This disclosure is being madepursuant to the Care Everywhere program and may not contain all information available regarding this patient. Last updated 18.[employer] Allergies Active Allergy Reactions Criticality Noted Date Comments Levofloxacin Urticaria High 07/31/2021 Medications * This document contains information received from the source organization and may not represent a complete record from that organization. * Be aware that medications may not be up to date on this document. Alwaysverify current medications with the patient. FEROSUL 325 (65 Fe) MG tablet Take [...] results. Assessment & Plan (01/20/2020 2:15 PM NITRO MAN): performed GTT earlier today Maternal Medicine recommendations: 1. I recommend following a diabetic diet regardless a whether or not Vivek passes the GTT Headache in 12/23/2019 Assessment & Plan (01/20/2020 2:11 PM NITRO MAN): No headache in at least 1 week. Has the prescription for riboflavin if needed. Assessment & Plan (12/23/2019 12:15 PM NITRO MAN): Reports history of tension headaches outside of . Currently relieve with intervention of rest or acetaminophen. Riboflavin sent to pharmacy for aid in reduction of headaches. Thyroid nodule 12/16/2019 Overview (12/16/2019): History of benign thyroid nodule, no recent TFTs assessed; recommended to be done today at [facility] given that history and morbid obesity. Supervision [...] BUN: 3, potassium: 6.3 CBC 12/11: 11.3/33/308 3hrGCT- 81,139,135,67 Serum potassium fluctuations 12/16/2019 Overview (03/02/2020): Nephrology [...] supplementation 01/18/20: potassium 3.8 02/22/20: potassium 4.1 Assessment & Plan (03/02/2020 12:25 PM CDT): Denies palpitations or muscle pains. Last potassium early February appropriate at 4.1 M plan: 1. Call Nephrology number given to you today that was previously mailed, inquire if they are doing zoom meetings. 2. Continue potassium supplement as prescribed. 3. Repeat CMP early March. Assessment & Plan (02/17/2020 11:55 AM CDT): Denies palpitations or muscle pains. Last potassium early january appropriate. M plan: 1. Call Nephrology number sent to you in letter to schedule consult, inquire if they are doing zoom meetings. 2. Continue potassium supplement as prescribed. 3. Sent with CMP order today. Assessment & Plan (01/20/2020 2:30 PM NITRO MAN): No muscle complaints. Last potassium result appropriate. Maternal Medicine recommendations: 1. recommending primary OB add potassium to glucose tolerance test results drawn today 2. Continue potassium supplementation 3. Follow-up with Nephrology as previously recommended Assessment & Plan (01/06/2020 4:50 PM NITRO MAN): Improved to 3.4 on 12/24; completed potassium supplementation two days later. Denies any current palpitations. Assessment & Plan (12/23/2019 12:14 PM NITRO MAN): 11/24: serum potassium: 2.9; denies receiving any supplementation. 12/11: serum potassium: 6.3; has not had further evaluation or treatment, confirmed with primary OB. 12/16: serum potassium: 3.0; sent home on potassium supplementation, has taken 40 mEq for the past 5 days. Plan: Instructed to hold on further supplementation until we recheck her CMP today, she likely has supplemented enough at this time. I will follow up with her regarding this result. Assessment & Plan (12/16/2019 11:50 AM NITRO MAN): Serum potassium 11/24: 2.9; denies receiving any supplementation. Denies kidney disease. 12/11: serum potassium: 6.3; has not had further evaluation or treatment, confirmed with primary OB Plan: Sent to [place] today for further evaluation, report called to [...] delivery timing to prior than 39 weeks. [facility] Plan: 1. Again reviewed with patient if [...] time. Assessment & Plan (12/16/2019 11:54 AM NITRO MAN): Primary related to arrest of dilation, second [...] visits here. S/p meeting with CDE previously. MFM plan: 1. Encouraged to follow CDE diet; PP weight reduction and . Assessment & Plan (02/17/2020 11:54 AM CDT): Stable weight noted with her visits here. Meeting with CDE today via Zoom. MFM plan: 1. Follow CDE diet; PP weight reduction and . Assessment & Plan (01/20/2020 2:12 PM NITRO MAN): 25 lb weight gain from reported pre value. Only 5 lb total weight gain since 1st consultation. Maternal Medicine recommendations: 1. would benefit from and weight reduction Assessment & Plan (01/06/2020 4:57 PM NITRO MAN): Pre BMI: 47 Early GCT: 68 Hemoglobin [...] cHTN. Assessment & Plan (12/23/2019 12:06 PM NITRO MAN): Pre BMI: 47 Early GCT: 68 Hemoglobin A1C early : 5.6 TSH: 1.17 on 12/16 Plan: Limit weight gain to 0-15 pounds. Nutrition counseling would be beneficial for patient, please arrange this through your office. Serial growth ultrasounds. testing already driven by cHTN. Please repeat her GCT at 28 weeks. Assessment & Plan (12/16/2019 11:59 AM NITRO MAN): Pre BMI: 47 Early GCT: 68 Hemoglobin [...] Increased labetalol 12/16: 400 BID; ASA started 01/18/20: protein/creatinine ratio: 0.17 H/H/P: 11.2/34.2/329, CMP: BUN: 5, creatinine: 0.51, AST 11, ALT: 16 02/22/2020: BUN 8/creatinine 0.64/ALT 9/AST 12 H/H/P: 12.2/37.9/361 Today: AGA growth identified again today, formal report to follow; reassuring testing. Blood pressures with low morning values, patient symptomatic. Otherwise normotensive. Continues labetalol 400mg BID; not always consistent with ASA. No symptoms of preeclampsia. M plan: 1. Decrease labetalol to 200 BID, steel pickler ASA as intended. 2. Continue to check blood pressure at home, call primary OB or go to OB triage for evaluation if BP >160/100. Alert primary OB if continuing to have low values before next follow up visit; or call our team on , Sats, Sat when we are in office. 3. Educated to continue twice daily kick counts, andagain reviewed preeclampsia symptoms. 4. Serial growth ultrasounds--next assessment in 4 weeks if undelivered. 5. Continue weekly 10 point BPP. 1. Plans to continue weekly testing at primary [employer]. 6. Delivery initiation at 39 weeks unless indicated sooner. 7. Would benefit from and weight reduction. Assessment & Plan (02/17/2020 11:53 AM CDT): Primary office B/P's: 09/28/19-11/24/18: 158/91,160/91,153/98,149/85,171/104 24 hour urine protein on 12/14/19 [22wk]: 1475cc/198mg Increased labetalol 12/16: 400 BID; ASA started 01/18/20: protein/creatinine ratio: 0.17 H/H/P: 11.2/34.2/329, CMP: BUN: 5, creatinine: 0.51, AST 11, ALT: 16 AGA growth identified 02/01 RECOMMENDATIONS: Chronic hypertension during Blood pressures are normotensive at home and in office. No symptoms of preeclampsia. MFM plan: 1. Continue labetalol 400 BID and aspirin prophylaxis. 2. Continue to check blood pressure at home, call primary OB or go to OB triage for evaluation if BP >160/100. 3. Educated to do twice daily kick counts, and reviewed preeclampsia symptoms again. 4. Serial growth ultrasounds--next assessment in 2 weeks. 5. Weekly 10 point BPP to begin at 32 weeks, reassuring testing today. 1. Plans to continue weekly testing at primary [employer]. 6. Delivery initiation at 39 weeks unless indicated sooner. 7. Would benefit from and weight reduction. Assessment & Plan (01/20/2020 2:11 PM NITRO MAN): Blood pressure at goal. No symptoms of preeclampsia. Remains at risk for superimposed preeclampsia. Maternal Medicine recommendations: 1. Continue labetalol 400 [...] reduction Assessment & Plan (01/06/2020 4:59 PM NITRO MAN): Primary office B/P's; diagnosed with HTN this : 09/28/19-11/24/18: 158/91,160/91,153/98,149/85,171/104 24 hour urine protein on 12/14/19: 1475cc/198mg of protein CMP: most recent: 12/23: ALT: 16, AST: 17, creatinine: 0.47, BUN: 5, potassium: 3.4 CBC: most recent: 12/11: 11.3/33/308 AGA growth demonstrated today, incomplete anatomy ultrasound. Blood pressure today: 144/86, 1+ urine protein Blood pressure log at home normotensive outside of two outliers in the past two weeks: 142/95 and 140/102. History of tension headaches 2-3x weekly, relieve with medication or rest. Asymptomatic today for headache, scotomata, RUQ pain. Reports nausea with emesis x 2 this past week Compliant with labetalol 400mg BID. Plan: Continue labetalol 400 BID and aspirin prophylaxis. Sent with lab requisition today to check CBC/CMP/protein/creatinine ratio. Continue to check blood pressure at home, call primary OB or go to OB triage for evaluation if BP >150/95. Reiterated the importance of this today, gave after hours number for OB triage at [facility]. Bring in BP log to appointments. Close [...] sooner. Assessment & Plan (12/23/2019 12:56 PM NITRO MAN): Primary office B/P's: 09/28/19-11/24/18: 158/91,160/91,153/98,149/85,171/104 24 hour urine protein on 12/14/19: 1475cc/198mg CMPs: 11/24: ALT: 38, AST: 40, uric acid: 5.1, creatinine: 0.5, potassium: 2.9 12/11: ALT: 30, AST: 25, creatinine: 0.42, BUN: 3, potassium: 6.3 12/16: ALT: 23, AST: 24, creatinine: 0.64, BUN: 5, potassium: 3.0 CBCs: 12/04: 12/37.3/344 12/11: 11.//308 AGA growth demonstrated on 12/16, anatomy survey incomplete. Blood pressure today: 140/61; no proteinuria today. Negative for preeclampsia symptoms today. Episode of severe range blood pressure at home this week of 160/105; with headache, relieved with rest. Reports otherwise blood pressures are 140/80s mostly; did not bring log. History of tension headaches 1-2x weekly, relieve with medication or rest. Asymptomatic today for headache, scotomata, RUQ pain. Compliant with labetalol 400mg BID. Plan: Continue labetalol 400 BID and aspirin [...] sooner. Assessment & Plan (12/16/2019 12:04 PM NITRO MAN): Primary office B/P's: 09/28/19-11/24/18: 158/91,160/91,153/98,149/85,171/104 24 hour [...] defects Assessment & Plan (12/23/2019 12:55 PM NITRO MAN): Positive AFP for open spina bifida drawn at 15w6d. MoM 3.08. 09/28/19 NIPT-LowRisk. Declines amniocentesis. Spinal views of ultrasound reassuring 12/16. Denies family history of spina bifida or neural tube defects. Assessment & Plan (12/16/2019 11:56 AM NITRO MAN): Positive AFP for open spina bifida drawn [...] . Recommend increasing fiber in diet. 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 Not on file Not on file Not on file Last Filed Vital Signs Vital Sign Reading Time Taken Comments Blood Pressure 121/82 11/04/2023 2:06 PM NITRO MAN Pulse 97 11/04/2023 2:06 PM NITRO MAN Temperature 36.9 C (98.5 F) 03/16/2020 8:27 AM CDT Respiratory Rate - - Oxygen Saturation - - Inhaled Oxygen Concentration - - Weight 112.5 kg (248 lb) 11/04/2023 2:06 PM NITRO MAN Height 160 cm (5' 3 ) 11/04/2023 2:06 PM NITRO MAN Body Mass Index 43.93 11/04/2023 2:06 PM NITRO MAN Plan of Treatment Health Maintenance Due Date Last Done Comments MAMMOGRAM 1980 HIV SCREENING 1995 HEPATITIS C SCREENING 09/22/1998 DTAP/TDAP/TD VACCINES (1 - Tdap) 1999 HEPATITIS B VACCINE (1 of 3 - 19+ 3-dose series) 1999 SCREENING FOR DIABETES 10/07/2023 0, 01/07/2020, 12/23/2019, Additional history exists COVID-19 VACCINE ( season) 2024 02/24/2021, 01/20/2021 DEPRESSION SCREENING 11/18/2024 INFLUENZA VACCINE (Season Ended) 2025 08/23/2021 PAP SMEAR 09/12/2026 09/12/2023, 06/19/2021 ZOSTER VACCINE (1 of 2) 2030 HIB VACCINE Aged Out No longer eligi ble based on patient's age to complete this topic HPV VACCINE Aged Out No longer eligi ble based on patient's age to complete this topic MENINGOCOCCAL (Group B) VACCINE SHARED DECISION-MAKING Aged Out No longer eligible based on patient's age to complete this topic MENINGOCOCCAL GROUPS A/C/Y/W VACCINE Aged Out No longer eligible based on [...] 114(H) 65 - 99 mg/dL [facility] Comment: Fasting reference interval For someone without known [...] 29 U/L [facility] Comment: Test Performed at: [facility] [address] [place] [address] ZOLTAN CORTEZ DO,MPH 02/22/2020 2:18 PM CDT 02/22/2020 2:19 PM CDT Jessica Porras MD LAB - CHEMISTRY ORDERABLE S Final Result [facility] [id number] [place] [address] from Last 3 Months or Most Recently Relevant to Health Maintenance Insurance [facility] SELF PAY NO INSURANCE Member Subscriber Plan / Payer (Ef fective for All Dates) Name:Vivek Ghotra Member ID:Not on file Relation to Subscriber:Not on file Name:VIVEK GHOTRA Subscriber ID:Not on file (Home) Address: [address] [place] [id number] Payer ID:Not on file Group ID:Not on file Type:Self Pay Address: [place], [place] [facility] Care Teams Manufacturing Electrician Relationship Specialty Start Date End Date Ana Vyas MD [address] [place] [phone] PCP - General 07/06/21
--- OUTSIDE RECORDS SUMMARY | 2025-03-02 09:28 | XMS_ITS | Clinical Summary ---
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 Legal Sex Female 7:20 PM CDT Gender Identity Not on file Sexual Orientation Not on file Plan of Treatment Health Maintenance Due Date Last Done Comments Annual Physical 1983 Hepatitis C 1998 DTaP, Tdap and Td Vaccines ( 1 - Tdap) 1999 Hepatitis B Vaccines (1 of 3 - 19+ 3-dose series) 1999 Cervical Cancer Screening Pa p with HPV Testing (Age 30 to 64) Every 5 Years 2010 Mammogram Screening 2020 COVID-19 Vaccine ( - 2023-2 5 season) 2024 02/24/2021, 01/20/2021 Cervical Cancer Screening Pa p Smear (Age 30 to 64) Every 3 Years 09/25/2027 09/25/2024 Cervical Cancer Screening wi th HPV 09/25/2027 HPV Vaccines Aged Out No longer eligi ble based on patient's age to complete this topic Meningococcal B Vaccine Aged Out No l onger eligible based on patient's age to complete this topic Meningococcal Vaccine Aged Out No genoveva stan eligible based on patient's age to complete this topic Pneumococcal Vaccine: Pediatrics (0 to 5 Years) and At-Risk Patients (6 to 49 Years) Aged Out No longer eligible b ased on patient's age to complete this topic RSV Immunizations Under 20 Months Aged Out No longer eligible b ased on patient's age to complete this topic Insurance [facility] Care Teams It Technical Architect Relationship Specialty Start Date End Date Kelli Ramirez PA-C [address] [place] [phone] PCP - General NURSE PRACTITIONER 11/30/24 Herman Garces MD [address] [facility] [address] [place] [address] [place] [facility] Director CARDIOVASCULAR DISEASE 08/03/19
--- OUTSIDE RECORDS SUMMARY | 2025-03-02 09:28 | XMS_ITS | Clinical Summary ---
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 Gender Identity Not on file Sexual Orientation Not on file Plan of Treatment Health Maintenance Due Date Last Done Comments Hepatitis C Virus (HCV) Screening 1980 TdaP Immunization 1980 Hepatitis B Immunization (1 of 3 - 19+ 3-dose series) 1999 Pap Smear 2001 Cervical Cancer Screening (CCS) 2010 HPV/Cotest 2010 Discussion re Starting/Frequency of Mammograms 2020 Influenza Immunization (#1) 2024 SARS-COV-2 Immunization ( season) 2024 02/24/2021, 01/20/2021 Respiratory Syncytial Virus (RSV) Immunization (Adult) (1 - 1-dose 75+ series) 2055 Meningococcal Immunization (ACWY) Aged Out No longer eligible b ased on patient's age to complete this topic Pneumococcal Immunization Combined Aged Out No longer eligible b ased on patient's age to complete this topic Rotavirus Immunization Aged Out No lo nger eligible based on patient's age to complete this topic
--- OUTSIDE RECORDS SUMMARY | 2025-03-02 09:29 | XMS_ITS | Data Portability ---
Author Organization [facility] [place] Address [address] [place] [place] [address] Care Team Providers [facility] [place] Department Manager Name Role Phone FLAVIO VASQUEZ Primary Care [...] y, with endometrial ablation (SURG) 2023 024 [facility] Surgery [facility], [address], [place], [address], 09:17:19 Imaging US, pelvis 2023 024 [email or web address] 4 [facility], [address], [place], [address], 14:25:40 US, transvagina l 2023 024 [email or web address] 4 [facility], [address], [place], [address], 4 14:25:40 Medication Orders metronidazo le 500 mg tablet 2023 ANNALISE [id number], [address] , [place], [place], [id number], 4 09:51:53 doxycycline hyclate 100 mg capsule 2023 024 [email or web address] [facility] #[id number], [address] , [place], [place], [id number], 4 09:58:43 Patient TargetsNo targets recorded. Patient [...] weldon nted. Not Available [facility] [address] [place], [address], 08/07/2022 14:37:02 09/12/20 23 09/12/2023 IMAGE GUIDE [...] as clini shaina weldon nted. Not Available [facility] (Lab) [address] [place], [address], 09/17/2023 18:03:21 09/25/20 24 09/25/2024 [facility] SWAB PLUS, JENNIFER bacterial vaginosis (bv), tma Positi ve negati ve abnormal Not Available [facility] (Lab) [address] [place], [address], 2024 15:08:30 09/25/20 24 09/25/2024 [facility] SWAB PLUS, JENNIFER kam species, tma Negati ve negati ve Not Available [facility] (Lab) [address] [place], [address], 2024 15:08:30 09/25/20 24 09/25/2024 [facility] H SWAB PLUS, JENNIFER kam glabrata, tma Negati ve negati ve Not Available [facility] (Lab) [address] [place], [address], 2024 15:08:30 09/25/20 24 09/25/2024 [facility] H SWAB PLUS, JENNIFER trichomonas vaginalis, tma Negati ve negati ve Not Available [facility] (Lab) [address] [facility], [place], [address], 2024 15:08:30 09/25/20 24 09/25/2024 [facility] SWAB PLUS, JENNIFER chlamydia trachomatis, PCR Negati ve negati ve Not Available [facility] (Lab) [address] [place], [address], 2024 15:08:30 09/25/20 24 09/25/2024 WOMEN 'S [...] ded in this panel . Not Available [facility] (Lab) [address] [place], [address], 2024 15:08:30 09/25/20 24 09/25/2024 IMAGE GUIDE [...] as clini shaina warra nted. Not Available [facility] (Lab) [address], [place], [address], 10/03/2024 11:28:23 08/16/2008/16/2022 US, trans geeta ponce No observ ation record ed. [email or web address] [facility] [address], [place], [address], 08/16/2022 10:44:25 08/16/2008/16/2022 US, trans vagin al No observ ation record ed. [email or web address] [address], [place], [address], 08/16/2022 22:58:52 10/04/20 22 10/04/2022 MAMMO , scree joel, bilat eral No observ ation record ed. [facility] [address], [place], [address], 10/07/2022 13:57:00 07/09/20 24 07/09/2024 US, pelvi s No observ ation record ed. [email or web address] [facility] [address], [place], [address], 07/09/2024 13:35:37 07/09/20 24 07/09/2024 US, trans vagin al No observ ation record ed. [email or web address] [facility] [address], [place], [address], 07/09/2024 13:35:49 07/09/20 24 07/09/2024 US, pelvi s No observ ation record ed. [email or web address] [address], [place], [address], 07/09/2024 19:21:18 Result Notes None recorded. Problems Name Problem SNOMED Code Status Onset Date Resolution Date Notes Provider Name and Address Organization Details Recorded Time Antenata l screenin g Completed 201806/15/2021 Encounte r for antenata l screenin g for nuchal transluc ency;Rec orded Elsewher e: No Locat ion: [facility] S ource: EHR Roller Repairer samara: N Practi ce ID: 0001 Rob lable Time: 02:00:00 PM Violet ponce [place] - [facility] 14:33:15 Normal pregnanc y in multigra cristhian [id number] 96525 Completed 201906/15/2021 Encounte r for supervis ion of other normal pregnanc y, 3rd trimeste r;Record ed Elsewher e: No Locat ion: [place] [facility] S ource: EHR Roller Repairer samara: N Practi ce ID: 0001 Rob lable Time: 04:15:00 PM Violet ponce, [facility] 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 14:33:18 Gestatio n period, 32 weeks [id number] Completed 201906/15/2021 32 weeks gestatio n of pregnanc y;Record ed Elsewher e: No Locat ion: [facility] S ource: EHR Roller Repairer samara: N Practi ce ID: 0001 Rob lable Time: 03:00:00 PM Violet ponce, [facility] 14:33:27 Hyperten suzanne in the obstetri c context Completed 201906/15/2021 Pre-exis ting essentia l htn comp pregnanc y, third trimeste r;Record ed Elsewher e: No Locat ion: [facility] S ource: EHR Roller Repairer samara: N Practi ce ID: 0001 Rob lable Time: 03:00:00 PM Violet ponce, [facility] 1 14:33:09 Gestatio n period, 31 weeks 78167675 Completed 201906/15/2021 31 weeks gestatio n of pregnanc y;Record ed Elsewher e: No Locat ion: [place]icky[place]ie ondina [facility] S ource: EHR Roller Repairer samara: N Practi ce ID: 0001 Rob lable Time: 03:00:00 PM Violet ponce, [facility] 14:33:22 Gestatio n period, 22 weeks [id number] Completed 201906/15/2021 22 weeks gestatio n of pregnanc y;Record ed Elsewher e: No Locat ion: [facility] S ource: EHR Roller Repairer samara: Pramod Bunch ce ID: 0001 Rob lable Time: 03:45:00 PM Violet ponce, [facility] 14:33:24 Steriliz ation procedur e Completed 201806/15/2021 Encounte r for steriliz ation;Re corded Elsewher e: No Locat ion: [facility] S ource: EHR Roller Repairer samara: Pramod Bunch ce ID: 0001 Rob lable Time: 04:30:00 PM Violet ponce, [facility] 14:33:19 Pregnanc y detectio n examinat ion Completed 201806/15/2021 Encounte r for pregnanc y test, result positive ;Recorde d Elsewher e: No Locat ion: [facility] S ource: EHR Roller Repairer samara: Pramod Bunch ce ID: 0001 Rob lable Time: 03:15:00 PM Violet ponce, [facility] 14:33:26 Pregnanc y-induce d hyperten suzanne Completed 201906/15/2021 Gestatio nal hyperten suzanne w/o signific ant proteinu khoi;Daniel rded Elsewher e: No Locat ion: [facility] S ource: EHR Roller Repairer samara: Pramod Bunch ce ID: 0001 Rob lable Time: 02:45:00 PM Violet ponce, [facility] 14:33:11 Pregnanc y test negative 523182432 Completed 201806/15/2021 Encounte r for pregnanc y test, result negative ;Practic e ID: 0001 Violet Khan rosario, [facility] 14:33:16 Severe obesity complica ting pregnanc y [id number] [id number] Completed 201906/15/2021 Obesity complica ting pregnanc y, third trimeste r;Record ed Elsewher e: No Locat ion: [facility] S ource: EHR Roller Repairer samara: N Practi ce ID: 0001 Rob lable Time: 03:00:00 PM Violet Bill ponce, [facility] 14:33:[address] Concept Completed 201906/15/2021 Matern care for abnlt fetl hrt rate or rhym, 3rd tri, unsp;Rec orded Elsewher e: No Locat ion: [facility] S ource: EHR Roller Repairer samara: N Practi ce ID: 0001 Rob lable Time: 03:15:00 PM Violet Bill ponce, [facility] 1 14:33:13 Pregnanc y 97960023 Completed 201908/29/2020 Moreno Butler MD [address], [place], [address], [facility] 0 11:10:49 Benign essentia l hyperten suzanne complica ting AND/OR reason for care during pregnanc y 33251112 Completed 201906/15/2021 Violet ponce, [facility] 1 14:33:07 Morbid obesity 942232327 Completed Theodore ponce, [facility] 0 14:47:01 Hyperten sive disorder 60544150 Completed Chronic HTN - labetalo l 200mg Theodore Hill [facility], [facility] 0 14:47:01 Advanced maternal age 085765918 Completed Theodore ponce [facility] 0 14:47:01 Problem Notes None recorded. Procedures Surgical History Date Name Laterality Status Provider Name and Address Organization Details Recorded Time 024 HYSTEROSCOPY, WITH ENDOMETRIAL ABLATION (SURG) completed Jodie Barnes [facility] 09/02/2024 09:18:35 023 Date of Last Mammogram completed [facility] 08/05/2024 15:31:19 023 Date of Last Pap Smear completed [facility] 08/05/2024 15:30:49 020 section completed [facility] 04/07/2020 00:26:12 020 Tubal Ligation completed [facility] 06/19/2021 09:46:59 Ovarian Cystectomy completed [facility] 06/15/2021 14:34:48 section completed [facility] 04/07/2020 00:27:18 section completed [facility] 04/07/2020 00:27:23 Tonsillectomy completed [facility] 06/19/2021 09:41:16 Tubal Ligation completed Inessa Alfaro [facility] 10/30/2021 09:45:51 Imaging Results Imaging Date Name Status LastModified by Organization Details LastModified Time 08/16/2022 US, transvaginal completed [email or web address] [place] [address], [place], [address], 08/16/2022 10:44:25 08/16/2022 US, transvaginal completed [email or web address] [address], [place], [address], 08/16/2022 22:58:52 10/04/2022 MAMMO, screening, bilateral completed [facility] [address], [place], [address], 10/07/2022 13:57:00 07/09/2024 US, pelvis completed [email or web address] [facility] [address], [place], [address], 07/09/2024 13:35:37 07/09/2024 US, transvaginal completed [email or web address] [facility] [address], [place], [address], 07/09/2024 13:35:49 07/09/2024 US, pelvis completed [email or web address] [address], [place], [address], 07/09/2024 19:21:18 Procedure Notes None recorded. Medical Equipment None Reported. Allergies Allergen ID Allergen Name Allergen Category Reaction Reaction Severity Criticality Documentation Date Start Date Code Code System Note Provider Name and Address Organization Details Recorded Time 48650 levofloxa gracie medicatio n hives severe Not available 06/19/2021 60306 RxNorm Violet ponce [place] - [facility] 09:40:58 Medications Name Sig Start Date [...] Johnston e: No Locat ion: [place] [facility] M odify By: [email or web address] Encounte r DateTime [...] Updated DateTime 2 161.29 cm 41 kg/m2 885001. 64 g 141 mm[Hg] 88 mm[Hg] 136 mm[Hg] 80 mm[Hg] Fior beebe [facility] 2 10:51:35 Date Recorded Body height Body mass index (BMI) Body weight Systolic blood pressure Diastolic blood pressure Provider Name and Address Organization Details Last Updated DateTime 09/12/2023 161.29 cm 43.8 kg/m2 389583.6 8 g 128 mm[Hg] 84 mm[Hg] Carmen Hutton [facility] 3 09:48:41 Date Recorded Body height Body mass index (BMI) Body weight Systolic blood pressure Diastolic blood pressure Provider Name and Address Organization Details Last Updated DateTime 08/05/2024 161.29 cm 41.3 kg/m2 678995.3 9 g 122 mm[Hg] 76 mm[Hg] Brenda Be [facility] 4 15:30:03 Date Recorded Body height Body mass index (BMI) Body weight Systolic blood pressure Diastolic blood pressure Provider Name and Address Organization Details Last Updated DateTime 09/25/2024 161.29 cm 40.7 kg/m2 844359.7 4 g 116 mm[Hg] 78 mm[Hg] Jodie Barnes [facility] 4 09:30:53 Social History Question Answer Notes LastModified by Organizat ion Details LastModified Time Tobacco Smoking Status Never Smoker Angelica Maldonado [facility] 09/12/2023 09:32:43 Do You Have An Advance Directive? No [email or web address] Information not available 06/19/2021 What Is Your Level Of Alcohol Consumption? None Information not available 03/10/2020 Are You Blind Or Do You Have Difficulty Seeing? No [email or web address] Information not available 06/19/2021 What Is Your Level Of Caffeine Consumption? Occasional [email or web address] Information not available 06/19/2021 How Much Tobacco Do You Chew? None [email or web address] Information not available 01/16/2022 In The 14 Days Before Symptom Onset, Have You Had Close Contact With A Laboratory-confir med COVID-19 While That Case Was Ill? No [email or web address] Information not available 06/19/2021 In The 14 Days Before Symptom Onset, Have You Had Close Contact With A Person Who Is Under Investigation For COVID-19 While That Person Was Ill? No [email or web address] Information not available 06/19/2021 Have You Been To An Area Known To Be High Risk For COVID-19? No [email or web address] Information not available 06/19/2021 Are You Deaf Or Do You Have Serious Difficulty Hearing? No [email or web address] Information not available 06/19/2021 What Type Of Diet Are You Following? REGULAR [email or web address] Information not available 06/19/2021 What Is The Highest Grade Or Level Of School You Have Completed Or The Highest Degree You Have Received? 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 No [email or web address] Information not available 06/19/2021 Do You Use Protection During Sex? Usually Information not available 06/19/2021 Do You Use Your Seat Belt Or Car Seat Routinely? Yes Information not available 06/19/2021 Do You Have Smoke And Carbon Monoxide Detectors In Your Home? Yes Information not available 06/19/2021 How Much Tobacco Do You Smoke? No [email or web address] Information not available 06/19/2021 Do You Feel Stressed (tense, Restless, Nervous, Or Anxious, Or Unable To Sleep At Night)? [id number] Information not available 06/19/2021 Do You Use Any Illicit Or Recreational Drugs? No [email or web address] Information not available 06/19/2021 Do You Use Sunscreen Routinely? No [email or web address] Information not available 06/19/2021 Have You Used IV Drugs? No Information not available 06/19/2021 Sex: Unknown Functional Status Question Answer Note LastModified by Organizat ion Details LastModified Time Do you have difficulty walking or climbing stairs? No [email or web address] Information not available 09/12/2023 Are you able to walk? YESWOREST [email or web address] Information not available 06/19/2021 Are you able to care for yourself? Yes [email or web address] Information not available 09/12/2023 Do you have difficulty dressing or bathing? No [email or web address] Information not available 09/12/2023 What is your exercise level? Occasional Information not available 03/10/2020 Mental Status None recorded. Family History Relationship Description Onset Age of this Age Resolved Age Notes LastModified by Organization Details LastModified Time Father No current problems or disability [email or web address] l Not available 03/06/2020 11:33:17 Mother No current problems or disability [email or web address] l Not available 03/06/2020 11:33:17 Medical History Condition Response Allergies (Food, seasonal, environmental ) N Other N Breast Cancer N Drug/Latex Allergies/Reactions N Blood Transfusion N Dermatologic Disorders N Lung Disease N Defects or Inherited Disease N Breast Problem N Gestational Diabetes N Hematologic disorders N Anesthesia Complications N History of STI N Deep Vein Thrombosis N Polycystic ovary syndrome N Anxiety Disorder N Autoimmune disease N Arthritis N Infertility N Polyps N Acid Reflux (GERD) N History of abnormal pap N Cancer N Stroke N Varicosities N Neurologic/Epilepsy N Endometriosis N High Cholesterol N Headaches N Fibromyalgia N Kidney Disease N Heart Problems N Kidney or Bladder Problems N Thyroid Problems N GI Problems N Eating Disorder N Anemia N Art (IVF or FET) N Psychiatric Illness N Ovarian Cancer N Diabetes N Pulmonary (TB, Asthma) N Hepatitis/Liver Disease N Eczema N Urinary Tract Infection N Abuse/Domestic Violence N Asthma N Trauma/Violence N Depression/ depression N Heart Disease N Pre-Eclampsia N Hypertension N Osteoporosis N Thrombophilias N Gynecological History Statement/Question Response Date of [...] Diagnosis/Indication Diagnosis SNOMED-CT Code Diagnosis ICD10 Code Diagnosis Note 363 Moreno Butler MD [facility] [address] [address] 02/25/2020 15:03:24 02/29/2020 15:17:07 [facility] [address],[place] [address] 02/25/2020 15:57:06 02/25/2020 16:33:31 Normal 34784544 Z34.93 568 Moreno Butler MD [facility] [address] [address] 02/29/2020 16:00:09 03/01/2020 13:10:44 [facility] [address],[place] [address] 03/03/2020 15:35:26 03/03/2020 17:26:28 Third trimester 78699611 Z34.[address] [facility] [address] [place] [address] 03/07/2020 16:03:18 03/08/2020 13:06:51 Benign essential hypertension complicating AND/OR reason for care during 55089895 O10.[address] [facility] [address],[place] [address] 03/10/2020 15:54:11 03/10/2020 16:53:07 Benign essential hypertension complicating AND/OR reason for care during 41217163 O10.013 1799 Arianna Aldana [facility] [address],[place] [address] 03/10/2020 15:54:32 03/10/2020 16:58:23 Routine care 654091128 Z34.[address] [facility] [address],[place] [address] 03/14/2020 16:06:50 03/15/2020 14:31:00 Benign essential hypertension complicating AND/OR reason for care during 98034415 O10.013 2677 Moreno Butler MD [facility] [address],[place] [address] 03/17/2020 14:40:33 03/17/2020 16:37:52 Routine care 942999595 Z34.[address] [facility] [address],[place] [address] 03/21/2020 15:56:27 03/21/2020 16:54:56 Benign essential hypertension complicating AND/OR reason for care during 01579279 O10.013 3475 Abeba Pereira [facility] [address],[place] [address] 03/24/2020 15:26:36 03/24/2020 16:57:38 Normal 38648282 Z34.[address] [facility] [address],[place] [address] 03/24/2020 15:27:02 03/25/2020 12:01:27 Benign essential hypertension complicating AND/OR reason for care during 63748278 O10.013 3478 Yue Moss [facility] [address],[place] [address] 03/24/2020 15:28:05 03/24/2020 16:48:54 Transient hypertension of 759305875 O13.1 O09.523 3875 Moreno Butler MD [facility] [address],[place] [address] 03/28/2020 16:08:18 03/28/2020 17:08:19 Benign essential hypertension complicating AND/OR reason for care during 19133021 O10.013 4199 Moreno Butler MD [facility] [address],[place] [address] 03/31/2020 10:51:59 03/31/2020 10:54:25 [address] [facility] [address],[place] [address] 04/07/2020 11:44:57 04/07/2020 12:13:13 Pre-existing hypertension complicating , childbirth and puerperium 089308371 O10.919 Doing well overall postop from C/S + BTL. BP severely elevated but asymptomat ic. Increase labetalol from 200 mg bid to 400 mg bid. Reviewed signs/sx pre-E and she agrees to call if any symptoms develop. Return in 3 weeks for visit [address] [facility] [address],[place] [address] 04/28/2020 14:29:31 04/28/2020 16:26:27 care 541156956 Z39.2 Doing well s/p C/S + BTL. Continue labetalol and follow up within next 1-2 months with PCP for ongoing HTN management . Last pap 02/2019 so due for annual at any time now. She says she will call back to schedule [id number] Moreno Butler MD [facility] [address],[place] [address] 08/12/2020 16:12:57 08/12/2020 16:39:30 Abnormal uterine bleeding 4505199713 9100 N93.9 60085 Yue Gotti [facility] [address],[place] [address] 08/29/2020 10:28:27 08/29/2020 11:17:33 Irregular intermenstrual bleeding 76824115 N92.1 04923 Moreno Butler MD [facility] [address],[place] [address] 08/29/2020 10:30:08 08/29/2020 11:39:48 Abnormal uterine bleeding 9973506542 9100 N93.9 this patient is a 39-year-ol d female presents for irregular bleeding. She had a pelvic ultrasound and laboratory evaluation . These are both normal, essentiall y. We talked about anovulator y bleeding. We talked about the menstrual cycle. Talked about the risk of endometria l cancer. We talked about treatment options. We agreed to continuous micronized progestero ne 100 mg p.o. q.d.. We spent over 25 minutes face-to-fa ce. More than 50% was counseling . She agreed to return in 3 months. [id number] Moreno Butler MD [facility] [address],[place] [address] 10/27/2020 12:29:44 10/27/2020 13:53:00 Abnormal uterine bleeding 8264098548 9100 N93.9 This patient is a 40-year-ol d female with irregular bleeding. She has continued to bleed despite treatment with progestero ne only medication . We discussed treatment options and agreed to Mirena insertion. We will make arrangemen ts for Mirena insertion. Is been ordered and she will follow-up for the insertion. [id number] Arianna Aldana [facility] [address],[facility] [place] [address] 06/19/2021 09:39:02 06/20/2021 16:14:50 Gynecologic examination 35785298 Z01.419 Z11.51 Take Calcium with Vitamin D 1200mg daily if not receiving in daily diet. It is strongly advised to have an annual flu shot and up can obtain at most pharmacies . If you have not had a TDap shot in the last 10 years you should obtain one as well. Discussed with patient & provided with informatio n regarding Gardisil vaccine to prevent the 4 strains for HPV that cause cervical cancer if under age 26. Encourage safe sexual practices, to use condoms and limit partners if not already in a monogamous relationsh ip. Do monthly self breast exams. Have mammogram yearly or every other year depending on family history. BRCA testing is now available for patients with strong genetic history of female cancer. If interested contact the office. Engage in daily exercise of low impact aerobic exercise 45-60 minutes 4-5 times weekly. Avoid tobacco and illicit drugs as well as using moderation with alcohol intake less than 1-2 8 oz beverages daily. This lifestyle behavior pattern will lead to less health conditions and longer life span. If BMI greater than 25 weight watchers or dietary consult advised. Patient received above instructio ns, and questions have been answered. If you have any questions please call or respond to this email. Patient was made aware of the patient portal and may obtain a paper copy of today's plan if desired. [id number] Mirian Gusman , [facility] [address] [address] 09/30/2021 11:58:14 09/30/2021 12:43:13 Menorrhagia 425137314 N92.0 Today we discussed various options for Menorrhagi a that is now creating issues with anemia. Hormonal & non-hormon al options were reviewed.B CP, Nuvaring, Patch, Nexplanon, IUD, Lysteda.En dometrial ablation or hysterscop y if found to have polyp/fibr oids other issues that can cause heavy menses. EMBx could also potentiall y be required depending on results/pl an of care. She is leaning towards endometria l ablation (Hx of tubal ligation). Will update TVUS & scheduled MD consult with Dr. Butler to discuss these or other recommende d options.Qian ondina is happy with this plan & appreciati ve.Handout s given for further home review. Time spent in visit is a total of 32 mins with at least 50% of visit consisting of counseling and review of plan of care.Addit ional precaution aida measures were taken to minimize potential exposure to the Covid-19 virus during this patient s visit, including available hand charge histotechnologist upon arrive, temperatur e check and being asked a series of screening questions. All staff wore face coverings during this encounter, as well as provided additional cleaning and sanitizing of all surfaces, including countertop s, pens, chairs, door handles, light switches, etc, prior to and following the patient s visit. [id number] Yue Gotti [facility] [address],[place] [address] 10/26/2021 09:29:51 10/26/2021 10:32:38 Irregular periods [id number] N92.6 [id number] Moreno Butler MD [facility] [address],[place] [address] 10/30/2021 09:39:24 10/30/2021 12:46:34 Screening procedure [id number] Z13.9 Menorrhagia [id number] N9 2.0 This patient is a 41-year-ol d female presents for heavy vaginal bleeding. She has longstandi ng very heavy bleeding. Her menses are regular. However, they require double protection . Patient has accidents, getting blood on her bedding and clothing. Is affected work. She changes a pad or tampon every hour. She leaks blood around the pad and tampon. This bleeding has a profound impact on her quality of life and her activities of daily living. discussed ultrasound results. Discussed treatment options. The patient has already interested in endometria l ablation. We reviewed the procedure. I showed her the video of the procedure. We talked about risks and benefits. We talked about potential results and failures. We agreed to proceed with endometria l ablation. we spent over 35 minutes face-to-fa ce. We discussed ultrasound results. We reviewed images together. We discussed risks and benefits of procedure. We reviewed a video of the procedure. We talked about potential results/ outcomes. [id number] Moreno Butler MD [facility] [address],[place] [address] 01/16/2022 10:40:10 01/16/2022 11:30:18 Lesion of skin of breast [id number] 00778 L98.8 this patient is a 41-year-ol d female who presents for skin lesion. On the skin of her left breast medially She notes a nodule. It is nontender. It is the size of a pencil eraser. There is no flocculenc e or redness. He was examined. She has a small subcutaneo us nodule. It is smooth edged. It is slightly mobile. Appears to be a possible inclusion cyst the subcutaneo us tissue. She is noted to have skin infections of the skin around the breast. We agreed to observe. It does not appear infected. She is to return if it gets larger, painful, infected. [id number] ALEXIS Ramírez [facility] [address],[place] [address] 08/01/2022 09:28:31 08/01/2022 10:43:20 Screening for malignant neoplasm of breast 412802245 Z12.39 Gynecologi c examination 46006821 Z01.419 Suggested Calcium with Vitamin D 1200-1500m g daily. Patient advised to get an annual flu shot in the fall and she could obtain at [facility] or [facility] care clinic. Also to obtain TDap vaccinatio n if you have not had one in the last 10 years. Recommend yearly mammograms . Encouraged monthly self breast exams. Encourage safe sexual practices, to use condoms and limit partners if not already in a monogamous relationsh ip. Engage in daily exercise of low impact aerobic exercise 45-60 minutes 4-5 times weekly. Avoid tobacco and illicit drugs as well as using moderation with alcohol intake less than 1-2 8 oz beverages daily. This lifestyle behavior pattern will lead to less health conditions and longer life span. If BMI greater than 25 weight watchers or dietary consult advised. All questions have been answered. Patient appears to understand informatio n, but if you have any questions please call or respond to this email. 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 Last pelvic u/s showed a 6mm endometria l cystic structure. Her menses last about 6 days now, adult crossing guard flow than previously . We agreed to repeat pelvic u/s to f/u on cystic structure. BC - tubalNo hx of abnormal papsPap done todaySTI testing declinedMa mmogram order given to patientUTD with PCPRTC for pelvic u/s and u/s f/u appointmen t [id number] Yue Gotti [facility] [address],[place] [address] 08/16/2022 09:33:02 08/16/2022 10:16:41 Abnormal uterine bleeding [id number] 9100 N93.9 This patient is a 40-year-ol d female with irregular bleeding. She has continued to bleed despite treatment with progestero ne only medication . We discussed treatment options and agreed to Mirena insertion. We will make arrangemen ts for Mirena insertion. Is been ordered and she will follow-up for the insertion. [id number] ALEXIS Ramírez [facility] [address],[place] [address] 08/20/2022 09:57:14 08/20/2022 11:33:19 Lesion of endometrium [id number] 9101 N85.9 We reviewed pelvic u/s result.Nor mal appearing uterus, normal adnexa, hypoechoic nodule within endometriu m (seen previously on last 2 imaging and appears stable). Cystic structure no longer seen. We discussed this as a normal result, Given menses are normal, no AUB, no pelvic pain. She will continue to monitor/tr ack menses and return to the clinic with any prolonged or heavy vaginal bleeding. Patient agrees to this plan. She is no longer interested in ablation given normal menses, she will notify us with any changes.RT C in 1 year or sooner if needed. Encouraged patient to check in with PCP for BP check Time spent in visit is a total of 20 mins with at least 50% of visit consisting of counseling and review of plan of care. [id number] ALEXIS Ramírez [facility] [address],[place] [address] 09/12/2023 09:30:49 09/12/2023 12:13:23 Gynecologic examination [id number] Z01.419 Z11.51 WWEBC - BTLpap updatedSTI testing declinedma mmogram order givenUTD with PCP for routine labsRTC in 1 yr or sooner if needed she is still considerin g an ablation - if desires, recommend updated u/s and f/u with Dr. Butler for consult Suggested Calcium with Vitamin D daily. Patient advised to get an annual flu shot in the fall and she could obtain at [facility] or [facility] take care clinic. Also to obtain TDap vaccinatio n if you have not had one in the last 10 years. Recommend yearly mammograms . Encouraged monthly self breast exams. Encourage safe sexual practices, to use condoms and limit partners if not already in a monogamous relationsh ip. Engage in daily exercise of low impact aerobic exercise 45-60 minutes 4-5 times weekly. Avoid tobacco and illicit drugs as well as using moderation with alcohol intake less than 1-2 8 oz beverages daily. This lifestyle behavior pattern will lead to less health conditions and longer life span. If BMI greater than 25 weight watchers or dietary consult advised. All questions have been answered. Patient appears to understand informatio n, but if you have any questions please call or respond to this email. [id number] Yue Gotti [facility] [address],[place] [address] 07/09/2024 10:26:03 07/09/2024 11:11:14 Abnormal uterine bleeding [id number] 9100 N93.9 This patient is a 40-year-ol d female with irregular bleeding. She has continued to bleed despite treatment with progestero ne only medication . We discussed treatment options and agreed to Mirena insertion. We will make arrangemen ts for Mirena insertion. Is been ordered and she will follow-up for the insertion. [id number] Moreno Butler MD [facility] [address] [address] 08/05/2024 15:25:39 08/06/2024 10:15:09 Menorrhagia 855298973 N92.0 This patient is a 43-year-ol d female with severe menorrhagi a. We have agreed to perform endometria l ablation. She understand s the risks, benefits, and alternativ es. She has completed the informed consent process and is ready to proceed. [id number] Moreno Butler MD [facility] [address],[place] [address] 09/25/2024 09:25:12 09/25/2024 10:01:54 Bacterial vaginosis 364881348 N76.0 Gynecologi c examination 57937790 Z01.419 Annual gynecologi cabrera exam performed. Patient will come back in a year unless there are new symptoms. Suggest Calcium with Vitamin D if not eating in diet. Patient advised to get annual flu shot. Recommend yearly physicals and preform monthly breast exams. Genetic testing is available for patients with family history of cancer. Engage in safe sexual practices, use condoms. Encouraged to have daily exercise. Avoid tobacco and illicit drugs, moderation of alcohol. If BMI greater than 25 dietary consult advised. If you have any questions please call or email. mammogram- ordered colon cancer screening - na DEXA scan- na Pap smear- today laboratory evaluation - done Health Concerns Section Related Observation LastModified by Organization Detai ls LastModified Time None Recorded Concern Status LastModified by Organization Details LastModified Time None Recorded Advance Directives Directive N: Payers Encounter Date Sequence Insurance Name Policy Number Policy Garcia Covered Member ID Garcia Member ID Guarantor Name 08/20/2022 1 [facility] - DOS ON OR AFTER 21 (MEDICAID REPLACEMENT - HMO) Imani Collier [id number] Imani Collier 09/12/2023 1 [facility] [id number] Imani Collier [id number] Imani Collier 07/09/2024 1 [facility] [id number] Imani M Collier [id number] Imani Collier 08/05/2024 1 [facility] [id number] Imani Collier [id number] Imani Collier 09/25/2024 1 [facility] [id number] Imani M Collier [id number] Imani Landfall Notes Date Note Type Note Provider Name and Address Organization Details Recorded Time 2 text/html 41yo Presents for pelvic u/s f/u appointmentPelvic u/s done for f/u on endometrial cystic lesion and nodule seen on prior imagingShe is doing well, menses are normal. Lasting 5-6 days, changing pads every 3-4 hours. ALEXIS Ramírez [address], [place], [address], [facility] 08/20/2022 11:13:37 3 text/html Annual [...] age 40 ALEXIS Ramírez [address], [place], [address], [facility] 09/12/2023 12:04:39 [...] of hemorrhage and infection. Moreno Butler MD [address], [place], [address], [facility] 08/05/2024 17:27:58 [...] exercise Moreno Butler MD [address], [place], [address], [facility] 09/25/2024 09:59:18 OBGyn Episode Ob Episode Information Episode Created Date Number of Fetuses Patient Bloodtype Patient rh Status Prepregnancy Weight lbs Domestic Partner Domestic Partner Phone Father Name Import Specialist Status 02/25/20 20 1 B Positive 254 CLOSED Fetus Data First Name Last Name Admitted to NICU Weight (g) Sex Living Outcome Pediatric Complications Fetus ID Race Codes Race Delivery Type 2976.69 75 F true Full Term 213 Repeat Problems Problem Notes Problem Name Start Date End Date Resolution Snomed Code Not e Morbid obesity 803542939 Hypertensive disorder 98400434 Chronic HTN - labetalol 200mg Advanced maternal age 948217901 Vince Calculation Initial Vince Date Initial Exam Date Initial Exam Provider Initial Ultrasound Date Last Menstrual Period Date Ultra Sound Weeks Gestation 04/13/2020 02/25/2020 09/04/2019 07/21/2019 8 Eighteen To Twenty Week Vince Update Ultra Sound Date Fundal Height At Umbil Quickening Date Ultra Sound Latest Weeks Gestation Final Vince Confirmed By Final Vince Confirmed Date Final Vince Date Ultra Sound Latest Days Gestation 0 03/07/2020 04/13/20 20 0 Pre-sunitha Flowsheet Flowsheet Date 02/25/2020 Benoit Score Blood [...] Weight in lbs Pre/Post Dialysis Refused Weight 271.226574859689 BP Diastolic BP Location Tested BP Systolic [...] Weight in lbs Pre/Post Dialysis Refused Weight 274.348011190791 BP Diastolic BP Location Tested BP Systolic [...] Weight in lbs Pre/Post Dialysis Refused Weight 275.942319520043 BP Diastolic BP Location Tested BP Systolic [...] Weight in lbs Pre/Post Dialysis Refused Weight 276.773718541060 BP Diastolic BP Location Tested BP Systolic BP Type 97 157 Fetus Heart Rate Present Fetus Movement Comments bp retake 137/84 slm Flowsheet Date 09/28/2019 Benoit Score Blood Edema Fundus Height Fundus Units Glucose Ketones Leukocytes Nitrite Labor Signs Protein Cervic Dilation Cervic Effacement Cervic Station trace Type Weight in lbs Pre/Post Dialysis Refused Weight 263.936129727227 BP Diastolic BP Location Tested BP Systolic [...] Weight in lbs Pre/Post Dialysis Refused Weight 263.284544528405 BP Diastolic BP Location Tested BP Systolic BP Type 85 149 sitting Fetus Heart Rate Present A 145 Fetus Movement A Yes Comments Flowsheet Date 11/24/2019 Benoit Score Blood Edema Fundus Height Fundus Units Glucose Ketones Leukocytes Nitrite Labor Signs Protein Cervic Dilation Cervic Effacement Cervic Station trace 19 trace Type Weight in lbs Pre/Post Dialysis Refused Weight 263.909308709062 BP Diastolic BP Location Tested BP Systolic [...] Weight in lbs Pre/Post Dialysis Refused Weight 263.537824354484 BP Diastolic BP Location Tested BP Systolic BP Type 87 155 sitting Fetus Heart Rate Present Fetus Movement A Yes Comments This patient is a 39-year-ol d multiparous female with chronic hypertension. MFM changed her blood pressure medication. She is now four hundred b.i.d. to see SARAHM again later this week. Flowsheet Date 01/18/2020 Benoit Score Blood Edema Fundus Height Fundus Units Glucose Ketones Leukocytes Nitrite Labor Signs Protein Cervic Dilation Cervic Effacement Cervic Station trace 29 trace Type Weight in lbs Pre/Post Dialysis Refused Weight 274.520978498212 BP Diastolic BP Location Tested BP Systolic BP Type 89 146 sitting Fetus Heart Rate Present A 145 Fetus Movement A Yes Comments Flowsheet Date 02/01/2020 Benoit Score Blood Edema Fundus Height Fundus Units Glucose Ketones Leukocytes Nitrite Labor Signs Protein Cervic Dilation Cervic Effacement Cervic Station trace 33 trace Type Weight in lbs Pre/Post Dialysis Refused Weight 274.705382838357 BP Diastolic BP Location Tested BP Systolic BP Type 79 135 sitting Fetus Heart Rate Present A 145 Fetus Movement A Yes Comments Flowsheet Date 02/15/2020 Benoit Score Blood Edema Fundus Height Fundus Units Glucose Ketones Leukocytes Nitrite Labor Signs Protein Cervic Dilation Cervic Effacement Cervic Station trace 1+ Type Weight in lbs Pre/Post Dialysis Refused Weight 274.308615264186 BP Diastolic BP Location Tested BP Systolic [...] Weight in lbs Pre/Post Dialysis Refused Weight 276.334128010100 BP Diastolic BP Location Tested BP Systolic [...] Weight in lbs Pre/Post Dialysis Refused Weight 258.738128402043 BP Diastolic BP Location Tested BP Systolic BP Type 105 R arm 161 sitting Fetus Heart Rate Present Fetus Movement Comments Flowsheet Date 04/28/2020 Benoit Score Blood Edema Fundus Height Fundus Units Glucose Ketones Leukocytes Nitrite Labor Signs Protein Cervic Dilation Cervic Effacement Cervic Station Type Weight in lbs Pre/Post Dialysis Refused Weight 249.660000192908 BP Diastolic BP Location Tested BP Systolic BP Type 92 R arm 153 sitting Fetus Heart Rate Present Fetus Movement Comments Flowsheet Date 08/12/2020 Benoit Score Blood Edema Fundus Height Fundus Units Glucose Ketones Leukocytes Nitrite Labor Signs Protein Cervic Dilation Cervic Effacement Cervic Station Type Weight in lbs Pre/Post Dialysis Refused Weight 243.916245072230 BP Diastolic BP Location Tested BP Systolic [...] Weight in lbs Pre/Post Dialysis Refused Weight 240.264423959097 BP Diastolic BP Location Tested BP Systolic [...] Estim ated Date of Delivery false Thalassemia (Romanian, Bahamian, Mediterranean, Or Background): MCV < 80 false Neural Tube Defect (Meningomyelocele, Spina Bifi da, Or Anencephaly) false Congenital Heart Defect false Down Syndrome false Arian-Sachs (eg, Holiness, Cajun, Pakistani-[place]) f alse Sharon Disease false Sickle Cell Disease Or Trait () false Hemophilia Or Other Blood Disorders false Muscular Dystrophy false Cystic Fibrosis false Hamill's Chorea false Intellectual Disability/Autism false If Yes, [...] Regional-Sp inal 38.1 Low Transvers e false [id number] Obesity/A MA/CHTN/G BS+ Discharge Information Feeding Method Contraceptive Method Maternal HG B and HCT Levels Ob Episode Information Episode Created Date Number of Fetuses Patient Bloodtype Patient rh Status Prepregnancy Weight lbs Domestic Partner Domestic Partner Phone Father Name Import Specialist Status 03/06/20 1 CLOSED Fetus Data First Name Last Name Admitted to NICU Weight (g) Sex Living Outcome Pediatric Complications Fetus ID Race Codes Race Delivery Type , Spontane ous 606 Vince Calculation Initial Vince Date Initial Exam Date Initial Exam Provider Initial Ultrasound Date Last Menstrual Period Date Ultra Sound Weeks Gestation 0 Eighteen To Twenty Week Vince Update [...] Domestic Partner Domestic Partner Phone Father Name Import Specialist Status 03/17/20 1 CLOSED Fetus Data First Name Last Name Admitted to NICU Weight (g) Sex Living Outcome Pediatric Complications Fetus ID Race Codes Race Delivery Type 3316.66 4704 M Full Term 993 Primary Vince Calculation Initial Vince Date Initial Exam Date Initial Exam Provider Initial Ultrasound Date Last Menstrual Period Date Ultra Sound Weeks Gestation 0 Eighteen To Twenty Week Vince Update [...] Tubal Sterilization Discharge Date Comments 5 39 E'Maujay Discharge Information Feeding Method Contraceptive Method Maternal HG B and HCT Levels Ob Episode Information Episode Created Date Number of Fetuses Patient Bloodtype Patient rh Status Prepregnancy Weight lbs Domestic Partner Domestic Partner Phone Father Name Import Specialist Status 03/17/20 20 1 CLOSED Fetus Data First Name Last Name Admitted to NICU Weight (g) Sex Living Outcome Pediatric Complications Fetus ID Race Codes Race Delivery Type 3373.36 3704 M Full Term 994 Primary Vince Calculation Initial Vince Date Initial Exam Date Initial Exam Provider Initial Ultrasound Date Last Menstrual Period Date Ultra Sound Weeks Gestation 0 Eighteen To Twenty Week Vince Update [...] Tubal Sterilization Discharge Date Comments 4 40 timothy Marsh pushing out Discharge Information Feeding Method Contraceptive Method Maternal HG B and HCT Levels Ob Episode Information Episode Created Date Number of Fetuses Patient Bloodtype Patient rh Status Prepregnancy Weight lbs Domestic Partner Domestic Partner Phone Father Name Import Specialist Status 04/07/20 20 1 DELETED Vince Calculation Initial Vince Date Initial Exam Date Initial Exam Provider Initial Ultrasound Date Last Menstrual Period Date Ultra Sound Weeks Gestation 0 Eighteen To Twenty Week Vince Update [...]
== END 2025-03-02 09:02 | disposition home or self-care (01) ==
PROVIDERS: PCP Physician Assistant; Visit Provider Obstetrics & Gynecology
DX: Z12.31 Encounter for screening mammogram for malignant neoplasm of breast (principal)
CPT/HCPCS: 77063; 77067